=== PATIENT | female | born 1950 | race Caucasian/White ===

== ENCOUNTER 2023-04-27 13:42 | Inpatient (IN) | payer MEDICARE ==
--- NOTE | 2023-04-27 13:53 | ED ---
General Adult HPI - General Chief complaint: Shortness of Breath Stated complaint: Weakness Time Seen by Provider: 04/27/23 13:42 Source: patient, EMS, RN notes reviewed, old records reviewed Mode of arrival: EMS - History of Present Illness Initial comments: This is a 72-year-old female who presents to the emergency department with a history of COPD. Patient had difficulty breathing was sent over to [facility] to evaluate her Basha put her on BiPAP and determined she was having exacerbation of COPD. They gave her steroids multiple treatments and transferred to our facility. Patient currently is off the BiPAP because she could not tolerate the mask and EMS gave her show she is willing to try it again here. Patient states she is feeling better but she still little bit short of breath but patient denies any chest pain now but according to EMS she did have some chest pain earlier. Patient denies any abdominal pain patient has nausea vomiting diarrhea. Patient denies any fever or chills. EMS stated that they tested her for influenza and COVID and she was negative. - Related Data Allergies Allergy/AdvReac Type Severity Reaction Status Date / Time No Known Allergies Allergy Verified 04/27/23 13:51 Review of Systems ROS Statement: Those systems with pertinent positive or pertinent negative responses have been documented in the HPI. ROS Other: All systems not noted in ROS Statement are negative. Past Medical History Past Medical History: COPD Additional Past Medical History / Comment(s): Emphysema Additional Past Surgical History / Comment(s): Breast implants Past Psychological History: Anxiety Smoking Status: Former smoker Past Alcohol Use History: None Reported Past Drug Use History: None Reported General Exam - General Exam Comments Initial Comments: GENERAL: Patient is well-developed and well-nourished. Patient is nontoxic and well- hydrated and is in mild distress. ENT: Neck is soft and supple. No significant lymphadenopathy is noted. Oropharynx is clear. Moist mucous membranes. Neck has full range of motion without eliciting any pain. EYES: The sclera were anicteric and conjunctiva were pink and moist. Extraocular movements were intact and pupils were equal round and reactive to light. Eyelids were unremarkable. PULMONARY: Decreased breath sounds CARDIOVASCULAR: Patient is tachycardic at 120 beats a minute ABDOMEN: Soft and nontender with normal bowel sounds. SKIN: Skin is clear with no lesions or rashes and otherwise unremarkable. NEUROLOGIC: Patient is alert and oriented x3. Cranial nerves II through XII are grossly intact. Motor and sensory are also intact. Normal speech, volume and content. Symmetrical smile. MUSCULOSKELETAL: Normal extremities with adequate strength and full range of motion. LYMPHATICS: No significant lymphadenopathy is noted PSYCHIATRIC: Normal psychiatric evaluation. Course Vital Signs 04/27/23 04/27/23 04/27/23 13:45 13:52 14:06 Temperature 98.5 F Pulse Rate 133 H Respiratory 26 H 36 H Rate Blood Pressure 143/80 O2 Sat by Pulse 90 L Oximetry Fraction of 50 Inspired Oxygen (FIO2) 04/27/23 04/27/23 04/27/23 14:23 14:31 14:33 Temperature Pulse Rate 124 H 123 H 120 H Respiratory 35 H 34 H Rate Blood Pressure 131/71 131/72 O2 Sat by Pulse 94 L 96 Oximetry Fraction of Inspired Oxygen (FIO2) 04/27/23 15:05 Temperature Pulse Rate 130 H Respiratory 28 H Rate Blood Pressure 145/92 O2 Sat by Pulse 95 Oximetry Fraction of Inspired Oxygen (FIO2) Medical Decision Making - Medical Decision Making EKG is interpreted by myself. EKG shows sinus tachycardia at 122 bpm LA interval is 130 QRS is 82 QT interval 337 QTc is 410. Patient's EKG shows no ST segment elevation or depression. Was pt. sent in by a medical professional or institution (, PA, NUTRITION COUNSELOR, urgent ca re, hospital, or longterm...) When possible be specific @ -Patient was sent to us by [facility] Did you speak to anyone other than the patient for history (EMS, parent, family, police, friend...)? What history was obtained from this source @ -I spoke with the ER doc [facility] Did you review nursing and triage notes (agree or disagree)? Why? @ -I reviewed and agree with nursing and triage notes Were old charts reviewed (outside hosp., previous admission, EMS record, old EKG, old radiological studies, urgent care reports/EKG's, longterm records)? Report findings @ -I reviewed prior lab work prior charts and prior x-rays on this patient Differential Diagnosis (chest pain, altered mental status, abdominal pain women, abdominal pain men, vaginal bleeding, weakness, fever, dyspnea, syncope, headache, dizziness, GI bleed, back pain, seizure, CVA, palpatations, mental health, musculoskeletal)? @ -Differential Dyspnea: Coronary syndrome, arrhythmia, tamponade, asthma, COPD, pulmonary embolism, pneumonia, pneumothorax, pulmonary effusion, anaphylaxis, diabetic ketoacidosis, flailed chest, pulmonary contusion, diaphragmatic rupture, anemia, neuromuscu lar, this is not meant to be an all-inclusive list. EKG interpreted by me (3pts min.). @ -As above X-rays interpreted by me (1pt min.). @ -None done CT interpreted by me (1pt min.). @ -None done U/S interpreted by me (1pt. min.). @ -None done What testing was considered but not performed or refused? (CT, X-rays, U/S, labs)? Why? @ -None What meds were considered but not given or refused? Why? @ -None Did you discuss the management of the patient with other professionals (professionals i.e. , PA, NUTRITION COUNSELOR, lab, RT, psych nurse, social group worker, health technician hearing, teacher, investment officer, lining caser)? Give summary @ [facility] Spoke with Dr. Robles admitted the patient to the ICU. Was smoking cessation discussed for >3mins.? @ -No Was critical care preformed (if so, how long)? @ -35 minutes Were there social determinants of health that impacted care today? How? (Homelessness, low income, unemployed, alcoholism, drug addiction, transportation, low edu. Level, literacy, decrease access to med. care, halfway, rehab)? @ -No Was there de-escalation of care discussed even if they declined (Discuss DNR or withdrawal of care, Hospice)? DNR status @ -No What co-morbidities impacted this encounter? (DM, HTN, Smoking, COPD, CAD, Cancer, CVA, ARF, Chemo, Hep., AIDS, mental health diagnosis, sleep apnea, morbid obesity)? @ -None Was patient admitted / discharged? Hospital course, mention meds given and route, prescriptions, significant lab abnormalities, going to OR and other pertinent info. @ -Patient received albuterol Atrovent treatment in the emergency department as well as steroids. Patient was also placed on BiPAP stating that she felt more comfortable with her breathing but she did not like the BiPAP. Patient was given 0.5 of Ativan. I spoke with [facility] hospitalist they are willing to admit the patient admit the patient Boutt admitting or psych consult of Dr. Robles. Patient also received antibiotics in the emergency department. Undiagnosed new problem with uncertain prognosis? @ -No Drug Therapy requiring intensive monitoring for toxicity (Heparin, Nitro, Insulin, Cardizem)? @ -No Were any procedures done? @ -No Diagnosis/symptom? @ -Exacerbation of COPD Acute, or Chronic, or Acute on Chronic? @ -Acute Uncomplicated (without systemic symptoms) or Complicated (systemic symptoms)? @ -Complicated Side effects of treatment? @ -No Exacerbation, Progression, or Severe Exacerbation? @ -Severe exacerbation Poses a threat to life or bodily function? How? (Chest pain, [place], [place], pneumonia, PE, COPD, DKA, ARF, appy, cholecystitis, CVA, Diverticulitis, Homicidal, Suicidal, threat to staff... and all critical care pts) @ -Yes hypoxia can lead to end organ dysfunction - Lab Data Lab Results 04/27/23 04/27/23 04/27/23 Range/Units 13:53 14:01 14:20 PT 10.8 (10.0-12.5) sec INR 1.0 (<1.2) ABG pH 7.24 L (7.35-7.45) ABG pCO2 107 H* (35-45) mmHg ABG pO2 167 H (83-108) mmHg ABG HCO3 45 H* (21-25) mmol/L ABG Total CO2 49 H (19-24) mmol/L ABG O2 Saturation 99.4 H (94-97) % ABG Base Excess 17.9 mmol/L [place] Test Yes Magnesium (1.6-2.3) mg/dL Troponin I <0.012 (0.000-0.034) ng/mL 04/27/23 Range/Units 14:20 PT (10.0-12.5) sec INR (<1.2) ABG pH (7.35-7.45) ABG pCO2 (35-45) mmHg ABG pO2 (83-108) mmHg ABG HCO3 (21-25) mmol/L ABG Total CO2 (19-24) mmol/L ABG O2 Saturation (94-97) % ABG Base Excess mmol/L [place] Test Magnesium 2.2 (1.6-2.3) mg/dL Troponin I (0.000-0.034) ng/mL Critical Care Time Critical Care Time: Yes Total Critical Care Time: 35 Disposition Clinical Impression: COPD exacerbation Disposition: ADMITTED IP TO THIS HOSP Referrals: Kevyn Jauregui MD [REFERRING] - 1-2 days Time of Disposition: 15:21
[2023-04-27 14:02] LABS: ABG Base Excess 17.9 mmol/L; ABG Oxygen Saturation 99.4 % (94-97); ABG PH 7.24 (7.35-7.45); ABG PO2 167 mmHg (83-108); ABG TCO2 49 mmol/L (19-24); Allen Test Performed? Yes
[2023-04-27] MEDS: IPRATROPIUM-ALBUTEROL 3 ML NEB INHALATION STA (14:23)
[2023-04-27] MEDS: methylPREDNISolone SOD SUCCI 125 MG/2 ML VIAL IV STA (14:30)
[2023-04-27 14:40] LABS: Prothrombin Time 10.8 sec (10.0-12.5)
[2023-04-27 14:55] LABS: Magnesium 2.2 mg/dL (1.6-2.3)
[2023-04-27 15:04] LABS: ABG HCO3 45 mmol/L (21-25); ABG PCO2 107 mmHg (35-45)
[2023-04-27] MEDS: LORazepam 2 MG/ML INJ IV STA (15:13)
[2023-04-27] MEDS ORDERED: NALOXONE 0.4 MG/ML 1 ML VIAL IVP PRN ×2 (15:21→15:42)
[2023-04-27 15:26] LABS: ABG Base Excess 16.7 mmol/L; ABG Oxygen Saturation 96.4 % (94-97); ABG PH 7.28 (7.35-7.45); ABG PO2 87 mmHg (83-108); ABG TCO2 46 mmol/L (19-24); Allen Test Performed? Yes
[2023-04-27 15:31] LABS: ABG HCO3 43 mmol/L (21-25); ABG PCO2 92 mmHg (35-45)
[2023-04-27] MEDS ORDERED: ACETAMINOPHEN TAB 325 MG TAB PO PRN (15:42)
[2023-04-27] MEDS ORDERED: BENZONATATE 100 MG CAP PO PRN (15:42)
--- NOTE | 2023-04-27 16:07 | XR ---
EXAMINATION TYPE: XR chest 1V portable DATE OF EXAM: 04/27/2023 COMPARISON: NONE HISTORY: Respiratory failure TECHNIQUE: Single frontal view of the chest is obtained. FINDINGS: There is no airspace/consolidative opacity or abnormal interstitial opacity. There does appear to be hyperinflation consistent with COPD. Heart and pulmonary vasculature are normal for the technique. There is no pleural effusion or pneumot horax. The osseous structures are intact although there is moderate degenerative change of the right glenohu meral joint. IMPRESSION: 1. No definite acute cardiopulmonary disease. 2. probable COPD.
[2023-04-27] MEDS: IPRATROPIUM-ALBUTEROL 3 ML NEB INHALATION SCH (16:08)
[2023-04-27 16:33] LABS: African American GFR (CKD) >90 (>60 ml/min/1.73 sqM); Blood Urea Nitrogen 21 mg/dL (7-17); Calcium 9.5 mg/dL (8.4-10.2); Chloride 94 mmol/L (98-107); Glucose 149 mg/dL (74-99); Non-African American GFR(CKD) >90 (>60 ml/min/1.73 sqM); Potassium 4.3 mmol/L (3.5-5.1); Sodium 141 mmol/L (137-145)
[2023-04-27] MEDS: SODIUM CHLORIDE 0.9% 1,000 ML IV SCH (16:38)
[2023-04-27 16:39] LABS: Anion Gap 5 mmol/L
[2023-04-27 16:57] LABS: Carbon Dioxide 42 mmol/L (22-30)
[2023-04-27 17:27] LABS: Basophils % (A) 0 %; Eosinophils % (A) 0 %; HCT 38.7 % (34.0-46.0); HGB 11.7 gm/dL (11.4-16.0); Hypochromasia Marked; Lymphocytes # (A) 0.2 k/uL (1.0-4.8); Lymphocytes % (A) 1 %; MCHC 30.4 g/dL (31.0-37.0); Mean Platelet Volume 8.5; Monocytes # (A) 0.1 k/uL (0-1.0); Monocytes % (A) 1 %; Neutrophils # (A) 11.9 k/uL (1.3-7.7); Neutrophils % (A) 97 %; Platelet Count 325 k/uL (150-450); RBC 4.35 m/uL (3.80-5.40); RDW 14.2 % (11.5-15.5); WBC 12.3 k/uL (3.8-10.6)
[2023-04-27] MEDS ORDERED: ZINC OXIDE PASTE (Z-GUARD) 1 APPLIC TOPICAL PRN (17:54)
[2023-04-27 18:00] LABS: Glucose,Whole Blood 207 mg/dL (70-110)
[2023-04-27] MEDS: BUDESONIDE 0.5 MG/2 ML NEBU INHALATION SCH (19:33)
[2023-04-27] MEDS: DOXYCYCLINE 100 MG CAP PO SCH (21:21)
[2023-04-27] MEDS: guaiFENesin 600 MG TABLET.ER PO SCH (21:21)
[2023-04-27] MEDS: MORPHINE SULFATE 2 MG/ML SYRINGE IVP PRN (21:24)
[2023-04-27] MEDS: AMOXIC-POT CLAV 875-125MG 1 EACH TAB PO SCH (23:28)
[2023-04-28] MEDS: methylPREDNISolone SOD SUCCI 125 MG/2 ML VIAL IV SCH (00:20)
[2023-04-28] MEDS: ONDANSETRON 4 MG/2 ML VIAL IVP PRN (00:25)
--- NOTE | 2023-04-28 00:37 | P.CNPUL ---
History of Present Illness Consult date: 04/28/23 Requesting physician: Marleen Neri Reason for consult: COPD Chief complaint: Shortness of breath History of present illness: I have seen this patient in new consultation today April 28, 2023 after she was transferred from [facility] for suspected acute COPD exacerbation. Patient is a 72-year-old female with past medical history significant for advanced oxygen dependent COPD, who follows with a Dr. Dejan Peter, a mechanical engineering coop out of [facility] system. Patient utilizes a combination of Symbicort and Spiriva inhalers as well as an as needed albuterol nebs. She is oxygen dependent maintained on 5 L/min nasal cannula 14/10. She quit smoking over 10 years ago. Patient has been living at [facility], and states that the staff taking care of her have been sick. Has been complaining of increasing worsening shortness of breath over the last couple months with greater severity over the last week. She does endorse a cough with yellow sputum production and chest congestion. Denies any fevers. Denies any chest pain, heart palpitations, lightheadedness, syncope, lower extremity swelling. She presented to [facility] emergency room yesterday with above-mentioned symptoms. She was found to be hypercapnic, and was placed on BiPAP. She did test negative for influenza and COVID at outside facility. Patient was then transferred to our facility yesterday afternoon for a higher level of care. She is currently in the intensive care unit, she is on BiPAP with settings 14/6 and FiO2 of 50%. She is alert and answers my questions appropriately. Her respiratory rate is in the mid 20s to 30s. She is achieving tidal volumes of around 250. Last ABG shows a pO2 of 87, pCO2 of 92, pH of 7.28. This was done on the above-mentioned settings. This is a slight improvement from earlier. Follow-up chest x-ray shows hyperinflation and flattened diaphragms consistent with COPD. Does not show any acute infiltrates. CBC on arrival has a WC count of 12.3, hemoglobin 11.7, hematocrit 38.7, platelets 325. BMP on arrival to our facility: Sodium 141, potassium 4.3, chloride 94, serum bicarb 42, BUN 21, creatinine 0.57, glucose 149. Normal saline is infusing at 75 mL/h. Troponin less than 0.072. Patient has been started on empiric antibiotics. She has multiple antibiotic allergies. She is also receiving a combination of bronchodilators, budesonide elation, formoterol inhalation, and IV Solu-Medrol. She continues to have a productive cough. She is afebrile. Overall prognosis is guarded related to above-mentioned comorbidities. Review of Systems REVIEW OF SYSTEMS: CONSTITUTIONAL: Denies any recent significant weight loss or weight gain. EYES: Denies change in vision. EARS, NOSE, MOUTH, THROAT: Denies headaches, denies sore throat. CARDIOVASCULAR: Denies chest pain, palpitations or syncopal episodes. RESPIRATORY: see HPI GASTROINTESTINAL: Denies change in appetite, abdominal pain, nausea and vomiting, or diarrhea GENITOURINARY: Denies hematuria, denies infections. MUSKULOSKELETAL: Denies pain, denies swelling. INTEGUMENTARY: Denies rash, denies eczema. NEUROLOGICAL: Denies recent memory loss, no recent seizure activity. PSYCHIATRIC: Denies anxiety, denies depression. HEMATOLOGIC/LYMPHATIC: Denies anemia, denies enlarged lymph node Past Medical History Past Medical History: COPD Additional Past Medical History / Comment(s): Emphysema History of Any Multi-Drug Resistant Organisms: None Reported Additional Past Surgical History / Comment(s): Breast implants Past Anesthesia/Blood Transfusion Reactions: No Reported Reaction Past Psychological History: Anxiety Smoking Status: Former smoker Past Alcohol Use History: None Reported Past Drug Use History: None Reported Medications and Allergies Home Medications Medication Instructions Recorded Confirmed Type Acetaminophen Tab [Tylenol] 650 mg PO Q6H PRN 04/27/23 04/27/23 History Albuterol Inhaler [Ventolin Hfa 2 puff INHALATION RT-Q4H PRN 04/27/23 04/27/23 History Inhaler] Aspirin EC [Ecotrin Low Dose] 81 mg PO DAILY 04/27/23 04/27/23 History Benzocaine 20 % Gel [Orajel] 1 applic DENTAL Q6H PRN 04/27/23 04/27/23 History Benzonatate [Tessalon Perles] 100 mg PO TID PRN 04/27/23 04/27/23 History Budesonide/Formoterol Fumarate 2 puff INHALATION RT-BID 04/27/23 04/27/23 History [Symbicort 160-4.5 Mcg Inhaler] Calcium Carbonate [Tums] 500 mg PO Q4H PRN 04/27/23 04/27/23 History Cholecalciferol [Vitamin D3 (125 125 mcg PO DAILY 04/27/23 04/27/23 History Mcg = 5000 Iu)] Diclofenac Sodium Gel [Voltaren 1% 2 gm TOPICAL Q6H PRN 04/27/23 04/27/23 History Gel] Docusate [Colace] 100 mg PO BID 04/27/23 04/27/23 History Fluticasone Nasal [place] [Flonase 1 spray EA NOSTRIL Q12H PRN 04/27/23 04/27/23 History Nasal [place]] Ipratropium-Albuterol Nebulize 3 ml INHALATION RT-Q6H PRN 04/27/23 04/27/23 History [Duoneb 0.5 mg-3 mg/3 ml Soln] L.acidoph,Paracasei, B.lactis 1 cap PO DAILY 04/27/23 04/27/23 History [Probiotic] LORazepam [Ativan] 1 mg PO TID 04/27/23 04/27/23 History Magnesium Hydroxide [Milk of 2,400 mg PO DAILY PRN 04/27/23 04/27/23 History Magnesia] Multivitamins, Thera [Multivitamin 1 tab PO DAILY 04/27/23 04/27/23 History (formulary)] Omeprazole 20 mg PO DAILY 04/27/23 04/27/23 History Promethazine HCl 12.5 mg PO Q6H PRN 04/27/23 04/27/23 History Sodium Chloride [Saline Mist] 1 spray EA NOSTRIL TID 04/27/23 04/27/23 History Sucralfate [Carafate] 1 gm PO TID 04/27/23 04/27/23 History Tiotropium [place] [Spiriva] 18 mcg INHALATION RT-DAILY 04/27/23 04/27/23 History busPIRone HCL 15 mg PO BID 04/27/23 04/27/23 History polyethylene glycoL 3350 [Miralax] 17 gm PO DAILY PRN 04/27/23 04/27/23 History predniSONE 5 mg PO DIRECTED 04/27/23 04/27/23 History predniSONE See Taper PO DIRECTED 04/27/23 04/27/23 History traZODone HCL [Desyrel] 50 mg PO HS 04/27/23 04/27/23 History Allergies Allergy/AdvReac Type Severity Reaction Status Date / Time azithromycin Allergy Rash/Hives Verified 04/27/23 23:52 levofloxacin [From Levaquin] Allergy Dyspnea Verified 04/27/23 23:52 Penicillins Allergy Dyspnea Verified 04/27/23 23:52 tetracycline Allergy Unknown Verified 04/27/23 23:54 Physical Exam Vitals: Vital Signs Temp Pulse Resp BP Pulse Ox FiO2 04/27/23 23:01 50 04/27/23 23:00 96 17 123/63 96 04/27/23 22:00 95 31 H 139/70 94 L 04/27/23 21:00 105 H 35 H 140/79 94 L 04/27/23 20:00 98.4 F 108 H 33 H 117/69 95 50 04/27/23 19:47 99 04/27/23 19:36 97 50 04/27/23 19:00 101 H 24 114/72 96 04/27/23 18:00 109 H 25 H 119/73 96 04/27/23 17:50 98.7 F 115 H 34 H 119/73 96 50 04/27/23 17:00 117 H 26 H 122/71 94 L 04/27/23 16:45 116 H 23 142/77 93 L 04/27/23 16:30 124 H 23 128/69 94 L 04/27/23 16:19 113 H 50 04/27/23 16:15 123 H 21 114/65 94 L 04/27/23 16:08 112 H 04/27/23 16:00 125 H 22 127/75 94 L 04/27/23 15:45 98.0 F 123 H 24 131/74 93 L 04/27/23 15:05 130 H 28 H 145/92 95 04/27/23 14:33 120 H 04/27/23 14:31 123 H 34 H 131/72 96 04/27/23 14:23 124 H 35 H 131/71 94 L 04/27/23 14:06 50 04/27/23 13:52 36 H 04/27/23 13:45 98.5 F 133 H 26 H 143/80 90 L Intake and Output 04/27/23 04/27/23 04/28/23 14:59 22:59 06:59 Intake Total 450 75 Output Total 0 0 Balance 450 75 Intake: IV 450 75 Sodium Chloride 0.9% 1, 450 75 000 ml @ 75 mls/hr IV . [id number] [facility] Rx#:[id number] Output: Urine 0 0 Other: Voiding Method Incontinent External Catheter # Voids 1 # Bowel Movements 1 Weight 74.843 kg 74.843 kg GENERAL EXAM: Alert, 72-year-old white female, fairly comfortable in no apparent distress on BiPAP. HEAD: Normocephalic and atraumatic EYES: Normal reaction of pupils, equal size. NOSE: Clear with pink turbinates. THROAT: No erythema or exudates. NECK: No masses, no JVD. CHEST: No chest wall deformity. LUNGS: Equal air entry with expiratory wheezes heard throughout. On BiPAP with settings 14/6 and FiO2 of 50%. She is tachypneic. No conversational dyspnea or accessory muscle use.. CVS: S1 and S2 normal with no audible murmur, regular rhythm. No extra heart sounds ABDOMEN: No hepatosplenomegaly, active bowel sounds, no guarding or rigidity. SPINE: No scoliosis or deformity SKIN: No rashes CENTRAL NERVOUS SYSTEM: No focal deficits, tone is normal in all 4 extremities. EXTREMITIES: There is no peripheral edema, clubbing, or cyanosis. Peripheral pulses are intact. Results - Laboratory Findings CBC and BMP: 04/27/23 16:36 04/27/23 14:20 ABG ABG pH 7.28 (7.35-7.45) L 04/27/23 15:24 ABG pCO2 92 mmHg (35-45) H* 04/27/23 15:24 ABG pO2 87 mmHg (83-108) 04/27/23 15:24 ABG O2 Saturation 96.4 % (94-97) 04/27/23 15:24 PT/INR, D-dimer PT 10.8 sec (10.0-12.5) 04/27/23 14:20 INR 1.0 (<1.2) 04/27/23 14:20 Abnormal lab findings: Abnormal Labs 04/27/23 04/27/23 04/27/23 13:53 14:20 15:24 WBC MCHC Neutrophils # Lymphocytes # ABG pH 7.24 L 7.28 L ABG pCO2 107 H* 92 H* ABG pO2 167 H ABG HCO3 45 H* 43 H* ABG Total CO2 49 H 46 H ABG O2 Saturation 99.4 H Chloride 94 L Carbon Dioxide 42 H* BUN 21 H Glucose 149 H POC Glucose (mg/dL) 04/27/23 04/27/23 16:36 17:58 WBC 12.3 H MCHC 30.4 L Neutrophils # 11.9 H Lymphocytes # 0.2 L ABG pH ABG pCO2 ABG pO2 ABG HCO3 ABG Total CO2 ABG O2 Saturation Chloride Carbon Dioxide BUN Glucose POC Glucose (mg/dL) 207 H - Diagnostic Findings Chest x-ray: image reviewed Assessment and Plan Assessment: Acute on chronic hypoxemic and hypercapnic respiratory failure, currently on BiPAP, secondary to acute COPD exacerbation. Chest x-ray shows hyperinflation with flattened diaphragms consistent with COPD. No acute infiltrates or evidence of pneumonia. Negative for influenza and COVID at outside facility. Severe COPD with chronic hypoxemic respiratory failure, normally maintained on 5 L/min nasal cannula 14/10; also utilizes accommodation of Symbicort inhaler, Spiriva inhaler, DuoNebs and as needed Ventolin rescue inhaler Generalized anxiety disorder Former tobacco dependence Plan: Patient's medications, labs, chest x-ray reviewed Will continue on the BiPAP overnight, I did augment the patient's BiPAP pressures to 16/6, may wean FiO2 as tolerated. Continue combination of DuoNebs, formoterol inhalation, budesonide inhalation, and IV Solu-Medrol. Continue current empiric antibiotics, patient has multiple antibiotic allergies. Rule out RSV. Negative for influenza and COVID at outside facility Check procalcitonin level Heparin for DVT prophylaxis and Protonix for GI prophylaxis. Patient will be monitored in the intensive care unit at this time. Patient's condition is currently labile, and hopefully will not require intubation. Prognosis is guarded. Will continue to follow, and additional recommendations are forthcoming. I have personally seen and examined the patient, performed the documentation and the assessment and plan as written. Number of minutes spent on the visit:20 Time with Patient: Greater than 30
[2023-04-28 04:17] LABS: Glucose,Whole Blood 123 mg/dL (70-110)
[2023-04-28 05:06] LABS: HCT 34.7 % (34.0-46.0); Hypochromasia Marked; MCH 26.2 pg (25.0-35.0); MCHC 28.8 g/dL (31.0-37.0); Mean Platelet Volume 8.3; Platelet Count 271 k/uL (150-450); RBC 3.81 m/uL (3.80-5.40); RDW 13.9 % (11.5-15.5)
[2023-04-28 05:38] LABS: African American GFR (CKD) >90 (>60 ml/min/1.73 sqM); Blood Urea Nitrogen 25 mg/dL (7-17); C Reactive Protein 8.6 mg/dL (<1.0); Calcium 8.9 mg/dL (8.4-10.2); Chloride 98 mmol/L (98-107); Glucose 117 mg/dL (74-99); Non-African American GFR(CKD) >90 (>60 ml/min/1.73 sqM); Potassium 4.8 mmol/L (3.5-5.1); Sodium 140 mmol/L (137-145)
[2023-04-28 05:42] LABS: Anion Gap 3 mmol/L
[2023-04-28 05:54] LABS: Carbon Dioxide 39 mmol/L (22-30)
[2023-04-28] MEDS ORDERED: MAGNESIUM HYDROXIDE 2,400 MG/30 ML CUP PO PRN (06:43)
[2023-04-28] MEDS ORDERED: NON FORMULARY DRUG (Tiotropium Bromide [Spiriva Handihaler] 18 MCG Cap.W.Dev) INHALATION SCH (08:00)
--- NOTE | 2023-04-28 08:20 | P.HPIM ---
History of Present Illness this is a pleasant 72 years old female with past medical hisotry of COPD ,she is on 5 literof oxygen at home , she follows up with tape maker at [facility] dr. anju richards She presents because of worsening shortness of breath with chest tightness and pressures and cough with yellow Pflaum for the last 4 days She was transferred from [facility]. Patient could not tolerate BiPAP there and POC to was significantly elevated at 93 Currently she is awake alert, she is on BiPAP in the ICU. Sitting BiPAP R 16/6 with FiO2 of 50% She's also normal saline 75 mL/h She denies any abdominal pain vomiting or diarrhea. No change in urine habits. No dizziness. She's complains from the distal headache and generalized weakness but no lateralization She is on 5 mg of prednisone at home Patient currently on BiPAP as above Labs reviewed her hemoglobin is 10, still CBC is unremarkable. BMP is unremarkable but pCO2 is elevated at 39 Kelsea Lowe 7.2, pCO2 is high 92 and sodium bicarb is 543 Patient has positive RSV virus test CRP is elevated at 0.6 Chest x-ray shows COPD with mild right pleural effusion EKG shows sinus tachycardia at [address]-T changes. Currently patient is on ceftriaxone, doxycycline, Solu-Medrol 60 mg of normal saline 75 mL/h Review of Systems Review of systems CONSTITUTIONAL: No fever, no malaise, no fatigue. HEENT: No recent visual problems or hearing problems. Denied any sore throat. CARDIOVASCULAR: No orthopnea, PND, no palpitations, no syncope. PULMONARY: No chest wall tenderness Gastrointestinal: No diarrhea, no nausea, no vomiting, no abdominal pain. Normoactive bowel sounds. NEUROLOGICAL: No headaches, no weakness, no numbness. HEMATOLOGICAL: Denies any bleeding or petechiae. GENITOURINARY: Denies any burning micturition, frequency, or urgency. MUSCULOSKELETAL/RHEUMATOLOGICAL: Denies any joint pain, swelling, or any muscle pain. ENDOCRINE: Denies any polyuria or polydipsia. Past Medical History Past Medical History: COPD Additional Past Medical History / Comment(s): Emphysema History of Any Multi-Drug Resistant Organisms: None Reported Additional Past Surgical History / Comment(s): Breast implants Past Anesthesia/Blood Transfusion Reactions: No Reported Reaction Past Psychological History: Anxiety Smoking Status: Former smoker Past Alcohol Use History: None Reported Past Drug Use History: None Reported Medications and Allergies Home Medications Medication Instructions Recorded Confirmed Type Acetaminophen Tab [Tylenol] 650 mg PO Q6H PRN 04/27/23 04/27/23 History Albuterol Inhaler [Ventolin Hfa 2 puff INHALATION RT-Q4H PRN 04/27/23 04/27/23 History Inhaler] Aspirin EC [Ecotrin Low Dose] 81 mg PO DAILY 04/27/23 04/27/23 History Benzocaine 20 % Gel [Orajel] 1 applic DENTAL Q6H PRN 04/27/23 04/27/23 History Benzonatate [Tessalon Perles] 100 mg PO TID PRN 04/27/23 04/27/23 History Budesonide/Formoterol Fumarate 2 puff INHALATION RT-BID 04/27/23 04/27/23 History [Symbicort 160-4.5 Mcg Inhaler] Calcium Carbonate [Tums] 500 mg PO Q4H PRN 04/27/23 04/27/23 History Cholecalciferol [Vitamin D3 (125 125 mcg PO DAILY 04/27/23 04/27/23 History Mcg = 5000 Iu)] Diclofenac Sodium Gel [Voltaren 1% 2 gm TOPICAL Q6H PRN 04/27/23 04/27/23 History Gel] Docusate [Colace] 100 mg PO BID 04/27/23 04/27/23 History Fluticasone Nasal [place] [Flonase 1 spray EA NOSTRIL Q12H PRN 04/27/23 04/27/23 History Nasal [place]] Ipratropium-Albuterol Nebulize 3 ml INHALATION RT-Q6H PRN 04/27/23 04/27/23 History [Duoneb 0.5 mg-3 mg/3 ml Soln] L.acidoph,Paracasei, B.lactis 1 cap PO DAILY 04/27/23 04/27/23 History [Probiotic] LORazepam [Ativan] 1 mg PO TID 04/27/23 04/27/23 History Magnesium Hydroxide [Milk of 2,400 mg PO DAILY PRN 04/27/23 04/27/23 History Magnesia] Multivitamins, Thera [Multivitamin 1 tab PO DAILY 04/27/23 04/27/23 History (formulary)] Omeprazole 20 mg PO DAILY 04/27/23 04/27/23 History Promethazine HCl 12.5 mg PO Q6H PRN 04/27/23 04/27/23 History Sodium Chloride [Saline Mist] 1 spray EA NOSTRIL TID 04/27/23 04/27/23 History Sucralfate [Carafate] 1 gm PO TID 04/27/23 04/27/23 History Tiotropium [place] [Spiriva] 18 mcg INHALATION RT-DAILY 04/27/23 04/27/23 History busPIRone HCL 15 mg PO BID 04/27/23 04/27/23 History polyethylene glycoL 3350 [Miralax] 17 gm PO DAILY PRN 04/27/23 04/27/23 History predniSONE 5 mg PO DIRECTED 04/27/23 04/27/23 History predniSONE See Taper PO DIRECTED 04/27/23 04/27/23 History traZODone HCL [Desyrel] 50 mg PO HS 04/27/23 04/27/23 History Allergies Allergy/AdvReac Type Severity Reaction Status Date / Time azithromycin Allergy Rash/Hives Verified 04/27/23 23:52 levofloxacin [From Levaquin] Allergy Dyspnea Verified 04/27/23 23:52 Penicillins Allergy Dyspnea Verified 04/27/23 23:52 tetracycline Allergy Unknown Verified 04/27/23 23:54 Physical Exam Vitals: Vital Signs Temp Pulse Resp BP Pulse Ox FiO2 04/28/23 06:00 87 21 105/62 94 L 04/28/23 05:00 72 22 117/57 95 04/28/23 04:00 97.5 F L 76 19 105/61 95 50 04/28/23 03:05 50 04/28/23 03:00 77 19 104/55 04/28/23 02:00 80 21 109/62 93 L 04/28/23 01:00 87 25 H 126/64 91 L 04/28/23 00:00 97.9 F 86 31 H 95 50 04/27/23 23:26 82 31 H 129/72 95 04/27/23 23:01 50 04/27/23 23:00 96 17 123/63 96 04/27/23 22:00 95 31 H 139/70 94 L 04/27/23 21:00 105 H 35 H 140/79 94 L 04/27/23 20:00 98.4 F 108 H 33 H 117/69 95 50 04/27/23 19:47 99 04/27/23 19:36 97 50 04/27/23 19:00 101 H 24 114/72 96 04/27/23 18:00 109 H 25 H 119/73 96 04/27/23 17:50 98.7 F 115 H 34 H 119/73 96 50 04/27/23 17:00 117 H 26 H 122/71 94 L 04/27/23 16:45 116 H 23 142/77 93 L 04/27/23 16:30 124 H 23 128/69 94 L 04/27/23 16:19 113 H 50 04/27/23 16:15 123 H 21 114/65 94 L 04/27/23 16:08 112 H 04/27/23 16:00 125 H 22 127/75 94 L 04/27/23 15:45 98.0 F 123 H 24 131/74 93 L 04/27/23 15:05 130 H 28 H 145/92 95 04/27/23 14:33 120 H 04/27/23 14:31 123 H 34 H 131/72 96 04/27/23 14:23 124 H 35 H 131/71 94 L 04/27/23 14:06 50 04/27/23 13:52 36 H 04/27/23 13:45 98.5 F 133 H 26 H 143/80 90 L Intake and Output 04/27/23 04/27/23 04/28/23 14:59 22:59 06:59 Intake Total 450 625 Output Total 0 250 Balance 450 375 Intake: IV 450 625 Sodium Chloride 0.9% 1, 450 525 000 ml @ 75 mls/hr IV . [id number] [facility] Rx#:[id number] cefTRIAXone 1 gm In 100 Sodium Chloride 0.9% 50 ml @ 100 mls/hr IVPB Q24H [facility] Rx#:[id number] Output: Urine 0 250 Other: Voiding Method Incontinent Incontinent External Catheter External Catheter # Voids 1 1 # Bowel Movements 1 Weight 74.843 kg 74.843 kg 75.1 kg GENERAL: The patient is alert and oriented x3, not in any acute distress. Well developed, well nourished. HEENT: Pupils are round and equally reacting to light. EOMI. No scleral icterus. No conjunctival pallor. Normocephalic, atraumatic. No pharyngeal erythema. No thyromegaly. CARDIOVASCULAR: S1 and S2 present. No murmurs, rubs, or gallops. -PULMONARY: Bilateral limited air entry. Currently on BiPAP ABDOMEN: Soft, nontender, nondistended, normoactive bowel sounds. No palpable organomegaly. MUSCULOSKELETAL: No joint swelling or deformity. EXTREMITIES: No cyanosis, clubbing, or pedal edema. NEUROLOGICAL: Gross neurological examination did not reveal any focal deficits. SKIN: No rashes. no petechiae. Results CBC & Chem 7: 04/28/23 04:10 04/28/23 04:10 Labs: Abnormal Lab Results - Last 24 Hours (Table) 04/27/23 04/27/23 04/27/23 Range/Units 13:53 14:20 15:24 WBC (3.8-10.6) k/uL Hgb (11.4-16.0) gm/dL MCHC (31.0-37.0) g/dL Neutrophils # (1.3-7.7) k/uL Lymphocytes # (1.0-4.8) k/uL ABG pH 7.24 L 7.28 L (7.35-7.45) ABG pCO2 107 H* 92 H* (35-45) mmHg ABG pO2 167 H (83-108) mmHg ABG HCO3 45 H* 43 H* (21-25) mmol/L ABG Total CO2 49 H 46 H (19-24) mmol/L ABG O2 Saturation 99.4 H (94-97) % Chloride 94 L (98-107) mmol/L Carbon Dioxide 42 H* (22-30) mmol/L BUN 21 H (7-17) mg/dL Creatinine (0.52-1.04) mg/dL Glucose 149 H (74-99) mg/dL POC Glucose (mg/dL) (70-110) mg/dL C-Reactive Protein (<1.0) mg/dL RSV (PCR) (Negative) 04/27/23 04/27/23 04/28/23 Range/Units 16:36 17:58 00:05 WBC 12.3 H (3.8-10.6) k/uL Hgb (11.4-16.0) gm/dL MCHC 30.4 L (31.0-37.0) g/dL Neutrophils # 11.9 H (1.3-7.7) k/uL Lymphocytes # 0.2 L (1.0-4.8) k/uL ABG pH (7.35-7.45) ABG pCO2 (35-45) mmHg ABG pO2 (83-108) mmHg ABG HCO3 (21-25) mmol/L ABG Total CO2 (19-24) mmol/L ABG O2 Saturation (94-97) % Chloride (98-107) mmol/L Carbon Dioxide (22-30) mmol/L BUN (7-17) mg/dL Creatinine (0.52-1.04) mg/dL Glucose (74-99) mg/dL POC Glucose (mg/dL) 207 H (70-110) mg/dL C-Reactive Protein (<1.0) mg/dL RSV (PCR) Positive H (Negative) 04/28/23 04/28/23 04/28/23 Range/Units 04:10 04:10 04:14 WBC (3.8-10.6) k/uL Hgb 10.0 L D (11.4-16.0) gm/dL MCHC 28.8 L (31.0-37.0) g/dL Neutrophils # (1.3-7.7) k/uL Lymphocytes # (1.0-4.8) k/uL ABG pH (7.35-7.45) ABG pCO2 (35-45) mmHg ABG pO2 (83-108) mmHg ABG HCO3 (21-25) mmol/L ABG Total CO2 (19-24) mmol/L ABG O2 Saturation (94-97) % Chloride (98-107) mmol/L Carbon Dioxide 39 H (22-30) mmol/L BUN 25 H (7-17) mg/dL Creatinine 0.45 L (0.52-1.04) mg/dL Glucose 117 H (74-99) mg/dL POC Glucose (mg/dL) 123 H (70-110) mg/dL C-Reactive Protein 8.6 H (<1.0) mg/dL RSV (PCR) (Negative) Thrombosis Risk Factor Assmnt - Choose All That Apply Each Factor Represents 1 point: Abnormal pulmonary function (COPD), Medical pt on bed rest Other Risk Factors: Yes Each Risk Factor Represents 2 Points: Age 61-74 years Other congenital or acquired thrombophilia - If yes, enter type in comment: No Thrombosis Risk Factor Assessment Total Risk Factor Score: 4 Thrombosis Risk Factor Assessment Level: Moderate Risk Assessment and Plan Assessment: Acute COPD exacerbation Acute bronchitis, rule out bacterial superinfection Acute on chronic hypoxemic hypercapnic respiratory failure acute respiratory acidosis History of severe anxiety Plan: Continue with antibiotics, currently ceftriaxone, doxycycline. Follow-up pro-c alcitonin Continue with Solu-Medrol 60 mg Patient is an normal saline 75 mL/h Critical care and Pulmonary team consult Labs and medication were reviewed.. Continue same treatment. Continue with sym ptomatic treatment. Resume home medication. Monitor labs and vitals. DVT and GI prophylaxis. Further recommendations as per clinical course of the patient DVT prophylaxis: Subcutaneous heparin GI Prophylaxis: Ppi PT/OT: Pending Prognosis is guarded
[2023-04-28] MEDS: FORMOTEROL FUMARATE 20 MCG/2 ML NEBU INHALATION SCH (09:13)
[2023-04-28] MEDS: DOCUSATE 100 MG CAP PO SCH (09:34)
[2023-04-28] MEDS: HEPARIN SODIUM,PORCINE 5,000 UNIT/ML 1 ML VIAL SQ SCH (09:34)
[2023-04-28] MEDS: ASPIRIN 81 MG PO SCH (09:35)
[2023-04-28] MEDS: CHOLECALCIFEROL 125 MCG (5000 IU) TABLET PO SCH (09:35)
[2023-04-28] MEDS: SUCRALFATE 1 GM TAB PO SCH (09:35)
[2023-04-28] MEDS: LORazepam 1 MG TAB PO SCH (09:35)
[2023-04-28] MEDS: busPIRone HCl 5 MG TAB PO SCH (09:36)
[2023-04-28] MEDS: PANTOPRAZOLE 40 MG/10 ML VIAL IVP SCH (09:36)
[2023-04-28] MEDS: LORazepam 1 MG TAB PO STA (13:11)
--- NOTE | 2023-04-28 13:12 | P.CNPUL ---
History of Present Illness Consult date: 04/28/23 Reason for consult: dyspnea, COPD History of present illness: 73-year-old female patient with advanced COPD, who has been followed up by a spring repairer helper hand, Dr. Dejan Peter out of [facility]. The patient is chronically oxygen dependent at 5 L/min nasal cannula. She quit smoking approximately 10 years ago. She has been maintained on a combination of Spiriva and Symbicort on outpatient basis. She presented to the hospital because of worsening shortness of breath. I have seen and evaluated this patient in the past at [facility] for the same. Overnight, the patient was kept on the BiPAP as the patient had a component of acute hypercapnic respiratory failure with a pH of 7.28 and a pCO2 of 92 and pO2 of 87. She was started on bronchodilators and steroids. Chest x-ray shows hyperinflation without any airspace disease. She did have a troponin leak with a troponin of 0.072. She was started on broad-spectrum antibiotic coverage in addition to bronchodilators. She is also on a combination ofPerforomist and Pulmicort. She is tested positive for RSV. The patient this morning seems to be much more comfortable. While on the BiPAP pressure of 16 over 6 cm of water and FiO2 of 50%, she is able to generate a tidal volume of about 500 with a respiratory rate of 22. She is able to communicate. She is alert and oriented. She denies having any chest pain. Hemodynamically stable. White cell count is 8 with a hemoglobin of 10 and a platelet count of 271. BUN is at 25 with a creatinine 0.4. Procalcitonin level is at 0.28. Review of Systems CONSTITUTIONAL: Denies any recent significant weight loss or weight gain. EYES: Denies change in vision. EARS, NOSE, MOUTH, THROAT: Denies headaches, denies sore throat. CARDIOVASCULAR: Denies chest pain, palpitations or syncopal episodes. RESPIRATORY: see HPI GASTROINTESTINAL: Denies change in appetite, abdominal pain, nausea and vomiting, or diarrhea GENITOURINARY: Denies hematuria, denies infections. MUSKULOSKELETAL: Denies pain, denies swelling. INTEGUMENTARY: Denies rash, denies eczema. NEUROLOGICAL: Denies recent memory loss, no recent seizure activity. PSYCHIATRIC: Denies anxiety, denies depression. HEMATOLOGIC/LYMPHATIC: Denies anemia, denies enlarged lymph node Past Medical History Past Medical History: COPD Additional Past Medical History / Comment(s): Emphysema History of Any Multi-Drug Resistant Organisms: None Reported Additional Past Surgical History / Comment(s): Breast implants Past Anesthesia/Blood Transfusion Reactions: No Reported Reaction Past Psychological History: Anxiety Smoking Status: Former smoker Past Alcohol Use History: None Reported Past Drug Use History: None Reported Medications and Allergies Home Medications Medication Instructions Recorded Confirmed Type Acetaminophen Tab [Tylenol] 650 mg PO Q6H PRN 04/27/23 04/27/23 History Albuterol Inhaler [Ventolin Hfa 2 puff INHALATION RT-Q4H PRN 04/27/23 04/27/23 History Inhaler] Aspirin EC [Ecotrin Low Dose] 81 mg PO DAILY 04/27/23 04/27/23 History Benzocaine 20 % Gel [Orajel] 1 applic DENTAL Q6H PRN 04/27/23 04/27/23 History Benzonatate [Tessalon Perles] 100 mg PO TID PRN 04/27/23 04/27/23 History Budesonide/Formoterol Fumarate 2 puff INHALATION RT-BID 04/27/23 04/27/23 History [Symbicort 160-4.5 Mcg Inhaler] Calcium Carbonate [Tums] 500 mg PO Q4H PRN 04/27/23 04/27/23 History Cholecalciferol [Vitamin D3 (125 125 mcg PO DAILY 04/27/23 04/27/23 History Mcg = 5000 Iu)] Diclofenac Sodium Gel [Voltaren 1% 2 gm TOPICAL Q6H PRN 04/27/23 04/27/23 History Gel] Docusate [Colace] 100 mg PO BID 04/27/23 04/27/23 History Fluticasone Nasal [place] [Flonase 1 spray EA NOSTRIL Q12H PRN 04/27/23 04/27/23 History Nasal [place]] Ipratropium-Albuterol Nebulize 3 ml INHALATION RT-Q6H PRN 04/27/23 04/27/23 History [Duoneb 0.5 mg-3 mg/3 ml Soln] L.acidoph,Paracasei, B.lactis 1 cap PO DAILY 04/27/23 04/27/23 History [Probiotic] LORazepam [Ativan] 1 mg PO TID 04/27/23 04/27/23 History Magnesium Hydroxide [Milk of 2,400 mg PO DAILY PRN 04/27/23 04/27/23 History Magnesia] Multivitamins, Thera [Multivitamin 1 tab PO DAILY 04/27/23 04/27/23 History (formulary)] Omeprazole 20 mg PO DAILY 04/27/23 04/27/23 History Promethazine HCl 12.5 mg PO Q6H PRN 04/27/23 04/27/23 History Sodium Chloride [Saline Mist] 1 spray EA NOSTRIL TID 04/27/23 04/27/23 History Sucralfate [Carafate] 1 gm PO TID 04/27/23 04/27/23 History Tiotropium [place] [Spiriva] 18 mcg INHALATION RT-DAILY 04/27/23 04/27/23 History busPIRone HCL 15 mg PO BID 04/27/23 04/27/23 History polyethylene glycoL 3350 [Miralax] 17 gm PO DAILY PRN 04/27/23 04/27/23 History predniSONE 5 mg PO DIRECTED 04/27/23 04/27/23 History predniSONE See Taper PO DIRECTED 04/27/23 04/27/23 History traZODone HCL [Desyrel] 50 mg PO HS 04/27/23 04/27/23 History Allergies Allergy/AdvReac Type Severity Reaction Status Date / Time azithromycin Allergy Rash/Hives Verified 04/27/23 23:52 levofloxacin [From Levaquin] Allergy Dyspnea Verified 04/27/23 23:52 Penicillins Allergy Dyspnea Verified 04/27/23 23:52 tetracycline Allergy Unknown Verified 04/27/23 23:54 Physical Exam Vitals: Vital Signs Temp Pulse Resp BP Pulse Ox FiO2 04/28/23 13:01 88 16 04/28/23 12:52 90 16 40 04/28/23 12:36 50 04/28/23 11:00 75 12 117/64 97 50 04/28/23 10:00 85 22 110/62 97 04/28/23 09:36 92 16 04/28/23 09:26 92 18 04/28/23 09:14 87 18 50 04/28/23 09:00 79 16 121/71 98 04/28/23 08:00 97.6 F 86 19 116/69 97 50 04/28/23 07:00 78 24 124/68 97 04/28/23 06:00 87 21 105/62 94 L 04/28/23 05:00 72 22 117/57 95 04/28/23 04:00 97.5 F L 76 19 105/61 95 50 04/28/23 03:05 50 04/28/23 03:00 77 19 104/55 04/28/23 02:00 80 21 109/62 93 L 04/28/23 01:00 87 25 H 126/64 91 L 04/28/23 00:00 97.9 F 86 31 H 95 50 04/27/23 23:26 82 31 H 129/72 95 04/27/23 23:01 50 04/27/23 23:00 96 17 123/63 96 04/27/23 22:00 95 31 H 139/70 94 L 04/27/23 21:00 105 H 35 H 140/79 94 L 04/27/23 20:00 98.4 F 108 H 33 H 117/69 95 50 04/27/23 19:47 99 04/27/23 19:36 97 50 04/27/23 19:00 101 H 24 114/72 96 04/27/23 18:00 109 H 25 H 119/73 96 04/27/23 17:50 98.7 F 115 H 34 H 119/73 96 50 04/27/23 17:00 117 H 26 H 122/71 94 L 04/27/23 16:45 116 H 23 142/77 93 L 04/27/23 16:30 124 H 23 128/69 94 L 04/27/23 16:19 113 H 50 04/27/23 16:15 123 H 21 114/65 94 L 04/27/23 16:08 112 H 04/27/23 16:00 125 H 22 127/75 94 L 04/27/23 15:45 98.0 F 123 H 24 131/74 93 L 04/27/23 15:05 130 H 28 H 145/92 95 04/27/23 14:33 120 H 04/27/23 14:31 123 H 34 H 131/72 96 04/27/23 14:23 124 H 35 H 131/71 94 L 04/27/23 14:06 50 02/04/24 13:52 36 H 04/27/23 13:45 98.5 F 133 H 26 H 143/80 90 L Intake and Output 04/27/23 04/28/23 04/28/23 22:59 06:59 14:59 Intake Total 450 700 625 Output Total 0 350 100 Balance 450 350 525 Intake: IV 450 700 375 Sodium Chloride 0.9% 1, 450 600 375 000 ml @ 75 mls/hr IV . [id number] [facility] Rx#:[id number] cefTRIAXone 1 gm In 100 Sodium Chloride 0.9% 50 ml @ 100 mls/hr IVPB Q24H [facility] Rx#:[id number] Oral 250 Output: Urine 0 350 100 Other: Voiding Method Incontinent Incontinent External Catheter External Catheter External Catheter # Voids 1 1 # Bowel Movements 1 0 Weight 74.843 kg 75.1 kg GENERAL EXAM: Alert, 72-year-old white female, fairly comfortable in no apparent distress on BiPAP. The patient is currently at a pressure of 16/6 with an FiO2 of 50%. Pulse ox in the order of 96 to 97% while being on a BiPAP. She is quite synchronous with the BiPAP machine. HEAD: Normocephalic and atraumatic EYES: Normal reaction of pupils, equal size. NOSE: Clear with pink turbinates. THROAT: No erythema or exudates. NECK: No masses, no JVD. CHEST: No chest wall deformity. LUNGS: Equal air entry with expiratory wheezes heard throughout. On BiPAP with settings 14/6 and FiO2 of 50%. She is tachypneic. No conversational dyspnea or accessory muscle use. CVS: S1 and S2 normal with no audible murmur, regular rhythm. No extra heart sounds ABDOMEN: No hepatosplenomegaly, active bowel sounds, no guarding or rigidity. SPINE: No scoliosis or deformity SKIN: No rashes CENTRAL NERVOUS SYSTEM: No focal deficits, tone is normal in all 4 extremities. Awake and oriented and communicating. EXTREMITIES: There is no peripheral edema, clubbing, or cyanosis. Peripheral pulses are intact. Results - Laboratory Findings CBC and BMP: 04/28/23 04:10 04/28/23 04:10 ABG ABG pH 7.28 (7.35-7.45) L 04/27/23 15:24 ABG pCO2 92 mmHg (35-45) H* 04/27/23 15:24 ABG pO2 87 mmHg (83-108) 04/27/23 15:24 ABG O2 Saturation 96.4 % (94-97) 04/27/23 15:24 PT/INR, D-dimer PT 10.8 sec (10.0-12.5) 04/27/23 14:20 INR 1.0 (<1.2) 04/27/23 14:20 Abnormal lab findings: Abnormal Labs 04/27/23 04/27/23 04/27/23 13:53 14:20 15:24 WBC Hgb MCHC Neutrophils # Lymphocytes # ABG pH 7.24 L 7.28 L ABG pCO2 107 H* 92 H* ABG pO2 167 H ABG HCO3 45 H* 43 H* ABG Total CO2 49 H 46 H ABG O2 Saturation 99.4 H Chloride 94 L Carbon Dioxide 42 H* BUN 21 H Creatinine Glucose 149 H POC Glucose (mg/dL) C-Reactive Protein Procalcitonin RSV (PCR) 04/27/23 04/27/23 04/27/23 16:36 17:58 23:57 WBC 12.3 H Hgb MCHC 30.4 L Neutrophils # 11.9 H Lymphocytes # 0.2 L ABG pH ABG pCO2 ABG pO2 ABG HCO3 ABG Total CO2 ABG O2 Saturation Chloride Carbon Dioxide BUN Creatinine Glucose POC Glucose (mg/dL) 207 H C-Reactive Protein Procalcitonin 0.28 H RSV (PCR) 04/28/23 04/28/23 04/28/23 00:05 04:10 04:10 WBC Hgb 10.0 L D MCHC 28.8 L Neutrophils # Lymphocytes # ABG pH ABG pCO2 ABG pO2 ABG HCO3 ABG Total CO2 ABG O2 Saturation Chloride Carbon Dioxide 39 H BUN 25 H Creatinine 0.45 L Glucose 117 H POC Glucose (mg/dL) C-Reactive Protein 8.6 H Procalcitonin RSV (PCR) Positive H 04/28/23 04:14 WBC Hgb MCHC Neutrophils # Lymphocytes # ABG pH ABG pCO2 ABG pO2 ABG HCO3 ABG Total CO2 ABG O2 Saturation Chloride Carbon Dioxide BUN Creatinine Glucose POC Glucose (mg/dL) 123 H C-Reactive Protein Procalcitonin RSV (PCR) - Diagnostic Findings Chest x-ray: image reviewed Assessment and Plan Plan: Acute on chronic hypoxemic and hypercapnic respiratory failure, currently on BiPAP, secondary to acute COPD exacerbation. Chest x-ray shows hyperinflation with flattened diaphragms consistent with COPD. No acute infiltrates or evidence of pneumonia. Negative for influenza and COVID at outside facility. The patient tested positive for RSV Severe COPD with chronic hypoxemic respiratory failure, normally maintained on 5 L/min nasal cannula /; also utilizes accommodation of Symbicort inhaler, Spiriva inhaler, DuoNebs and as needed Ventolin rescue inhaler Acute on chronic dyspnea secondary to above Acute RSV infection exacerbating the patient's COPD Generalized anxiety disorder Former tobacco dependence Limited troponin leak secondary to mismatch ischemia secondary to underlying COPD exacerbation Plan: The patient was kept on BiPAP overnight. This morning, I am going to take off the BiPAP and utilize oxygen nasal cannula and will titrate oxygen flow to maintain a saturation above 90%. Will continue utilizing BiPAP on and off during the day and continuously at nighttime The patient may benefit from a home BiPAP device as the patient has chronic hypoxic and hypercapnic respiratory failure due to COPD, this can be dealt with at a later stage Continue combination of DuoNebs, formoterol inhalation, budesonide inhalation, and IV Solu-Medrol. Continue current empiric antibiotics, patient has multiple antibiotic allergies. RSV is positive and the patient will be treated with bronchodilators and steroids The rest of the viral panel was negative Check procalcitonin level was minimally elevated, no signs of any bacterial pneumonia Heparin for DVT prophylaxis and Protonix for GI prophylaxis. Patient will be monitored in the intensive care unit at this time. Prognosis is guarded. Will continue to follow The patient will be kept in the intensive care unit for now Time with Patient: Greater than 30
[2023-04-28] MEDS ORDERED: Potassium Replacement Protocol 1 EACH MISC MISCELLANE PRN (20:04)
[2023-04-28] MEDS ORDERED: Magnesium Replacement Protocol 1 EACH MISC MISCELLANE PRN (20:04)
[2023-04-28] MEDS: traZODone HCL 50 MG TAB PO SCH (20:12)
[2023-04-28] MEDS: BENZONATATE 100 MG CAP PO PRN (21:02)
[2023-04-28] MEDS: DEXMEDETOMIDINE/0.9% NACL(PMX) 400 MCG in EMPTY BAG 1 BAG IV SCH (21:14)
[2023-04-28 21:20] LABS: Magnesium 2.2 mg/dL (1.6-2.3); Potassium 4.5 mmol/L (3.5-5.1)
[2023-04-29] MEDS: IPRATROPIUM-ALBUTEROL 3 ML NEB INHALATION PRN (01:14)
[2023-04-29 04:40] LABS: Basophils % (A) 0 %; Eosinophils % (A) 0 %; HGB 9.8 gm/dL (11.4-16.0); Hypochromasia Marked; Lymphocytes # (A) 0.4 k/uL (1.0-4.8); Lymphocytes % (A) 9 %; MCHC 29.6 g/dL (31.0-37.0); MCV 91.1 fL (80.0-100.0); Mean Platelet Volume 8.8; Monocytes # (A) 0.2 k/uL (0-1.0); Monocytes % (A) 4 %; Neutrophils # (A) 3.5 k/uL (1.3-7.7); Neutrophils % (A) 85 %; Platelet Count 266 k/uL (150-450); RBC 3.62 m/uL (3.80-5.40); RDW 13.8 % (11.5-15.5); WBC 4.1 k/uL (3.8-10.6)
[2023-04-29 04:53] LABS: African American GFR (CKD) >90 (>60 ml/min/1.73 sqM); Blood Urea Nitrogen 25 mg/dL (7-17); Calcium 9.2 mg/dL (8.4-10.2); Chloride 99 mmol/L (98-107); Glucose 169 mg/dL (74-99); Magnesium 2.3 mg/dL (1.6-2.3); Non-African American GFR(CKD) >90 (>60 ml/min/1.73 sqM); Potassium 4.2 mmol/L (3.5-5.1); Sodium 140 mmol/L (137-145)
[2023-04-29 05:00] LABS: Anion Gap -4 mmol/L
[2023-04-29 05:08] LABS: Carbon Dioxide 45 mmol/L (22-30)
--- NOTE | 2023-04-29 07:22 | P.PN ---
Subjective this is a pleasant 72 years old female with past medical hisotry of COPD ,she is on 5 literof oxygen at home , she follows up with [facility] at [facility] dr. anju richards She presents because of worsening shortness of breath with chest tightness and pressures and cough with yellow Pflaum for the last 4 days She was transferred from [facility]. Patient could not tolerate BiPAP there and POC to was significantly elevated at 93 Currently she is awake alert, she is on BiPAP in the ICU. Sitting BiPAP R 16/6 with FiO2 of 50% She's also normal saline 75 mL/h She denies any abdominal pain vomiting or diarrhea. No change in urine habits. No dizziness. She's complains from the distal headache and generalized weakness but no lateralization She is on 5 mg of prednisone at home Patient currently on BiPAP as above Labs reviewed her hemoglobin is 10, still CBC is unremarkable. BMP is unremarkable but pCO2 is elevated at 39 Kelsea Lowe 7.2, pCO2 is high 92 and sodium bicarb is 543 Patient has positive RSV virus test CRP is elevated at 0.6 Chest x-ray shows COPD with mild right pleural effusion EKG shows sinus tachycardia at [address]-T changes. Currently patient is on ceftriaxone, doxycycline, Solu-Medrol 60 mg of normal saline 75 mL/h 04/29/2023 Patient is still short of breath She still isn on BiPAP until 4:00 this morning Currently she is on 5 l/m of oxygen compared to 5 L at home as well. However patient still tachypneic with her limitation and wheezing. She has mild basal crepitation. Also she is kept on IV Solu-Medrol 60 mg, doxycycline and ceftriaxone and normal saline 75 mL/h Vitals and labs reviewed Blood pressure on the low side but patient is asymptomatic and has good urine ou tput, she is currently not on blood pressure medication Review of systems CONSTITUTIONAL: No fever, no malaise, no fatigue. HEENT: No recent visual problems or hearing problems. Denied any sore GASTROINTESTINAL: No diarrhea, no nausea, no vomiting, no abdominal pain. Normoactive bowel sounds. NEUROLOGICAL: No headaches, no weakness, no numbness. HEMATOLOGICAL: Denies any bleeding or petechiae. GENITOURINARY: Denies any burning micturition, frequency, or urgency. Active Medications Generic Name Dose Route Start Last Admin Trade Name Ottoq PRN Reason Stop Dose Admin Acetaminophen 650 mg 04/27/23 15:42 Acetaminophen Tab 325 Mg Tab PO Q4HR PRN Mild Pain or Fever > 100.5 Albuterol/Ipratropium 3 ml 04/27/23 16:00 04/28/23 19:32 Ipratropium-Albuterol 3 Ml Neb INHALATION 3 ml RT-QID [facility] Administration Albuterol/Ipratropium 3 ml 04/27/23 15:21 04/29/23 01:14 Ipratropium-Albuterol 3 Ml Neb INHALATION 3 ml RT-Q2H PRN Administration Shortness Of Breath Or Wheezing Aspirin 81 mg 04/28/23 09:00 04/28/23 09:35 Aspirin 81 Mg PO 81 mg DAILY [facility] Administration Benzonatate 100 mg 04/28/23 06:43 04/28/23 21:02 Benzonatate 100 Mg Cap PO 100 mg TID PRN Administration Cough Budesonide 0.5 mg 04/27/23 20:00 04/28/23 19:32 Budesonide 0.5 Mg/2 Ml Nebu INHALATION 0.5 mg RT-BID [facility] Administration Buspirone HCl 15 mg 04/28/23 09:00 04/28/23 20:12 Buspirone Hcl 5 Mg Tab PO 15 mg BID [facility] Administration Calcium Carbonate/Glycine 500 mg 04/28/23 06:43 Calcium Carbonate 500 Mg Chewable PO Q4H PRN ACID REFLUX Cholecalciferol 125 mcg 04/28/23 09:00 04/28/23 09:35 Cholecalciferol 125 Mcg (5000 Iu) Tablet PO 125 mcg DAILY [facility] Administration Docusate Sodium 100 mg 04/28/23 09:00 04/28/23 20:12 Docusate 100 Mg Cap PO 100 mg BID G[facility]IAN Administration Doxycycline Monohydrate 100 mg 04/27/23 21:00 04/28/23 20:12 Doxycycline 100 Mg Cap PO 05/02/23 09:01 100 mg BID G[facility]IAN Administration Protocol Fluticasone Propionate 1 spray 04/28/23 06:43 Fluticasone 50mcg/[place] Nasal 16gm EA NOSTRIL Q12H PRN copd Formoterol Fumarate 20 mcg 04/28/23 08:00 04/28/23 19:32 Formoterol Fumarate 20 Mcg/2 Ml Nebu INHALATION 20 mcg RT-BID [facility] Administration Guaifenesin 600 mg 04/27/23 21:00 04/28/23 20:12 Guaifenesin 600 Mg Tablet.Er PO 600 mg Q12HR [facility] Administration Heparin Sodium (Porcine) 5,000 unit 04/28/23 09:00 04/28/23 20:12 Heparin Sodium,Porcine 5,000 Unit/Ml 1 Ml Vial SQ 5,000 unit Q12HR [facility] Administration Sodium Chloride 1,000 mls @ 75 mls/hr 04/27/23 16:30 04/29/23 03:10 Saline 0.9% IV 75 mls/hr .[id number] [facility] Administration Ceftriaxone Sodium 1 gm/ 50 mls @ 100 mls/hr 04/28/23 00:00 04/29/23 00:03 Sodium Chloride IVPB 100 mls/hr Q24H [facility] Administration Protocol Dexmedetomidine HCl 400 mcg/ 100 mls @ 3.755 mls/hr 04/28/23 19:45 04/28/23 21:14 IV Solution IV Not Given .Q24H [facility] Protocol 0.2 MCG/KG/HR Lorazepam 1 mg 04/28/23 09:00 04/28/23 20:12 Lorazepam 1 Mg Tab PO 1 mg TID [facility] Administration Magnesium Hydroxide 2,400 mg 04/28/23 06:43 Magnesium Hydroxide 2,400 Mg/30 Ml Cup PO DAILY PRN Constipation Methylprednisolone Sodium Succinate 60 mg 04/28/23 00:00 04/29/23 05:05 Methylprednisolone Sod Succi 125 Mg/2 Ml Vial IV 60 mg Q6HR [facility] Administration Miscellaneous Information 1 each 04/28/23 20:04 Magnesium Replacement Protocol 1 Each Misc MISCELLANE DAILY PRN Per Protocol Protocol Miscellaneous Information 1 each 04/28/23 20:04 Potassium Replacement Protocol 1 Each Misc MISCELLANE DAILY PRN Per Protocol Protocol Morphine Sulfate 2 mg 04/27/23 21:07 04/27/23 21:24 Morphine Sulfate 2 Mg/Ml Syringe IVP 2 mg Q4HR PRN Administration Pain/Discomfort Naloxone HCl 0.2 mg 04/27/23 15:42 Naloxone 0.4 Mg/Ml 1 Ml Vial IVP Q2M PRN Opioid Reversal Ondansetron HCl 4 mg 04/27/23 15:42 04/28/23 20:09 Ondansetron 4 Mg/2 Ml Vial IVP 4 mg Q6HR PRN Administration Nausea And Vomiting Pantoprazole Sodium 40 mg 04/28/23 09:00 04/28/23 09:36 Pantoprazole 40 Mg/10 Ml Vial IVP 40 mg DAILY [facility] Administration Petrolatum 1 applic 04/27/23 17:54 Zinc Oxide Paste (Z-Guard) 1 Applic TOPICAL Q2HR PRN Wound Healing Protocol Sucralfate 1 gm 04/28/23 07:30 04/29/23 06:30 Sucralfate 1 Gm Tab PO 1 gm AC-TID [facility] Administration Trazodone HCl 50 mg 04/28/23 21:00 04/28/23 20:12 Trazodone Hcl 50 Mg Tab PO 50 mg HS G[facility]IAN Administration Objective - Vital Signs Vital signs: Vital Signs Temp 97.4 F L 04/29/23 05:00 Pulse 89 04/29/23 07:00 Resp 19 04/29/23 07:00 BP 98/45 04/29/23 07:00 Pulse Ox 99 04/29/23 07:00 FiO2 40 04/29/23 04:15 Intake & Output 04/28/23 04/29/23 04/29/23 18:59 06:59 18:59 Intake Total 1288 2645 Output Total 400 750 Balance 888 1895 Weight 75.1 kg 77 kg Intake: IV 920 1045 Invasive Line 1 20 20 Sodium Chloride 0.9% 1, 900 975 000 ml @ 75 mls/hr IV . [id number] [facility] Rx#:[id number] cefTRIAXone 1 gm In 50 Sodium Chloride 0.9% 50 ml @ 100 mls/hr IVPB Q24H [facility] Rx#:[id number] Oral 368 1600 Output: Urine 400 750 Other: Voiding Method External Catheter External Catheter # Bowel Movements 0 0 - Exam GENERAL: The patient is alert and oriented x3, not in any acute distress. Well developed, well nourished. HEENT: Pupils are round and equally reacting to light. EOMI. No scleral icterus. No conjunctival pallor. Normocephalic, atraumatic. No pharyngeal erythema. No thyromegaly. CARDIOVASCULAR: S1 and S2 present. No murmurs, rubs, or gallops. -PULMONARY: Chest is clear to auscultation, bilateral expiratory wheezing with limited air entry on both sides ABDOMEN: Soft, nontender, nondistended, normoactive bowel sounds. No palpable organomegaly. MUSCULOSKELETAL: No joint swelling or deformity. EXTREMITIES: No cyanosis, clubbing, or pedal edema. NEUROLOGICAL: Gross neurological examination did not reveal any focal deficits. SKIN: No rashes. no petechiae. - Labs CBC & Chem 7: 04/29/23 04:20 04/29/23 04:20 Labs: Abnormal Lab Results - Last 24 Hours (Table) 04/27/23 04/29/23 04/29/23 Range/Units 23:57 04:20 04:20 RBC 3.62 L (3.80-5.40) m/uL Hgb 9.8 L (11.4-16.0) gm/dL Hct 33.0 L (34.0-46.0) % MCHC 29.6 L (31.0-37.0) g/dL Lymphocytes # 0.4 L (1.0-4.8) k/uL Carbon Dioxide 45 H* (22-30) mmol/L BUN 25 H (7-17) mg/dL Creatinine 0.51 L (0.52-1.04) mg/dL Glucose 169 H (74-99) mg/dL Procalcitonin 0.28 H (0.02-0.09) ng/mL Assessment and Plan Assessment: Acute COPD exacerbation Acute bronchitis, rule out bacterial superinfection Acute on chronic hypoxemic hypercapnic respiratory failure acute respiratory acidosis History of severe anxiety Plan: Continue with antibiotics, currently ceftriaxone, doxycycline. Follow-up pro- calcitonin Continue with Solu-Medrol 60 mg Patient is an normal saline 75 mL/h Critical care and Pulmonary team consult Labs and medication were reviewed.. Continue same treatment. Continue with symptomatic treatment. Resume home medication. Monitor labs and vitals. DVT and GI prophylaxis. Further recommendations as per clinical course of the pat ient DVT prophylaxis: Subcutaneous heparin GI Prophylaxis: Ppi PT/OT: Pending Prognosis is guarded
--- NOTE | 2023-04-29 08:14 | XR ---
EXAMINATION TYPE: XR chest 1V portable DATE OF EXAM: 04/29/2023 COMPARISON: NONE HISTORY: Respiratory failure TECHNIQUE: Single frontal view of the chest is obtained. FINDINGS: There is no focal air space opacity, pleural effusion, or pneumothorax seen. The cardiac silhouette size is within normal limits. The osseous structures are intact. Underlying COPD. Basila r atelectasis favored over pneumonia. Ectasia of the aorta. IMPRESSION: Left basilar atelectasis with underlying COPD.
--- NOTE | 2023-04-29 10:14 | P.PN ---
Subjective Progress Note Date: 04/29/23 73-year-old female patient with advanced COPD, who has been followed up by a assistant director of financial aid, Dr. Dejan Peter out of [facility]. The patient is chronically oxygen dependent at 5 L/min nasal cannula. She quit smoking approximately 10 years ago. She has been maintained on a combination of Spiriva and Symbicort on outpatient basis. She presented to the hospital because of worsening shortness of breath. I have seen and evaluated this patient in the past at [facility] for the same. Overnight, the patient was kept on the BiPAP as the patient had a component of acute hypercapnic respiratory failure with a pH of 7.28 and a pCO2 of 92 and pO2 of 87. She was started on bronchodilators and steroids. Chest x-ray shows hyperinflation without any airspace disease. She did have a troponin leak with a troponin of 0.072. She was started on broad-spectrum antibiotic coverage in addition to bronchodilators. She is also on a combination ofPerforomist and Pulmicort. She is tested positive for RSV. The patient this morning seems to be much more comfortable. While on the BiPAP pressure of 16 over 6 cm of water and FiO2 of 50%, she is able to generate a tidal volume of about 500 with a respiratory rate of 22. She is able to communicate. She is alert and oriented. She denies having any chest pain. Hemodynamically stable. White cell count is 8 with a hemoglobin of 10 and a platelet count of 271. BUN is at 25 with a creatinine 0.4. Procalcitonin level is at 0.28. On today's evaluation of 04/29/2023, the patient is doing well. No specific complaints. She is less short of breath compared to yesterday. No new complaints. No altered mentation. No chest pain.No new complaints. No altered mentation. She is still bringing up some limited amount of mucus. She wore her BiPAP throughout the night at a pressure of 16 over 6 cm of water with an Fi O2 of 50%. This morning, she is back on nasal cannula. Her blood work today shows a WBC count of 4.1, hemoglobin is at 9.8 and a platelet count of 266. Serum bicarbonate 45 with a BUN of 25 and a creatinine of 0.5. Her procalcitonin level is at 0.28. Hemodynamically stable. She is bedridden. She has not ambulated for at least a year due to her chronic spine problems which includes lumbar stenosis, degenerative arthritis and degenerative lumbar disc disease. Objective - Vital Signs Vital signs: Vital Signs Temp 97.4 F L 04/29/23 05:00 Pulse 89 04/29/23 07:00 Resp 19 04/29/23 07:00 BP 98/45 04/29/23 07:00 Pulse Ox 99 04/29/23 07:00 FiO2 40 04/29/23 04:15 Intake & Output 04/28/23 04/29/23 04/29/23 18:59 06:59 18:59 Intake Total 1288 2645 Output Total 400 750 Balance 888 1895 Weight 75.1 kg 77 kg Intake: IV 920 1045 Invasive Line 1 20 20 Sodium Chloride 0.9% 1, 900 975 000 ml @ 75 mls/hr IV . [id number] [facility] Rx#:[id number] cefTRIAXone 1 gm In 50 Sodium Chloride 0.9% 50 ml @ 100 mls/hr IVPB Q24H [facility] Rx#:[id number] Oral 368 1600 Output: Urine 400 750 Other: Voiding Method External Catheter External Catheter # Bowel Movements 0 0 - Exam GENERAL EXAM: Alert, 72-year-old white female, fairly comfortable 60s and Bactroban nasal cannula with a pulse ox of 99% and she is currently off the BiPAP. HEAD: Normocephalic and atraumatic EYES: Normal reaction of pupils, equal size. NOSE: Clear with pink turbinates. THROAT: No erythema or exudates. NECK: No masses, no JVD. CHEST: No chest wall deformity. LUNGS: Equal air entry with expiratory wheezes heard throughout. On BiPAP with settings 14/6 and FiO2 of 50%. She is tachypneic. No conversational dyspnea or accessory muscle use. CVS: S1 and S2 normal with no audible murmur, regular rhythm. No extra heart sounds ABDOMEN: No hepatosplenomegaly, active bowel sounds, no guarding or rigidity. SPINE: No scoliosis or deformity SKIN: No rashes CENTRAL NERVOUS SYSTEM: No focal deficits, tone is normal in all 4 extremities. Awake and oriented and communicating. EXTREMITIES: There is no peripheral edema, clubbing, or cyanosis. Peripheral pulses are intact. - Labs CBC & Chem 7: 04/29/23 04:20 04/29/23 04:20 Labs: Abnormal Lab Results - Last 24 Hours (Table) 04/27/23 04/29/23 04/29/23 Range/Units 23:57 04:20 04:20 RBC 3.62 L (3.80-5.40) m/uL Hgb 9.8 L (11.4-16.0) gm/dL Hct 33.0 L (34.0-46.0) % MCHC 29.6 L (31.0-37.0) g/dL Lymphocytes # 0.4 L (1.0-4.8) k/uL Carbon Dioxide 45 H* (22-30) mmol/L BUN 25 H (7-17) mg/dL Creatinine 0.51 L (0.52-1.04) mg/dL Glucose 169 H (74-99) mg/dL Procalcitonin 0.28 H (0.02-0.09) ng/mL Assessment and Plan Plan: Acute on chronic hypoxemic and hypercapnic respiratory failure, currently on BiPAP, secondary to acute COPD exacerbation. Chest x-ray shows hyperinflation with flattened diaphragms consistent with COPD. No acute infiltrates or evidence of pneumonia. Negative for influenza and COVID at outside facility. The patient tested positive for RSV, currently on 6 L O2 by nasal cannula with a pulse ox of 99%. The patient was supported with BiPAP on and off and she was still wearing the BiPAP throughout the night. 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 Plan: The patient has been weaned down to 6 L of O2 nasal cannula Continue to lysing BiPAP on and off during the day and continuously at nighttime The patient may benefit from a home BiPAP device as the patient has chronic hypoxic and hypercapnic respiratory failure due to COPD, this can be dealt with at a later stage Continue combination of DuoNebs, formoterol inhalation, budesonide inhalation, and IV Solu-Medrol. Continue current empiric antibiotics, patient has multiple antibiotic allergies. RSV is positive and the patient will be treated with bronchodilators and steroids The rest of the viral panel was negative Check procalcitonin level was minimally elevated, no signs of any bacterial pneumonia Heparin for DVT prophylaxis and Protonix for GI prophylaxis. Patient will be monitored in the intensive care unit at this time. Overall condition is improved and the patient can be transferred to the medical floor and she can leave the intensive care unit today
[2023-04-29] MEDS: FLUTICASONE 50MCG/SPRAY NASAL 16GM EA NOSTRIL PRN (12:00)
--- NOTE | 2023-04-29 12:19 | CDI ---
Documentation Clarification Form Date: From: Josie Zhao Phone: [phone] Admit Date: 04/27/2023 03:21:00 PM Patient Name: Ericka Garcia Visit Number: [id number] Discharge Date: ATTENTION: The Clinical Documentation Specialists (CDI) and [facility] Coding Staff appreciate your assistance in clarifying documentation. Please respond to the clarification below the line at the bottom and electronically sign. The CDI & [facility] Coding staff will review the response and follow-up if needed. Please note: Queries are made part of the Legal Health Record. If you have any questions, please contact the author of this message via ITS. Dr. Rodriguez E Sheet The patient has increased HR, RR and WBC noted in the Pulmonology Consult Note. Based on this information and the findings below, is there an additional diagnosis that is clinically appropriate for this patient? History/Risk Factors: "72-year-old female who presents to the emergency department with a history of COPD. Patient had difficulty breathing was sent over to [facility] to evaluate her Basha put her on BiPAP and determined she was having exacerbation of COPD." - Per ED Note on 04/27 Clinical Indicators: "gave her steroids multiple treatments and transferred to our facility" - Per ED note on 04/27 "respiratory rate is in the mid 20s to 30s" "chest x-ray shows hyperinflation and flattened diaphragms consistent with COPD" "LUNGS: Equal air entry with expiratory wheezes heard throughout. On BiPAP with settings 14/6 and FiO2 of 50%. She is tachypneic." - Per Pulmonology Consult Note on 04/28 "Acute RSV infection exacerbating the patient's COPD" - Per Pulmonology Note on 04/28 WBC: 04/27 - 12.3, 04/28 - 8.0, 04/29 - 4.1 C-Reactive Protein: 04/28 - 8.6 Procalcitonin: 04/27 - 0.28 Vitals signs: 04/27 - Temp. 98.5, HR 133, RR 26, BP 143/80, O2 90% on 6L NC Treatment: "Currently patient is on ceftriaxone, doxycycline, Solu-Medrol 60 mg of normal saline 75 mL/h" - Per Medical H&P on 04/28 Per Pulmonology Note on 04/28 "continue utilizing BiPAP on and off during the day and continuously at nighttime Continue combination of DuoNebs, formoterol inhalation, budesonide inhalation, and IV Solu-Medrol. Continue current empiric antibiotics, patient has multiple antibiotic allergies. RSV is positive and the patient will be treated with bronchodilators and steroids" Is there an additional diagnosis that is clinically appropriate for this patient? [ ] Sepsis, present on admission [ x ] Sepsis ruled out [ ] Severe Sepsis with organ failure [ ] Other, please specify [ ] Unable to determine SIRS Criteria: 2 or more of the following may indicate SIRS Temperature < 96.8F (36C) or > 101.0F (38.3C) Heart Rate > 90 bpm Respiratory Rate > 20 breaths/min or PaCO2 < 32 mmHg White Blood Cell Count > 12,000 or < 4,000 cells/mm3 or > 10% bands MTDD
--- NOTE | 2023-04-30 10:27 | P.PN ---
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 anju richards She presents because of worsening shortness of breath with chest tightness and pressures and cough with yellow Pflaum for the last 4 days She was transferred from [facility]. Patient could not tolerate BiPAP there and POC to was significantly elevated at 93 Currently she is awake alert, she is on BiPAP in the ICU. Sitting BiPAP R 16/6 with FiO2 of 50% She's also normal saline 75 mL/h She denies any abdominal pain vomiting or diarrhea. No change in urine habits. No dizziness. She's complains from the distal headache and generalized weakness but no lateralization She is on 5 mg of prednisone at home Patient currently on BiPAP as above Labs reviewed her hemoglobin is 10, still CBC is unremarkable. BMP is unremarkable but pCO2 is elevated at 39 Kelsea Lowe 7.2, pCO2 is high 92 and sodium bicarb is 543 Patient has positive RSV virus test CRP is elevated at 0.6 Chest x-ray shows COPD with mild right pleural effusion EKG shows sinus tachycardia at [address]-T changes. Currently patient is on ceftriaxone, doxycycline, Solu-Medrol 60 mg of normal saline 75 mL/h 04/29/2023 Patient is still short of breath She still isn on BiPAP until 4:00 this morning Currently she is on 5 l/m of oxygen compared to 5 L at home as well. However patient still tachypneic with her limitation and wheezing. She has mild basal crepitation. Also she is kept on IV Solu-Medrol 60 mg, doxycycline and ceftriaxone and normal saline 75 mL/h Vitals and labs reviewed Blood pressure on the low side but patient is asymptomatic and has good urine ou tput, she is currently not on blood pressure medication 04/30/2023 pt is seen in the general medical floor today she is awake and alert, she is is requesting more breathing treatment and go back to bipap , although she is not severely tachypneic but she is still significantly wheezing and bronchospastic she is kept on iv solumedrol 60 mg and antibioitic with rocephin and doxycyclin and normal saline at 40 ml per hr Review of systems CONSTITUTIONAL: No fever, no malaise, no fatigue. HEENT: No recent visual problems or hearing problems. Denied any sore GASTROINTESTINAL: No diarrhea, no nausea, no vomiting, no abdominal pain. Normoactive bowel sounds. NEUROLOGICAL: No headaches, no weakness, no numbness. HEMATOLOGICAL: Denies any bleeding or petechiae. GENITOURINARY: Denies any burning micturition, frequency, or urgency. Active Medications Generic Name Dose Route Start Last Admin Trade Name Freq PRN Reason Stop Dose Admin Acetaminophen 650 mg 04/27/23 15:42 Acetaminophen Tab 325 Mg Tab PO Q4HR PRN Mild Pain or Fever > 100.5 Albuterol/Ipratropium 3 ml 04/27/23 16:00 04/28/23 19:32 Ipratropium-Albuterol 3 Ml Neb INHALATION 3 ml RT-QID GILLIAN Administration Albuterol/Ipratropium 3 ml 04/27/23 15:21 04/29/23 01:14 Ipratropium-Albuterol 3 Ml Neb INHALATION 3 ml RT-Q2H PRN Administration Shortness Of Breath Or Wheezing Aspirin 81 mg 04/28/23 09:00 04/28/23 09:35 Aspirin 81 Mg PO 81 mg DAILY GILLIAN Administration Benzonatate 100 mg 04/28/23 06:43 04/28/23 21:02 Benzonatate 100 Mg Cap PO 100 mg TID PRN Administration Cough Budesonide 0.5 mg 04/27/23 20:00 04/28/23 19:32 Budesonide 0.5 Mg/2 Ml Nebu INHALATION 0.5 mg RT-BID GILLIAN Administration Buspirone HCl 15 mg 04/28/23 09:00 04/28/23 20:12 Buspirone Hcl 5 Mg Tab PO 15 mg BID GILLIAN Administration Calcium Carbonate/Glycine 500 mg 04/28/23 06:43 Calcium Carbonate 500 Mg Chewable PO Q4H PRN ACID REFLUX Cholecalciferol 125 mcg 04/28/23 09:00 04/28/23 09:35 Cholecalciferol 125 Mcg (5000 Iu) Tablet PO 125 mcg DAILY GILLAIN Administration Docusate Sodium 100 mg 04/28/23 09:00 04/28/23 20:12 Docusate 100 Mg Cap PO 100 mg BID GILLIAN Administration Doxycycline Monohydrate 100 mg 04/27/23 21:00 04/28/23 20:12 Doxycycline 100 Mg Cap PO 05/02/23 09:01 100 mg BID GILLIAN Administration Protocol Fluticasone Propionate 1 spray 04/28/23 06:43 Fluticasone 50mcg/[place] Nasal 16gm EA NOSTRIL Q12H PRN copd Formoterol Fumarate 20 mcg 04/28/23 08:00 04/28/23 19:32 Formoterol Fumarate 20 Mcg/2 Ml Nebu INHALATION 20 mcg RT-BID GILLIAN Administration Guaifenesin 600 mg 04/27/23 21:00 04/28/23 20:12 Guaifenesin 600 Mg Tablet.Er PO 600 mg Q12HR GILLIAN Administration Heparin Sodium (Porcine) 5,000 unit 04/28/23 09:00 04/28/23 20:12 Heparin Sodium,Porcine 5,000 Unit/Ml 1 Ml Vial SQ 5,000 unit Q12HR GILLIAN Administration Sodium Chloride 1,000 mls @ 75 mls/hr 04/27/23 16:30 04/29/23 03:10 Saline 0.9% IV 75 mls/hr .[id number] GILLIAN Administration Ceftriaxone Sodium 1 gm/ 50 mls @ 100 mls/hr 04/28/23 00:00 04/29/23 00:03 Sodium Chloride IVPB 100 mls/hr Q24H GILLIAN Administration Protocol Dexmedetomidine HCl 400 mcg/ 100 mls @ 3.755 mls/hr 04/28/23 19:45 04/28/23 21:14 IV Solution IV Not Given .Q24H GILLIAN Protocol 0.2 MCG/KG/HR Lorazepam 1 mg 04/28/23 09:00 04/28/23 20:12 Lorazepam 1 Mg Tab PO 1 mg TID GILLIAN Administration Magnesium Hydroxide 2,400 mg 04/28/23 06:43 Magnesium Hydroxide 2,400 Mg/30 Ml Cup PO DAILY PRN Constipation Methylprednisolone Sodium Succinate 60 mg 04/28/23 00:00 04/29/23 05:05 Methylprednisolone Sod Succi 125 Mg/2 Ml Vial IV 60 mg Q6HR GILLIAN Administration Miscellaneous Information 1 each 04/28/23 20:04 Magnesium Replacement Protocol 1 Each Misc MISCELLANE DAILY PRN Per Protocol Protocol Miscellaneous Information 1 each 04/28/23 20:04 Potassium Replacement Protocol 1 Each Misc MISCELLANE DAILY PRN Per Protocol Protocol Morphine Sulfate 2 mg 04/27/23 21:07 04/27/23 21:24 Morphine Sulfate 2 Mg/Ml Syringe IVP 2 mg Q4HR PRN Administration Pain/Discomfort Naloxone HCl 0.2 mg 04/27/23 15:42 Naloxone 0.4 Mg/Ml 1 Ml Vial IVP Q2M PRN Opioid Reversal Ondansetron HCl 4 mg 04/27/23 15:42 04/28/23 20:09 Ondansetron 4 Mg/2 Ml Vial IVP 4 mg Q6HR PRN Administration Nausea And Vomiting Pantoprazole Sodium 40 mg 04/28/23 09:00 04/28/23 09:36 Pantoprazole 40 Mg/10 Ml Vial IVP 40 mg DAILY GILLIAN Administration Petrolatum 1 applic 04/27/23 17:54 Zinc Oxide Paste (Z-Guard) 1 Applic TOPICAL Q2HR PRN Wound Healing Protocol Sucralfate 1 gm 04/28/23 07:30 04/29/23 06:30 Sucralfate 1 Gm Tab PO 1 gm AC-TID GILLIAN Administration Trazodone HCl 50 mg 04/28/23 21:00 04/28/23 20:12 Trazodone Hcl 50 Mg Tab PO 50 mg HS GILLIAN Administration Objective - Vital Signs Vital signs: Vital Signs Temp 97.4 F L 04/30/23 07:21 Pulse 86 04/30/23 07:45 Resp 12 04/30/23 07:21 BP 135/73 04/30/23 07:21 Pulse Ox 95 04/30/23 07:21 FiO2 40 04/30/23 02:50 Intake & Output 04/29/23 04/30/23 04/30/23 18:59 06:59 18:59 Intake Total 854 Output Total 550 400 Balance 304 -400 Intake: IV 500 Invasive Line 3 20 Sodium Chloride 0.9% 1, 480 000 ml @ 40 mls/hr IV . Q24H GILLIAN Rx#:[id number] Oral 354 Output: Urine 550 400 Other: Voiding Method External Catheter External Catheter # Bowel Movements 1 - Exam GENERAL: The patient is alert and oriented x3, not in any acute distress. Well developed, well nourished. HEENT: Pupils are round and equally reacting to light. EOMI. No scleral icterus. No conjunctival pallor. Normocephalic, atraumatic. No pharyngeal erythema. No thyromegaly. CARDIOVASCULAR: S1 and S2 present. No murmurs, rubs, or gallops. -PULMONARY: Chest is clear to auscultation, bilateral expiratory wheezing with limited air entry on both sides ABDOMEN: Soft, nontender, nondistended, normoactive bowel sounds. No palpable organomegaly. MUSCULOSKELETAL: No joint swelling or deformity. EXTREMITIES: No cyanosis, clubbing, or pedal edema. NEUROLOGICAL: Gross neurological examination did not reveal any focal deficits. SKIN: No rashes. no petechiae. - Labs CBC & Chem 7: 04/29/23 04:20 04/29/23 04:20 Assessment and Plan Assessment: Acute COPD exacerbation Acute bronchitis, rule out bacterial superinfection Acute on chronic hypoxemic hypercapnic respiratory failure acute respiratory acidosis History of severe anxiety Plan: Continue with antibiotics, currently ceftriaxone, doxycycline. Follow-up pro- calcitonin Continue with Solu-Medrol 60 mg Patient is an normal saline 75 mL/h Critical care and Pulmonary team consult Labs and medication were reviewed.. Continue same treatment. Continue with symptomatic treatment. Resume home medication. Monitor labs and vitals. DVT and GI prophylaxis. Further recommendations as per clinical course of the patient DVT prophylaxis: Subcutaneous heparin GI Prophylaxis: Ppi PT/OT: Pending Prognosis is guarded
[2023-04-30] MEDS: PANTOPRAZOLE 40 MG TABLET PO SCH (10:50)
[2023-04-30] MEDS: IPRATROPIUM-ALBUTEROL 3 ML NEB INHALATION STA (11:08)
--- NOTE | 2023-04-30 13:41 | P.PN ---
Subjective Progress Note Date: 04/30/23 73-year-old female patient with advanced COPD, who has been followed up by a lighthouse keeper, Dr. Dejan Peter out of [facility]. The patient is chronically oxygen dependent at 5 L/min nasal cannula. She quit smoking approximately 10 years ago. She has been maintained on a combination of Spiriva and Symbicort on outpatient basis. She presented to the hospital because of worsening shortness of breath. I have seen and evaluated this patient in the past at [facility] for the same. Overnight, the patient was kept on the BiPAP as the patient had a component of acute hypercapnic respiratory failure with a pH of 7.28 and a pCO2 of 92 and pO2 of 87. She was started on bronchodilators and steroids. Chest x-ray shows hyperinflation without any airspace disease. She did have a troponin leak with a troponin of 0.072. She was started on broad-spectrum antibiotic coverage in addition to bronchodilators. She is also on a combination ofPerforomist and Pulmicort. She is tested positive for RSV. The patient this morning seems to be much more comfortable. While on the BiPAP pressure of 16 over 6 cm of water and FiO2 of 50%, she is able to generate a tidal volume of about 500 with a respiratory rate of 22. She is able to communicate. She is alert and oriented. She denies having any chest pain. Hemodynamically stable. White cell count is 8 with a hemoglobin of 10 and a platelet count of 271. BUN is at 25 with a creatinine 0.4. Procalcitonin level is at 0.28. On today's evaluation of 04/29/2023, the patient is doing well. No specific complaints. She is less short of breath compared to yesterday. No new complaints. No altered mentation. No chest pain.No new complaints. No altered mentation. She is still bringing up some limited amount of mucus. She wore her BiPAP throughout the night at a pressure of 16 over 6 cm of water with an Fi O2 of 50%. This morning, she is back on nasal cannula. Her blood work today shows a WBC count of 4.1, hemoglobin is at 9.8 and a platelet count of 266. Serum bicarbonate 45 with a BUN of 25 and a creatinine of 0.5. Her procalcitonin level is at 0.28. Hemodynamically stable. She is bedridden. She has not ambulated for at least a year due to her chronic spine problems which includes lumbar stenosis, degenerative arthritis and degenerative lumbar disc disease. On today's evaluation of 04/30/2023, the patient is being seen for a follow-up. The patient utilizing BiPAP overnight at a pressure of 16/6 with an FiO2 of 50% and currently she is on oxygen by nasal cannula. She is currently utilizing 4 L nasal cannula. Doing well. No specific complaints. She was moved out of the intensive care unit yesterday as the patient was admitted to us because of an acute stroke exacerbation and RSV infection. Denies having any chest pain. Blood work from today still pending. Labs from yesterday was reviewed.She remains on bronchodilators. She remains on steroids. Empiric antibiotic coverage is still with IV Rocephin. She remains on Solu-Medrol 60 mg IV push every 6 hours. No altered mentation. She is essentially bedridden. Objective - Vital Signs Vital signs: Vital Signs Temp 97.4 F L 04/30/23 07:21 Pulse 84 04/30/23 11:10 Resp 12 04/30/23 07:21 BP 135/73 04/30/23 07:21 Pulse Ox 95 04/30/23 07:21 FiO2 40 04/30/23 02:50 Intake & Output 04/29/23 04/30/23 04/30/23 18:59 06:59 18:59 Intake Total 854 Output Total 550 400 Balance 304 -400 Intake: IV 500 Invasive Line 3 20 Sodium Chloride 0.9% 1, 480 000 ml @ 40 mls/hr IV . Q24H [facility] Rx#:[id number] Oral 354 Output: Urine 550 400 Other: Voiding Method External Catheter External Catheter # Bowel Movements 1 - Exam GENERAL EXAM: Alert, 72-year-old white female, on 5 L of oxygen nasal cannula HEAD: Normocephalic and atraumatic EYES: Normal reaction of pupils, equal size. NOSE: Clear with pink turbinates. THROAT: No erythema or exudates. NECK: No masses, no JVD. CHEST: No chest wall deformity. LUNGS: Equal air entry with expiratory wheezes heard throughout. On BiPAP with settings 14/6 and FiO2 of 50%. She is tachypneic. No conversational dyspnea or accessory muscle use. CVS: S1 and S2 normal with no audible murmur, regular rhythm. No extra heart sounds ABDOMEN: No hepatosplenomegaly, active bowel sounds, no guarding or rigidity. SPINE: No scoliosis or deformity SKIN: No rashes CENTRAL NERVOUS SYSTEM: No focal deficits, tone is normal in all 4 extremities. Awake and oriented and communicating. EXTREMITIES: There is no peripheral edema, clubbing, or cyanosis. Peripheral pulses are intact. - Labs CBC & Chem 7: 04/29/23 04:20 04/29/23 04:20 Assessment and Plan Plan: Acute on chronic hypoxemic and hypercapnic respiratory failure, currently on BiPAP, secondary to acute COPD exacerbation. Chest x-ray shows hyperinflation with flattened diaphragms consistent with COPD. No acute infiltrates or evidence of pneumonia. Negative for influenza and COVID at outside facility. 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 Plan: The patient has been weaned down to 5 L O2 nasal cannula Continue to lysing BiPAP on and off during the day and continuously at nighttime Clinically stable and the patient is improving The patient may benefit from a home BiPAP device as the patient has chronic hypoxic and hypercapnic respiratory failure due to COPD, this can be dealt with at a later stage Continue combination of DuoNebs, formoterol inhalation, budesonide inhalation, and IV Solu-Medrol. Continue current empiric antibiotics, patient has multiple antibiotic allergies. RSV is positive and the patient will be treated with bronchodilators and steroids The rest of the viral panel was negative Check procalcitonin level was minimally elevated, no signs of any bacterial pneumonia Heparin for DVT prophylaxis and Protonix for GI prophylaxis. Patient was transferred out of the intensive care unit yesterday and currently she is on the medical floor. She is gradually improving. Will continue to follow.
[2023-05-01 08:32] LABS: Basophils # (A) 0.01 X 10*3/uL (0.00-0.10); Basophils % (A) 0.2 %; Eosinophils # (A) 0 X 10*3/uL (0.04-0.35); Eosinophils % (A) 0 %; HCT 37.4 % (37.2-46.3); HGB 10.3 g/dL (12.0-15.0); Lymphocytes # (A) 0.47 X 10*3/uL (0.90-5.00); Lymphocytes % (A) 7.9 %; MCHC 27.5 g/dL (32.0-37.0); MCV 94.4 FL (80.0-97.0); Monocytes # (A) 0.25 X 10*3/uL (0.20-1.00); Monocytes % (A) 4.2 %; NRBC Per 100 WBC 0 X 10*3/uL (0.00-0.01); Neutrophils # (A) 5.16 X 10*3/uL (1.80-7.70); Platelet Count 301 X 10*3/uL (140-440); RBC 3.96 X 10*6/uL (4.10-5.20); RDW 13.9 % (11.5-14.5); WBC 5.93 X 10*3/uL (4.50-10.00)
[2023-05-01 09:03] LABS: Anion Gap <4.00 mmol/L (4.00-12.00); BUN/Creat Ratio 34.25 Ratio (12.00-20.00); Blood Urea Nitrogen 13.7 mg/dL (9.0-27.0); Calcium 9.8 mg/dL (8.7-10.3); Carbon Dioxide >45.0 mmol/L (21.6-31.8); Chloride 97 mmol/L (96-109); Glucose 117 mg/dL (70-110); Potassium 4.7 mmol/L (3.5-5.5); Sodium 146 mmol/L (135-145)
[2023-05-01 10:31] VITALS: BMI 28.2
--- NOTE | 2023-05-01 15:15 | P.PN ---
Subjective Progress Note Date: 05/01/23 73-year-old female patient with advanced COPD, who has been followed up by a banana ripening room supervisor, Dr. Dejan Peter out of [facility]. The patient is chronically oxygen dependent at 5 L/min nasal cannula. She quit smoking approximately 10 years ago. She has been maintained on a combination of Spiriva and Symbicort on outpatient basis. She presented to the hospital because of worsening shortness of breath. I have seen and evaluated this patient in the past at [facility] for the same. Overnight, the patient was kept on the BiPAP as the patient had a component of acute hypercapnic respiratory failure with a pH of 7.28 and a pCO2 of 92 and pO2 of 87. She was started on bronchodilators and steroids. Chest x-ray shows hyperinflation without any airspace disease. She did have a troponin leak with a troponin of 0.072. She was started on broad-spectrum antibiotic coverage in addition to bronchodilators. She is also on a combination ofPerforomist and Pulmicort. She is tested positive for RSV. The patient this morning seems to be much more comfortable. While on the BiPAP pressure of 16 over 6 cm of water and FiO2 of 50%, she is able to generate a tidal volume of about 500 with a respiratory rate of 22. She is able to communicate. She is alert and oriented. She denies having any chest pain. Hemodynamically stable. White cell count is 8 with a hemoglobin of 10 and a platelet count of 271. BUN is at 25 with a creatinine 0.4. Procalcitonin level is at 0.28. On today's evaluation of 04/29/2023, the patient is doing well. No specific complaints. She is less short of breath compared to yesterday. No new complaints. No altered mentation. No chest pain.No new complaints. No altered mentation. She is still bringing up some limited amount of mucus. She wore her BiPAP throughout the night at a pressure of 16 over 6 cm of water with an Fi O2 of 50%. This morning, she is back on nasal cannula. Her blood work today shows a WBC count of 4.1, hemoglobin is at 9.8 and a platelet count of 266. Serum bicarbonate 45 with a BUN of 25 and a creatinine of 0.5. Her procalcitonin level is at 0.28. Hemodynamically stable. She is bedridden. She has not ambulated for at least a year due to her chronic spine problems which includes lumbar stenosis, degenerative arthritis and degenerative lumbar disc disease. On today's evaluation of 04/30/2023, the patient is being seen for a follow-up. The patient utilizing BiPAP overnight at a pressure of 16/6 with an FiO2 of 50% and currently she is on oxygen by nasal cannula. She is currently utilizing 4 L nasal cannula. Doing well. No specific complaints. She was moved out of the intensive care unit yesterday as the patient was admitted to us because of an acute stroke exacerbation and RSV infection. Denies having any chest pain. Blood work from today still pending. Labs from yesterday was reviewed.She remains on bronchodilators. She remains on steroids. Empiric antibiotic coverage is still with IV Rocephin. She remains on Solu-Medrol 60 mg IV push every 6 hours. No altered mentation. She is essentially bedridden. On 05/01/2023, the patient is being seen for a follow-up. The patient is utilizing the BiPAP on and off during the day at a pressure of 16 over 6 cm of water. She is still being treated for an acute exacerbation and acute RSV infection. No altered mentation. No signs of any CO2 narcosis. The white cell count of 5.3 with a hemoglobin 10.3 and a platelet count of 301. Sodium is at 146, BUN is at 15 with a creatinine of 0.4. Remains on DuoNeb updrafts. Remains on IV Rocephin as an empiric antibiotic coverage. IV centimeter was at 60 mg every 6 hours. Occasionally increased anxiety and agitation the patient is taking Ativan 1 mg 3 times daily. Patient is also on morphine 2 mg and an as-needed basis. She is on BuSpar 15 mg p.o. twice daily. She is taking Tessalon Perles for cough. Objective - Vital Signs Vital signs: Vital Signs Temp 97.5 F L 05/01/23 06:52 Pulse 84 05/01/23 07:43 Resp 17 05/01/23 06:52 BP 127/78 05/01/23 06:52 Pulse Ox 96 05/01/23 06:52 FiO2 40 04/30/23 02:50 Intake & Output 04/30/23 05/01/23 05/01/23 18:59 06:59 18:59 Output Total 500 1500 Balance -500 -1500 Output: Urine 500 1500 Other: Voiding Method External Catheter External Catheter - Exam GENERAL EXAM: Alert, 72-year-old white female, on 5 L of oxygen nasal cannula HEAD: Normocephalic and atraumatic EYES: Normal reaction of pupils, equal size. NOSE: Clear with pink turbinates. THROAT: No erythema or exudates. NECK: No masses, no JVD. CHEST: No chest wall deformity. LUNGS: Equal air entry with expiratory wheezes heard throughout. On BiPAP with settings 14/6 and FiO2 of 50%. She is tachypneic. No conversational dyspnea or accessory muscle use. CVS: S1 and S2 normal with no audible murmur, regular rhythm. No extra heart sounds ABDOMEN: No hepatosplenomegaly, active bowel sounds, no guarding or rigidity. SPINE: No scoliosis or deformity SKIN: No rashes CENTRAL NERVOUS SYSTEM: No focal deficits, tone is normal in all 4 extremities. Awake and oriented and communicating. EXTREMITIES: There is no peripheral edema, clubbing, or cyanosis. Peripheral pulses are intact. - Labs CBC & Chem 7: 05/01/23 05:54 05/01/23 05:54 Labs: Abnormal Lab Results - Last 24 Hours (Table) 05/01/23 05/01/23 Range/Units 05:54 05:54 RBC 3.96 L (4.10-5.20) X 10*6/uL Hgb 10.3 L (12.0-15.0) g/dL MCH 26.0 L (27.0-32.0) pg MCHC 27.5 L (32.0-37.0) g/dL Lymphocytes # 0.47 L (0.90-5.00) X 10*3/uL Eosinophils # 0 L (0.04-0.35) X 10*3/uL Sodium 146 H (135-145) mmol/L Carbon Dioxide >45.0 A* (21.6-31.8) mmol/L Creatinine 0.4 L (0.6-1.5) mg/dL BUN/Creatinine Ratio 34.25 H (12.00-20.00) Ratio Glucose 117 H (70-110) mg/dL Assessment and Plan Plan: Acute on chronic hypoxemic and hypercapnic respiratory failure, secondary to COPD exacerbation and acute RSV infection. The patient is currently on 5 L O2 nasal cannula. On and off utilizing the BiPAP. Clinically improving if this is a slow and ongoing improvement. Severe COPD with chronic hypoxemic respiratory failure, normally maintained on 5 L/min nasal cannula 14/10; also utilizes accommodation of Symbicort inhaler, Spiriva inhaler, DuoNebs and as needed Ventolin rescue inhaler Acute on chronic dyspnea secondary to above Acute RSV infection exacerbating the patient's COPD Generalized anxiety disorder Former tobacco dependence Limited troponin leak secondary to mismatch ischemia secondary to underlying COPD exacerbation Chronic lumbar spine disease with lower extremity weakness and the patient is nonambulatory, [facility] resident. Plan: The patient has been weaned down to 5 L O2 nasal cannula Continue utilizing BiPAP on and off during the day and continuously at nighttime Clinically stable and the patient is improving The patient may benefit from a home BiPAP device as the patient has chronic hypoxic and hypercapnic respiratory failure due to COPD, this can be dealt with at a later stage Continue combination of DuoNebs, formoterol inhalation, budesonide inhalation, and IV Solu-Medrol. Continue current empiric antibiotics, patient has multiple antibiotic allergies. RSV is positive and the patient will be treated with bronchodilators and steroids The rest of the viral panel was negative Check procalcitonin level was minimally elevated, no signs of any bacterial pneumonia Heparin for DVT prophylaxis and Protonix for GI prophylaxis. Continue Ativan and BuSpar for anxiety. The patient is taking BuSpar 50 mg p.o. twice daily and Ativan 1 mg 3 times daily Keep the patient on the medical floor she is gradually improving. Will continue to follow.
--- NOTE | 2023-05-01 20:08 | P.PN ---
Subjective this is a pleasant 72 years old female with past medical hisotry of COPD ,she is on 5 literof oxygen at home , she follows up with methods study analyst at [facility] dr. anju richards She presents because of worsening shortness of breath with chest tightness and pressures and cough with yellow Pflaum for the last 4 days She was transferred from [facility]. Patient could not tolerate BiPAP there and POC to was significantly elevated at 93 Currently she is awake alert, she is on BiPAP in the ICU. Sitting BiPAP R 16/6 with FiO2 of 50% She's also normal saline 75 mL/h She denies any abdominal pain vomiting or diarrhea. No change in urine habits. No dizziness. She's complains from the distal headache and generalized weakness but no lateralization She is on 5 mg of prednisone at home Patient currently on BiPAP as above Labs reviewed her hemoglobin is 10, still CBC is unremarkable. BMP is unremarkable but pCO2 is elevated at 39 Kelsea Lowe 7.2, pCO2 is high 92 and sodium bicarb is 543 Patient has positive RSV virus test CRP is elevated at 0.6 Chest x-ray shows COPD with mild right pleural effusion EKG shows sinus tachycardia at [address]-T changes. Currently patient is on ceftriaxone, doxycycline, Solu-Medrol 60 mg of normal saline 75 mL/h 04/29/2023 Patient is still short of breath She still isn on BiPAP until 4:00 this morning Currently she is on 5 l/m of oxygen compared to 5 L at home as well. However patient still tachypneic with her limitation and wheezing. She has mild basal crepitation. Also she is kept on IV Solu-Medrol 60 mg, doxycycline and ceftriaxone and normal saline 75 mL/h Vitals and labs reviewed Blood pressure on the low side but patient is asymptomatic and has good urine ou tput, she is currently not on blood pressure medication 04/30/2023 pt is seen in the general medical floor today she is awake and alert, she is is requesting more breathing treatment and go back to bipap , although she is not severely tachypneic but she is still significantly wheezing and bronchospastic she is kept on iv solumedrol 60 mg and antibioitic with rocephin and doxycyclin and normal saline at 40 ml per hr 05/01/2023 She continued to improve slowly and gradually Her dyspnea is improving but still using the BiPAP and she still on 5 L oxygen via nasal cannula Normal saline or to 40 mL/h PT/OT requested but patient refused to work with them She remains on IV salmeterol 60 mg Ceftriaxone and doxycycline. Normal saline discontinued Active Medications Generic Name Dose Route Start Last Admin Trade Name Freq PRN Reason Stop Dose Admin Acetaminophen 650 mg 04/27/23 15:42 Acetaminophen Tab 325 Mg Tab PO Q4HR PRN Mild Pain or Fever > 100.5 Albuterol/Ipratropium 3 ml 04/27/23 16:00 04/28/23 19:32 Ipratropium-Albuterol 3 Ml Neb INHALATION 3 ml RT-QID GILLIAN Administration Albuterol/Ipratropium 3 ml 04/27/23 15:21 04/29/23 01:14 Ipratropium-Albuterol 3 Ml Neb INHALATION 3 ml RT-Q2H PRN Administration Shortness Of Breath Or Wheezing Aspirin 81 mg 04/28/23 09:00 04/28/23 09:35 Aspirin 81 Mg PO 81 mg DAILY GILLIAN Administration Benzonatate 100 mg 04/28/23 06:43 04/28/23 21:02 Benzonatate 100 Mg Cap PO 100 mg TID PRN Administration Cough Budesonide 0.5 mg 04/27/23 20:00 04/28/23 19:32 Budesonide 0.5 Mg/2 Ml Nebu INHALATION 0.5 mg RT-BID GILLIAN Administration Buspirone HCl 15 mg 04/28/23 09:00 04/28/23 20:12 Buspirone Hcl 5 Mg Tab PO 15 mg BID GILLIAN Administration Calcium Carbonate/Glycine 500 mg 04/28/23 06:43 Calcium Carbonate 500 Mg Chewable PO Q4H PRN ACID REFLUX Cholecalciferol 125 mcg 04/28/23 09:00 04/28/23 09:35 Cholecalciferol 125 Mcg (5000 Iu) Tablet PO 125 mcg DAILY GILLIAN Administration Docusate Sodium 100 mg 04/28/23 09:00 04/28/23 20:12 Docusate 100 Mg Cap PO 100 mg BID GILLIAN Administration Doxycycline Monohydrate 100 mg 04/27/23 21:00 04/28/23 20:12 Doxycycline 100 Mg Cap PO 05/02/23 09:01 100 mg BID GILLIAN Administration Protocol Fluticasone Propionate 1 spray 04/28/23 06:43 Fluticasone 50mcg/[place] Nasal 16gm EA NOSTRIL Q12H PRN copd Formoterol Fumarate 20 mcg 04/28/23 08:00 04/28/23 19:32 Formoterol Fumarate 20 Mcg/2 Ml Nebu INHALATION 20 mcg RT-BID GILLIAN Administration Guaifenesin 600 mg 04/27/23 21:00 04/28/23 20:12 Guaifenesin 600 Mg Tablet.Er PO 600 mg Q12HR GILLIAN Administration Heparin Sodium (Porcine) 5,000 unit 04/28/23 09:00 04/28/23 20:12 Heparin Sodium,Porcine 5,000 Unit/Ml 1 Ml Vial SQ 5,000 unit Q12HR GILLIAN Administration Sodium Chloride 1,000 mls @ 75 mls/hr 04/27/23 16:30 04/29/23 03:10 Saline 0.9% IV 75 mls/hr .[id number] GILLIAN Administration Ceftriaxone Sodium 1 gm/ 50 mls @ 100 mls/hr 04/28/23 00:00 04/29/23 00:03 Sodium Chloride IVPB 100 mls/hr Q24H GILLIAN Administration Protocol Dexmedetomidine HCl 400 mcg/ 100 mls @ 3.755 mls/hr 04/28/23 19:45 04/28/23 21:14 IV Solution IV Not Given .Q24H GILLIAN Protocol 0.2 MCG/KG/HR Lorazepam 1 mg 04/28/23 09:00 04/28/23 20:12 Lorazepam 1 Mg Tab PO 1 mg TID GILLIAN Administration Magnesium Hydroxide 2,400 mg 04/28/23 06:43 Magnesium Hydroxide 2,400 Mg/30 Ml Cup PO DAILY PRN Constipation Methylprednisolone Sodium Succinate 60 mg 04/28/23 00:00 04/29/23 05:05 Methylprednisolone Sod Succi 125 Mg/2 Ml Vial IV 60 mg Q6HR GILLIAN Administration Miscellaneous Information 1 each 04/28/23 20:04 Magnesium Replacement Protocol 1 Each Misc MISCELLANE DAILY PRN Per Protocol Protocol Miscellaneous Information 1 each 04/28/23 20:04 Potassium Replacement Protocol 1 Each Misc MISCELLANE DAILY PRN Per Protocol Protocol Morphine Sulfate 2 mg 04/27/23 21:07 04/27/23 21:24 Morphine Sulfate 2 Mg/Ml Syringe IVP 2 mg Q4HR PRN Administration Pain/Discomfort Naloxone HCl 0.2 mg 04/27/23 15:42 Naloxone 0.4 Mg/Ml 1 Ml Vial IVP Q2M PRN Opioid Reversal Ondansetron HCl 4 mg 04/27/23 15:42 04/28/23 20:09 Ondansetron 4 Mg/2 Ml Vial IVP 4 mg Q6HR PRN Administration Nausea And Vomiting Pantoprazole Sodium 40 mg 04/28/23 09:00 04/28/23 09:36 Pantoprazole 40 Mg/10 Ml Vial IVP 40 mg DAILY GILLIAN Administration Petrolatum 1 applic 04/27/23 17:54 Zinc Oxide Paste (Z-Guard) 1 Applic TOPICAL Q2HR PRN Wound Healing Protocol Sucralfate 1 gm 04/28/23 07:30 04/29/23 06:30 Sucralfate 1 Gm Tab PO 1 gm AC-TID GILLIAN Administration Trazodone HCl 50 mg 04/28/23 21:00 04/28/23 20:12 Trazodone Hcl 50 Mg Tab PO 50 mg HS GILLIAN Administration Objective - Vital Signs Vital signs: Vital Signs Temp 98.2 F 05/01/23 14:00 Pulse 114 H 05/01/23 14:00 Resp 18 05/01/23 14:00 BP 112/74 05/01/23 14:00 Pulse Ox 97 05/01/23 14:00 FiO2 40 04/30/23 02:50 Intake & Output 04/30/23 05/01/23 05/01/23 18:59 06:59 18:59 Output Total 500 1500 Balance -500 -1500 Weight 77 kg Output: Urine 500 1500 Other: Voiding Method External Catheter External Catheter - Exam GENERAL: The patient is alert and oriented x3, not in any acute distress. Well developed, well nourished. HEENT: Pupils are round and equally reacting to light. EOMI. No scleral icterus. No conjunctival pallor. Normocephalic, atraumatic. No pharyngeal erythema. No thyromegaly. CARDIOVASCULAR: S1 and S2 present. No murmurs, rubs, or gallops. -PULMONARY: Chest is clear to auscultation, bilateral expiratory wheezing with limited air entry on both sides ABDOMEN: Soft, nontender, nondistended, normoactive bowel sounds. No palpable organomegaly. MUSCULOSKELETAL: No joint swelling or deformity. EXTREMITIES: No cyanosis, clubbing, or pedal edema. NEUROLOGICAL: Gross neurological examination did not reveal any focal deficits. SKIN: No rashes. no petechiae. - Labs CBC & Chem 7: 05/01/23 05:54 05/01/23 05:54 Labs: Abnormal Lab Results - Last 24 Hours (Table) 05/01/23 05/01/23 Range/Units 05:54 05:54 RBC 3.96 L (4.10-5.20) X 10*6/uL Hgb 10.3 L (12.0-15.0) g/dL MCH 26.0 L (27.0-32.0) pg MCHC 27.5 L (32.0-37.0) g/dL Lymphocytes # 0.47 L (0.90-5.00) X 10*3/uL Eosinophils # 0 L (0.04-0.35) X 10*3/uL Sodium 146 H (135-145) mmol/L Carbon Dioxide >45.0 A* (21.6-31.8) mmol/L Creatinine 0.4 L (0.6-1.5) mg/dL BUN/Creatinine Ratio 34.25 H (12.00-20.00) Ratio Glucose 117 H (70-110) mg/dL Assessment and Plan Assessment: Acute COPD exacerbation Acute bronchitis, rule out bacterial superinfection Acute on chronic hypoxemic hypercapnic respiratory failure acute respiratory acidosis History of severe anxiety Plan: Continue with antibiotics, currently ceftriaxone, doxycycline. Follow-up pro- calcitonin Continue with Solu-Medrol 60 mg Patient is an normal saline 75 mL/h Critical care and Pulmonary team consult Labs and medication were reviewed.. Continue same treatment. Continue with symptomatic treatment. Resume home medication. Monitor labs and vitals. DVT and GI prophylaxis. Further recommendations as per clinical course of the patient DVT prophylaxis: Subcutaneous heparin GI Prophylaxis: Ppi PT/OT: Pending Prognosis is guarded
[2023-05-02 09:01] LABS: BUN/Creat Ratio 42.25 Ratio (12.00-20.00); Blood Urea Nitrogen 16.9 mg/dL (9.0-27.0); Calcium 9.7 mg/dL (8.7-10.3); Carbon Dioxide 43.1 mmol/L (21.6-31.8); Chloride 96 mmol/L (96-109); Glucose 91 mg/dL (70-110); Potassium 4.5 mmol/L (3.5-5.5); Sodium 145 mmol/L (135-145)
--- NOTE | 2023-05-02 09:47 | P.PN ---
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 anju richards She presents because of worsening shortness of breath with chest tightness and pressures and cough with yellow Pflaum for the last 4 days She was transferred from [facility]. Patient could not tolerate BiPAP there and POC to was significantly elevated at 93 Currently she is awake alert, she is on BiPAP in the ICU. Sitting BiPAP R 16/6 with FiO2 of 50% She's also normal saline 75 mL/h She denies any abdominal pain vomiting or diarrhea. No change in urine habits. No dizziness. She's complains from the distal headache and generalized weakness but no lateralization She is on 5 mg of prednisone at home Patient currently on BiPAP as above Labs reviewed her hemoglobin is 10, still CBC is unremarkable. BMP is unremarkable but pCO2 is elevated at 39 Kelsea Lowe 7.2, pCO2 is high 92 and sodium bicarb is 543 Patient has positive RSV virus test CRP is elevated at 0.6 Chest x-ray shows COPD with mild right pleural effusion EKG shows sinus tachycardia at [address]-T changes. Currently patient is on ceftriaxone, doxycycline, Solu-Medrol 60 mg of normal saline 75 mL/h 04/29/2023 Patient is still short of breath She still isn on BiPAP until 4:00 this morning Currently she is on 5 l/m of oxygen compared to 5 L at home as well. However patient still tachypneic with her limitation and wheezing. She has mild basal crepitation. Also she is kept on IV Solu-Medrol 60 mg, doxycycline and ceftriaxone and normal saline 75 mL/h Vitals and labs reviewed Blood pressure on the low side but patient is asymptomatic and has good urine ou tput, she is currently not on blood pressure medication 04/30/2023 pt is seen in the general medical floor today she is awake and alert, she is is requesting more breathing treatment and go back to bipap , although she is not severely tachypneic but she is still significantly wheezing and bronchospastic she is kept on iv solumedrol 60 mg and antibioitic with rocephin and doxycyclin and normal saline at 40 ml per hr 05/01/2023 She continued to improve slowly and gradually Her dyspnea is improving but still using the BiPAP and she still on 5 L oxygen via nasal cannula Normal saline or to 40 mL/h PT/OT requested but patient refused to work with them She remains on IV salmeterol 60 mg Ceftriaxone and doxycycline. Normal saline discontinued 05/02/2023 This is a pleasant 73 years old female with advanced COPD presents with RSV bronchitis and acute COPD exacerbation with acute on chronic hypoxic hypercapnic respiratory failure and respiratory acidosis. Patient responded to treatment slowly and gradually She is awake alert and talking of freely with little dyspnea but she still complaining of from tight chest and she looks very anxious. She likes to use the BiPAP on and off. She is still on 5 L oxygen via nasal cannula I offered Xanax but she declines and she wants to keep the Ativan 1 mg 3 times a day for now Carbon dioxide is slightly better 43 today. Active Medications Generic Name Dose Route Start Last Admin Trade Name Freq PRN Reason Stop Dose Admin Acetaminophen 650 mg 04/27/23 15:42 Acetaminophen Tab 325 Mg Tab PO Q4HR PRN Mild Pain or Fever > 100.5 Albuterol/Ipratropium 3 ml 04/27/23 16:00 04/28/23 19:32 Ipratropium-Albuterol 3 Ml Neb INHALATION 3 ml RT-QID GILLIAN Administration Albuterol/Ipratropium 3 ml 04/27/23 15:21 04/29/23 01:14 Ipratropium-Albuterol 3 Ml Neb INHALATION 3 ml RT-Q2H PRN Administration Shortness Of Breath Or Wheezing Aspirin 81 mg 04/28/23 09:00 04/28/23 09:35 Aspirin 81 Mg PO 81 mg DAILY GILLIAN Administration Benzonatate 100 mg 04/28/23 06:43 04/28/23 21:02 Benzonatate 100 Mg Cap PO 100 mg TID PRN Administration Cough Budesonide 0.5 mg 04/27/23 20:00 04/28/23 19:32 Budesonide 0.5 Mg/2 Ml Nebu INHALATION 0.5 mg RT-BID GILLIAN Administration Buspirone HCl 15 mg 04/28/23 09:00 04/28/23 20:12 Buspirone Hcl 5 Mg Tab PO 15 mg BID GILLIAN Administration Calcium Carbonate/Glycine 500 mg 04/28/23 06:43 Calcium Carbonate 500 Mg Chewable PO Q4H PRN ACID REFLUX Cholecalciferol 125 mcg 04/28/23 09:00 04/28/23 09:35 Cholecalciferol 125 Mcg (5000 Iu) Tablet PO 125 mcg DAILY GILLIAN Administration Docusate Sodium 100 mg 04/28/23 09:00 04/28/23 20:12 Docusate 100 Mg Cap PO 100 mg BID GILLIAN Administration Doxycycline Monohydrate 100 mg 04/27/23 21:00 04/28/23 20:12 Doxycycline 100 Mg Cap PO 05/02/23 09:01 100 mg BID GILLIAN Administration Protocol Fluticasone Propionate 1 spray 04/28/23 06:43 Fluticasone 50mcg/[place] Nasal 16gm EA NOSTRIL Q12H PRN copd Formoterol Fumarate 20 mcg 04/28/23 08:00 04/28/23 19:32 Formoterol Fumarate 20 Mcg/2 Ml Nebu INHALATION 20 mcg RT-BID GILLIAN Administration Guaifenesin 600 mg 04/27/23 21:00 04/28/23 20:12 Guaifenesin 600 Mg Tablet.Er PO 600 mg Q12HR GILLIAN Administration Heparin Sodium (Porcine) 5,000 unit 04/28/23 09:00 04/28/23 20:12 Heparin Sodium,Porcine 5,000 Unit/Ml 1 Ml Vial SQ 5,000 unit Q12HR GILLIAN Administration Sodium Chloride 1,000 mls @ 75 mls/hr 04/27/23 16:30 04/29/23 03:10 Saline 0.9% IV 75 mls/hr .[id number] GILLIAN Administration Ceftriaxone Sodium 1 gm/ 50 mls @ 100 mls/hr 04/28/23 00:00 04/29/23 00:03 Sodium Chloride IVPB 100 mls/hr Q24H GILLIAN Administration Protocol Dexmedetomidine HCl 400 mcg/ 100 mls @ 3.755 mls/hr 04/28/23 19:45 04/28/23 21:14 IV Solution IV Not Given .Q24H GILLIAN Protocol 0.2 MCG/KG/HR Lorazepam 1 mg 04/28/23 09:00 04/28/23 20:12 Lorazepam 1 Mg Tab PO 1 mg TID GILLIAN Administration Magnesium Hydroxide 2,400 mg 04/28/23 06:43 Magnesium Hydroxide 2,400 Mg/30 Ml Cup PO DAILY PRN Constipation Methylprednisolone Sodium Succinate 60 mg 04/28/23 00:00 04/29/23 05:05 Methylprednisolone Sod Succi 125 Mg/2 Ml Vial IV 60 mg Q6HR GILLIAN Administration Miscellaneous Information 1 each 04/28/23 20:04 Magnesium Replacement Protocol 1 Each Misc MISCELLANE DAILY PRN Per Protocol Protocol Miscellaneous Information 1 each 04/28/23 20:04 Potassium Replacement Protocol 1 Each Misc MISCELLANE DAILY PRN Per Protocol Protocol Morphine Sulfate 2 mg 04/27/23 21:07 04/27/23 21:24 Morphine Sulfate 2 Mg/Ml Syringe IVP 2 mg Q4HR PRN Administration Pain/Discomfort Naloxone HCl 0.2 mg 04/27/23 15:42 Naloxone 0.4 Mg/Ml 1 Ml Vial IVP Q2M PRN Opioid Reversal Ondansetron HCl 4 mg 04/27/23 15:42 04/28/23 20:09 Ondansetron 4 Mg/2 Ml Vial IVP 4 mg Q6HR PRN Administration Nausea And Vomiting Pantoprazole Sodium 40 mg 04/28/23 09:00 04/28/23 09:36 Pantoprazole 40 Mg/10 Ml Vial IVP 40 mg DAILY GILLIAN Administration Petrolatum 1 applic 04/27/23 17:54 Zinc Oxide Paste (Z-Guard) 1 Applic TOPICAL Q2HR PRN Wound Healing Protocol Sucralfate 1 gm 04/28/23 07:30 04/29/23 06:30 Sucralfate 1 Gm Tab PO 1 gm AC-TID GILLIAN Administration Trazodone HCl 50 mg 04/28/23 21:00 04/28/23 20:12 Trazodone Hcl 50 Mg Tab PO 50 mg HS GILLIAN Administration Objective - Vital Signs Vital signs: Vital Signs Temp 97.4 F L 05/02/23 00:40 Pulse 79 05/02/23 08:06 Resp 17 05/02/23 07:21 BP 141/82 05/02/23 07:21 Pulse Ox 97 05/02/23 07:46 FiO2 40 05/02/23 07:46 Intake & Output 05/01/23 05/02/23 05/02/23 18:59 06:59 18:59 Intake Total 480 Output Total 850 700 Balance -370 -700 Weight 77 kg Intake: Oral 480 Output: Urine 850 700 Other: Voiding Method External Catheter External Catheter # Voids 2 - Exam GENERAL: The patient is alert and oriented x3, not in any acute distress. Well developed, well nourished. HEENT: Pupils are round and equally reacting to light. EOMI. No scleral icterus. No conjunctival pallor. Normocephalic, atraumatic. No pharyngeal erythema. No thyromegaly. CARDIOVASCULAR: S1 and S2 present. No murmurs, rubs, or gallops. -PULMONARY: Chest is clear to auscultation, bilateral expiratory wheezing with limited air entry on both sides ABDOMEN: Soft, nontender, nondistended, normoactive bowel sounds. No palpable organomegaly. MUSCULOSKELETAL: No joint swelling or deformity. EXTREMITIES: No cyanosis, clubbing, or pedal edema. NEUROLOGICAL: Gross neurological examination did not reveal any focal deficits. SKIN: No rashes. no petechiae. - Labs CBC & Chem 7: 05/01/23 05:54 05/02/23 05:24 Labs: Abnormal Lab Results - Last 24 Hours (Table) 05/02/23 Range/Units 05:24 Carbon Dioxide 43.1 A* (21.6-31.8) mmol/L Creatinine 0.4 L (0.6-1.5) mg/dL BUN/Creatinine Ratio 42.25 H (12.00-20.00) Ratio Assessment and Plan Assessment: Acute COPD exacerbation Acute bronchitis, rule out bacterial superinfection Acute on chronic hypoxemic hypercapnic respiratory failure acute respiratory acidosis History of severe anxiety Plan: Continue with antibiotics, currently ceftriaxone, doxycycline. Follow-up pro-calcitonin Continue with Solu-Medrol 60 mg Patient is an normal saline 75 mL/h Critical care and Pulmonary team consult Labs and medication were reviewed.. Continue same treatment. Continue with symptomatic treatment. Resume home medication. Monitor labs and vitals. DVT and GI prophylaxis. Further recommendations as per clinical course of the patient DVT prophylaxis: Subcutaneous heparin GI Prophylaxis: Ppi PT/OT: Pending Prognosis is guarded
--- NOTE | 2023-05-02 13:22 | P.PN ---
Subjective Progress Note Date: 05/02/23 73-year-old female patient with advanced COPD, who has been followed up by a service engineer, Dr. Dejan Peter out of [facility]. The patient is chronically oxygen dependent at 5 L/min nasal cannula. She quit smoking approximately 10 years ago. She has been maintained on a combination of Spiriva and Symbicort on outpatient basis. She presented to the hospital because of worsening shortness of breath. I have seen and evaluated this patient in the past at [facility] for the same. Overnight, the patient was kept on the BiPAP as the patient had a component of acute hypercapnic respiratory failure with a pH of 7.28 and a pCO2 of 92 and pO2 of 87. She was started on bronchodilators and steroids. Chest x-ray shows hyperinflation without any airspace disease. She did have a troponin leak with a troponin of 0.072. She was started on broad-spectrum antibiotic coverage in addition to bronchodilators. She is also on a combination ofPerforomist and Pulmicort. She is tested positive for RSV. The patient this morning seems to be much more comfortable. While on the BiPAP pressure of 16 over 6 cm of water and FiO2 of 50%, she is able to generate a tidal volume of about 500 with a respiratory rate of 22. She is able to communicate. She is alert and oriented. She denies having any chest pain. Hemodynamically stable. White cell count is 8 with a hemoglobin of 10 and a platelet count of 271. BUN is at 25 with a creatinine 0.4. Procalcitonin level is at 0.28. On today's evaluation of 04/29/2023, the patient is doing well. No specific complaints. She is less short of breath compared to yesterday. No new complaints. No altered mentation. No chest pain.No new complaints. No altered mentation. She is still bringing up some limited amount of mucus. She wore her BiPAP throughout the night at a pressure of 16 over 6 cm of water with an Fi O2 of 50%. This morning, she is back on nasal cannula. Her blood work today shows a WBC count of 4.1, hemoglobin is at 9.8 and a platelet count of 266. Serum bicarbonate 45 with a BUN of 25 and a creatinine of 0.5. Her procalcitonin level is at 0.28. Hemodynamically stable. She is bedridden. She has not ambulated for at least a year due to her chronic spine problems which includes lumbar stenosis, degenerative arthritis and degenerative lumbar disc disease. On today's evaluation of 04/30/2023, the patient is being seen for a follow-up. The patient utilizing BiPAP overnight at a pressure of 16/6 with an FiO2 of 50% and currently she is on oxygen by nasal cannula. She is currently utilizing 4 L nasal cannula. Doing well. No specific complaints. She was moved out of the intensive care unit yesterday as the patient was admitted to us because of an acute stroke exacerbation and RSV infection. Denies having any chest pain. Blood work from today still pending. Labs from yesterday was reviewed.She remains on bronchodilators. She remains on steroids. Empiric antibiotic coverage is still with IV Rocephin. She remains on Solu-Medrol 60 mg IV push every 6 hours. No altered mentation. She is essentially bedridden. On 05/01/2023, the patient is being seen for a follow-up. The patient is utilizing the BiPAP on and off during the day at a pressure of 16 over 6 cm of water. She is still being treated for an acute exacerbation and acute RSV infection. No altered mentation. No signs of any CO2 narcosis. The white cell count of 5.3 with a hemoglobin 10.3 and a platelet count of 301. Sodium is at 146, BUN is at 15 with a creatinine of 0.4. Remains on DuoNeb updrafts. Remains on IV Rocephin as an empiric antibiotic coverage. IV centimeter was at 60 mg every 6 hours. Occasionally increased anxiety and agitation the patient is taking Ativan 1 mg 3 times daily. Patient is also on morphine 2 mg and an as-needed basis. She is on BuSpar 15 mg p.o. twice daily. She is taking Tessalon Perles for cough. On today's evaluation of 05/02/2023, the patient is still struggling with her breathing. She has advanced COPD and the patient came in for an acute RSV infection which exacerbated her COPD. Initially she was in the intensive care unit supported with a BiPAP. For now she is on a medical hold and she is on and off utilizing the BiPAP at a pressure of 16 over 6 cm of water. At the time of arrival this morning, the patient was on a BiPAP and she requested to go back on nasal cannula and I moved her to 5 L nasal cannula. She is in mild pain is slightly less bronchospastic and wheezy she is arousable and she is communicating. Sodium levels at 145, potassium level is at 4.5, bicarb is at 43, BUN is at 16 with a creatinine of 0.4. She remains on the same treatment for now and the patient remains on a combination of DuoNeb updrafts, Perforomist and Pulmicort nebulized treatments twice a day, and she is still on Solu-Medrol which is at a dose of 60 mg IV every 6 hours. In terms of her labs, electrolytes were mentioned. No recent CBC. Her most recent chest x-rays from 04/29/2023 without any acute abnormalities. Her anxiety level remains quite eleva efe. The patient remains on BuSpar 15 mg p.o. twice a day and she is also taking Ativan 1 mg 3 times daily. Occasional panic attacks are still occurring. Objective - Vital Signs Vital signs: Vital Signs Temp 97.4 F L 05/02/23 00:40 Pulse 79 05/02/23 08:06 Resp 17 05/02/23 07:21 BP 141/82 05/02/23 07:21 Pulse Ox 97 05/02/23 07:46 FiO2 40 05/02/23 07:46 Intake & Output 05/01/23 05/02/23 05/02/23 18:59 06:59 18:59 Intake Total 480 Output Total 850 700 Balance -370 -700 Weight 77 kg Intake: Oral 480 Output: Urine 850 700 Other: Voiding Method External Catheter External Catheter # Voids 2 - Exam GENERAL EXAM: Alert, 72-year-old white female, on 5 L of oxygen nasal cannula HEAD: Normocephalic and atraumatic EYES: Normal reaction of pupils, equal size. NOSE: Clear with pink turbinates. THROAT: No erythema or exudates. NECK: No masses, no JVD. CHEST: No chest wall deformity. LUNGS: Equal air entry with expiratory wheezes heard throughout. On BiPAP with settings 14/6 and FiO2 of 50%. She is tachypneic. No conversational dyspnea or accessory muscle use. CVS: S1 and S2 normal with no audible murmur, regular rhythm. No extra heart sounds ABDOMEN: No hepatosplenomegaly, active bowel sounds, no guarding or rigidity. SPINE: No scoliosis or deformity SKIN: No rashes CENTRAL NERVOUS SYSTEM: No focal deficits, tone is normal in all 4 extremities. Awake and oriented and communicating. EXTREMITIES: There is no peripheral edema, clubbing, or cyanosis. Peripheral pulses are intact. - Labs CBC & Chem 7: 05/01/23 05:54 05/02/23 05:24 Labs: Abnormal Lab Results - Last 24 Hours (Table) 05/02/23 Range/Units 05:24 Carbon Dioxide 43.1 A* (21.6-31.8) mmol/L Creatinine 0.4 L (0.6-1.5) mg/dL BUN/Creatinine Ratio 42.25 H (12.00-20.00) Ratio Assessment and Plan Plan: Acute on chronic hypoxemic and hypercapnic respiratory failure, secondary to COPD exacerbation and acute RSV infection. The patient is currently on 5 L O2 nasal cannula. On and off utilizing the BiPAP. Clinically improving if this is a slow and ongoing improvement. 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 Plan: Limited slow but ongoing improvement in this patient. No signs of any CO2 narcosis. No interval worsening shortness of breath. On examination, the patient seems to be less bronchospastic and wheezy. The patient has been weaned down to 5 L O2 nasal cannula Continue utilizing BiPAP on and off during the day and continuously at nighttime, this is at the pressure of 16 over 6 cm of water. Clinically stable and the patient is improving The patient may benefit from a home BiPAP device as the patient has chronic hypoxic and hypercapnic respiratory failure due to COPD, this can be dealt with at a later stage Continue combination of DuoNebs, formoterol inhalation, budesonide inhalation, and IV Solu-Medrol. Continue current empiric antibiotics, patient has multiple antibiotic allergies. RSV is positive and the patient will be treated with bronchodilators and steroids The rest of the viral panel was negative Check procalcitonin level was minimally elevated, no signs of any bacterial pneumonia Heparin for DVT prophylaxis and Protonix for GI prophylaxis. Continue Ativan and BuSpar for anxiety. The patient is taking BuSpar 15 mg p.o. twice daily and Ativan 1 mg 3 times daily Keep the patient on the medical floor Will continue to follow. Long-term prognosis poor based on her advanced COPD. The patient is essentially nonambulatory at this point. She is a detention resident.
[2023-05-03 08:03] LABS: Basophils % (A) 0 %; Eosinophils % (A) 0 %; HCT 37.1 % (34.0-46.0); HGB 11.1 gm/dL (11.4-16.0); Hypochromasia Marked; Lymphocytes # (A) 1.3 k/uL (1.0-4.8); Lymphocytes % (A) 19 %; MCH 26.7 pg (25.0-35.0); MCV 88.8 fL (80.0-100.0); Monocytes # (A) 0.4 k/uL (0-1.0); Monocytes % (A) 6 %; Neutrophils % (A) 74 %; Platelet Count 379 k/uL (150-450); RBC 4.18 m/uL (3.80-5.40); RDW 14.1 % (11.5-15.5); WBC 6.8 k/uL (3.8-10.6)
[2023-05-03 08:13] LABS: African American GFR (CKD) >90 (>60 ml/min/1.73 sqM); Blood Urea Nitrogen 23 mg/dL (7-17); Calcium 9.3 mg/dL (8.4-10.2); Chloride 94 mmol/L (98-107); Glucose 78 mg/dL (74-99); Non-African American GFR(CKD) >90 (>60 ml/min/1.73 sqM); Potassium 4.1 mmol/L (3.5-5.1); Sodium 139 mmol/L (137-145)
[2023-05-03 08:20] LABS: Anion Gap 3 mmol/L
[2023-05-03 08:30] LABS: Carbon Dioxide 42 mmol/L (22-30)
[2023-05-03] MEDS: LORazepam 1 MG TAB PO SCH (08:57)
--- NOTE | 2023-05-03 09:22 | XR ---
EXAMINATION TYPE: XR chest 1V DATE OF EXAM: 05/03/2023 COMPARISON: 04/29/2023 HISTORY: RSV TECHNIQUE: Single frontal view of the chest is obtained. FINDINGS: There is hyperinflation and abnormal lung lucency and flattening of diaphragms consistent with COPD. A focal opacity in the left lung base is not excluded. There is some blunting of the costophrenic angles which could represent tiny effusions or scarring fr om COPD. The heart size is normal. The pulmonary vasculature is not congested. Osseous structures are osteopen ic. IMPRESSION: 1. Possible small consolidative infiltrate in the left lung base. Follow-up to resolution is recommen ded. 2. COPD.
[2023-05-03] MEDS: FUROSEMIDE 10 MG/ML 2 ML VIAL IV ONE (10:02)
--- NOTE | 2023-05-03 11:39 | P.PN ---
Subjective Progress Note Date: 05/03/23 73-year-old female patient with advanced COPD, who has been followed up by a pc support specialist, Dr. Dejan Peter out of [facility]. The patient is chronically oxygen dependent at 5 L/min nasal cannula. She quit smoking approximately 10 years ago. She has been maintained on a combination of Spiriva and Symbicort on outpatient basis. She presented to the hospital because of worsening shortness of breath. I have seen and evaluated this patient in the past at [facility] for the same. Overnight, the patient was kept on the BiPAP as the patient had a component of acute hypercapnic respiratory failure with a pH of 7.28 and a pCO2 of 92 and pO2 of 87. She was started on bronchodilators and steroids. Chest x-ray shows hyperinflation without any airspace disease. She did have a troponin leak with a troponin of 0.072. She was started on broad-spectrum antibiotic coverage in addition to bronchodilators. She is also on a combination ofPerforomist and Pulmicort. She is tested positive for RSV. The patient this morning seems to be much more comfortable. While on the BiPAP pressure of 16 over 6 cm of water and FiO2 of 50%, she is able to generate a tidal volume of about 500 with a respiratory rate of 22. She is able to communicate. She is alert and oriented. She denies having any chest pain. Hemodynamically stable. White cell count is 8 with a hemoglobin of 10 and a platelet count of 271. BUN is at 25 with a creatinine 0.4. Procalcitonin level is at 0.28. On today's evaluation of 04/29/2023, the patient is doing well. No specific complaints. She is less short of breath compared to yesterday. No new complaints. No altered mentation. No chest pain.No new complaints. No altered mentation. She is still bringing up some limited amount of mucus. She wore her BiPAP throughout the night at a pressure of 16 over 6 cm of water with an Fi O2 of 50%. This morning, she is back on nasal cannula. Her blood work today shows a WBC count of 4.1, hemoglobin is at 9.8 and a platelet count of 266. Serum bicarbonate 45 with a BUN of 25 and a creatinine of 0.5. Her procalcitonin level is at 0.28. Hemodynamically stable. She is bedridden. She has not ambulated for at least a year due to her chronic spine problems which includes lumbar stenosis, degenerative arthritis and degenerative lumbar disc disease. On today's evaluation of 04/30/2023, the patient is being seen for a follow-up. The patient utilizing BiPAP overnight at a pressure of 16/6 with an FiO2 of 50% and currently she is on oxygen by nasal cannula. She is currently utilizing 4 L nasal cannula. Doing well. No specific complaints. She was moved out of the intensive care unit yesterday as the patient was admitted to us because of an acute stroke exacerbation and RSV infection. Denies having any chest pain. Blood work from today still pending. Labs from yesterday was reviewed.She remains on bronchodilators. She remains on steroids. Empiric antibiotic coverage is still with IV Rocephin. She remains on Solu-Medrol 60 mg IV push every 6 hours. No altered mentation. She is essentially bedridden. On 05/01/2023, the patient is being seen for a follow-up. The patient is utilizing the BiPAP on and off during the day at a pressure of 16 over 6 cm of water. She is still being treated for an acute exacerbation and acute RSV infection. No altered mentation. No signs of any CO2 narcosis. The white cell count of 5.3 with a hemoglobin 10.3 and a platelet count of 301. Sodium is at 146, BUN is at 15 with a creatinine of 0.4. Remains on DuoNeb updrafts. Remains on IV Rocephin as an empiric antibiotic coverage. IV centimeter was at 60 mg every 6 hours. Occasionally increased anxiety and agitation the patient is taking Ativan 1 mg 3 times daily. Patient is also on morphine 2 mg and an as-needed basis. She is on BuSpar 15 mg p.o. twice daily. She is taking Tessalon Perles for cough. On today's evaluation of 05/02/2023, the patient is still struggling with her breathing. She has advanced COPD and the patient came in for an acute RSV infection which exacerbated her COPD. Initially she was in the intensive care unit supported with a BiPAP. For now she is on a medical hold and she is on and off utilizing the BiPAP at a pressure of 16 over 6 cm of water. At the time of arrival this morning, the patient was on a BiPAP and she requested to go back on nasal cannula and I moved her to 5 L nasal cannula. She is in mild pain is slightly less bronchospastic and wheezy she is arousable and she is communicating. Sodium levels at 145, potassium level is at 4.5, bicarb is at 43, BUN is at 16 with a creatinine of 0.4. She remains on the same treatment for now and the patient remains on a combination of DuoNeb updrafts, Perforomist and Pulmicort nebulized treatments twice a day, and she is still on Solu-Medrol which is at a dose of 60 mg IV every 6 hours. In terms of her labs, electrolytes were mentioned. No recent CBC. Her most recent chest x-rays from 04/29/2023 without any acute abnormalities. Her anxiety level remains quite eleva efe. The patient remains on BuSpar 15 mg p.o. twice a day and she is also taking Ativan 1 mg 3 times daily. Occasional panic attacks are still occurring. On 05/03/2023, the patient is struggling with her breathing. She has become more and more BiPAP dependent. As mentioned earlier, the patient has advanced end- stage COPD and she was reinfected with RSV. The patient was initially in the intensive care unit. She was requiring BiPAP and she was gradually weaned off the BiPAP with she was utilizing the BiPAP in alternation with nasal cannula at 4 L. However this morning, while off the BiPAP, the patient was unable to tolerate her breathing and she was asked to go back to her BiPAP as soon as possible. During this time, she also showed oxygen desaturations. Based on all this, the patient was placed on the BiPAP at a pressure of 16 over 6 cm of water with an FiO2 of 40%. A repeat chest x-ray was done and the patient was found to have small infiltrate in the left lung base and COPD. The patient was also given a dose of Lasix. I noted that she was quite anxious and I increased her Ativan to 1 mg 4 times daily patient is also on BuSpar. Meanwhile, the white cell count of 6.8, hemoglobin 11.1 and a platelet count of 379, BUN is 23 with a creatinine of 0.5 and sodium levels of 139. No focal neurological deficits. She is extremely anxious. Objective - Vital Signs Vital signs: Vital Signs Temp 98.6 F 05/03/23 07:33 Pulse 80 05/03/23 07:33 Resp 21 05/03/23 07:33 BP 143/78 05/03/23 07:33 Pulse Ox 97 05/03/23 07:33 FiO2 40 05/03/23 03:50 Intake & Output 05/02/23 05/03/23 05/03/23 18:59 06:59 18:59 Intake Total 420 Output Total 900 500 Balance -900 -80 Intake: Oral 420 Output: Urine 900 500 Other: Voiding Method External Catheter External Catheter - Exam GENERAL EXAM: Alert, 72-year-old white female, on 5 L of oxygen nasal cannula HEAD: Normocephalic and atraumatic EYES: Normal reaction of pupils, equal size. NOSE: Clear with pink turbinates. THROAT: No erythema or exudates. NECK: No masses, no JVD. CHEST: No chest wall deformity. LUNGS: Equal air entry with expiratory wheezes heard throughout. On BiPAP with settings 14/6 and FiO2 of 50%. She is tachypneic. No conversational dyspnea or accessory muscle use. CVS: S1 and S2 normal with no audible murmur, regular rhythm. No extra heart sounds ABDOMEN: No hepatosplenomegaly, active bowel sounds, no guarding or rigidity. SPINE: No scoliosis or deformity SKIN: No rashes CENTRAL NERVOUS SYSTEM: No focal deficits, tone is normal in all 4 extremities. Awake and oriented and communicating. EXTREMITIES: There is no peripheral edema, clubbing, or cyanosis. Peripheral pulses are intact. - Labs CBC & Chem 7: 05/03/23 06:37 05/03/23 06:37 Labs: Abnormal Lab Results - Last 24 Hours (Table) 05/02/23 05/03/23 05/03/23 Range/Units 05:24 06:37 06:37 Hgb 11.1 L (11.4-16.0) gm/dL MCHC 30.0 L (31.0-37.0) g/dL Chloride 94 L (98-107) mmol/L Carbon Dioxide 43.1 A* 42 H* (21.6-31.8) mmol/L BUN 23 H (7-17) mg/dL Creatinine 0.4 L 0.51 L (0.6-1.5) mg/dL BUN/Creatinine Ratio 42.25 H (12.00-20.00) Ratio Assessment and Plan Plan: Acute on chronic hypoxemic and hypercapnic respiratory failure, secondary to COPD exacerbation and acute RSV infection. The patient is currently on 5 L O2 nasal cannula. The patient was in the intensive care unit as she was being tr eated for an acute COPD exacerbation. She was alternating between BiPAP and nasal cannula oxygen this morning she seems to be more dependent on the BiPAP. She is decompensating easily while off the BiPAP and currently she is on a BiPAP pressure of 16/6 with an FiO2 of 40%. Chest x-ray remains unchanged. Her disease is end-stage and she has become more and more BiPAP dependent. 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 Plan: Keep the patient on BiPAP for now Give a dose of Lasix 20 mg IV push Increase the Ativan to 1 mg 4 times a day Continue BuSpar Continue IV Solu-Medrol Continue combination of DuoNebs, formoterol inhalation, budesonide inhalation, and IV Solu-Medrol. Continue current empiric antibiotics, and the patient is currently on IV Rocephin. RSV is positive and the patient will be treated with bronchodilators and steroids The rest of the viral panel was negative Long-term prognosis extremely poor. Is very much likely that the patient will become BiPAP dependent for an extended period of time, unable to send her home on a regular nasal cannula. She is a [facility] resident that she may require also a BiPAP permanently
--- NOTE | 2023-05-03 17:53 | P.PN ---
Subjective this is a pleasant 72 years old female with past medical hisotry of COPD ,she is on 5 literof oxygen at home , she follows up with chemical engraver at [facility] dr. anju richards She presents because of worsening shortness of breath with chest tightness and pressures and cough with yellow Pfl[place]um for the last 4 days She was transferred from [facility]. Patient could not tolerate BiPAP there and POC to was significantly elevated at 93 Currently she is awake alert, she is on BiPAP in the ICU. Sitting BiPAP R 16/6 with FiO2 of 50% She's also normal saline 75 mL/h She denies any abdominal pain vomiting or diarrhea. No change in urine habits. No dizziness. She's complains from the distal headache and generalized weakness but no lateralization She is on 5 mg of prednisone at home Patient currently on BiPAP as above Labs reviewed her hemoglobin is 10, still CBC is unremarkable. BMP is unremarkable but pCO2 is elevated at 39 Kelsea Lowe 7.2, pCO2 is high 92 and sodium bicarb is 543 Patient has positive RSV virus test CRP is elevated at 0.6 Chest x-ray shows COPD with mild right pleural effusion EKG shows sinus tachycardia at [address]-T changes. Currently patient is on ceftriaxone, doxycycline, Solu-Medrol 60 mg of normal saline 75 mL/h 04/29/2023 Patient is still short of breath She still isn on BiPAP until 4:00 this morning Currently she is on 5 l/m of oxygen compared to 5 L at home as well. However patient still tachypneic with her limitation and wheezing. She has mild basal crepitation. Also she is kept on IV Solu-Medrol 60 mg, doxycycline and ceftriaxone and normal saline 75 mL/h Vitals and labs reviewed Blood pressure on the low side but patient is asymptomatic and has good urine ou tput, she is currently not on blood pressure medication 04/30/2023 pt is seen in the general medical floor today she is awake and alert, she is is requesting more breathing treatment and go back to bipap , although she is not severely tachypneic but she is still significantly wheezing and bronchospastic she is kept on iv solumedrol 60 mg and antibioitic with rocephin and doxycyclin and normal saline at 40 ml per hr 05/01/2023 She continued to improve slowly and gradually Her dyspnea is improving but still using the BiPAP and she still on 5 L oxygen via nasal cannula Normal saline or to 40 mL/h PT/OT requested but patient refused to work with them She remains on IV salmeterol 60 mg Ceftriaxone and doxycycline. Normal saline discontinued 05/02/2023 This is a pleasant 73 years old female with advanced COPD presents with RSV bronchitis and acute COPD exacerbation with acute on chronic hypoxic hypercapnic respiratory failure and respiratory acidosis. Patient responded to treatment slowly and gradually She is awake alert and talking of freely with little dyspnea but she still complaining of from tight chest and she looks very anxious. She likes to use the BiPAP on and off. She is still on 5 L oxygen via nasal cannula I offered Xanax but she declines and she wants to keep the Ativan 1 mg 3 times a day for now Carbon dioxide is slightly better 43 today. 05/03/2023 Patient still complaining of from dyspnea She remains on BiPAP intermittently Repeat chest x-ray showing mild left lower lobe infiltrate suspicious for fluid overload status post 1 times of IV Lasix Continue with Solu-Medrol 60 mg on antibiotic with ceftriaxone and doxycycline Active Medications Generic Name Dose Route Start Last Admin Trade Name Freq PRN Reason Stop Dose Admin Acetaminophen 650 mg 04/27/23 15:42 Acetaminophen Tab 325 Mg Tab PO Q4HR PRN Mild Pain or Fever > 100.5 Albuterol/Ipratropium 3 ml 04/27/23 16:00 04/28/23 19:32 Ipratropium-Albuterol 3 Ml Neb INHALATION 3 ml RT-QID GILLIAN Administration Albuterol/Ipratropium 3 ml 04/27/23 15:21 04/29/23 01:14 Ipratropium-Albuterol 3 Ml Neb INHALATION 3 ml RT-Q2H PRN Administration Shortness Of Breath Or Wheezing Aspirin 81 mg 04/28/23 09:00 04/28/23 09:35 Aspirin 81 Mg PO 81 mg DAILY GILLIAN Administration Benzonatate 100 mg 04/28/23 06:43 04/28/23 21:02 Benzonatate 100 Mg Cap PO 100 mg TID PRN Administration Cough Budesonide 0.5 mg 04/27/23 20:00 04/28/23 19:32 Budesonide 0.5 Mg/2 Ml Nebu INHALATION 0.5 mg RT-BID GILLIAN Administration Buspirone HCl 15 mg 04/28/23 09:00 04/28/23 20:12 Buspirone Hcl 5 Mg Tab PO 15 mg BID GILLIAN Administration Calcium Carbonate/Glycine 500 mg 04/28/23 06:43 Calcium Carbonate 500 Mg Chewable PO Q4H PRN ACID REFLUX Cholecalciferol 125 mcg 04/28/23 09:00 04/28/23 09:35 Cholecalciferol 125 Mcg (5000 Iu) Tablet PO 125 mcg DAILY GILLIAN Administration Docusate Sodium 100 mg 04/28/23 09:00 04/28/23 20:12 Docusate 100 Mg Cap PO 100 mg BID GILLIAN Administration Doxycycline Monohydrate 100 mg 04/27/23 21:00 04/28/23 20:12 Doxycycline 100 Mg Cap PO 05/02/23 09:01 100 mg BID GILLIAN Administration Protocol Fluticasone Propionate 1 spray 04/28/23 06:43 Fluticasone 50mcg/[place] Nasal 16gm EA NOSTRIL Q12H PRN copd Formoterol Fumarate 20 mcg 04/28/23 08:00 04/28/23 19:32 Formoterol Fumarate 20 Mcg/2 Ml Nebu INHALATION 20 mcg RT-BID GILLIAN Administration Guaifenesin 600 mg 04/27/23 21:00 04/28/23 20:12 Guaifenesin 600 Mg Tablet.Er PO 600 mg Q12HR GILLIAN Administration Heparin Sodium (Porcine) 5,000 unit 04/28/23 09:00 04/28/23 20:12 Heparin Sodium,Porcine 5,000 Unit/Ml 1 Ml Vial SQ 5,000 unit Q12HR GILLIAN Administration Sodium Chloride 1,000 mls @ 75 mls/hr 04/27/23 16:30 04/29/23 03:10 Saline 0.9% IV 75 mls/hr .[id number] GILLIAN Administration Ceftriaxone Sodium 1 gm/ 50 mls @ 100 mls/hr 04/28/23 00:00 04/29/23 00:03 Sodium Chloride IVPB 100 mls/hr Q24H GILLIAN Administration Protocol Dexmedetomidine HCl 400 mcg/ 100 mls @ 3.755 mls/hr 04/28/23 19:45 04/28/23 21:14 IV Solution IV Not Given .Q24H GILLIAN Protocol 0.2 MCG/KG/HR Lorazepam 1 mg 04/28/23 09:00 04/28/23 20:12 Lorazepam 1 Mg Tab PO 1 mg TID GILLIAN Administration Magnesium Hydroxide 2,400 mg 04/28/23 06:43 Magnesium Hydroxide 2,400 Mg/30 Ml Cup PO DAILY PRN Constipation Methylprednisolone Sodium Succinate 60 mg 04/28/23 00:00 04/29/23 05:05 Methylprednisolone Sod Succi 125 Mg/2 Ml Vial IV 60 mg Q6HR GILLIAN Administration Miscellaneous Information 1 each 04/28/23 20:04 Magnesium Replacement Protocol 1 Each Misc MISCELLANE DAILY PRN Per Protocol Protocol Miscellaneous Information 1 each 04/28/23 20:04 Potassium Replacement Protocol 1 Each Misc MISCELLANE DAILY PRN Per Protocol Protocol Morphine Sulfate 2 mg 04/27/23 21:07 04/27/23 21:24 Morphine Sulfate 2 Mg/Ml Syringe IVP 2 mg Q4HR PRN Administration Pain/Discomfort Naloxone HCl 0.2 mg 04/27/23 15:42 Naloxone 0.4 Mg/Ml 1 Ml Vial IVP Q2M PRN Opioid Reversal Ondansetron HCl 4 mg 04/27/23 15:42 04/28/23 20:09 Ondansetron 4 Mg/2 Ml Vial IVP 4 mg Q6HR PRN Administration Nausea And Vomiting Pantoprazole Sodium 40 mg 04/28/23 09:00 04/28/23 09:36 Pantoprazole 40 Mg/10 Ml Vial IVP 40 mg DAILY GILLIAN Administration Petrolatum 1 applic 04/27/23 17:54 Zinc Oxide Paste (Z-Guard) 1 Applic TOPICAL Q2HR PRN Wound Healing Protocol Sucralfate 1 gm 04/28/23 07:30 04/29/23 06:30 Sucralfate 1 Gm Tab PO 1 gm AC-TID GILLIAN Administration Trazodone HCl 50 mg 04/28/23 21:00 04/28/23 20:12 Trazodone Hcl 50 Mg Tab PO 50 mg HS GILLIAN Administration Objective - Vital Signs Vital signs: Vital Signs Temp 98.6 F 05/03/23 07:33 Pulse 92 05/03/23 11:52 Resp 21 05/03/23 07:33 BP 143/78 05/03/23 07:33 Pulse Ox 97 05/03/23 07:33 FiO2 40 05/03/23 11:41 Intake & Output 05/02/23 05/03/23 05/03/23 18:59 06:59 18:59 Intake Total 420 Output Total 900 500 Balance -900 -80 Intake: Oral 420 Output: Urine 900 500 Other: Voiding Method External Catheter External Catheter External Catheter - Exam GENERAL: The patient is alert and oriented x3, not in any acute distress. Well developed, well nourished. HEENT: Pupils are round and equally reacting to light. EOMI. No scleral icterus. No conjunctival pallor. Normocephalic, atraumatic. No pharyngeal erythema. No thyromegaly. CARDIOVASCULAR: S1 and S2 present. No murmurs, rubs, or gallops. -PULMONARY: Chest is clear to auscultation, bilateral expiratory wheezing with limited air entry on both sides ABDOMEN: Soft, nontender, nondistended, normoactive bowel sounds. No palpable organomegaly. MUSCULOSKELETAL: No joint swelling or deformity. EXTREMITIES: No cyanosis, clubbing, or pedal edema. NEUROLOGICAL: Gross neurological examination did not reveal any focal deficits. SKIN: No rashes. no petechiae. - Labs CBC & Chem 7: 05/03/23 06:37 05/03/23 06:37 Labs: Abnormal Lab Results - Last 24 Hours (Table) 05/03/23 05/03/23 Range/Units 06:37 06:37 Hgb 11.1 L (11.4-16.0) gm/dL MCHC 30.0 L (31.0-37.0) g/dL Chloride 94 L (98-107) mmol/L Carbon Dioxide 42 H* (22-30) mmol/L BUN 23 H (7-17) mg/dL Creatinine 0.51 L (0.52-1.04) mg/dL Assessment and Plan Assessment: Acute COPD exacerbation Acute bronchitis, rule out bacterial superinfection Acute on chronic hypoxemic hypercapnic respiratory failure acute respiratory acidosis History of severe anxiety Plan: Continue with antibiotics, currently ceftriaxone, doxycycline. Follow-up pro- calcitonin Continue with Solu-Medrol 60 mg Patient is an normal saline 75 mL/h Critical care and Pulmonary team consult Labs and medication were reviewed.. Continue same treatment. Continue with symptomatic treatment. Resume home medication. Monitor labs and vitals. DVT and GI prophylaxis. Further recommendations as per clinical course of the patient DVT prophylaxis: Subcutaneous heparin GI Prophylaxis: Ppi PT/OT: Pending Prognosis is guarded
[2023-05-04] MEDS: hydrOXYzine pamoate 25 MG CAP PO PRN (06:28)
[2023-05-04] MEDS: LORazepam 1 MG TAB PO SCH (09:38)
--- NOTE | 2023-05-04 13:08 | P.PN ---
Subjective Progress Note Date: 05/04/23 73-year-old female patient with advanced COPD, who has been followed up by a gear tester, Dr. Dejan Peter out of [facility]. The patient is chronically oxygen dependent at 5 L/min nasal cannula. She quit smoking approximately 10 years ago. She has been maintained on a combination of Spiriva and Symbicort on outpatient basis. She presented to the hospital because of worsening shortness of breath. I have seen and evaluated this patient in the past at [facility] for the same. Overnight, the patient was kept on the BiPAP as the patient had a component of acute hypercapnic respiratory failure with a pH of 7.28 and a pCO2 of 92 and pO2 of 87. She was started on bronchodilators and steroids. Chest x-ray shows hyperinflation without any airspace disease. She did have a troponin leak with a troponin of 0.072. She was started on broad-spectrum antibiotic coverage in addition to bronchodilators. She is also on a combination ofPerforomist and Pulmicort. She is tested positive for RSV. The patient this morning seems to be much more comfortable. While on the BiPAP pressure of 16 over 6 cm of water and FiO2 of 50%, she is able to generate a tidal volume of about 500 with a respiratory rate of 22. She is able to communicate. She is alert and oriented. She denies having any chest pain. Hemodynamically stable. White cell count is 8 with a hemoglobin of 10 and a platelet count of 271. BUN is at 25 with a creatinine 0.4. Procalcitonin level is at 0.28. On today's evaluation of 04/29/2023, the patient is doing well. No specific complaints. She is less short of breath compared to yesterday. No new complaints. No altered mentation. No chest pain.No new complaints. No altered mentation. She is still bringing up some limited amount of mucus. She wore her BiPAP throughout the night at a pressure of 16 over 6 cm of water with an Fi O2 of 50%. This morning, she is back on nasal cannula. Her blood work today shows a WBC count of 4.1, hemoglobin is at 9.8 and a platelet count of 266. Serum bicarbonate 45 with a BUN of 25 and a creatinine of 0.5. Her procalcitonin level is at 0.28. Hemodynamically stable. She is bedridden. She has not ambulated for at least a year due to her chronic spine problems which includes lumbar stenosis, degenerative arthritis and degenerative lumbar disc disease. On today's evaluation of 04/30/2023, the patient is being seen for a follow-up. The patient utilizing BiPAP overnight at a pressure of 16/6 with an FiO2 of 50% and currently she is on oxygen by nasal cannula. She is currently utilizing 4 L nasal cannula. Doing well. No specific complaints. She was moved out of the intensive care unit yesterday as the patient was admitted to us because of an acute stroke exacerbation and RSV infection. Denies having any chest pain. Blood work from today still pending. Labs from yesterday was reviewed.She remains on bronchodilators. She remains on steroids. Empiric antibiotic coverage is still with IV Rocephin. She remains on Solu-Medrol 60 mg IV push every 6 hours. No altered mentation. She is essentially bedridden. On 05/01/2023, the patient is being seen for a follow-up. The patient is utilizing the BiPAP on and off during the day at a pressure of 16 over 6 cm of water. She is still being treated for an acute exacerbation and acute RSV infection. No altered mentation. No signs of any CO2 narcosis. The white cell count of 5.3 with a hemoglobin 10.3 and a platelet count of 301. Sodium is at 146, BUN is at 15 with a creatinine of 0.4. Remains on DuoNeb updrafts. Remains on IV Rocephin as an empiric antibiotic coverage. IV centimeter was at 60 mg every 6 hours. Occasionally increased anxiety and agitation the patient is taking Ativan 1 mg 3 times daily. Patient is also on morphine 2 mg and an as-needed basis. She is on BuSpar 15 mg p.o. twice daily. She is taking Tessalon Perles for cough. On today's evaluation of 05/02/2023, the patient is still struggling with her breathing. She has advanced COPD and the patient came in for an acute RSV infection which exacerbated her COPD. Initially she was in the intensive care unit supported with a BiPAP. For now she is on a medical hold and she is on and off utilizing the BiPAP at a pressure of 16 over 6 cm of water. At the time of arrival this morning, the patient was on a BiPAP and she requested to go back on nasal cannula and I moved her to 5 L nasal cannula. She is in mild pain is slightly less bronchospastic and wheezy she is arousable and she is communicating. Sodium levels at 145, potassium level is at 4.5, bicarb is at 43, BUN is at 16 with a creatinine of 0.4. She remains on the same treatment for now and the patient remains on a combination of DuoNeb updrafts, Perforomist and Pulmicort nebulized treatments twice a day, and she is still on Solu-Medrol which is at a dose of 60 mg IV every 6 hours. In terms of her labs, electrolytes were mentioned. No recent CBC. Her most recent chest x-rays from 04/29/2023 without any acute abnormalities. Her anxiety level remains quite eleva efe. The patient remains on BuSpar 15 mg p.o. twice a day and she is also taking Ativan 1 mg 3 times daily. Occasional panic attacks are still occurring. On 05/03/2023, the patient is struggling with her breathing. She has become more and more BiPAP dependent. As mentioned earlier, the patient has advanced end- stage COPD and she was reinfected with RSV. The patient was initially in the intensive care unit. She was requiring BiPAP and she was gradually weaned off the BiPAP with she was utilizing the BiPAP in alternation with nasal cannula at 4 L. However this morning, while off the BiPAP, the patient was unable to tolerate her breathing and she was asked to go back to her BiPAP as soon as possible. During this time, she also showed oxygen desaturations. Based on all this, the patient was placed on the BiPAP at a pressure of 16 over 6 cm of water with an FiO2 of 40%. A repeat chest x-ray was done and the patient was found to have small infiltrate in the left lung base and COPD. The patient was also given a dose of Lasix. I noted that she was quite anxious and I increased her Ativan to 1 mg 4 times daily patient is also on BuSpar. Meanwhile, the white cell count of 6.8, hemoglobin 11.1 and a platelet count of 379, BUN is 23 with a creatinine of 0.5 and sodium levels of 139. No focal neurological deficits. She is extremely anxious. 05/04/2023, the patient doing well as well. She seems to be more so BiPAP dependent. She goes on a BiPAP for about 30 minutes that she comes off that she gets anxious if she becomes hypoxic or short of breath and she goes back on the BiPAP. This has been an ongoing issue with her. She is also taking a combination of anxiolytics and the patient is currently on a combination of BuSpar 15 mg twice a day, Ativan 1 mg 3 times daily and the patient was also started on Vistaril. Noted the patient is advanced oxygen dependent COPD with an FEV1 of 20% of predicted. She was further infected with RSV which exacerbated her COPD. Her chest x-ray was repeated and showsNo acute abnormalities from 05/03/2023 and the findings are essentially stable. The patient had labs yesterday that showed no acute abnormalities. She has chronic metabolic alkalosis with a serum bicarb of 40, sodium level 139 and a potassium level is 6.8 with a hemoglobin of 11.1. She is arousable and she communicates. No signs of any suicidal process. Extremely anxious. Objective - Vital Signs Vital signs: Vital Signs Temp 97.8 F 05/04/23 07:24 Pulse 89 05/04/23 09:16 Resp 20 05/04/23 07:24 BP 106/72 05/04/23 07:24 Pulse Ox 98 05/04/23 08:55 FiO2 40 05/04/23 08:55 Intake & Output 05/03/23 05/04/23 05/04/23 18:59 06:59 18:59 Output Total 1400 250 Balance -1400 -250 Output: Urine 1400 250 Other: Voiding Method External Catheter External Catheter # Voids 2 # Bowel Movements 1 - Exam GENERAL EXAM: Alert, 72-year-old white female, on 5 L of oxygen nasal cannula HEAD: Normocephalic and atraumatic EYES: Normal reaction of pupils, equal size. NOSE: Clear with pink turbinates. THROAT: No erythema or exudates. NECK: No masses, no JVD. CHEST: No chest wall deformity. LUNGS: Equal air entry with expiratory wheezes heard throughout. On BiPAP with settings 14/6 and FiO2 of 50%. She is tachypneic. No conversational dyspnea or accessory muscle use. CVS: S1 and S2 normal with no audible murmur, regular rhythm. No extra heart sounds ABDOMEN: No hepatosplenomegaly, active bowel sounds, no guarding or rigidity. SPINE: No scoliosis or deformity SKIN: No rashes CENTRAL NERVOUS SYSTEM: No focal deficits, tone is normal in all 4 extremities. Awake and oriented and communicating. EXTREMITIES: There is no peripheral edema, clubbing, or cyanosis. Peripheral pulses are intact. - Labs CBC & Chem 7: 05/03/23 06:37 05/03/23 06:37 Assessment and Plan Plan: Acute on chronic hypoxemic and hypercapnic respiratory failure, secondary to COPD exacerbation and acute RSV infection. The patient is currently on 5 L O2 nasal cannula. The patient was in the intensive care unit as she was being treated for an acute COPD exacerbation. She was alternating between BiPAP and nasal cannula oxygen this morning she seems to be more dependent on the BiPAP. She is decompensating easily while off the BiPAP and currently she is on a BiPAP pressure of 16/6 with an FiO2 of 40%. Chest x-ray remains unchanged. Her disease is end-stage and she has become more and more BiPAP dependent. Severe COPD with chronic hypoxemic respiratory failure, normally maintained on 5 L/min nasal cannula 14/10; also utilizes accommodation of Symbicort inhaler, Spiriva inhaler, DuoNebs and as needed Ventolin rescue inhaler Acute on chronic dyspnea secondary to above Acute RSV infection exacerbating the patient's COPD Generalized anxiety disorder Former tobacco dependence Limited troponin leak secondary to mismatch ischemia secondary to underlying COPD exacerbation Chronic lumbar spine disease with lower extremity weakness and the patient is nonambulatory, half-way resident. Plan: No major progress over the past 48 hours and the patient continues to be BiPAP dependent for now, utilizing BiPAP on and off during the day. Once off the BiPAP, she becomes quite anxious and she was not in respiratory distress. I think her shortness of breath is since related to increased anxiety and inability to breathe while off the BiPAP and the patient feels much better while on the BiPAP. As such, the team will be continued. Keep the patient on BiPAP for now Continue BuSpar Increase the Ativan to 1 mg 3 times a day Continue Vistaril Continue IV Solu-Medrol Continue combination of DuoNebs, formoterol inhalation, budesonide inhalation, and IV Solu-Medrol. Chest x-ray findings are stable Continue current empiric antibiotics, and the patient is currently on IV Rocephin. Long-term prognosis extremely poor. Is very much likely that the patient will become BiPAP dependent for an extended period of time, unable to send her home on a regular nasal cannula. She is a half-way resident that she may require also a BiPAP permanently
--- NOTE | 2023-05-04 14:11 | P.PN ---
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 anju richards She presents because of worsening shortness of breath with chest tightness and pressures and cough with yellow Pflaum for the last 4 days She was transferred from [facility]. Patient could not tolerate BiPAP there and POC to was significantly elevated at 93 Currently she is awake alert, she is on BiPAP in the ICU. Sitting BiPAP R 16/6 with FiO2 of 50% She's also normal saline 75 mL/h She denies any abdominal pain vomiting or diarrhea. No change in urine habits. No dizziness. She's complains from the distal headache and generalized weakness but no lateralization She is on 5 mg of prednisone at home Patient currently on BiPAP as above Labs reviewed her hemoglobin is 10, still CBC is unremarkable. BMP is unremarkable but pCO2 is elevated at 39 Kelsea Lowe 7.2, pCO2 is high 92 and sodium bicarb is 543 Patient has positive RSV virus test CRP is elevated at 0.6 Chest x-ray shows COPD with mild right pleural effusion EKG shows sinus tachycardia at [address]-T changes. Currently patient is on ceftriaxone, doxycycline, Solu-Medrol 60 mg of normal saline 75 mL/h 04/29/2023 Patient is still short of breath She still isn on BiPAP until 4:00 this morning Currently she is on 5 l/m of oxygen compared to 5 L at home as well. However patient still tachypneic with her limitation and wheezing. She has mild basal crepitation. Also she is kept on IV Solu-Medrol 60 mg, doxycycline and ceftriaxone and normal saline 75 mL/h Vitals and labs reviewed Blood pressure on the low side but patient is asymptomatic and has good urine ou tput, she is currently not on blood pressure medication 04/30/2023 pt is seen in the general medical floor today she is awake and alert, she is is requesting more breathing treatment and go back to bipap , although she is not severely tachypneic but she is still significantly wheezing and bronchospastic she is kept on iv solumedrol 60 mg and antibioitic with rocephin and doxycyclin and normal saline at 40 ml per hr 05/01/2023 She continued to improve slowly and gradually Her dyspnea is improving but still using the BiPAP and she still on 5 L oxygen via nasal cannula Normal saline or to 40 mL/h PT/OT requested but patient refused to work with them She remains on IV salmeterol 60 mg Ceftriaxone and doxycycline. Normal saline discontinued 05/02/2023 This is a pleasant 73 years old female with advanced COPD presents with RSV bronchitis and acute COPD exacerbation with acute on chronic hypoxic hypercapnic respiratory failure and respiratory acidosis. Patient responded to treatment slowly and gradually She is awake alert and talking of freely with little dyspnea but she still complaining of from tight chest and she looks very anxious. She likes to use the BiPAP on and off. She is still on 5 L oxygen via nasal cannula I offered Xanax but she declines and she wants to keep the Ativan 1 mg 3 times a day for now Carbon dioxide is slightly better 43 today. 05/03/2023 Patient still complaining of from dyspnea She remains on BiPAP intermittently Repeat chest x-ray showing mild left lower lobe infiltrate suspicious for fluid overload status post 1 times of IV Lasix Continue with Solu-Medrol 60 mg on antibiotic with ceftriaxone and doxycycline 05/04/23 She still somewhat BiPAP dependent even during the daytime She is very anxious, yesterday Ativan 1 mg 3 times a day increased to 4 times a day with no much help, urinary morning was still asking for anxiety medication Because Ativan may affect her breathing we turn it back to 1 mg 3 times a day and re-adding Atarax when necessary Labs and vitals reviewed looks stable Continue with IV Solu-Medrol and antibiotic Active Medications Generic Name Dose Route Start Last Admin Trade Name Freq PRN Reason Stop Dose Admin Acetaminophen 650 mg 04/27/23 15:42 Acetaminophen Tab 325 Mg Tab PO Q4HR PRN Mild Pain or Fever > 100.5 Albuterol/Ipratropium 3 ml 04/27/23 16:00 04/28/23 19:32 Ipratropium-Albuterol 3 Ml Neb INHALATION 3 ml RT-QID GILLIAN Administration Albuterol/Ipratropium 3 ml 04/27/23 15:21 04/29/23 01:14 Ipratropium-Albuterol 3 Ml Neb INHALATION 3 ml RT-Q2H PRN Administration Shortness Of Breath Or Wheezing Aspirin 81 mg 04/28/23 09:00 02/05/24 09:35 Aspirin 81 Mg PO 81 mg DAILY GILLIAN Administration Benzonatate 100 mg 04/28/23 06:43 04/28/23 21:02 Benzonatate 100 Mg Cap PO 100 mg TID PRN Administration Cough Budesonide 0.5 mg 04/27/23 20:00 04/28/23 19:32 Budesonide 0.5 Mg/2 Ml Nebu INHALATION 0.5 mg RT-BID GILLIAN Administration Buspirone HCl 15 mg 04/28/23 09:00 04/28/23 20:12 Buspirone Hcl 5 Mg Tab PO 15 mg BID GILLIAN Administration Calcium Carbonate/Glycine 500 mg 04/28/23 06:43 Calcium Carbonate 500 Mg Chewable PO Q4H PRN ACID REFLUX Cholecalciferol 125 mcg 04/28/23 09:00 04/28/23 09:35 Cholecalciferol 125 Mcg (5000 Iu) Tablet PO 125 mcg DAILY GILLIAN Administration Docusate Sodium 100 mg 04/28/23 09:00 04/28/23 20:12 Docusate 100 Mg Cap PO 100 mg BID GILLIAN Administration Doxycycline Monohydrate 100 mg 04/27/23 21:00 04/28/23 20:12 Doxycycline 100 Mg Cap PO 05/02/23 09:01 100 mg BID GILLIAN Administration Protocol Fluticasone Propionate 1 spray 04/28/23 06:43 Fluticasone 50mcg/Wilmot Nasal 16gm EA NOSTRIL Q12H PRN copd Formoterol Fumarate 20 mcg 04/28/23 08:00 04/28/23 19:32 Formoterol Fumarate 20 Mcg/2 Ml Nebu INHALATION 20 mcg RT-BID GILLIAN Administration Guaifenesin 600 mg 04/27/23 21:00 04/28/23 20:12 Guaifenesin 600 Mg Tablet.Er PO 600 mg Q12HR GILLIAN Administration Heparin Sodium (Porcine) 5,000 unit 04/28/23 09:00 04/28/23 20:12 Heparin Sodium,Porcine 5,000 Unit/Ml 1 Ml Vial SQ 5,000 unit Q12HR GILLIAN Administration Sodium Chloride 1,000 mls @ 75 mls/hr 04/27/23 16:30 04/29/23 03:10 Saline 0.9% IV 75 mls/hr .[id number] GILLIAN Administration Ceftriaxone Sodium 1 gm/ 50 mls @ 100 mls/hr 04/28/23 00:00 04/29/23 00:03 Sodium Chloride IVPB 100 mls/hr Q24H GILLIAN Administration Protocol Dexmedetomidine HCl 400 mcg/ 100 mls @ 3.755 mls/hr 04/28/23 19:45 04/28/23 21:14 IV Solution IV Not Given .Q24H GILLIAN Protocol 0.2 MCG/KG/HR Lorazepam 1 mg 04/28/23 09:00 04/28/23 20:12 Lorazepam 1 Mg Tab PO 1 mg TID GILLIAN Administration Magnesium Hydroxide 2,400 mg 04/28/23 06:43 Magnesium Hydroxide 2,400 Mg/30 Ml Cup PO DAILY PRN Constipation Methylprednisolone Sodium Succinate 60 mg 04/28/23 00:00 04/29/23 05:05 Methylprednisolone Sod Succi 125 Mg/2 Ml Vial IV 60 mg Q6HR GILLIAN Administration Miscellaneous Information 1 each 04/28/23 20:04 Magnesium Replacement Protocol 1 Each Misc MISCELLANE DAILY PRN Per Protocol Protocol Miscellaneous Information 1 each 04/28/23 20:04 Potassium Replacement Protocol 1 Each Misc MISCELLANE DAILY PRN Per Protocol Protocol Morphine Sulfate 2 mg 04/27/23 21:07 04/27/23 21:24 Morphine Sulfate 2 Mg/Ml Syringe IVP 2 mg Q4HR PRN Administration Pain/Discomfort Naloxone HCl 0.2 mg 04/27/23 15:42 Naloxone 0.4 Mg/Ml 1 Ml Vial IVP Q2M PRN Opioid Reversal Ondansetron HCl 4 mg 04/27/23 15:42 04/28/23 20:09 Ondansetron 4 Mg/2 Ml Vial IVP 4 mg Q6HR PRN Administration Nausea And Vomiting Pantoprazole Sodium 40 mg 04/28/23 09:00 04/28/23 09:36 Pantoprazole 40 Mg/10 Ml Vial IVP 40 mg DAILY GILLIAN Administration Petrolatum 1 applic 04/27/23 17:54 Zinc Oxide Paste (Z-Guard) 1 Applic TOPICAL Q2HR PRN Wound Healing Protocol Sucralfate 1 gm 04/28/23 07:30 04/29/23 06:30 Sucralfate 1 Gm Tab PO 1 gm AC-TID GILLIAN Administration Trazodone HCl 50 mg 04/28/23 21:00 04/28/23 20:12 Trazodone Hcl 50 Mg Tab PO 50 mg HS GILLIAN Administration Objective - Vital Signs Vital signs: Vital Signs Temp 97.8 F 05/04/23 14:00 Pulse 84 05/04/23 14:00 Resp 21 05/04/23 14:00 BP 118/64 05/04/23 14:00 Pulse Ox 97 05/04/23 14:00 FiO2 40 05/04/23 08:55 Intake & Output 05/03/23 05/04/23 05/04/23 18:59 06:59 18:59 Output Total 1400 250 Balance -1400 -250 Output: Urine 1400 250 Other: Voiding Method External Catheter External Catheter External Catheter # Voids 2 # Bowel Movements 1 - Exam GENERAL: The patient is alert and oriented x3, not in any acute distress. Well developed, well nourished. HEENT: Pupils are round and equally reacting to light. EOMI. No scleral icterus. No conjunctival pallor. Normocephalic, atraumatic. No pharyngeal erythema. No thyromegaly. CARDIOVASCULAR: S1 and S2 present. No murmurs, rubs, or gallops. -PULMONARY: Chest is clear to auscultation, bilateral expiratory wheezing with limited air entry on both sides ABDOMEN: Soft, nontender, nondistended, normoactive bowel sounds. No palpable organomegaly. MUSCULOSKELETAL: No joint swelling or deformity. EXTREMITIES: No cyanosis, clubbing, or pedal edema. NEUROLOGICAL: Gross neurological examination did not reveal any focal deficits. SKIN: No rashes. no petechiae. - Labs CBC & Chem 7: 05/03/23 06:37 05/03/23 06:37 Assessment and Plan Assessment: Acute COPD exacerbation Acute bronchitis, rule out bacterial superinfection Acute on chronic hypoxemic hypercapnic respiratory failure acute respiratory acidosis History of severe anxiety Plan: Atarax when necessary Continue with antibiotics, currently ceftriaxone, doxycycline. Follow-up pro- calcitonin Continue with Solu-Medrol 60 mg Patient is an normal saline 75 mL/h Critical care and Pulmonary team consult Labs and medication were reviewed.. Continue same treatment. Continue with symptomatic treatment. Resume home medication. Monitor labs and vitals. DVT and GI prophylaxis. Further recommendations as per clinical course of the patient DVT prophylaxis: Subcutaneous heparin GI Prophylaxis: Ppi PT/OT: Pending Prognosis is guarded
[2023-05-05 10:38] LABS: Basophils % (A) 0 %; Eosinophils % (A) 1 %; HCT 35.9 % (34.0-46.0); HGB 10.7 gm/dL (11.4-16.0); Hypochromasia Marked; Lymphocytes # (A) 0.4 k/uL (1.0-4.8); Lymphocytes % (A) 4 %; MCH 26.8 pg (25.0-35.0); MCHC 29.9 g/dL (31.0-37.0); MCV 89.4 fL (80.0-100.0); Mean Platelet Volume 8.5; Monocytes # (A) 0.4 k/uL (0-1.0); Monocytes % (A) 5 %; Neutrophils # (A) 8.2 k/uL (1.3-7.7); Neutrophils % (A) 91 %; Platelet Count 343 k/uL (150-450); RBC 4.01 m/uL (3.80-5.40); RDW 14.2 % (11.5-15.5); WBC 9.1 k/uL (3.8-10.6)
[2023-05-05 11:14] LABS: ALT 22 U/L (4-34); AST 19 U/L (14-36); African American GFR (CKD) >90 (>60 ml/min/1.73 sqM); Albumin 3.1 g/dL (3.5-5.0); Albumin/Globulin Ratio 1.3; Alkaline Phosphatase 58 U/L (38-126); Blood Urea Nitrogen 27 mg/dL (7-17); Chloride 99 mmol/L (98-107); Globulin 2.3 g/dL; Glucose 159 mg/dL (74-99); Non-African American GFR(CKD) >90 (>60 ml/min/1.73 sqM); Potassium 4.3 mmol/L (3.5-5.1); Sodium 138 mmol/L (137-145); Total Bilirubin 0.3 mg/dL (0.2-1.3); Total Protein 5.4 g/dL (6.3-8.2)
[2023-05-05 11:20] LABS: Anion Gap 1 mmol/L
[2023-05-05 11:24] LABS: Carbon Dioxide 38 mmol/L (22-30)
--- NOTE | 2023-05-05 11:48 | P.PN ---
Subjective Progress Note Date: 05/05/23 this is a pleasant 72 years old female with past medical hisotry of COPD ,she is on 5 literof oxygen at home , she follows up with geneticist at [facility] dr. anju richards She presents because of worsening shortness of breath with chest tightness and pressures and cough with yellow Pflaum for the last 4 days She was transferred from [facility]. Patient could not tolerate BiPAP there and POC to was significantly elevated at 93 Currently she is awake alert, she is on BiPAP in the ICU. Sitting BiPAP R 16/6 with FiO2 of 50% She's also normal saline 75 mL/h She denies any abdominal pain vomiting or diarrhea. No change in urine habits. No dizziness. She's complains from the distal headache and generalized weakness but no lateralization She is on 5 mg of prednisone at home Patient currently on BiPAP as above Labs reviewed her hemoglobin is 10, still CBC is unremarkable. BMP is unremarkable but pCO2 is elevated at 39 Kelsea Lowe 7.2, pCO2 is high 92 and sodium bicarb is 543 Patient has positive RSV virus test CRP is elevated at 0.6 Chest x-ray shows COPD with mild right pleural effusion EKG shows sinus tachycardia at [address]-T changes. Currently patient is on ceftriaxone, doxycycline, Solu-Medrol 60 mg of normal saline 75 mL/h 04/29/2023 Patient is still short of breath She still isn on BiPAP until 4:00 this morning Currently she is on 5 l/m of oxygen compared to 5 L at home as well. However patient still tachypneic with her limitation and wheezing. She has mild basal crepitation. Also she is kept on IV Solu-Medrol 60 mg, doxycycline and ceftriaxone and normal saline 75 mL/h Vitals and labs reviewed Blood pressure on the low side but patient is asymptomatic and has good urine output, she is currently not on blood pressure medication 04/30/2023 pt is seen in the general medical floor today she is awake and alert, she is is requesting more breathing treatment and go back to bipap , although she is not severely tachypneic but she is still significantly wheezing and bronchospastic she is kept on iv solumedrol 60 mg and antibioitic with rocephin and doxycyclin and normal saline at 40 ml per hr 05/01/2023 She continued to improve slowly and gradually Her dyspnea is improving but still using the BiPAP and she still on 5 L oxygen via nasal cannula Normal saline or to 40 mL/h PT/OT requested but patient refused to work with them She remains on IV salmeterol 60 mg Ceftriaxone and doxycycline. Normal saline discontinued 05/02/2023 This is a pleasant 73 years old female with advanced COPD presents with RSV bronchitis and acute COPD exacerbation with acute on chronic hypoxic hypercapnic respiratory failure and respiratory acidosis. Patient responded to treatment slowly and gradually She is awake alert and talking of freely with little dyspnea but she still complaining of from tight chest and she looks very anxious. She likes to use the BiPAP on and off. She is still on 5 L oxygen via nasal cannula I offered Xanax but she declines and she wants to keep the Ativan 1 mg 3 times a day for now Carbon dioxide is slightly better 43 today. 05/03/2023 Patient still complaining of from dyspnea She remains on BiPAP intermittently Repeat chest x-ray showing mild left lower lobe infiltrate suspicious for fluid overload status post 1 times of IV Lasix Continue with Solu-Medrol 60 mg on antibiotic with ceftriaxone and doxycycline 05/04/23 She still somewhat BiPAP dependent even during the daytime She is very anxious, yesterday Ativan 1 mg 3 times a day increased to 4 times a day with no much help, urinary morning was still asking for anxiety medication Because Ativan may affect her breathing we turn it back to 1 mg 3 times a day and re-adding Atarax when necessary Labs and vitals reviewed looks stable Continue with IV Solu-Medrol and antibiotic 05/05. Patient seen examined. Continues to be on BiPAP, patient gets anxious very easily,. Gets short of breath on minimal exertion. REVIEW OF SYSTEMS: CONSTITUTIONAL: No fever, no malaise,. CARDIOVASCULAR: No chest pain, no palpitations, no syncope. PULMONARY: As mentioned above, GASTROINTESTINAL: No diarrhea, no nausea, no vomiting, no abdominal pain. NEUROLOGICAL: No headaches, no weakness, PHYSICAL EXAMINATION: GENERAL: The patient is alert and oriented x3, not in any acute distress. Well developed, well nourished. HEENT: Pupils are round and equally reacting to light. EOMI. No scleral icterus. No conjunctival pallor. Normocephalic, atraumatic. No pharyngeal erythema. No thyromegaly. CARDIOVASCULAR: S1 and S2 present. No murmurs, rubs, or gallops. PULMONARY: Coarse breath sound bilaterally, no wheeze, no rhonchi ABDOMEN: Soft, nontender, nondistended, normoactive bowel sounds. No palpable organomegaly. MUSCULOSKELETAL: No joint swelling or deformity. EXTREMITIES: No cyanosis, clubbing, or pedal edema. NEUROLOGICAL: Gross neurological examination did not reveal any focal deficits. SKIN: No rashes. Assessment and plan Acute COPD exacerbation Acute bronchitis, rule out bacterial superinfection Acute on chronic hypoxemic hypercapnic respiratory failure acute respiratory acidosis History of severe anxiety Monitor vital signs Monitor CBC Monitor CMP Continue telemetry monitoring Continue BuSpar Continue yifan 1 mg 3 times a day Continue Vistaril Continue IV Solu-Medrol Continue combination of DuoNebs, formoterol inhalation, budesonide inhalation Continue current empiric antibiotics, and the patient is currently on IV Rocephin. Pulmonary following Labs and medication were reviewed.. Continue same treatment. Continue with symptomatic treatment. Resume home medication. Monitor labs and vitals. DVT and GI prophylaxis. Further recommendations as per clinical course of the patient Dictation was produced using [employer] dictation software. please excuse any grammatical, word or spelling errors. Objective - Vital Signs Vital signs: Vital Signs Temp 97.4 F L 05/05/23 06:51 Pulse 85 05/05/23 08:23 Resp 19 05/05/23 06:51 BP 113/75 05/05/23 06:51 Pulse Ox 97 05/05/23 07:57 FiO2 40 05/05/23 08:23 Intake & Output 05/04/23 05/05/23 05/05/23 18:59 06:59 18:59 Output Total 600 500 Balance -600 -500 Output: Urine 600 500 Other: Voiding Method External Catheter External Catheter - Labs CBC & Chem 7: 05/05/23 10:14 05/05/23 10:14
--- NOTE | 2023-05-05 15:01 | P.PN ---
Subjective Progress Note Date: 05/05/23 73-year-old female patient with advanced COPD, who has been followed up by a staff technologist, Dr. Dejan Peter out of [facility]. The patient is chronically oxygen dependent at 5 L/min nasal cannula. She quit smoking approximately 10 years ago. She has been maintained on a combination of Spiriva and Symbicort on outpatient basis. She presented to the hospital because of worsening shortness of breath. I have seen and evaluated this patient in the past at [facility] for the same. Overnight, the patient was kept on the BiPAP as the patient had a component of acute hypercapnic respiratory failure with a pH of 7.28 and a pCO2 of 92 and pO2 of 87. She was started on bronchodilators and steroids. Chest x-ray shows hyperinflation without any airspace disease. She did have a troponin leak with a troponin of 0.072. She was started on broad-spectrum antibiotic coverage in addition to bronchodilators. She is also on a combination ofPerforomist and Pulmicort. She is tested positive for RSV. The patient this morning seems to be much more comfortable. While on the BiPAP pressure of 16 over 6 cm of water and FiO2 of 50%, she is able to generate a tidal volume of about 500 with a respiratory rate of 22. She is able to communicate. She is alert and oriented. She denies having any chest pain. Hemodynamically stable. White cell count is 8 with a hemoglobin of 10 and a platelet count of 271. BUN is at 25 with a creatinine 0.4. Procalcitonin level is at 0.28. On today's evaluation of 04/29/2023, the patient is doing well. No specific complaints. She is less short of breath compared to yesterday. No new complaints. No altered mentation. No chest pain.No new complaints. No altered mentation. She is still bringing up some limited amount of mucus. She wore her BiPAP throughout the night at a pressure of 16 over 6 cm of water with an FiO2 of 50%. This morning, she is back on nasal cannula. Her blood work today shows a WBC count of 4.1, hemoglobin is at 9.8 and a platelet count of 266. Serum bicarbonate 45 with a BUN of 25 and a creatinine of 0.5. Her procalcitonin level is at 0.28. Hemodynamically stable. She is bedridden. She has not ambulated for at least a year due to her chronic spine problems which includes lumbar stenosis, degenerative arthritis and degenerative lumbar disc disease. On today's evaluation of 04/30/2023, the patient is being seen for a follow-up. The patient utilizing BiPAP overnight at a pressure of 16/6 with an FiO2 of 50% and currently she is on oxygen by nasal cannula. She is currently utilizing 4 L nasal cannula. Doing well. No specific complaints. She was moved out of the intensive care unit yesterday as the patient was admitted to us because of an acute stroke exacerbation and RSV infection. Denies having any chest pain. Blood work from today still pending. Labs from yesterday was reviewed.She remains on bronchodilators. She remains on steroids. Empiric antibiotic coverage is still with IV Rocephin. She remains on Solu-Medrol 60 mg IV push every 6 hours. No altered mentation. She is essentially bedridden. On 05/01/2023, the patient is being seen for a follow-up. The patient is utilizing the BiPAP on and off during the day at a pressure of 16 over 6 cm of water. She is still being treated for an acute exacerbation and acute RSV infection. No altered mentation. No signs of any CO2 narcosis. The white cell count of 5.3 with a hemoglobin 10.3 and a platelet count of 301. Sodium is at 146, BUN is at 15 with a creatinine of 0.4. Remains on DuoNeb updrafts. R emains on IV Rocephin as an empiric antibiotic coverage. IV centimeter was at 60 mg every 6 hours. Occasionally increased anxiety and agitation the patient is taking Ativan 1 mg 3 times daily. Patient is also on morphine 2 mg and an as-needed basis. She is on BuSpar 15 mg p.o. twice daily. She is taking Tessalon Perles for cough. On today's evaluation of 05/02/2023, the patient is still struggling with her breathing. She has advanced COPD and the patient came in for an acute RSV infection which exacerbated her COPD. Initially she was in the intensive care unit supported with a BiPAP. For now she is on a medical hold and she is on and off utilizing the BiPAP at a pressure of 16 over 6 cm of water. At the time of arrival this morning, the patient was on a BiPAP and she requested to go back on nasal cannula and I moved her to 5 L nasal cannula. She is in mild pain is slightly less bronchospastic and wheezy she is arousable and she is communicating. Sodium levels at 145, potassium level is at 4.5, bicarb is at 43, BUN is at 16 with a creatinine of 0.4. She remains on the same treatment for now and the patient remains on a combination of DuoNeb updrafts, Perforomist and Pulmicort nebulized treatments twice a day, and she is still on Solu-Medrol which is at a dose of 60 mg IV every 6 hours. In terms of her labs, electrolytes were mentioned. No recent CBC. Her most recent chest x-rays from 04/29/2023 without any acute abnormalities. Her anxiety level remains quite elevated. The patient remains on BuSpar 15 mg p.o. twice a day and she is also taking Ativan 1 mg 3 times daily. Occasional panic attacks are still occurring. On 05/03/2023, the patient is struggling with her breathing. She has become more and more BiPAP dependent. As mentioned earlier, the patient has advanced end- stage COPD and she was reinfected with RSV. The patient was initially in the intensive care unit. She was requiring BiPAP and she was gradually weaned off the BiPAP with she was utilizing the BiPAP in alternation with nasal cannula at 4 L. However this morning, while off the BiPAP, the patient was unable to tolerate her breathing and she was asked to go back to her BiPAP as soon as possible. During this time, she also showed oxygen desaturations. Based on all this, the patient was placed on the BiPAP at a pressure of 16 over 6 cm of water with an FiO2 of 40%. A repeat chest x-ray was done and the patient was found to have small infiltrate in the left lung base and COPD. The patient was also given a dose of Lasix. I noted that she was quite anxious and I increased her Ativan to 1 mg 4 times daily patient is also on BuSpar. Meanwhile, the white cell count of 6.8, hemoglobin 11.1 and a platelet count of 379, BUN is 23 with a creatinine of 0.5 and sodium levels of 139. No focal neurological deficits. She is extremely anxious. 05/04/2023, the patient doing well as well. She seems to be more so BiPAP dependent. She goes on a BiPAP for about 30 minutes that she comes off that she gets anxious if she becomes hypoxic or short of breath and she goes back on the BiPAP. This has been an ongoing issue with her. She is also taking a combination of anxiolytics and the patient is currently on a combination of BuSpar 15 mg twice a day, Ativan 1 mg 3 times daily and the patient was also started on Vistaril. Noted the patient is advanced oxygen dependent COPD with an FEV1 of 20% of predicted. She was further infected with RSV which exacerbated her COPD. Her chest x-ray was repeated and showsNo acute abnormalities from 05/03/2023 and the findings are essentially stable. The patient had labs yesterday that showed no acute abnormalities. She has chronic metabolic alkalosis with a serum bicarb of 40, sodium level 139 and a potassium level is 6.8 with a hemoglobin of 11.1. She is arousable and she communicates. No signs of any suicidal process. Extremely anxious. The patient is seen today May 05, 2023 and follow-up on the regular medical floor. She is currently awake and alert in no acute distress. She is utilizing BiPAP 16/6 and 40% FiO2. She alternates with 5 L nasal cannula. She has normal saline at 40 MLS per hour. White count 9.1. Hemoglobin 10.7. Platelets 343. Sodium 138. Potassium 4.3. Bicarb 38. BUN 27. Creatinine 0.52. Glucose 159. She is continued on DuoNeb ventilations, Pulmicort and perform his inhalations, IV Solu-Medrol. Heparin for DVT prophylaxis. Objective - Vital Signs Vital signs: Vital Signs Temp 98.4 F 05/05/23 14:03 Pulse 82 05/05/23 14:03 Resp 18 05/05/23 14:03 BP 97/66 05/05/23 14:03 Pulse Ox 97 05/05/23 07:57 FiO2 40 05/05/23 11:29 Intake & Output 05/04/23 05/05/23 05/05/23 18:59 06:59 18:59 Output Total 600 500 Balance -600 -500 Weight 77 kg Output: Urine 600 500 Other: Voiding Method External Catheter External Catheter External Catheter - Exam GENERAL EXAM: Alert, 72-year-old female, on 5 L of oxygen per nasal cannula alternating with BiPAP 16/6 and 40% FiO2 HEAD: Normocephalic and atraumatic EYES: Normal reaction of pupils, equal size. NOSE: Clear with pink turbinates. THROAT: No erythema or exudates. NECK: No masses, no JVD. CHEST: No chest wall deformity. LUNGS: Equal air entry with expiratory wheezes heard throughout. No conversational dyspnea or accessory muscle use. CVS: S1 and S2 normal with no audible murmur, regular rhythm. No extra heart sounds ABDOMEN: No hepatosplenomegaly, active bowel sounds, no guarding or rigidity. SPINE: No scoliosis or deformity SKIN: No rashes CENTRAL NERVOUS SYSTEM: No focal deficits, tone is normal in all 4 extremities. Awake and oriented and communicating. EXTREMITIES: There is no peripheral edema, clubbing, or cyanosis. Peripheral pulses are intact. - Labs CBC & Chem 7: 05/05/23 10:14 05/05/23 10:14 Labs: Abnormal Lab Results - Last 24 Hours (Table) 05/05/23 05/05/23 Range/Units 10:14 10:14 Hgb 10.7 L (11.4-16.0) gm/dL MCHC 29.9 L (31.0-37.0) g/dL Neutrophils # 8.2 H (1.3-7.7) k/uL Lymphocytes # 0.4 L (1.0-4.8) k/uL Carbon Dioxide 38 H (22-30) mmol/L BUN 27 H (7-17) mg/dL Glucose 159 H (74-99) mg/dL Total Protein 5.4 L (6.3-8.2) g/dL Albumin 3.1 L (3.5-5.0) g/dL Assessment and Plan Assessment: Acute on chronic hypoxemic and hypercapnic respiratory failure, secondary to COPD exacerbation and acute RSV infection. The patient is currently on 5 L O2 nasal cannula. Chest x-ray remains unchanged. Her disease is end-stage and she has become more and more BiPAP dependent utilizing 16/6 and 40% FiO2 Severe COPD with chronic hypoxemic respiratory failure, normally maintained on 5 L/min nasal cannula 14/10; also utilizes accommodation of Symbicort inhaler, Spiriva inhaler, DuoNebs and as needed Ventolin rescue inhaler Acute on chronic dyspnea secondary to above Acute RSV infection exacerbating the patient's COPD Generalized anxiety disorder Former tobacco dependence Limited troponin leak secondary to mismatch ischemia secondary to underlying COPD exacerbation Chronic lumbar spine disease with lower extremity weakness and the patient is nonambulatory, half-way resident. Plan: The patient was seen and evaluated Labs and medications reviewed Continue the current treatment plan We will continue to follow The plan is to return to [facility] at discharge She will utilize BiPAP while there, current settings 16/6 and 40% FiO2 I have personally seen and examined the patient, performed the documentation and the assessment and plan as written. Number of minutes spent on the visit: 10.
--- NOTE | 2023-05-06 12:12 | P.PN ---
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 anju richards She presents because of worsening shortness of breath with chest tightness and pressures and cough with yellow Pflaum for the last 4 days She was transferred from [facility]. Patient could not tolerate BiPAP there and POC to was significantly elevated at 93 Currently she is awake alert, she is on BiPAP in the ICU. Sitting BiPAP R 16/6 with FiO2 of 50% She's also normal saline 75 mL/h She denies any abdominal pain vomiting or diarrhea. No change in urine habits. No dizziness. She's complains from the distal headache and generalized weakness but no lateralization She is on 5 mg of prednisone at home Patient currently on BiPAP as above Labs reviewed her hemoglobin is 10, still CBC is unremarkable. BMP is unremarkable but pCO2 is elevated at 39 Kelsea Lowe 7.2, pCO2 is high 92 and sodium bicarb is 543 Patient has positive RSV virus test CRP is elevated at 0.6 Chest x-ray shows COPD with mild right pleural effusion EKG shows sinus tachycardia at [address]-T changes. Currently patient is on ceftriaxone, doxycycline, Solu-Medrol 60 mg of normal saline 75 mL/h 04/29/2023 Patient is still short of breath She still isn on BiPAP until 4:00 this morning Currently she is on 5 l/m of oxygen compared to 5 L at home as well. However patient still tachypneic with her limitation and wheezing. She has mild basal crepitation. Also she is kept on IV Solu-Medrol 60 mg, doxycycline and ceftriaxone and normal saline 75 mL/h Vitals and labs reviewed Blood pressure on the low side but patient is asymptomatic and has good urine output, she is currently not on blood pressure medication 04/30/2023 pt is seen in the general medical floor today she is awake and alert, she is is requesting more breathing treatment and go back to bipap , although she is not severely tachypneic but she is still significantly wheezing and bronchospastic she is kept on iv solumedrol 60 mg and antibioitic with rocephin and doxycyclin and normal saline at 40 ml per hr 05/01/2023 She continued to improve slowly and gradually Her dyspnea is improving but still using the BiPAP and she still on 5 L oxygen via nasal cannula Normal saline or to 40 mL/h PT/OT requested but patient refused to work with them She remains on IV salmeterol 60 mg Ceftriaxone and doxycycline. Normal saline discontinued 05/02/2023 This is a pleasant 73 years old female with advanced COPD presents with RSV bronchitis and acute COPD exacerbation with acute on chronic hypoxic hypercapnic respiratory failure and respiratory acidosis. Patient responded to treatment slowly and gradually She is awake alert and talking of freely with little dyspnea but she still complaining of from tight chest and she looks very anxious. She likes to use the BiPAP on and off. She is still on 5 L oxygen via nasal cannula I offered Xanax but she declines and she wants to keep the Ativan 1 mg 3 times a day for now Carbon dioxide is slightly better 43 today. 05/03/2023 Patient still complaining of from dyspnea She remains on BiPAP intermittently Repeat chest x-ray showing mild left lower lobe infiltrate suspicious for fluid overload status post 1 times of IV Lasix Continue with Solu-Medrol 60 mg on antibiotic with ceftriaxone and doxycycline 05/04/23 She still somewhat BiPAP dependent even during the daytime She is very anxious, yesterday Ativan 1 mg 3 times a day increased to 4 times a day with no much help, urinary morning was still asking for anxiety medication Because Ativan may affect her breathing we turn it back to 1 mg 3 times a day and re-adding Atarax when necessary Labs and vitals reviewed looks stable Continue with IV Solu-Medrol and antibiotic 05/05. Patient seen examined. Continues to be on BiPAP, patient gets anxious very easily,. Gets short of breath on minimal exertion. 05/06. Patient seen and examined. Patient continues to be on BiPAP, gets of BiPAP during eating and other times during the day. Discussed with nursing staff and case management, plan for the patient to be discharged to rehab with BiPAP, pulmonology agrees. REVIEW OF SYSTEMS: CONSTITUTIONAL: No fever, no malaise,. CARDIOVASCULAR: No chest pain, no palpitations, no syncope. PULMONARY: As mentioned above, GASTROINTESTINAL: No diarrhea, no nausea, no vomiting, no abdominal pain. NEUROLOGICAL: No headaches, no weakness, PHYSICAL EXAMINATION: GENERAL: The patient is alert and oriented x3, not in any acute distress. Well developed, well nourished. HEENT: Pupils are round and equally reacting to light. EOMI. No scleral icterus. No conjunctival pallor. Normocephalic, atraumatic. No pharyngeal erythema. No thyromegaly. CARDIOVASCULAR: S1 and S2 present. No murmurs, rubs, or gallops. PULMONARY: Coarse breath sound bilaterally, no wheeze, no rhonchi ABDOMEN: Soft, nontender, nondistended, normoactive bowel sounds. No palpable organomegaly. MUSCULOSKELETAL: No joint swelling or deformity. EXTREMITIES: No cyanosis, clubbing, or pedal edema. NEUROLOGICAL: Gross neurological examination did not reveal any focal deficits. SKIN: No rashes. Assessment and plan Acute COPD exacerbation Acute bronchitis, rule out bacterial superinfection Acute on chronic hypoxemic hypercapnic respiratory failure acute respiratory acidosis History of severe anxiety Monitor vital signs Monitor CBC Monitor CMP Continue telemetry monitoring Continue BuSpar Continue ativan 1 mg 3 times a day Continue Vistaril Continue IV Solu-Medrol Continue combination of DuoNebs, formoterol inhalation, budesonide inhalation Pulmonary following Labs and medication were reviewed.. Continue same treatment. Continue with symptomatic treatment. Resume home medication. Monitor labs and vitals. DVT and GI prophylaxis. Further recommendations as per clinical course of the patient Dictation was produced using [employer] dictation software. please excuse any grammatical, word or spelling errors. Objective - Vital Signs Vital signs: Vital Signs Temp 97.7 F 05/06/23 07:20 Pulse 92 05/06/23 08:38 Resp 18 05/06/23 07:20 BP 110/74 05/06/23 07:20 Pulse Ox 97 05/06/23 08:17 FiO2 40 05/06/23 08:17 Intake & Output 05/05/23 05/06/23 05/06/23 18:59 06:59 18:59 Output Total 200 Balance -200 Weight 77 kg Output: Urine 200 Other: Voiding Method External Catheter External Catheter External Catheter # Voids 3 1 - Labs CBC & Chem 7: 05/05/23 10:14 05/05/23 10:14 Labs: Abnormal Lab Results - Last 24 Hours (Table) 05/05/23 Range/Units 10:14 Carbon Dioxide 38 H (22-30) mmol/L BUN 27 H (7-17) mg/dL Glucose 159 H (74-99) mg/dL Total Protein 5.4 L (6.3-8.2) g/dL Albumin 3.1 L (3.5-5.0) g/dL
--- NOTE | 2023-05-06 14:34 | P.PN ---
Subjective Progress Note Date: 05/06/23 Principal diagnosis: Acute on chronic hypoxic respiratory failure secondary to acute exacerbation of COPD and acute RSV infection. 73-year-old female patient with advanced COPD, who has been followed up by a yarn wrapper, Dr. Dejan Peter out of [facility]. The patient is chronically oxygen dependent at 5 L/min nasal cannula. She quit smoking approximately 10 years ago. She has been maintained on a combination of Spiriva and Symbicort on outpatient basis. She presented to the hospital because of worsening shortness of breath. I have seen and evaluated this patient in the past at [facility] for the same. Overnight, the patient was kept on the BiPAP as the patient had a component of acute hypercapnic respiratory failure with a pH of 7.28 and a pCO2 of 92 and pO2 of 87. She was started on bronchodilators and steroids. Chest x-ray shows hyperinflation without any airspace disease. She did have a troponin leak with a troponin of 0.072. She was started on broad-spectrum antibiotic coverage in addition to bronchodilators. She is also on a combination ofPerforomist and Pulmicort. She is tested positive for RSV. The patient this morning seems to be much more comfortable. While on the BiPAP pressure of 16 over 6 cm of water and FiO2 of 50%, she is able to generate a tidal volume of about 500 with a respiratory rate of 22. She is able to communicate. She is alert and oriented. She denies having any chest pain. Hemodynamically stable. White cell count is 8 with a hemoglobin of 10 and a platelet count of 271. BUN is at 25 with a creatinine 0.4. Procalcitonin level is at 0.28. On today's evaluation of 04/29/2023, the patient is doing well. No specific complaints. She is less short of breath compared to yesterday. No new complaints. No altered mentation. No chest pain.No new complaints. No altered mentation. She is still bringing up some limited amount of mucus. She wore her BiPAP throughout the night at a pressure of 16 over 6 cm of water with an FiO2 of 50%. This morning, she is back on nasal cannula. Her blood work today shows a WBC count of 4.1, hemoglobin is at 9.8 and a platelet count of 266. Serum bicarbonate 45 with a BUN of 25 and a creatinine of 0.5. Her procalcitonin level is at 0.28. Hemodynamically stable. She is bedridden. She has not ambulated for at least a year due to her chronic spine problems which includes lumbar stenosis, degenerative arthritis and degenerative lumbar disc disease. On today's evaluation of 04/30/2023, the patient is being seen for a follow-up. The patient utilizing BiPAP overnight at a pressure of 16/6 with an FiO2 of 50% and currently she is on oxygen by nasal cannula. She is currently utilizing 4 L nasal cannula. Doing well. No specific complaints. She was moved out of the intensive care unit yesterday as the patient was admitted to us because of an acute stroke exacerbation and RSV infection. Denies having any chest pain. Blood work from today still pending. Labs from yesterday was reviewed.She remains on bronchodilators. She remains on steroids. Empiric antibiotic coverage is still with IV Rocephin. She remains on Solu-Medrol 60 mg IV push every 6 hours. No altered mentation. She is essentially bedridden. On 05/01/2023, the patient is being seen for a follow-up. The patient is utilizing the BiPAP on and off during the day at a pressure of 16 over 6 cm of water. She is still being treated for an acute exacerbation and acute RSV infection. No altered mentation. No signs of any CO2 narcosis. The white cell count of 5.3 with a hemoglobin 10.3 and a platelet count of 301. Sodium is at 146, BUN is at 15 with a creatinine of 0.4. Remains on DuoNeb updrafts. Remains on IV Rocephin as an empiric antibiotic coverage. IV centimeter was at 60 mg every 6 hours. Occasionally increased anxiety and agitation the patient is taking Ativan 1 mg 3 times daily. Patient is also on morphine 2 mg and an as-needed basis. She is on BuSpar 15 mg p.o. twice daily. She is taking Tessalon Perles for cough. On today's evaluation of 05/02/2023, the patient is still struggling with her breathing. She has advanced COPD and the patient came in for an acute RSV infection which exacerbated her COPD. Initially she was in the intensive care unit supported with a BiPAP. For now she is on a medical hold and she is on and off utilizing the BiPAP at a pressure of 16 over 6 cm of water. At the time of arrival this morning, the patient was on a BiPAP and she requested to go back on nasal cannula and I moved her to 5 L nasal cannula. She is in mild pain is slightly less bronchospastic and wheezy she is arousable and she is communicating. Sodium levels at 145, potassium level is at 4.5, bicarb is at 43, BUN is at 16 with a creatinine of 0.4. She remains on the same treatment for now and the patient remains on a combination of DuoNeb updrafts, Perforomist and Pulmicort nebulized treatments twice a day, and she is still on Solu-Medrol which is at a dose of 60 mg IV every 6 hours. In terms of her labs, el ectrolytes were mentioned. No recent CBC. Her most recent chest x-rays from 04/29/2023 without any acute abnormalities. Her anxiety level remains quite elevated. The patient remains on BuSpar 15 mg p.o. twice a day and she is also taking Ativan 1 mg 3 times daily. Occasional panic attacks are still occurring. On 05/03/2023, the patient is struggling with her breathing. She has become more and more BiPAP dependent. As mentioned earlier, the patient has advanced end- stage COPD and she was reinfected with RSV. The patient was initially in the intensive care unit. She was requiring BiPAP and she was gradually weaned off the BiPAP with she was utilizing the BiPAP in alternation with nasal cannula at 4 L. However this morning, while off the BiPAP, the patient was unable to tolerate her breathing and she was asked to go back to her BiPAP as soon as possible. During this time, she also showed oxygen desaturations. Based on all this, the patient was placed on the BiPAP at a pressure of 16 over 6 cm of water with an FiO2 of 40%. A repeat chest x-ray was done and the patient was found to have small infiltrate in the left lung base and COPD. The patient was also given a dose of Lasix. I noted that she was quite anxious and I increased her Ativan to 1 mg 4 times daily patient is also on BuSpar. Meanwhile, the white cell count of 6.8, hemoglobin 11.1 and a platelet count of 379, BUN is 23 with a creatinine of 0.5 and sodium levels of 139. No focal neurological deficits. She is extremely anxious. 05/04/2023, the patient doing well as well. She seems to be more so BiPAP de pendent. She goes on a BiPAP for about 30 minutes that she comes off that she gets anxious if she becomes hypoxic or short of breath and she goes back on the BiPAP. This has been an ongoing issue with her. She is also taking a combination of anxiolytics and the patient is currently on a combination of BuSpar 15 mg twice a day, Ativan 1 mg 3 times daily and the patient was also started on Vistaril. Noted the patient is advanced oxygen dependent COPD with an FEV1 of 20% of predicted. She was further infected with RSV which exacerbated her COPD. Her chest x-ray was repeated and showsNo acute abnormalities from 05/03/2023 and the findings are essentially stable. The patient had labs yesterday that showed no acute abnormalities. She has chronic metabolic alkalosis with a serum bicarb of 40, sodium level 139 and a potassium level is 6.8 with a hemoglobin of 11.1. She is arousable and she communicates. No signs of any suicidal process. Extremely anxious. The patient is seen today May 05, 2023 and follow-up on the regular medical floor. She is currently awake and alert in no acute distress. She is utilizing BiPAP 16/6 and 40% FiO2. She alternates with 5 L nasal cannula. She has normal saline at 40 MLS per hour. White count 9.1. Hemoglobin 10.7. Platelets 343. Sodium 138. Potassium 4.3. Bicarb 38. BUN 27. Creatinine 0.52. Glucose 159. She is continued on DuoNeb ventilations, Pulmicort and perform his inhalations, IV Solu-Medrol. Heparin for DVT prophylaxis. Patient was reevaluated today on 05/06/23, remains on BiPAP, remains on multiple bronchodilators, including Pulmicort, Perforomist, she is also on DuoNeb and IV Solu-Medrol, patient states that she is not feeling any better, she seems to be basically unwilling to let the BiPAP go 16/6/40%, she is BiPAP dependent. Patient seems to be unwilling to even consider discharge plans. Stating that she is not ready to go anywhere. Objective - Vital Signs Vital signs: Vital Signs Temp 97.7 F 05/06/23 07:20 Pulse 84 05/06/23 11:44 Resp 18 05/06/23 07:20 BP 110/74 05/06/23 07:20 Pulse Ox 97 05/06/23 08:17 FiO2 40 05/06/23 11:30 Intake & Output 05/05/23 05/06/23 05/06/23 18:59 06:59 18:59 Output Total 200 Balance -200 Weight 77 kg Output: Urine 200 Other: Voiding Method External Catheter External Catheter External Catheter # Voids 3 1 - Exam GENERAL EXAM: Alert, 72-year-old female, on BiPAP 16/6/40% HEAD: Normocephalic and atraumatic EYES: Normal reaction of pupils, equal size. NOSE: Clear with pink turbinates. THROAT: No erythema or exudates. NECK: No masses, no JVD. CHEST: No chest wall deformity. LUNGS: Diminished breath sound bilaterally no crackles rhonchi or wheezes CVS: S1 and S2 normal with no audible murmur, regular rhythm. No extra heart sounds ABDOMEN: No hepatosplenomegaly, active bowel sounds, no guarding or rigidity. SKIN: No rashes CENTRAL NERVOUS SYSTEM: Patient is anxious, gets agitated very easily. Otherwise no gross focal neurologic deficits. EXTREMITIES: No clubbing edema or cyanosis - Labs CBC & Chem 7: 05/05/23 10:14 05/05/23 10:14 Assessment and Plan Assessment: Impression: Acute on chronic hypoxemic and hypercapnic respiratory failure, secondary to COPD exacerbation and acute RSV infection. Patient is not feeling much better or improvement since admission. Severe COPD with chronic hypoxemic respiratory failure, normally maintained on 5 L/min nasal cannula 14/10; also utilizes accommodation of Symbicort inhaler, Spiriva inhaler, DuoNebs and as needed Ventolin rescue inhaler Acute RSV infection exacerbating the patient's COPD Generalized anxiety disorder Former tobacco dependence Chronic lumbar spine disease with lower extremity weakness and the patient is nonambulatory, [place] [facility]. Recommendation: Continue bronchodilators Continue BiPAP alternating with nasal cannula Continue steroids, Should consider placement, patient to eventually return to [facility] upon discharge. Will continue to follow Time with Patient: Less than 30
--- NOTE | 2023-05-07 12:59 | P.PN ---
Subjective Progress Note Date: 05/07/23 73-year-old female patient with advanced COPD, who has been followed up by a export manager, Dr. Dejan Peter out of [facility]. The patient is chronically oxygen dependent at 5 L/min nasal cannula. She quit smoking approximately 10 years ago. She has been maintained on a combination of Spiriva and Symbicort on outpatient basis. She presented to the hospital because of worsening shortness of breath. I have seen and evaluated this patient in the past at [facility] for the same. Overnight, the patient was kept on the BiPAP as the patient had a component of acute hypercapnic respiratory failure with a pH of 7.28 and a pCO2 of 92 and pO2 of 87. She was started on bronchodilators and steroids. Chest x-ray shows hyperinflation without any airspace disease. She did have a troponin leak with a troponin of 0.072. She was started on broad-spectrum antibiotic coverage in addition to bronchodilators. She is also on a combination ofPerforomist and Pulmicort. She is tested positive for RSV. The patient this morning seems to be much more comfortable. While on the BiPAP pressure of 16 over 6 cm of water and FiO2 of 50%, she is able to generate a tidal volume of about 500 with a respiratory rate of 22. She is able to communicate. She is alert and oriented. She denies having any chest pain. Hemodynamically stable. White cell count is 8 with a hemoglobin of 10 and a platelet count of 271. BUN is at 25 with a creatinine 0.4. Procalcitonin level is at 0.28. On today's evaluation of 04/29/2023, the patient is doing well. No specific complaints. She is less short of breath compared to yesterday. No new complaints. No altered mentation. No chest pain.No new complaints. No altered mentation. She is still bringing up some limited amount of mucus. She wore her BiPAP throughout the night at a pressure of 16 over 6 cm of water with an FiO2 of 50%. This morning, she is back on nasal cannula. Her blood work today shows a WBC count of 4.1, hemoglobin is at 9.8 and a platelet count of 266. Serum bicarbonate 45 with a BUN of 25 and a creatinine of 0.5. Her procalcitonin level is at 0.28. Hemodynamically stable. She is bedridden. She has not ambulated for at least a year due to her chronic spine problems which includes lumbar stenosis, degenerative arthritis and degenerative lumbar disc disease. On today's evaluation of 04/30/2023, the patient is being seen for a follow-up. The patient utilizing BiPAP overnight at a pressure of 16/6 with an FiO2 of 50% and currently she is on oxygen by nasal cannula. She is currently utilizing 4 L nasal cannula. Doing well. No specific complaints. She was moved out of the intensive care unit yesterday as the patient was admitted to us because of an acute stroke exacerbation and RSV infection. Denies having any chest pain. Blood work from today still pending. Labs from yesterday was reviewed.She remains on bronchodilators. She remains on steroids. Empiric antibiotic coverage is still with IV Rocephin. She remains on Solu-Medrol 60 mg IV push every 6 hours. No altered mentation. She is essentially bedridden. On 05/01/2023, the patient is being seen for a follow-up. The patient is utilizing the BiPAP on and off during the day at a pressure of 16 over 6 cm of water. She is still being treated for an acute exacerbation and acute RSV infection. No altered mentation. No signs of any CO2 narcosis. The white cell count of 5.3 with a hemoglobin 10.3 and a platelet count of 301. Sodium is at 146, BUN is at 15 with a creatinine of 0.4. Remains on DuoNeb updrafts. R emains on IV Rocephin as an empiric antibiotic coverage. IV centimeter was at 60 mg every 6 hours. Occasionally increased anxiety and agitation the patient is taking Ativan 1 mg 3 times daily. Patient is also on morphine 2 mg and an as-needed basis. She is on BuSpar 15 mg p.o. twice daily. She is taking Tessalon Perles for cough. On today's evaluation of 05/02/2023, the patient is still struggling with her breathing. She has advanced COPD and the patient came in for an acute RSV infection which exacerbated her COPD. Initially she was in the intensive care unit supported with a BiPAP. For now she is on a medical hold and she is on and off utilizing the BiPAP at a pressure of 16 over 6 cm of water. At the time of arrival this morning, the patient was on a BiPAP and she requested to go back on nasal cannula and I moved her to 5 L nasal cannula. She is in mild pain is slightly less bronchospastic and wheezy she is arousable and she is communicating. Sodium levels at 145, potassium level is at 4.5, bicarb is at 43, BUN is at 16 with a creatinine of 0.4. She remains on the same treatment for now and the patient remains on a combination of DuoNeb updrafts, Perforomist and Pulmicort nebulized treatments twice a day, and she is still on Solu-Medrol which is at a dose of 60 mg IV every 6 hours. In terms of her labs, electrolytes were mentioned. No recent CBC. Her most recent chest x-rays from 04/29/2023 without any acute abnormalities. Her anxiety level remains quite elevated. The patient remains on BuSpar 15 mg p.o. twice a day and she is also taking Ativan 1 mg 3 times daily. Occasional panic attacks are still occurring. On 05/03/2023, the patient is struggling with her breathing. She has become more and more BiPAP dependent. As mentioned earlier, the patient has advanced end- stage COPD and she was reinfected with RSV. The patient was initially in the intensive care unit. She was requiring BiPAP and she was gradually weaned off the BiPAP with she was utilizing the BiPAP in alternation with nasal cannula at 4 L. However this morning, while off the BiPAP, the patient was unable to tolerate her breathing and she was asked to go back to her BiPAP as soon as possible. During this time, she also showed oxygen desaturations. Based on all this, the patient was placed on the BiPAP at a pressure of 16 over 6 cm of water with an FiO2 of 40%. A repeat chest x-ray was done and the patient was found to have small infiltrate in the left lung base and COPD. The patient was also given a dose of Lasix. I noted that she was quite anxious and I increased her Ativan to 1 mg 4 times daily patient is also on BuSpar. Meanwhile, the white cell count of 6.8, hemoglobin 11.1 and a platelet count of 379, BUN is 23 with a creatinine of 0.5 and sodium levels of 139. No focal neurological deficits. She is extremely anxious. 05/04/2023, the patient doing well as well. She seems to be more so BiPAP dependent. She goes on a BiPAP for about 30 minutes that she comes off that she gets anxious if she becomes hypoxic or short of breath and she goes back on the BiPAP. This has been an ongoing issue with her. She is also taking a combination of anxiolytics and the patient is currently on a combination of BuSpar 15 mg twice a day, Ativan 1 mg 3 times daily and the patient was also started on Vistaril. Noted the patient is advanced oxygen dependent COPD with an FEV1 of 20% of predicted. She was further infected with RSV which exacerbated her COPD. Her chest x-ray was repeated and showsNo acute abnormalities from 05/03/2023 and the findings are essentially stable. The patient had labs yesterday that showed no acute abnormalities. She has chronic metabolic alkalosis with a serum bicarb of 40, sodium level 139 and a potassium level is 6.8 with a hemoglobin of 11.1. She is arousable and she communicates. No signs of any suicidal process. Extremely anxious. The patient is seen today May 05, 2023 and follow-up on the regular medical floor. She is currently awake and alert in no acute distress. She is utilizing BiPAP 16/6 and 40% FiO2. She alternates with 5 L nasal cannula. She has normal saline at 40 MLS per hour. White count 9.1. Hemoglobin 10.7. Platelets 343. Sodium 138. Potassium 4.3. Bicarb 38. BUN 27. Creatinine 0.52. Glucose 159. She is continued on DuoNeb ventilations, Pulmicort and perform his inhalations, IV Solu-Medrol. Heparin for DVT prophylaxis. The patient is seen today May 07, 2023 in follow-up on the regular medical floor. She is currently off the BiPAP. She is maintaining O2 saturations in the 90s on 4 L/min per nasal cannula. She is breathing easier today compared to yesterday. She did wear the BiPAP throughout the night at 16/6 and 40% FiO2. She is continued on DuoNeb ventilations, Pulmicort and perform his inhalations, IV Solu-Medrol. Heparin for DVT prophylaxis. Objective - Vital Signs Vital signs: Vital Signs Temp 97.7 F 05/07/23 07:33 Pulse 84 02/14/24 12:13 Resp 19 05/07/23 07:33 BP 113/71 05/07/23 07:33 Pulse Ox 94 L 05/07/23 08:06 FiO2 40 05/07/23 08:06 Intake & Output 05/06/23 05/07/23 05/07/23 18:59 06:59 18:59 Output Total 450 400 750 Balance -450 -400 -750 Output: Urine 450 400 750 Other: Voiding Method External Catheter External Catheter External Catheter - Exam GENERAL EXAM: Alert, confused, 72-year-old female, on 5 L of oxygen per nasal cannula alternating with BiPAP 16/6 and 40% FiO2 HEAD: Normocephalic and atraumatic EYES: Normal reaction of pupils, equal size. NOSE: Clear with pink turbinates. THROAT: No erythema or exudates. NECK: No masses, no JVD. CHEST: No chest wall deformity. LUNGS: Equal air entry with expiratory wheezes heard throughout. CVS: S1 and S2 normal with no audible murmur, regular rhythm. No extra heart sounds ABDOMEN: No hepatosplenomegaly, active bowel sounds, no guarding or rigidity. SPINE: No scoliosis or deformity SKIN: No rashes CENTRAL NERVOUS SYSTEM: No focal deficits, tone is normal in all 4 extremities. Awake and oriented and communicating. EXTREMITIES: There is no peripheral edema, clubbing, or cyanosis. Peripheral pulses are intact. - Labs CBC & Chem 7: 05/05/23 10:14 05/05/23 10:14 Assessment and Plan Assessment: Acute on chronic hypoxemic and hypercapnic respiratory failure, secondary to COPD exacerbation and acute RSV infection. The patient is currently on 5 L O2 nasal cannula. Chest x-ray remains unchanged. Her disease is end-stage and she has become more BiPAP dependent utilizing 16/6 and 40% FiO2, mostly at night, currently on 5 L nasal cannula Severe COPD with chronic hypoxemic respiratory failure, normally maintained on 5 L/min nasal cannula /; also utilizes accommodation of Symbicort inhaler, Spiriva inhaler, DuoNebs and as needed Ventolin rescue inhaler Acute on chronic dyspnea secondary to above Acute RSV infection exacerbating the patient's COPD Generalized anxiety disorder Former tobacco dependence Limited troponin leak secondary to mismatch ischemia secondary to underlying COPD exacerbation Chronic lumbar spine disease with lower extremity weakness and the patient is nonambulatory, shelter resident. Plan: The patient was seen and evaluated Medications reviewed Discontinue Solu-Medrol Initiate a prednisone taper Continue bronchodilators Cleared for discharge from the pulmonary standpoint The plan is to return to [facility] She will utilize BiPAP while there, current settings 16/6 and 40% FiO2 I have personally seen and examined the patient, performed the documentation and the assessment and plan as written. Number of minutes spent on the visit: 10.
--- NOTE | 2023-05-07 13:15 | P.PN ---
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 anju richards She presents because of worsening shortness of breath with chest tightness and pressures and cough with yellow Pflaum for the last 4 days She was transferred from [facility]. Patient could not tolerate BiPAP there and POC to was significantly elevated at 93 Currently she is awake alert, she is on BiPAP in the ICU. Sitting BiPAP R 16/6 with FiO2 of 50% She's also normal saline 75 mL/h She denies any abdominal pain vomiting or diarrhea. No change in urine habits. No dizziness. She's complains from the distal headache and generalized weakness but no lateralization She is on 5 mg of prednisone at home Patient currently on BiPAP as above Labs reviewed her hemoglobin is 10, still CBC is unremarkable. BMP is unremarkable but pCO2 is elevated at 39 Kelsea Lowe 7.2, pCO2 is high 92 and sodium bicarb is 543 Patient has positive RSV virus test CRP is elevated at 0.6 Chest x-ray shows COPD with mild right pleural effusion EKG shows sinus tachycardia at [address]-T changes. Currently patient is on ceftriaxone, doxycycline, Solu-Medrol 60 mg of normal saline 75 mL/h 04/29/2023 Patient is still short of breath She still isn on BiPAP until 4:00 this morning Currently she is on 5 l/m of oxygen compared to 5 L at home as well. However patient still tachypneic with her limitation and wheezing. She has mild basal crepitation. Also she is kept on IV Solu-Medrol 60 mg, doxycycline and ceftriaxone and normal saline 75 mL/h Vitals and labs reviewed Blood pressure on the low side but patient is asymptomatic and has good urine output, she is currently not on blood pressure medication 04/30/2023 pt is seen in the general medical floor today she is awake and alert, she is is requesting more breathing treatment and go back to bipap , although she is not severely tachypneic but she is still significantly wheezing and bronchospastic she is kept on iv solumedrol 60 mg and antibioitic with rocephin and doxycyclin and normal saline at 40 ml per hr 05/01/2023 She continued to improve slowly and gradually Her dyspnea is improving but still using the BiPAP and she still on 5 L oxygen via nasal cannula Normal saline or to 40 mL/h PT/OT requested but patient refused to work with them She remains on IV salmeterol 60 mg Ceftriaxone and doxycycline. Normal saline discontinued 05/02/2023 This is a pleasant 73 years old female with advanced COPD presents with RSV bronchitis and acute COPD exacerbation with acute on chronic hypoxic hypercapnic respiratory failure and respiratory acidosis. Patient responded to treatment slowly and gradually She is awake alert and talking of freely with little dyspnea but she still complaining of from tight chest and she looks very anxious. She likes to use the BiPAP on and off. She is still on 5 L oxygen via nasal cannula I offered Xanax but she declines and she wants to keep the Ativan 1 mg 3 times a day for now Carbon dioxide is slightly better 43 today. 05/03/2023 Patient still complaining of from dyspnea She remains on BiPAP intermittently Repeat chest x-ray showing mild left lower lobe infiltrate suspicious for fluid overload status post 1 times of IV Lasix Continue with Solu-Medrol 60 mg on antibiotic with ceftriaxone and doxycycline 05/04/23 She still somewhat BiPAP dependent even during the daytime She is very anxious, yesterday Ativan 1 mg 3 times a day increased to 4 times a day with no much help, urinary morning was still asking for anxiety medication Because Ativan may affect her breathing we turn it back to 1 mg 3 times a day and re-adding Atarax when necessary Labs and vitals reviewed looks stable Continue with IV Solu-Medrol and antibiotic 05/05. Patient seen examined. Continues to be on BiPAP, patient gets anxious very easily,. Gets short of breath on minimal exertion. 05/06. Patient seen and examined. Patient continues to be on BiPAP, gets of BiPAP during eating and other times during the day. Discussed with nursing staff and case management, plan for the patient to be discharged to rehab with BiPAP, pulmonology agrees. 05/07. Patient seen and examined. States she feels much better compared to yesterday, gets off the BiPAP intermittently. When not on BiPAP patient is on 4 L of oxygen. REVIEW OF SYSTEMS: CONSTITUTIONAL: No fever, no malaise,. CARDIOVASCULAR: No chest pain, no palpitations, no syncope. PULMONARY: As mentioned above, GASTROINTESTINAL: No diarrhea, no nausea, no vomiting, no abdominal pain. NEUROLOGICAL: No headaches, no weakness, PHYSICAL EXAMINATION: GENERAL: The patient is alert and oriented x3, not in any acute distress. Chron ically ill looking HEENT: Pupils are round and equally reacting to light. EOMI. No scleral icterus. No conjunctival pallor. Normocephalic, atraumatic. No pharyngeal erythema. No thyromegaly. CARDIOVASCULAR: S1 and S2 present. No murmurs, rubs, or gallops. PULMONARY: Coarse breath sound bilaterally, no wheeze, no rhonchi ABDOMEN: Soft, nontender, nondistended, normoactive bowel sounds. No palpable organomegaly. MUSCULOSKELETAL: No joint swelling or deformity. EXTREMITIES: No cyanosis, clubbing, or pedal edema. NEUROLOGICAL: Gross neurological examination did not reveal any focal deficits. SKIN: No rashes. Assessment and plan Acute COPD exacerbation Acute bronchitis, rule out bacterial superinfection Acute on chronic hypoxemic hypercapnic respiratory failure acute respiratory acidosis History of severe anxiety Monitor vital signs Monitor CBC Monitor CMP Continue telemetry monitoring Continue BuSpar Continue ativan 1 mg 3 times a day Continue Vistaril Continue IV Solu-Medrol Continue combination of DuoNebs, formoterol inhalation, budesonide inhalation Pulmonary following Case management working on discharging patient back to rehab facility with intermittent use of BiPAP Labs and medication were reviewed.. Continue same treatment. Continue with symptomatic treatment. Resume home medication. Monitor labs and vitals. DVT and GI prophylaxis. Further recommendations as per clinical course of the patient Dictation was produced using [employer] dictation software. please excuse any grammatical, word or spelling errors. Objective - Vital Signs Vital signs: Vital Signs Temp 97.7 F 05/07/23 07:33 Pulse 84 05/07/23 12:13 Resp 19 05/07/23 07:33 BP 113/71 05/07/23 07:33 Pulse Ox 94 L 05/07/23 08:06 FiO2 40 05/07/23 08:06 Intake & Output 05/06/23 05/07/23 05/07/23 18:59 06:59 18:59 Output Total 450 400 750 Balance -450 -400 -750 Output: Urine 450 400 750 Other: Voiding Method External Catheter External Catheter External Catheter - Labs CBC & Chem 7: 05/05/23 10:14 05/05/23 10:14
[2023-05-07] MEDS: CALCIUM CARBONATE 500 MG CHEWABLE PO PRN (20:36)
[2023-05-08] MEDS: predniSONE 20 MG TAB PO SCH (07:49)
--- NOTE | 2023-05-08 10:57 | P.DS ---
Providers Date of admission: 04/27/23 15:21 Expected date of discharge: 05/08/23 Attending physician: Marleen Neri MD Consults: 04/27/23 15:42 Consult Physician Routine Consulting Provider: Declan Robles Consult Reason/Comments: Copd Exacerbation, ICU management Do you want consulting provider notified?: Yes Primary care physician: Giana Lombardi, Hospital Course: Discharge diagnoses; Acute COPD exacerbation Acute bronchitis, rule out bacterial superinfection Acute on chronic hypoxemic hypercapnic respiratory failure acute respiratory acidosis History of severe anxiety Hospital course; this is a pleasant 72 years old female with past medical hisotry of COPD ,she is on 5 literof oxygen at home , 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 anju richards She presents because of worsening shortness of breath with chest tightness and pressures and cough with yellow Pflaum for the last 4 days She was transferred from [facility]. Patient could not tolerate BiPAP there and POC to was significantly elevated at 93 Currently she is awake alert, she is on BiPAP in the ICU. Sitting BiPAP R 16/6 with FiO2 of 50% She's also normal saline 75 mL/h She denies any abdominal pain vomiting or diarrhea. No change in urine habits. No dizziness. She's complains from the distal headache and generalized weakness but no lateralization She is on 5 mg of prednisone at home Patient currently on BiPAP as above Labs reviewed her hemoglobin is 10, still CBC is unremarkable. BMP is unremarkable but pCO2 is elevated at 39 Kelsea Lowe 7.2, pCO2 is high 92 and sodium bicarb is 543 Patient has positive RSV virus test CRP is elevated at 0.6 Chest x-ray shows COPD with mild right pleural effusion EKG shows sinus tachycardia at [address]-T changes. Currently patient is on ceftriaxone, doxycycline, Solu-Medrol 60 mg of normal saline 75 mL/h 04/29/2023 Patient is still short of breath She still isn on BiPAP until 4:00 this morning Currently she is on 5 l/m of oxygen compared to 5 L at home as well. However patient still tachypneic with her limitation and wheezing. She has mild basal crepitation. Also she is kept on IV Solu-Medrol 60 mg, doxycycline and ceftriaxone and normal saline 75 mL/h Vitals and labs reviewed Blood pressure on the low side but patient is asymptomatic and has good urine output, she is currently not on blood pressure medication 04/30/2023 pt is seen in the general medical floor today she is awake and alert, she is is requesting more breathing treatment and go back to bipap , although she is not severely tachypneic but she is still significantly wheezing and bronchospastic she is kept on iv solumedrol 60 mg and antibioitic with rocephin and doxycyclin and normal saline at 40 ml per hr 05/01/2023 She continued to improve slowly and gradually Her dyspnea is improving but still using the BiPAP and she still on 5 L oxygen via nasal cannula Normal saline or to 40 mL/h PT/OT requested but patient refused to work with them She remains on IV salmeterol 60 mg Ceftriaxone and doxycycline. Normal saline discontinued 05/02/2023 This is a pleasant 73 years old female with advanced COPD presents with RSV bronchitis and acute COPD exacerbation with acute on chronic hypoxic hypercapnic respiratory failure and respiratory acidosis. Patient responded to treatment slowly and gradually She is awake alert and talking of freely with little dyspnea but she still complaining of from tight chest and she looks very anxious. She likes to use the BiPAP on and off. She is still on 5 L oxygen via nasal cannula I offered Xanax but she declines and she wants to keep the Ativan 1 mg 3 times a day for now Carbon dioxide is slightly better 43 today. 05/03/2023 Patient still complaining of from dyspnea She remains on BiPAP intermittently Repeat chest x-ray showing mild left lower lobe infiltrate suspicious for fluid overload status post 1 times of IV Lasix Continue with Solu-Medrol 60 mg on antibiotic with ceftriaxone and doxycycline 05/04/23 She still somewhat BiPAP dependent even during the daytime She is very anxious, yesterday Ativan 1 mg 3 times a day increased to 4 times a day with no much help, urinary morning was still asking for anxiety medication Because Ativan may affect her breathing we turn it back to 1 mg 3 times a day and re-adding Atarax when necessary Labs and vitals reviewed looks stable Continue with IV Solu-Medrol and antibiotic 05/05. Patient seen examined. Continues to be on BiPAP, patient gets anxious very easily,. Gets short of breath on minimal exertion. 05/06. Patient seen and examined. Patient continues to be on BiPAP, gets of BiPAP during eating and other times during the day. Discussed with nursing staff and case management, plan for the patient to be discharged to rehab with BiPAP, pulmonology agrees. 05/07. Patient seen and examined. States she feels much better compared to yesterday, gets off the BiPAP intermittently. When not on BiPAP patient is on 4 L of oxygen. 05/08. Patient seen and examined. Pulmonology cleared the patient for discharge to rehab facility PHYSICAL EXAMINATION: GENERAL: The patient is alert and oriented x3, not in any acute distress. Chronically ill looking HEENT: Pupils are round and equally reacting to light. EOMI. No scleral icterus. No conjunctival pallor. Normocephalic, atraumatic. No pharyngeal erythema. No thyromegaly. CARDIOVASCULAR: S1 and S2 present. No murmurs, rubs, or gallops. PULMONARY: Coarse breath sound bilaterally, no wheeze, no rhonchi ABDOMEN: Soft, nontender, nondistended, normoactive bowel sounds. No palpable organomegaly. MUSCULOSKELETAL: No joint swelling or deformity. EXTREMITIES: No cyanosis, clubbing, or pedal edema. NEUROLOGICAL: Gross neurological examination did not reveal any focal deficits. SKIN: No rashes. Dictation was produced using [employer] dictation software. please excuse any grammatical, word or spelling errors. Patient Condition at Discharge: Fair Plan - Discharge Summary Discharge Rx Participant: No New Discharge Prescriptions: New predniSONE 10 mg PO DAILY #8 tab Continue traZODone HCL [Desyrel] 50 mg PO HS Tiotropium Highland [Spiriva Handihaler] 18 mcg INHALATION RT-DAILY Sodium Chloride [Saline Mist] 1 spray EA NOSTRIL TID Promethazine HCl 12.5 mg PO Q6H PRN PRN Reason: Nausea predniSONE 5 mg PO DIRECTED Omeprazole 20 mg PO DAILY Multivitamins, Thera [Multivitamin (formulary)] 1 tab PO DAILY Magnesium Hydroxide [Milk of Magnesia] 2,400 mg PO DAILY PRN PRN Reason: Constipation Ipratropium-Albuterol Nebulize [Duoneb 0.5 mg-3 mg/3 ml Soln] 3 ml INHALATION RT-Q6H PRN PRN Reason: Shortness Of Breath Fluticasone Nasal [place] [Flonase Nasal [place]] 1 spray EA NOSTRIL Q12H PRN PRN Reason: copd Diclofenac Sodium Gel [Voltaren 1% Gel] 2 gm TOPICAL Q6H PRN PRN Reason: Pain Cholecalciferol [Vitamin D3 (125 Mcg = 5000 Iu)] 125 mcg PO DAILY Calcium Carbonate [Tums] 500 mg PO Q4H PRN PRN Reason: ACID REFLUX busPIRone HCL 15 mg PO BID Budesonide/Formoterol Fumarate [Symbicort 160-4.5 Mcg Inhaler] 2 puff INHALATION RT-BID Sucralfate [Carafate] 1 gm PO TID polyethylene glycoL 3350 [Miralax] 17 gm PO DAILY PRN PRN Reason: Constipation Acetaminophen Tab [Tylenol] 650 mg PO Q6H PRN PRN Reason: Pain Or Fever > 100.5 Docusate [Colace] 100 mg PO BID Benzonatate [Tessalon Perles] 100 mg PO TID PRN PRN Reason: Cough Benzocaine 20 % Gel [Orajel] 1 applic DENTAL Q6H PRN PRN Reason: DENTAL PAIN L.acidoph,Paracasei, B.lactis [Probiotic] 1 cap PO DAILY Aspirin EC [Ecotrin Low Dose] 81 mg PO DAILY Albuterol Inhaler [Ventolin Hfa Inhaler] 2 puff INHALATION RT-Q4H PRN PRN Reason: Shortness Of Breath LORazepam [Ativan] 1 mg PO TID 3 Days #9 tab Discontinued predniSONE See Taper PO DIRECTED Discharge Medication List Acetaminophen Tab [Tylenol] 650 mg PO Q6H PRN 04/27/23 [History] Albuterol Inhaler [Ventolin Hfa Inhaler] 2 puff INHALATION RT-Q4H PRN 04/27/23 [History] Aspirin EC [Ecotrin Low Dose] 81 mg PO DAILY 04/27/23 [History] Benzocaine 20 % Gel [Orajel] 1 applic DENTAL Q6H PRN 04/27/23 [History] Benzonatate [Tessalon Perles] 100 mg PO TID PRN 04/27/23 [History] Budesonide/Formoterol Fumarate [Symbicort 160-4.5 Mcg Inhaler] 2 puff INHALATION RT-BID 04/27/23 [History] Calcium Carbonate [Tums] 500 mg PO Q4H PRN 04/27/23 [History] Cholecalciferol [Vitamin D3 (125 Mcg = 5000 Iu)] 125 mcg PO DAILY 04/27/23 [History] Diclofenac Sodium Gel [Voltaren 1% Gel] 2 gm TOPICAL Q6H PRN 04/27/23 [History] Docusate [Colace] 100 mg PO BID 04/27/23 [History] Fluticasone Nasal [place] [Flonase Nasal [place]] 1 spray EA NOSTRIL Q12H PRN 04/27/23 [History] Ipratropium-Albuterol Nebulize [Duoneb 0.5 mg-3 mg/3 ml Soln] 3 ml INHALATION RT-Q6H PRN 04/27/23 [History] L.acidoph,Paracasei, B.lactis [Probiotic] 1 cap PO DAILY 04/27/23 [History] Magnesium Hydroxide [Milk of Magnesia] 2,400 mg PO DAILY PRN 04/27/23 [History] Multivitamins, Thera [Multivitamin (formulary)] 1 tab PO DAILY 04/27/23 [History] Omeprazole 20 mg PO DAILY 04/27/23 [History] Promethazine HCl 12.5 mg PO Q6H PRN 04/27/23 [History] Sodium Chloride [Saline Mist] 1 spray EA NOSTRIL TID 04/27/23 [History] Sucralfate [Carafate] 1 gm PO TID 04/27/23 [History] Tiotropium [place] [Spiriva Handihaler] 18 mcg INHALATION RT-DAILY 04/27/23 [History] busPIRone HCL 15 mg PO BID 04/27/23 [History] polyethylene glycoL 3350 [Miralax] 17 gm PO DAILY PRN 04/27/23 [History] predniSONE 5 mg PO DIRECTED 04/27/23 [History] traZODone HCL [Desyrel] 50 mg PO HS 04/27/23 [History] LORazepam [Ativan] 1 mg PO TID 3 Days #9 tab 05/08/23 [Rx] predniSONE 10 mg PO DAILY #8 tab 05/08/23 [Rx] Follow up Appointment(s)/Referral(s): Kevyn Jauregui MD [REFERRING] - 1-2 days Abdirashid Louise MD [STAFF PHYSICIAN] - 1 Week Discharge Disposition: TRANSFER TO SNF/F
--- NOTE | 2023-05-08 12:46 | P.PN ---
Subjective Progress Note Date: 05/08/23 this is a pleasant 72 years old female with past medical hisotry of COPD ,she is on 5 literof oxygen at home , she follows up with rn heart at [facility] dr. anju richards She presents because of worsening shortness of breath with chest tightness and pressures and cough with yellow Pflaum for the last 4 days She was transferred from [facility]. Patient could not tolerate BiPAP there and POC to was significantly elevated at 93 Currently she is awake alert, she is on BiPAP in the ICU. Sitting BiPAP R 16/6 with FiO2 of 50% She's also normal saline 75 mL/h She denies any abdominal pain vomiting or diarrhea. No change in urine habits. No dizziness. She's complains from the distal headache and generalized weakness but no lateralization She is on 5 mg of prednisone at home Patient currently on BiPAP as above Labs reviewed her hemoglobin is 10, still CBC is unremarkable. BMP is unremarkable but pCO2 is elevated at 39 Kelsea Lowe 7.2, pCO2 is high 92 and sodium bicarb is 543 Patient has positive RSV virus test CRP is elevated at 0.6 Chest x-ray shows COPD with mild right pleural effusion EKG shows sinus tachycardia at [address]-T changes. Currently patient is on ceftriaxone, doxycycline, Solu-Medrol 60 mg of normal saline 75 mL/h 04/29/2023 Patient is still short of breath She still isn on BiPAP until 4:00 this morning Currently she is on 5 l/m of oxygen compared to 5 L at home as well. However patient still tachypneic with her limitation and wheezing. She has mild basal crepitation. Also she is kept on IV Solu-Medrol 60 mg, doxycycline and ceftriaxone and normal saline 75 mL/h Vitals and labs reviewed Blood pressure on the low side but patient is asymptomatic and has good urine output, she is currently not on blood pressure medication 04/30/2023 pt is seen in the general medical floor today she is awake and alert, she is is requesting more breathing treatment and go back to bipap , although she is not severely tachypneic but she is still significantly wheezing and bronchospastic she is kept on iv solumedrol 60 mg and antibioitic with rocephin and doxycyclin and normal saline at 40 ml per hr 05/01/2023 She continued to improve slowly and gradually Her dyspnea is improving but still using the BiPAP and she still on 5 L oxygen via nasal cannula Normal saline or to 40 mL/h PT/OT requested but patient refused to work with them She remains on IV salmeterol 60 mg Ceftriaxone and doxycycline. Normal saline discontinued 05/02/2023 This is a pleasant 73 years old female with advanced COPD presents with RSV bronchitis and acute COPD exacerbation with acute on chronic hypoxic hypercapnic respiratory failure and respiratory acidosis. Patient responded to treatment slowly and gradually She is awake alert and talking of freely with little dyspnea but she still complaining of from tight chest and she looks very anxious. She likes to use the BiPAP on and off. She is still on 5 L oxygen via nasal cannula I offered Xanax but she declines and she wants to keep the Ativan 1 mg 3 times a day for now Carbon dioxide is slightly better 43 today. 05/03/2023 Patient still complaining of from dyspnea She remains on BiPAP intermittently Repeat chest x-ray showing mild left lower lobe infiltrate suspicious for fluid overload status post 1 times of IV Lasix Continue with Solu-Medrol 60 mg on antibiotic with ceftriaxone and doxycycline 05/04/23 She still somewhat BiPAP dependent even during the daytime She is very anxious, yesterday Ativan 1 mg 3 times a day increased to 4 times a day with no much help, urinary morning was still asking for anxiety medication Because Ativan may affect her breathing we turn it back to 1 mg 3 times a day and re-adding Atarax when necessary Labs and vitals reviewed looks stable Continue with IV Solu-Medrol and antibiotic 05/05. Patient seen examined. Continues to be on BiPAP, patient gets anxious very easily,. Gets short of breath on minimal exertion. 05/06. Patient seen and examined. Patient continues to be on BiPAP, gets of BiPAP during eating and other times during the day. Discussed with nursing staff and case management, plan for the patient to be discharged to rehab with BiPAP, pulmonology agrees. 05/07. Patient seen and examined. States she feels much better compared to yesterday, gets off the BiPAP intermittently. When not on BiPAP patient is on 4 L of oxygen. 05/08. Patient seen and examined. Patient has been fluctuating between being on BiPAP and on full dose of oxygen. Case management is working on placement to rehab facility with BiPAP. Pulmonology has cleared the patient for discharge REVIEW OF SYSTEMS: CONSTITUTIONAL: No fever, no malaise,. CARDIOVASCULAR: No chest pain, no palpitations, no syncope. PULMONARY: As mentioned above, GASTROINTESTINAL: No diarrhea, no nausea, no vomiting, no abdominal pain. NEUROLOGICAL: No headaches, no weakness, PHYSICAL EXAMINATION: GENERAL: The patient is alert and oriented x3, not in any acute distress. Chronically ill looking HEENT: Pupils are round and equally reacting to light. EOMI. No scleral icterus. No conjunctival pallor. Normocephalic, atraumatic. No pharyngeal erythema. No thyromegaly. CARDIOVASCULAR: S1 and S2 present. No murmurs, rubs, or gallops. PULMONARY: Coarse breath sound bilaterally, no wheeze, no rhonchi ABDOMEN: Soft, nontender, nondistended, normoactive bowel sounds. No palpable organomegaly. MUSCULOSKELETAL: No joint swelling or deformity. EXTREMITIES: No cyanosis, clubbing, or pedal edema. NEUROLOGICAL: Gross neurological examination did not reveal any focal deficits. SKIN: No rashes. Assessment and plan Acute COPD exacerbation Acute bronchitis, rule out bacterial superinfection Acute on chronic hypoxemic hypercapnic respiratory failure acute respiratory acidosis History of severe anxiety Monitor vital signs Monitor CBC Monitor CMP Continue telemetry monitoring Continue BuSpar Continue ativan 1 mg 3 times a day Continue Vistaril Continue prednisone taper Continue combination of DuoNebs, formoterol inhalation, budesonide inhalation Pulmonary following Case management working on discharging patient back to rehab facility with intermittent use of BiPAP Labs and medication were reviewed.. Continue same treatment. Continue with symptomatic treatment. Resume home medication. Monitor labs and vitals. DVT and GI prophylaxis. Further recommendations as per clinical course of the patient Dictation was produced using [employer] dictation software. please excuse any grammatical, word or spelling errors. Objective - Vital Signs Vital signs: Vital Signs Temp 97.8 F 05/08/23 06:46 Pulse 80 05/08/23 12:34 Resp 14 05/08/23 06:46 BP 96/62 05/08/23 06:46 Pulse Ox 95 05/08/23 09:09 FiO2 40 05/08/23 09:08 Intake & Output 02/14/24 02/15/24 02/15/24 18:59 06:59 18:59 Output Total 750 700 Balance -750 -700 Output: Urine 750 700 Other: Voiding Method External Catheter External Catheter External Catheter # Voids 3 # Bowel Movements 1 - Labs CBC & Chem 7: 05/05/23 10:14 05/05/23 10:14
--- NOTE | 2023-05-08 13:52 | P.PN ---
Subjective Progress Note Date: 05/08/23 73-year-old female patient with advanced COPD, who has been followed up by a customizer, Dr. Dejan Peter out of [facility]. The patient is chronically oxygen dependent at 5 L/min nasal cannula. She quit smoking approximately 10 years ago. She has been maintained on a combination of Spiriva and Symbicort on outpatient basis. She presented to the hospital because of worsening shortness of breath. I have seen and evaluated this patient in the past at [facility] for the same. Overnight, the patient was kept on the BiPAP as the patient had a component of acute hypercapnic respiratory failure with a pH of 7.28 and a pCO2 of 92 and pO2 of 87. She was started on bronchodilators and steroids. Chest x-ray shows hyperinflation without any airspace disease. She did have a troponin leak with a troponin of 0.072. She was started on broad-spectrum antibiotic coverage in addition to bronchodilators. She is also on a combination ofPerforomist and Pulmicort. She is tested positive for RSV. The patient this morning seems to be much more comfortable. While on the BiPAP pressure of 16 over 6 cm of water and FiO2 of 50%, she is able to generate a tidal volume of about 500 with a respiratory rate of 22. She is able to communicate. She is alert and oriented. She denies having any chest pain. Hemodynamically stable. White cell count is 8 with a hemoglobin of 10 and a platelet count of 271. BUN is at 25 with a creatinine 0.4. Procalcitonin level is at 0.28. On today's evaluation of 04/29/2023, the patient is doing well. No specific complaints. She is less short of breath compared to yesterday. No new complaints. No altered mentation. No chest pain.No new complaints. No altered mentation. She is still bringing up some limited amount of mucus. She wore her BiPAP throughout the night at a pressure of 16 over 6 cm of water with an FiO2 of 50%. This morning, she is back on nasal cannula. Her blood work today shows a WBC count of 4.1, hemoglobin is at 9.8 and a platelet count of 266. Serum bicarbonate 45 with a BUN of 25 and a creatinine of 0.5. Her procalcitonin level is at 0.28. Hemodynamically stable. She is bedridden. She has not ambulated for at least a year due to her chronic spine problems which includes lumbar stenosis, degenerative arthritis and degenerative lumbar disc disease. On today's evaluation of 04/30/2023, the patient is being seen for a follow-up. The patient utilizing BiPAP overnight at a pressure of 16/6 with an FiO2 of 50% and currently she is on oxygen by nasal cannula. She is currently utilizing 4 L nasal cannula. Doing well. No specific complaints. She was moved out of the intensive care unit yesterday as the patient was admitted to us because of an acute stroke exacerbation and RSV infection. Denies having any chest pain. Blood work from today still pending. Labs from yesterday was reviewed.She remains on bronchodilators. She remains on steroids. Empiric antibiotic coverage is still with IV Rocephin. She remains on Solu-Medrol 60 mg IV push every 6 hours. No altered mentation. She is essentially bedridden. On 05/01/2023, the patient is being seen for a follow-up. The patient is utilizing the BiPAP on and off during the day at a pressure of 16 over 6 cm of water. She is still being treated for an acute exacerbation and acute RSV infection. No altered mentation. No signs of any CO2 narcosis. The white cell count of 5.3 with a hemoglobin 10.3 and a platelet count of 301. Sodium is at 146, BUN is at 15 with a creatinine of 0.4. Remains on DuoNeb updrafts. R emains on IV Rocephin as an empiric antibiotic coverage. IV centimeter was at 60 mg every 6 hours. Occasionally increased anxiety and agitation the patient is taking Ativan 1 mg 3 times daily. Patient is also on morphine 2 mg and an as-needed basis. She is on BuSpar 15 mg p.o. twice daily. She is taking Tessalon Perles for cough. On today's evaluation of 05/02/2023, the patient is still struggling with her breathing. She has advanced COPD and the patient came in for an acute RSV infection which exacerbated her COPD. Initially she was in the intensive care unit supported with a BiPAP. For now she is on a medical hold and she is on and off utilizing the BiPAP at a pressure of 16 over 6 cm of water. At the time of arrival this morning, the patient was on a BiPAP and she requested to go back on nasal cannula and I moved her to 5 L nasal cannula. She is in mild pain is slightly less bronchospastic and wheezy she is arousable and she is communicating. Sodium levels at 145, potassium level is at 4.5, bicarb is at 43, BUN is at 16 with a creatinine of 0.4. She remains on the same treatment for now and the patient remains on a combination of DuoNeb updrafts, Perforomist and Pulmicort nebulized treatments twice a day, and she is still on Solu-Medrol which is at a dose of 60 mg IV every 6 hours. In terms of her labs, electrolytes were mentioned. No recent CBC. Her most recent chest x-rays from 04/29/2023 without any acute abnormalities. Her anxiety level remains quite elevated. The patient remains on BuSpar 15 mg p.o. twice a day and she is also taking Ativan 1 mg 3 times daily. Occasional panic attacks are still occurring. On 05/03/2023, the patient is struggling with her breathing. She has become more and more BiPAP dependent. As mentioned earlier, the patient has advanced end- stage COPD and she was reinfected with RSV. The patient was initially in the intensive care unit. She was requiring BiPAP and she was gradually weaned off the BiPAP with she was utilizing the BiPAP in alternation with nasal cannula at 4 L. However this morning, while off the BiPAP, the patient was unable to tolerate her breathing and she was asked to go back to her BiPAP as soon as possible. During this time, she also showed oxygen desaturations. Based on all this, the patient was placed on the BiPAP at a pressure of 16 over 6 cm of water with an FiO2 of 40%. A repeat chest x-ray was done and the patient was found to have small infiltrate in the left lung base and COPD. The patient was also given a dose of Lasix. I noted that she was quite anxious and I increased her Ativan to 1 mg 4 times daily patient is also on BuSpar. Meanwhile, the white cell count of 6.8, hemoglobin 11.1 and a platelet count of 379, BUN is 23 with a creatinine of 0.5 and sodium levels of 139. No focal neurological deficits. She is extremely anxious. 05/04/2023, the patient doing well as well. She seems to be more so BiPAP dependent. She goes on a BiPAP for about 30 minutes that she comes off that she gets anxious if she becomes hypoxic or short of breath and she goes back on the BiPAP. This has been an ongoing issue with her. She is also taking a combination of anxiolytics and the patient is currently on a combination of BuSpar 15 mg twice a day, Ativan 1 mg 3 times daily and the patient was also started on Vistaril. Noted the patient is advanced oxygen dependent COPD with an FEV1 of 20% of predicted. She was further infected with RSV which exacerbated her COPD. Her chest x-ray was repeated and showsNo acute abnormalities from 05/03/2023 and the findings are essentially stable. The patient had labs yesterday that showed no acute abnormalities. She has chronic metabolic alkalosis with a serum bicarb of 40, sodium level 139 and a potassium level is 6.8 with a hemoglobin of 11.1. She is arousable and she communicates. No signs of any suicidal process. Extremely anxious. The patient is seen today May 05, 2023 and follow-up on the regular medical floor. She is currently awake and alert in no acute distress. She is utilizing BiPAP 16/6 and 40% FiO2. She alternates with 5 L nasal cannula. She has normal saline at 40 MLS per hour. White count 9.1. Hemoglobin 10.7. Platelets 343. Sodium 138. Potassium 4.3. Bicarb 38. BUN 27. Creatinine 0.52. Glucose 159. She is continued on DuoNeb ventilations, Pulmicort and perform his inhalations, IV Solu-Medrol. Heparin for DVT prophylaxis. The patient is seen today May 07, 2023 in follow-up on the regular medical floor. She is currently off the BiPAP. She is maintaining O2 saturations in the 90s on 4 L/min per nasal cannula. She is breathing easier today compared to yesterday. She did wear the BiPAP throughout the night at 16/6 and 40% FiO2. She is continued on DuoNeb ventilations, Pulmicort and perform his inhalations, IV Solu-Medrol. Heparin for DVT prophylaxis. The patient is seen today May 08, 2023 in follow-up on the regular medical floor. She is resting comfortably in bed. Currently on BiPAP 16/6 and 40% FiO2. She is tolerating longer periods of being off the BiPAP. She is alternating with 4 L nasal cannula. No worsening shortness of breath, cough or congestion. Continued on DuoNeb inhalations, Pulmicort and Perforomist inhalations, prednisone taper. Heparin for DVT prophylaxis. Objective - Vital Signs Vital signs: Vital Signs Temp 97.8 F 05/08/23 06:46 Pulse 99 05/08/23 12:43 Resp 14 05/08/23 06:46 BP 96/62 05/08/23 06:46 Pulse Ox 95 05/08/23 09:09 FiO2 40 05/08/23 09:08 Intake & Output 05/07/23 05/08/23 05/08/23 18:59 06:59 18:59 Output Total 750 700 Balance -750 -700 Output: Urine 750 700 Other: Voiding Method External Catheter External Catheter External Catheter # Voids 3 # Bowel Movements 1 - Exam GENERAL EXAM: Alert, confused, 72-year-old female, on BiPAP 16/6 and 40% FiO2 HEAD: Normocephalic and atraumatic EYES: Normal reaction of pupils, equal size. NOSE: Clear with pink turbinates. THROAT: No erythema or exudates. NECK: No masses, no JVD. CHEST: No chest wall deformity. LUNGS: Equal air entry with expiratory wheezes heard throughout. CVS: S1 and S2 normal with no audible murmur, regular rhythm. No extra heart sounds ABDOMEN: No hepatosplenomegaly, active bowel sounds, no guarding or rigidity. SPINE: No scoliosis or deformity SKIN: No rashes CENTRAL NERVOUS SYSTEM: No focal deficits, tone is normal in all 4 extremities. Awake and oriented and communicating. EXTREMITIES: There is no peripheral edema, clubbing, or cyanosis. Peripheral pulses are intact. - Labs CBC & Chem 7: 05/05/23 10:14 05/05/23 10:14 Assessment and Plan Assessment: Acute on chronic hypoxemic and hypercapnic respiratory failure, secondary to COPD exacerbation and acute RSV infection. The patient is currently on 5 L O2 nasal cannula. Chest x-ray remains unchanged. Her disease is end-stage and she has become more BiPAP dependent utilizing 16/6 and 40% FiO2, mostly at night, cu rrently on 5 L nasal cannula Severe COPD with chronic hypoxemic respiratory failure, normally maintained on 5 L/min nasal cannula 14/10; also utilizes accommodation of Symbicort inhaler, Spiriva inhaler, DuoNebs and as needed Ventolin rescue inhaler Acute on chronic dyspnea secondary to above Acute RSV infection exacerbating the patient's COPD Generalized anxiety disorder Former tobacco dependence Limited troponin leak secondary to mismatch ischemia secondary to underlying COPD exacerbation Chronic lumbar spine disease with lower extremity weakness and the patient is nonambulatory, [facility]. Plan: The patient was seen and evaluated Medications reviewed Continue the current treatment plan Cleared for discharge from the pulmonary standpoint To return to [facility] She will utilize BiPAP while there, current settings 16/6 and 40% FiO2 I have personally seen and examined the patient, performed the documentation and the assessment and plan as written. Number of minutes spent on the visit: 10.
[2023-05-08 15:44] LABS: Total Protein 4.8 g/dL (6.2-8.2)
--- NOTE | 2023-05-09 11:12 | P.DS ---
Providers Date of admission: 04/27/23 15:21 Expected date of discharge: 05/09/23 Attending physician: Marleen Neri MD Consults: 04/27/23 15:42 Consult Physician Routine Consulting Provider: Declan Robles Consult Reason/Comments: Copd Exacerbation, ICU management Do you want consulting provider notified?: Yes Primary care physician: Giana Lombardi, Hospital Course: Discharge diagnoses; Acute COPD exacerbation Acute bronchitis, rule out bacterial superinfection Acute on chronic hypoxemic hypercapnic respiratory failure acute respiratory acidosis History of severe anxiety Hospital course; this is a pleasant 72 years old female with past medical hisotry of COPD ,she is on 5 literof oxygen at home , she follows up with engineering and development director at [facility] dr. anju richards She presents because of worsening shortness of breath with chest tightness and pressures and cough with yellow Pflaum for the last 4 days She was transferred from [facility]. Patient could not tolerate BiPAP there and POC to was significantly elevated at 93 Currently she is awake alert, she is on BiPAP in the ICU. Sitting BiPAP R 16/6 with FiO2 of 50% She's also normal saline 75 mL/h She denies any abdominal pain vomiting or diarrhea. No change in urine habits. No dizziness. She's complains from the distal headache and generalized weakness but no lateralization She is on 5 mg of prednisone at home Patient currently on BiPAP as above Labs reviewed her hemoglobin is 10, still CBC is unremarkable. BMP is unremarkable but pCO2 is elevated at 39 Kelsea Lowe 7.2, pCO2 is high 92 and sodium bicarb is 543 Patient has positive RSV virus test CRP is elevated at 0.6 Chest x-ray shows COPD with mild right pleural effusion EKG shows sinus tachycardia at [address]-T changes. Currently patient is on ceftriaxone, doxycycline, Solu-Medrol 60 mg of normal saline 75 mL/h 04/29/2023 Patient is still short of breath She still isn on BiPAP until 4:00 this morning Currently she is on 5 l/m of oxygen compared to 5 L at home as well. However patient still tachypneic with her limitation and wheezing. She has mild basal crepitation. Also she is kept on IV Solu-Medrol 60 mg, doxycycline and ceftriaxone and normal saline 75 mL/h Vitals and labs reviewed Blood pressure on the low side but patient is asymptomatic and has good urine output, she is currently not on blood pressure medication 04/30/2023 pt is seen in the general medical floor today she is awake and alert, she is is requesting more breathing treatment and go back to bipap , although she is not severely tachypneic but she is still significantly wheezing and bronchospastic she is kept on iv solumedrol 60 mg and antibioitic with rocephin and doxycyclin and normal saline at 40 ml per hr 05/01/2023 She continued to improve slowly and gradually Her dyspnea is improving but still using the BiPAP and she still on 5 L oxygen via nasal cannula Normal saline or to 40 mL/h PT/OT requested but patient refused to work with them She remains on IV salmeterol 60 mg Ceftriaxone and doxycycline. Normal saline discontinued 05/02/2023 This is a pleasant 73 years old female with advanced COPD presents with RSV bronchitis and acute COPD exacerbation with acute on chronic hypoxic hypercapnic respiratory failure and respiratory acidosis. Patient responded to treatment slowly and gradually She is awake alert and talking of freely with little dyspnea but she still complaining of from tight chest and she looks very anxious. She likes to use the BiPAP on and off. She is still on 5 L oxygen via nasal cannula I offered Xanax but she declines and she wants to keep the Ativan 1 mg 3 times a day for now Carbon dioxide is slightly better 43 today. 05/03/2023 Patient still complaining of from dyspnea She remains on BiPAP intermittently Repeat chest x-ray showing mild left lower lobe infiltrate suspicious for fluid overload status post 1 times of IV Lasix Continue with Solu-Medrol 60 mg on antibiotic with ceftriaxone and doxycycline 05/04/23 She still somewhat BiPAP dependent even during the daytime She is very anxious, yesterday Ativan 1 mg 3 times a day increased to 4 times a day with no much help, urinary morning was still asking for anxiety medication Because Ativan may affect her breathing we turn it back to 1 mg 3 times a day and re-adding Atarax when necessary Labs and vitals reviewed looks stable Continue with IV Solu-Medrol and antibiotic 05/05. Patient seen examined. Continues to be on BiPAP, patient gets anxious very easily,. Gets short of breath on minimal exertion. 05/06. Patient seen and examined. Patient continues to be on BiPAP, gets of BiPAP during eating and other times during the day. Discussed with nursing staff and case management, plan for the patient to be discharged to rehab with BiPAP, pulmonology agrees. 05/07. Patient seen and examined. States she feels much better compared to yesterday, gets off the BiPAP intermittently. When not on BiPAP patient is on 4 L of oxygen. 05/09. Patient seen and examined. Pulmonology cleared the patient for discharge to rehab facility PHYSICAL EXAMINATION: GENERAL: The patient is alert and oriented x3, not in any acute distress. Chronically ill looking HEENT: Pupils are round and equally reacting to light. EOMI. No scleral icterus. No conjunctival pallor. Normocephalic, atraumatic. No pharyngeal erythema. No thyromegaly. CARDIOVASCULAR: S1 and S2 present. No murmurs, rubs, or gallops. PULMONARY: Coarse breath sound bilaterally, no wheeze, no rhonchi ABDOMEN: Soft, nontender, nondistended, normoactive bowel sounds. No palpable organomegaly. MUSCULOSKELETAL: No joint swelling or deformity. EXTREMITIES: No cyanosis, clubbing, or pedal edema. NEUROLOGICAL: Gross neurological examination did not reveal any focal deficits. SKIN: No rashes. Patient Condition at Discharge: Fair Plan - Discharge Summary Discharge Rx Participant: No New Discharge Prescriptions: New predniSONE 10 mg PO DAILY #8 tab Continue traZODone HCL [Desyrel] 50 mg PO HS Tiotropium Michie [Spiriva Handihaler] 18 mcg INHALATION RT-DAILY Sodium Chloride [Saline Mist] 1 spray EA NOSTRIL TID Promethazine HCl 12.5 mg PO Q6H PRN PRN Reason: Nausea predniSONE 5 mg PO DIRECTED Omeprazole 20 mg PO DAILY Multivitamins, Thera [Multivitamin (formulary)] 1 tab PO DAILY Magnesium Hydroxide [Milk of Magnesia] 2,400 mg PO DAILY PRN PRN Reason: Constipation Ipratropium-Albuterol Nebulize [Duoneb 0.5 mg-3 mg/3 ml Soln] 3 ml INHALATION RT-Q6H PRN PRN Reason: Shortness Of Breath Fluticasone Nasal [place] [Flonase Nasal [place]] 1 spray EA NOSTRIL Q12H PRN PRN Reason: copd Diclofenac Sodium Gel [Voltaren 1% Gel] 2 gm TOPICAL Q6H PRN PRN Reason: Pain Cholecalciferol [Vitamin D3 (125 Mcg = 5000 Iu)] 125 mcg PO DAILY Calcium Carbonate [Tums] 500 mg PO Q4H PRN PRN Reason: ACID REFLUX busPIRone HCL 15 mg PO BID Budesonide/Formoterol Fumarate [Symbicort 160-4.5 Mcg Inhaler] 2 puff INHALATION RT-BID Sucralfate [Carafate] 1 gm PO TID polyethylene glycoL 3350 [Miralax] 17 gm PO DAILY PRN PRN Reason: Constipation Acetaminophen Tab [Tylenol] 650 mg PO Q6H PRN PRN Reason: Pain Or Fever > 100.5 Docusate [Colace] 100 mg PO BID Benzonatate [Tessalon Perles] 100 mg PO TID PRN PRN Reason: Cough Benzocaine 20 % Gel [Orajel] 1 applic DENTAL Q6H PRN PRN Reason: DENTAL PAIN L.acidoph,Paracasei, B.lactis [Probiotic] 1 cap PO DAILY Aspirin EC [Ecotrin Low Dose] 81 mg PO DAILY Albuterol Inhaler [Ventolin Hfa Inhaler] 2 puff INHALATION RT-Q4H PRN PRN Reason: Shortness Of Breath LORazepam [Ativan] 1 mg PO TID 3 Days #9 tab Discontinued predniSONE See Taper PO DIRECTED Discharge Medication List Acetaminophen Tab [Tylenol] 650 mg PO Q6H PRN 04/27/23 [History] Albuterol Inhaler [Ventolin Hfa Inhaler] 2 puff INHALATION RT-Q4H PRN 04/27/23 [History] Aspirin EC [Ecotrin Low Dose] 81 mg PO DAILY 04/27/23 [History] Benzocaine 20 % Gel [Orajel] 1 applic DENTAL Q6H PRN 04/27/23 [History] Benzonatate [Tessalon Perles] 100 mg PO TID PRN 04/27/23 [History] Budesonide/Formoterol Fumarate [Symbicort 160-4.5 Mcg Inhaler] 2 puff INHALATION RT-BID 04/27/23 [History] Calcium Carbonate [Tums] 500 mg PO Q4H PRN 04/27/23 [History] Cholecalciferol [Vitamin D3 (125 Mcg = 5000 Iu)] 125 mcg PO DAILY 04/27/23 [History] Diclofenac Sodium Gel [Voltaren 1% Gel] 2 gm TOPICAL Q6H PRN 04/27/23 [History] Docusate [Colace] 100 mg PO BID 04/27/23 [History] Fluticasone Nasal [place] [Flonase Nasal [place]] 1 spray EA NOSTRIL Q12H PRN 04/27/23 [History] Ipratropium-Albuterol Nebulize [Duoneb 0.5 mg-3 mg/3 ml Soln] 3 ml INHALATION RT-Q6H PRN 04/27/23 [History] L.acidoph,Paracasei, B.lactis [Probiotic] 1 cap PO DAILY 04/27/23 [History] Magnesium Hydroxide [Milk of Magnesia] 2,400 mg PO DAILY PRN 04/27/23 [History] Multivitamins, Thera [Multivitamin (formulary)] 1 tab PO DAILY 04/27/23 [History] Omeprazole 20 mg PO DAILY 04/27/23 [History] Promethazine HCl 12.5 mg PO Q6H PRN 04/27/23 [History] Sodium Chloride [Saline Mist] 1 spray EA NOSTRIL TID 04/27/23 [History] Sucralfate [Carafate] 1 gm PO TID 04/27/23 [History] Tiotropium Michie [Spiriva Handihaler] 18 mcg INHALATION RT-DAILY 04/27/23 [History] busPIRone HCL 15 mg PO BID 04/27/23 [History] polyethylene glycoL 3350 [Miralax] 17 gm PO DAILY PRN 04/27/23 [History] predniSONE 5 mg PO DIRECTED 04/27/23 [History] traZODone HCL [Desyrel] 50 mg PO HS 04/27/23 [History] LORazepam [Ativan] 1 mg PO TID 3 Days #9 tab 05/08/23 [Rx] predniSONE 10 mg PO DAILY #8 tab 05/08/23 [Rx] Follow up Appointment(s)/Referral(s): Abdirashid Louise MD [STAFF PHYSICIAN] - 05/27/23 8:30 am Kevyn Jauregui MD [REFERRING] - 1-2 days ([facility] please call for follow-up appointment.) Activity/Diet/Wound Care/Special Instructions: Use BIPAP for sleeping. Settings: IPAP 16, EPAP 6, FIO2 40%, keep spO2 >89%. Discharge Disposition: TRANSFER TO SNF/ECF
--- NOTE | 2023-05-09 11:29 | P.PN ---
Subjective Progress Note Date: 05/09/23 73-year-old female patient with advanced COPD, who has been followed up by a electric tape slitter, Dr. Dejan Peter out of [facility]. The patient is chronically oxygen dependent at 5 L/min nasal cannula. She quit smoking approximately 10 years ago. She has been maintained on a combination of Spiriva and Symbicort on outpatient basis. She presented to the hospital because of worsening shortness of breath. I have seen and evaluated this patient in the past at [facility] for the same. Overnight, the patient was kept on the BiPAP as the patient had a component of acute hypercapnic respiratory failure with a pH of 7.28 and a pCO2 of 92 and pO2 of 87. She was started on bronchodilators and steroids. Chest x-ray shows hyperinflation without any airspace disease. She did have a troponin leak with a troponin of 0.072. She was started on broad-spectrum antibiotic coverage in addition to bronchodilators. She is also on a combination ofPerforomist and Pulmicort. She is tested positive for RSV. The patient this morning seems to be much more comfortable. While on the BiPAP pressure of 16 over 6 cm of water and FiO2 of 50%, she is able to generate a tidal volume of about 500 with a respiratory rate of 22. She is able to communicate. She is alert and oriented. She denies having any chest pain. Hemodynamically stable. White cell count is 8 with a hemoglobin of 10 and a platelet count of 271. BUN is at 25 with a creatinine 0.4. Procalcitonin level is at 0.28. On today's evaluation of 04/29/2023, the patient is doing well. No specific complaints. She is less short of breath compared to yesterday. No new complaints. No altered mentation. No chest pain.No new complaints. No altered mentation. She is still bringing up some limited amount of mucus. She wore her BiPAP throughout the night at a pressure of 16 over 6 cm of water with an FiO2 of 50%. This morning, she is back on nasal cannula. Her blood work today shows a WBC count of 4.1, hemoglobin is at 9.8 and a platelet count of 266. Serum bicarbonate 45 with a BUN of 25 and a creatinine of 0.5. Her procalcitonin level is at 0.28. Hemodynamically stable. She is bedridden. She has not ambulated for at least a year due to her chronic spine problems which includes lumbar stenosis, degenerative arthritis and degenerative lumbar disc disease. On today's evaluation of 04/30/2023, the patient is being seen for a follow-up. The patient utilizing BiPAP overnight at a pressure of 16/6 with an FiO2 of 50% and currently she is on oxygen by nasal cannula. She is currently utilizing 4 L nasal cannula. Doing well. No specific complaints. She was moved out of the intensive care unit yesterday as the patient was admitted to us because of an acute stroke exacerbation and RSV infection. Denies having any chest pain. Blood work from today still pending. Labs from yesterday was reviewed.She remains on bronchodilators. She remains on steroids. Empiric antibiotic coverage is still with IV Rocephin. She remains on Solu-Medrol 60 mg IV push every 6 hours. No altered mentation. She is essentially bedridden. On 05/01/2023, the patient is being seen for a follow-up. The patient is utilizing the BiPAP on and off during the day at a pressure of 16 over 6 cm of water. She is still being treated for an acute exacerbation and acute RSV infection. No altered mentation. No signs of any CO2 narcosis. The white cell count of 5.3 with a hemoglobin 10.3 and a platelet count of 301. Sodium is at 146, BUN is at 15 with a creatinine of 0.4. Remains on DuoNeb updrafts. R emains on IV Rocephin as an empiric antibiotic coverage. IV centimeter was at 60 mg every 6 hours. Occasionally increased anxiety and agitation the patient is taking Ativan 1 mg 3 times daily. Patient is also on morphine 2 mg and an as-needed basis. She is on BuSpar 15 mg p.o. twice daily. She is taking Tessalon Perles for cough. On today's evaluation of 05/02/2023, the patient is still struggling with her breathing. She has advanced COPD and the patient came in for an acute RSV infection which exacerbated her COPD. Initially she was in the intensive care unit supported with a BiPAP. For now she is on a medical hold and she is on and off utilizing the BiPAP at a pressure of 16 over 6 cm of water. At the time of arrival this morning, the patient was on a BiPAP and she requested to go back on nasal cannula and I moved her to 5 L nasal cannula. She is in mild pain is slightly less bronchospastic and wheezy she is arousable and she is communicating. Sodium levels at 145, potassium level is at 4.5, bicarb is at 43, BUN is at 16 with a creatinine of 0.4. She remains on the same treatment for now and the patient remains on a combination of DuoNeb updrafts, Perforomist and Pulmicort nebulized treatments twice a day, and she is still on Solu-Medrol which is at a dose of 60 mg IV every 6 hours. In terms of her labs, electrolytes were mentioned. No recent CBC. Her most recent chest x-rays from 04/29/2023 without any acute abnormalities. Her anxiety level remains quite elevated. The patient remains on BuSpar 15 mg p.o. twice a day and she is also taking Ativan 1 mg 3 times daily. Occasional panic attacks are still occurring. On 05/03/2023, the patient is struggling with her breathing. She has become more and more BiPAP dependent. As mentioned earlier, the patient has advanced end- stage COPD and she was reinfected with RSV. The patient was initially in the intensive care unit. She was requiring BiPAP and she was gradually weaned off the BiPAP with she was utilizing the BiPAP in alternation with nasal cannula at 4 L. However this morning, while off the BiPAP, the patient was unable to tolerate her breathing and she was asked to go back to her BiPAP as soon as possible. During this time, she also showed oxygen desaturations. Based on all this, the patient was placed on the BiPAP at a pressure of 16 over 6 cm of water with an FiO2 of 40%. A repeat chest x-ray was done and the patient was found to have small infiltrate in the left lung base and COPD. The patient was also given a dose of Lasix. I noted that she was quite anxious and I increased her Ativan to 1 mg 4 times daily patient is also on BuSpar. Meanwhile, the white cell count of 6.8, hemoglobin 11.1 and a platelet count of 379, BUN is 23 with a creatinine of 0.5 and sodium levels of 139. No focal neurological deficits. She is extremely anxious. 05/04/2023, the patient doing well as well. She seems to be more so BiPAP dependent. She goes on a BiPAP for about 30 minutes that she comes off that she gets anxious if she becomes hypoxic or short of breath and she goes back on the BiPAP. This has been an ongoing issue with her. She is also taking a combination of anxiolytics and the patient is currently on a combination of BuSpar 15 mg twice a day, Ativan 1 mg 3 times daily and the patient was also started on Vistaril. Noted the patient is advanced oxygen dependent COPD with an FEV1 of 20% of predicted. She was further infected with RSV which exacerbated her COPD. Her chest x-ray was repeated and showsNo acute abnormalities from 05/03/2023 and the findings are essentially stable. The patient had labs yesterday that showed no acute abnormalities. She has chronic metabolic alkalosis with a serum bicarb of 40, sodium level 139 and a potassium level is 6.8 with a hemoglobin of 11.1. She is arousable and she communicates. No signs of any suicidal process. Extremely anxious. The patient is seen today May 05, 2023 and follow-up on the regular medical floor. She is currently awake and alert in no acute distress. She is utilizing BiPAP 16/6 and 40% FiO2. She alternates with 5 L nasal cannula. She has normal saline at 40 MLS per hour. White count 9.1. Hemoglobin 10.7. Platelets 343. Sodium 138. Potassium 4.3. Bicarb 38. BUN 27. Creatinine 0.52. Glucose 159. She is continued on DuoNeb ventilations, Pulmicort and perform his inhalations, IV Solu-Medrol. Heparin for DVT prophylaxis. The patient is seen today May 07, 2023 in follow-up on the regular medical floor. She is currently off the BiPAP. She is maintaining O2 saturations in the 90s on 4 L/min per nasal cannula. She is breathing easier today compared to yesterday. She did wear the BiPAP throughout the night at 16/6 and 40% FiO2. She is continued on DuoNeb ventilations, Pulmicort and perform his inhalations, IV Solu-Medrol. Heparin for DVT prophylaxis. The patient is seen today May 08, 2023 in follow-up on the regular medical floor. She is resting comfortably in bed. Currently on BiPAP 16/6 and 40% FiO2. She is tolerating longer periods of being off the BiPAP. She is alternating with 4 L nasal cannula. No worsening shortness of breath, cough or congestion. Continued on DuoNeb inhalations, Pulmicort and Perforomist inhalations, prednisone taper. Heparin for DVT prophylaxis. The patient is seen today May 09, 2023 in follow-up on the regular medical floor. She is more awake and alert today. Sitting up in bed. Maintaining good O2 saturations in the 90s on 4 L/min per nasal cannula. She utilizes BiPAP at home mainly at night now 16/6 and 40% FiO2. She will be transition to Symbicort, albuterol, prednisone taper. Heparin for DVT prophylaxis. No new labs today. Objective - Vital Signs Vital signs: Vital Signs Temp 97.6 F 05/09/23 06:44 Pulse 84 05/09/23 09:38 Resp 11 L 05/09/23 06:44 BP 107/62 05/09/23 06:44 Pulse Ox 96 05/09/23 09:16 FiO2 40 05/09/23 02:57 Intake & Output 05/08/23 05/09/23 05/09/23 18:59 06:59 18:59 Output Total 900 1750 Balance -900 -1750 Output: Urine 900 1750 Other: Voiding Method External Catheter External Catheter External Catheter - Exam GENERAL EXAM: Alert, 72-year-old female, on 4 L/min per nasal cannula. Utilizing BiPAP 16/6 and 40% FiO2 at night HEAD: Normocephalic and atraumatic EYES: Normal reaction of pupils, equal size. NOSE: Clear with pink turbinates. THROAT: No erythema or exudates. NECK: No masses, no JVD. CHEST: No chest wall deformity. LUNGS: Equal air entry with no wheeze rhonchi or crackles. Diminished. CVS: S1 and S2 normal with no audible murmur, regular rhythm. No extra heart sounds ABDOMEN: No hepatosplenomegaly, active bowel sounds, no guarding or rigidity. SPINE: No scoliosis or deformity SKIN: No rashes CENTRAL NERVOUS SYSTEM: No focal deficits, tone is normal in all 4 extremities. Awake and oriented and communicating. EXTREMITIES: There is no peripheral edema, clubbing, or cyanosis. Peripheral pulses are intact. - Labs CBC & Chem 7: 05/05/23 10:14 02/12/24 10:14 Labs: Abnormal Lab Results - Last 24 Hours (Table) 05/08/23 Range/Units 12:07 Lactate Dehydrogenase 273 H (120-246) U/L Total Protein 4.8 L (6.2-8.2) g/dL Assessment and Plan Assessment: Acute on chronic hypoxemic and hypercapnic respiratory failure, secondary to COPD exacerbation and acute RSV infection. The patient is currently on 5 L O2 nasal cannula. Chest x-ray remains unchanged. Utilizing BiPAP16/6 and 40% FiO2, mostly at night, currently on 4 L nasal cannula Severe COPD with chronic hypoxemic respiratory failure, normally maintained on 5 L/min nasal cannula / Acute on chronic dyspnea secondary to above Acute RSV infection exacerbating the patient's COPD Generalized anxiety disorder Former tobacco dependence Limited troponin leak secondary to mismatch ischemia secondary to underlying COPD exacerbation Chronic lumbar spine disease with lower extremity weakness and the patient is nonambulatory, [facility] resident. Plan: The patient was seen and evaluated Medications reviewed Cleared for discharge from the pulmonary standpoint Continue her Symbicort, Spiriva and albuterol HFA Complete a prednisone taper The plan is to return to [facility] She will utilize BiPAP while there, current settings 16/6 and 40% FiO2 This patient was seen independently by the pulmonary nurse practitioner addressing pulmonary issues I have personally seen and examined the patient, performed the documentation and the assessment and plan as written. Number of minutes spent on the visit: 24.
[2023-05-09] MEDS: ALBUTEROL NEBULIZED 2.5 MG/3 ML INHALATION SCH (12:14)
[2023-05-09 16:36] VITALS: BP 102/63; PULSE 92; RESP 16; TEMP 97.8
[2023-05-09] MEDS ORDERED: SYMBICORT 160-4.5 MCG INHALER INHALATION SCH (20:00)
== END 2023-05-09 18:35 | DRG 189 ==
LOC: EC 13:42 → EEVIPCON 13:42 → 2SICU 15:21 → 4SSUR 04-29 18:31
PROVIDERS: ADMIT Internal Medicine; ATTEND Internal Medicine
PROC: 5A09457 Assistance with Respiratory Ventilation, 24-96 Consecutive Hours, Continuous Positive Airway Pressure (ICD-10-PCS; principal; 2023-04-27)
DX: J96.21 Acute and chronic respiratory failure with hypoxia (principal); J44.1 Chronic obstructive pulmonary disease with (acute) exacerbation; J90 Pleural effusion, not elsewhere classified; E87.3 Alkalosis; E87.20 Acidosis, unspecified; J44.0 Chronic obstructive pulmonary disease with (acute) lower respiratory infection; J96.22 Acute and chronic respiratory failure with hypercapnia; Z99.81 Dependence on supplemental oxygen; F41.1 Generalized anxiety disorder; Z87.891 Personal history of nicotine dependence; J20.9 Acute bronchitis, unspecified; M19.90 Unspecified osteoarthritis, unspecified site; M48.061 Spinal stenosis, lumbar region without neurogenic claudication; M51.36 Other intervertebral disc degeneration, lumbar region; Z74.01 Bed confinement status; Z79.51 Long term (current) use of inhaled steroids; Z79.82 Long term (current) use of aspirin; Z88.1 Allergy status to other antibiotic agents; Z98.82 Breast implant status; F41.0 Panic disorder [episodic paroxysmal anxiety]; R00.0 Tachycardia, unspecified; J20.5 Acute bronchitis due to respiratory syncytial virus; K21.9 Gastro-esophageal reflux disease without esophagitis; Z88.0 Allergy status to penicillin; J43.9 Emphysema, unspecified; K59.00 Constipation, unspecified; Z79.899 Other long term (current) drug therapy
CPT/HCPCS: 36415; 36600; 71045; 80048; 80053; 82805; 83615; 83735; 84132; 84145; 84155; 84484; 85025; 85027; 85610; 86140; 87634; 93005; 94640; 94660; 94760; 96361; 96374; 96375; 99291

== ENCOUNTER 2023-05-19 02:30 | Inpatient (IN) | payer MEDICARE ==
[2023-05-19] MEDS: LORazepam 2 MG/ML INJ IV STA (02:57)
[2023-05-19] MEDS: methylPREDNISolone SOD SUCCI 125 MG/2 ML VIAL IV STA (03:01)
[2023-05-19] MEDS: IPRATROPIUM-ALBUTEROL 3 ML NEB INHALATION STA (03:02)
[2023-05-19] MEDS: ALBUTEROL NEBULIZED 2.5 MG/3 ML INHALATION STA (03:02)
[2023-05-19 03:04] LABS: Basophils % (A) 1 %; Eosinophils # (A) 0.2 k/uL (0-0.7); Eosinophils % (A) 3 %; HCT 32.3 % (34.0-46.0); HGB 9.9 gm/dL (11.4-16.0); Hypochromasia Moderate; Lymphocytes # (A) 0.9 k/uL (1.0-4.8); Lymphocytes % (A) 15 %; MCHC 30.6 g/dL (31.0-37.0); MCV 88.2 fL (80.0-100.0); Mean Platelet Volume 7.9; Monocytes # (A) 0.3 k/uL (0-1.0); Monocytes % (A) 5 %; Neutrophils # (A) 4.4 k/uL (1.3-7.7); Neutrophils % (A) 75 %; Platelet Count 282 k/uL (150-450); RBC 3.66 m/uL (3.80-5.40); RDW 15.2 % (11.5-15.5); WBC 5.9 k/uL (3.8-10.6)
[2023-05-19 03:15] LABS: ALT 22 U/L (4-34); AST 16 U/L (14-36); African American GFR (CKD) >90 (>60 ml/min/1.73 sqM); Albumin 2.9 g/dL (3.5-5.0); Alkaline Phosphatase 80 U/L (38-126); Anion Gap 0 mmol/L; Blood Urea Nitrogen 13 mg/dL (7-17); Carbon Dioxide 38 mmol/L (22-30); Chloride 102 mmol/L (98-107); Glucose 98 mg/dL (74-99); Non-African American GFR(CKD) >90 (>60 ml/min/1.73 sqM); Potassium 3.7 mmol/L (3.5-5.1); Sodium 140 mmol/L (137-145); Total Bilirubin 0.5 mg/dL (0.2-1.3); Total Protein 5.3 g/dL (6.3-8.2)
[2023-05-19 03:23] LABS: NT-Pro-B-Type Natriuretic Pept 69 pg/mL
[2023-05-19 03:42] LABS: INR 0.9 (<1.2); Partial Thromboplastin Time 20.3 sec (22.0-30.0); Prothrombin Time 9.7 sec (10.0-12.5)
--- NOTE | 2023-05-19 03:42 | ED ---
General Adult HPI - General Chief complaint: Shortness of Breath Stated complaint: Shortness of Breath Time Seen by Provider: 05/19/23 02:33 Source: patient, EMS, RN notes reviewed, old records reviewed Mode of arrival: EMS Limitations: no limitations - History of Present Illness Initial comments: 72 yo female presenting with increased cough and dyspnea. Patient had RSV infection approximately 3 weeks prior. She states she did not fully recover from this and has had increased oxygen requirement. Patient is bedbound currently residing at care home. History of oxygen dependent COPD. Denies chest pain. Denies fever. - Related Data Home Medications Medication Instructions Recorded Confirmed Acetaminophen Tab [Tylenol] 650 mg PO Q6H PRN 04/27/23 04/27/23 Albuterol Inhaler [Ventolin Hfa 2 puff INHALATION RT-Q4H PRN 04/27/23 04/27/23 Inhaler] Aspirin EC [Ecotrin Low Dose] 81 mg PO DAILY 04/27/23 04/27/23 Benzocaine 20 % Gel [Orajel] 1 applic DENTAL Q6H PRN 04/27/23 04/27/23 Benzonatate [Tessalon Perles] 100 mg PO TID PRN 04/27/23 04/27/23 Budesonide/Formoterol Fumarate 2 puff INHALATION RT-BID 04/27/23 04/27/23 [Symbicort 160-4.5 Mcg Inhaler] Calcium Carbonate [Tums] 500 mg PO Q4H PRN 04/27/23 04/27/23 Cholecalciferol [Vitamin D3 (125 125 mcg PO DAILY 04/27/23 04/27/23 Mcg = 5000 Iu)] Diclofenac Sodium Gel [Voltaren 1% 2 gm TOPICAL Q6H PRN 04/27/23 04/27/23 Gel] Docusate [Colace] 100 mg PO BID 04/27/23 04/27/23 Fluticasone Nasal [place] [Flonase 1 spray EA NOSTRIL Q12H PRN 04/27/23 04/27/23 Nasal [place]] Ipratropium-Albuterol Nebulize 3 ml INHALATION RT-Q6H PRN 04/27/23 04/27/23 [Duoneb 0.5 mg-3 mg/3 ml Soln] L.acidoph,Paracasei, B.lactis 1 cap PO DAILY 04/27/23 04/27/23 [Probiotic] Magnesium Hydroxide [Milk of 2,400 mg PO DAILY PRN 04/27/23 04/27/23 Magnesia] Multivitamins, Thera [Multivitamin 1 tab PO DAILY 04/27/23 04/27/23 (formulary)] Omeprazole 20 mg PO DAILY 04/27/23 04/27/23 Promethazine HCl 12.5 mg PO Q6H PRN 04/27/23 04/27/23 Sodium Chloride [Saline Mist] 1 spray EA NOSTRIL TID 04/27/23 04/27/23 Sucralfate [Carafate] 1 gm PO TID 04/27/23 04/27/23 Tiotropium [place] [Spiriva 18 mcg INHALATION RT-DAILY 04/27/23 04/27/23 Handihaler] busPIRone HCL 15 mg PO BID 04/27/23 04/27/23 polyethylene glycoL 3350 [Miralax] 17 gm PO DAILY PRN 04/27/23 04/27/23 predniSONE 5 mg PO DIRECTED 04/27/23 04/27/23 traZODone HCL [Desyrel] 50 mg PO HS 04/27/23 04/27/23 Previous Rx's Medication Instructions Recorded LORazepam [Ativan] 1 mg PO TID 3 Days #9 tab 05/08/23 predniSONE 10 mg PO DAILY #8 tab 05/08/23 Allergies Allergy/AdvReac Type Severity Reaction Status Date / Time azithromycin Allergy Rash/Hives Verified 05/19/23 02:35 levofloxacin [From Levaquin] Allergy Dyspnea Verified 05/19/23 02:35 Penicillins Allergy Dyspnea Verified 05/19/23 02:35 tetracycline Allergy Unknown Verified 05/19/23 02:35 Review of Systems ROS Statement: Those systems with pertinent positive or pertinent negative responses have been documented in the HPI. ROS Other: All systems not noted in ROS Statement are negative. Past Medical History Past Medical History: COPD Additional Past Medical History / Comment(s): Emphysema History of Any Multi-Drug Resistant Organisms: None Reported Additional Past Surgical History / Comment(s): Breast implants Past Anesthesia/Blood Transfusion Reactions: No Reported Reaction Past Psychological History: Anxiety Smoking Status: Former smoker Past Alcohol Use History: None Reported Past Drug Use History: None Reported General Exam Limitations: no limitations General appearance: alert, in no apparent distress Head exam: Present: atraumatic, normocephalic Eye exam: Present: normal appearance, PERRL ENT exam: Present: normal exam Neck exam: Present: normal inspection. Absent: tenderness, meningismus Respiratory exam: Present: decreased breath sounds. Absent: respiratory distress, rales, rhonchi Cardiovascular Exam: Present: normal rhythm, tachycardia GI/Abdominal exam: Present: soft. Absent: distended, tenderness, guarding Extremities exam: Present: normal capillary refill. Absent: pedal edema Neurological exam: Present: alert, oriented X3 Psychiatric exam: Present: normal affect, normal mood Skin exam: Present: warm, dry, intact. Absent: cyanosis, diaphoretic Course Vital Signs 05/19/23 05/19/23 05/19/23 02:31 03:03 03:21 Temperature 99.5 F Pulse Rate 116 H 100 118 H Respiratory 22 Rate Blood Pressure 109/67 O2 Sat by Pulse 98 Oximetry 05/19/23 04:00 Temperature Pulse Rate 120 H Respiratory 22 Rate Blood Pressure 122/58 O2 Sat by Pulse Oximetry Medical Decision Making - Medical Decision Making Was pt. sent in by a medical professional or institution (, PA, [employer], urgent care, hospital, or care home...) When possible be specific @ -No Did you speak to anyone other than the patient for history (EMS, parent, family, police, friend...)? What history was obtained from this source @ -No Did you review nursing and triage notes (agree or disagree)? Why? @ -I reviewed and agree with nursing and triage notes Were old charts reviewed (outside hosp., previous admission, EMS record, old EKG, old radiological studies, urgent care reports/EKG's, care home records)? Report findings @ -No old charts were reviewed Differential Diagnosis (chest pain, altered mental status, abdominal pain women, abdominal pain men, vaginal bleeding, weakness, fever, dyspnea, syncope, headache, dizziness, GI bleed, back pain, seizure, CVA, palpatations, mental health, musculoskeletal)? @Differential Dyspnea: Coronary syndrome, arrhythmia, tamponade, asthma, COPD, pulmonary embolism, pneumonia, pneumothorax, pulmonary effusion, anaphylaxis, diabetic ketoacidosis, flailed chest, pulmonary contusion, diaphragmatic rupture, anemia, neuromuscular, this is not meant to be an all-inclusive list. EKG interpreted by me (3pts min.). @ -[Sinus tachycardia rate of 117, no ST segment elevation, DC interval 131, QRS duration 85, QTc 369. X-rays interpreted by me (1pt min.). @ -Chest x-ray showing chronic changes without focal pneumonia, no pneumothorax. CT interpreted by me (1pt min.). @ -None done U/S interpreted by me (1pt. min.). @ -None done What testing was considered but not performed or refused? (CT, X-rays, U/S, labs)? Why? @ -None What meds were considered but not given or refused? Why? @ -None Did you discuss the management of the patient with other professionals (professionals i.e. , PA, [employer], lab, RT, psych nurse, social services, forest resource specialist, teacher, security officer, block and case maker)? Give summary @ -EMH Was smoking cessation discussed for >3mins.? @ -No Was critical care preformed (if so, how long)? @ -No Were there social determinants of health that impacted care today? How? (Homelessness, low income, unemployed, alcoholism, drug addiction, transportation, low edu. Level, literacy, decrease access to med. care, long-term, rehab)? @ -No Was there de-escalation of care discussed even if they declined (Discuss DNR or withdrawal of care, Hospice)? DNR status @ -No What co-morbidities impacted this encounter? (DM, HTN, Smoking, COPD, CAD, Can cer, CVA, ARF, Chemo, Hep., AIDS, mental health diagnosis, sleep apnea, morbid obesity)? @ -Oxygen dependent COPD Was patient admitted / discharged? Hospital course, mention meds given and route, prescriptions, significant lab abnormalities, going to OR and other pertinent info. @ -[Patient admitted with recurrent COPD exacerbation with increased oxygen requirement. Chest x-ray is negative for focal pneumonia. Patient has relatively stable laboratory testing, viral panel is negative, troponin and BNP are negative. Undiagnosed new problem with uncertain prognosis? @ -No Drug Therapy requiring intensive monitoring for toxicity (Heparin, Nitro, Insulin, Cardizem)? @ -No Were any procedures done? @ -No Diagnosis/symptom? @ -COPD exacerbation Acute, or Chronic, or Acute on Chronic? @ -Acute on chronic Uncomplicated (without systemic symptoms) or Complicated (systemic symptoms)? @ -Default Side effects of treatment? @ -No Exacerbation, Progression, or Severe Exacerbation? @ -No Poses a threat to life or bodily function? How? (Chest pain, USA, AR, pneumonia, PE, COPD, DKA, ARF, appy, cholecystitis, CVA, Diverticulitis, Homicidal, Suicidal, threat to staff... and all critical care pts) @ -Yes, COPD - Lab Data Result diagrams: 05/19/23 02:48 05/19/23 02:48 Lab Results 05/19/23 05/19/23 05/19/23 Range/Units 02:48 02:48 02:48 WBC 5.9 (3.8-10.6) k/uL RBC 3.66 L (3.80-5.40) m/uL Hgb 9.9 L (11.4-16.0) gm/dL Hct 32.3 L (34.0-46.0) % MCV 88.2 (80.0-100.0) fL MCH 27.0 (25.0-35.0) pg MCHC 30.6 L (31.0-37.0) g/dL RDW 15.2 (11.5-15.5) % Plt Count 282 (150-450) k/uL MPV 7.9 Neutrophils % 75 % Lymphocytes % 15 % Monocytes % 5 % Eosinophils % 3 % Basophils % 1 % Neutrophils # 4.4 (1.3-7.7) k/uL Lymphocytes # 0.9 L (1.0-4.8) k/uL Monocytes # 0.3 (0-1.0) k/uL Eosinophils # 0.2 (0-0.7) k/uL Basophils # 0.0 (0-0.2) k/uL Hypochromasia Moderate PT 9.7 L (10.0-12.5) sec INR 0.9 (<1.2) APTT 20.3 L (22.0-30.0) sec Sodium 140 (137-145) mmol/L Potassium 3.7 (3.5-5.1) mmol/L Chloride 102 (98-107) mmol/L Carbon Dioxide 38 H (22-30) mmol/L Anion Gap 0 mmol/L BUN 13 (7-17) mg/dL Creatinine 0.41 L (0.52-1.04) mg/dL Est GFR (CKD-EPI)AfAm >90 (>60 ml/min/1.73 sqM) Est GFR (CKD-EPI)NonAf >90 (>60 ml/min/1.73 sqM) Glucose 98 (74-99) mg/dL Plasma Lactic Acid Jonel (0.7-2.0) mmol/L Calcium 9.0 (8.4-10.2) mg/dL Total Bilirubin 0.5 (0.2-1.3) mg/dL AST 16 (14-36) U/L ALT 22 (4-34) U/L Alkaline Phosphatase 80 (38-126) U/L Troponin I (0.000-0.034) ng/mL NT-Pro-B Natriuret Pep 69 pg/mL Total Protein 5.3 L (6.3-8.2) g/dL Albumin 2.9 L (3.5-5.0) g/dL Influenza Type A (PCR) (Not Detectd) Influenza Type B (PCR) (Not Detectd) RSV (PCR) (Not Detectd) SARS-CoV-2 (PCR) (Not Detectd) 05/19/23 05/19/23 05/19/23 Range/Units 02:48 02:48 02:48 WBC (3.8-10.6) k/uL RBC (3.80-5.40) m/uL Hgb (11.4-16.0) gm/dL Hct (34.0-46.0) % MCV (80.0-100.0) fL MCH (25.0-35.0) pg MCHC (31.0-37.0) g/dL RDW (11.5-15.5) % Plt Count (150-450) k/uL MPV Neutrophils % % Lymphocytes % % Monocytes % % Eosinophils % % Basophils % % Neutrophils # (1.3-7.7) k/uL Lymphocytes # (1.0-4.8) k/uL Monocytes # (0-1.0) k/uL Eosinophils # (0-0.7) k/uL Basophils # (0-0.2) k/uL Hypochromasia PT (10.0-12.5) sec INR (<1.2) APTT (22.0-30.0) sec Sodium (137-145) mmol/L Potassium (3.5-5.1) mmol/L Chloride (98-107) mmol/L Carbon Dioxide (22-30) mmol/L Anion Gap mmol/L BUN (7-17) mg/dL Creatinine (0.52-1.04) mg/dL Est GFR (CKD-EPI)AfAm (>60 ml/min/1.73 sqM) Est GFR (CKD-EPI)NonAf (>60 ml/min/1.73 sqM) Glucose (74-99) mg/dL Plasma Lactic Acid Jonel 0.8 (0.7-2.0) mmol/L Calcium (8.4-10.2) mg/dL Total Bilirubin (0.2-1.3) mg/dL AST (14-36) U/L ALT (4-34) U/L Alkaline Phosphatase (38-126) U/L Troponin I <0.012 (0.000-0.034) ng/mL NT-Pro-B Natriuret Pep pg/mL Total Protein (6.3-8.2) g/dL Albumin (3.5-5.0) g/dL Influenza Type A (PCR) Not Detected (Not Detectd) Influenza Type B (PCR) Not Detected (Not Detectd) RSV (PCR) Not Detected (Not Detectd) SARS-CoV-2 (PCR) Not Detected (Not Detectd) Disposition Clinical Impression: COPD exacerbation Disposition: ADMITTED IP TO THIS HOSP Condition: Stable Is patient prescribed a controlled substance at d/c from ED?: No Referrals: Nonstaff,Physician [Primary Care Provider] - 1-2 days Time of Disposition: 05:15
--- NOTE | 2023-05-19 04:56 | XR ---
EXAMINATION TYPE: XR chest 1V portable DATE OF EXAM: 05/19/2023 COMPARISON: Prior chest x-ray May 03, 2023 HISTORY: Difficulty in breathing. TECHNIQUE: Single frontal view of the chest is obtained. FINDINGS: There is some chronic emphysematous change without suspicious new focal air space opacity, pleural effusion, or pneumothorax seen. The cardiac silhouette size is stable and within normal duque its with atherosclerotic change in thoracic aorta seen. The osseous structures are demineralized. D egenerative change bilateral shoulders. There is rim calcified left breast implant redemonstrated. IMPRESSION: Chronic changes without acute pulmonary process.
[2023-05-19] MEDS ORDERED: ACETAMINOPHEN TAB 325 MG TAB PO PRN ×2 (05:13→09:09)
[2023-05-19] MEDS ORDERED: NALOXONE 0.4 MG/ML 1 ML VIAL IVP PRN (05:13)
[2023-05-19] MEDS: IPRATROPIUM-ALBUTEROL 3 ML NEB INHALATION SCH (07:42)
[2023-05-19] MEDS: methylPREDNISolone SOD SUCCI 125 MG/2 ML VIAL IV SCH (08:49)
[2023-05-19] MEDS ORDERED: FLUTICASONE 50MCG/SPRAY NASAL 16GM EA NOSTRIL PRN (09:09)
[2023-05-19] MEDS ORDERED: IPRATROPIUM-ALBUTEROL 3 ML NEB INHALATION PRN (09:09)
[2023-05-19] MEDS ORDERED: NON FORMULARY DRUG (Albuterol Inhaler 90 MCG Puff) INHALATION PRN (09:09)
[2023-05-19] MEDS ORDERED: BENZOCAINE 20 % GEL 11.9 GM TUBE MM PRN (09:09)
[2023-05-19] MEDS ORDERED: ONDANSETRON 4 MG/2 ML VIAL IVP PRN (09:26)
[2023-05-19] MEDS: DOCUSATE 100 MG CAP PO SCH (09:41)
[2023-05-19] MEDS: LORazepam 1 MG TAB PO SCH (09:41)
[2023-05-19] MEDS: guaiFENesin 600 MG TABLET.ER PO SCH (09:41)
[2023-05-19] MEDS: busPIRone HCl 5 MG TAB PO SCH (09:42)
[2023-05-19] MEDS: PANTOPRAZOLE 40 MG TABLET PO SCH (09:42)
[2023-05-19] MEDS: CHOLECALCIFEROL 125 MCG (5000 IU) TABLET PO SCH (09:43)
[2023-05-19] MEDS: ASPIRIN 81 MG PO SCH (09:43)
[2023-05-19] MEDS: SUCRALFATE 1 GM TAB PO SCH (09:43)
[2023-05-19] MEDS: MULTIVITAMINS, THERA 1 EACH TAB PO SCH (09:43)
[2023-05-19] MEDS: SODIUM CHLORIDE 0.9% 1,000 ML IV SCH (09:50)
[2023-05-19] MEDS: BENZONATATE 100 MG CAP PO PRN (09:52)
--- NOTE | 2023-05-19 12:21 | P.HPIM ---
History of Present Illness H&P Date: 05/19/23 Chief Complaint: Shortness of breath * 72-year-old patient with history of COPD, bronchitis, chronic hypoxemic respiratory failure history of anxiety on 5 L of oxygen at home presents to the emergency department with complaints of shortness of breath. Patient was discharged to rehab facility. Patient was recently admitted for approximately 10 days in the hospital with complaints of shortness of breath and during that time patient was on BiPAP. Patient was seen by pulmonary medicine during that hospitalization as well. Patient was treated for acute bronchitis during previous hospitalization. At time of presentation in ER patient was noted to be 5 L of oxygen tachycardic with a heart rate of 104, patient had a chest x- ray done which showed chronic changes consistent with emphysema,. Blood work obtained showed WBC 5.9 hemoglobin 9.9 platelet count of 282. INR of 0.9. Serum chemistry sodium 140 potassium 3.7 carbon dioxide 38 BUN 13 creatinine 0.41 * Patient tested negative for influenza, RSV and COVID * Patient given breathing treatments IV Rocephin and Solu-Medrol. Patient has multiple antibiotic allergies patient started on Solu-Medrol Mucinex with con sultation from pulmonary medicine * Patient admitted to medical floor for further management REVIEW OF SYSTEMS: Shortness of breath, weakness CONSTITUTIONAL: No fever, no malaise, no fatigue. HEENT: No recent visual problems or hearing problems. Denied any sore throat. CARDIOVASCULAR: No chest pain, orthopnea, PND, no palpitations, no syncope. PULMONARY: Shortness of breath, weakness GASTROINTESTINAL: No diarrhea, no nausea, no vomiting, no abdominal pain. NEUROLOGICAL: No headaches, no weakness, no numbness. HEMATOLOGICAL: Denies any bleeding or petechiae. GENITOURINARY: Denies any burning micturition, frequency, or urgency. MUSCULOSKELETAL/RHEUMATOLOGICAL: Denies any joint pain, swelling, or any muscle pain. ENDOCRINE: Denies any polyuria or polydipsia. PHYSICAL EXAMINATION: GENERAL: The patient is alert and oriented x3, chronic ill appearance, nasal cannula in place HEENT: Pupils are round and equally reacting to light. EOMI. CARDIOVASCULAR: S1 and S2 present. No murmurs, rubs, or gallops. PULMONARY: Decreased breath sounds bilaterally ABDOMEN: Soft, nontender, nondistended, normoactive bowel sounds. No palpable organomegaly. MUSCULOSKELETAL: No joint swelling or deformity. EXTREMITIES: No cyanosis, clubbing, or pedal edema. NEUROLOGICAL: Gross neurological examination did not reveal any focal deficits. SKIN: No rashes. Past Medical History Past Medical History: COPD Additional Past Medical History / Comment(s): Emphysema History of Any Multi-Drug Resistant Organisms: None Reported Additional Past Surgical History / Comment(s): Breast implants Past Anesthesia/Blood Transfusion Reactions: No Reported Reaction Past Psychological History: Anxiety Smoking Status: Former smoker Past Alcohol Use History: None Reported Past Drug Use History: None Reported Medications and Allergies Home Medications Medication Instructions Recorded Confirmed Type Acetaminophen Tab [Tylenol] 650 mg PO Q6H PRN 04/27/23 05/19/23 History Albuterol Inhaler [Ventolin Hfa 2 puff INHALATION RT-Q4H PRN 04/27/23 05/19/23 History Inhaler] Aspirin EC [Ecotrin Low Dose] 81 mg PO DAILY 04/27/23 05/19/23 History Benzocaine 20 % Gel [Orajel] 1 applic DENTAL Q6H PRN 04/27/23 05/19/23 History Budesonide/Formoterol Fumarate 2 puff INHALATION RT-BID 04/27/23 05/19/23 History [Symbicort 160-4.5 Mcg Inhaler] Calcium Carbonate [Tums] 500 mg PO Q4H PRN 04/27/23 05/19/23 History Cholecalciferol [Vitamin D3 (125 125 mcg PO DAILY 04/27/23 05/19/23 History Mcg = 5000 Iu)] Diclofenac Sodium Gel [Voltaren 1% 1 applic TOPICAL Q6H PRN 04/27/23 05/19/23 History Gel] Docusate [Colace] 100 mg PO BID 04/27/23 05/19/23 History Fluticasone Nasal [place] [Flonase 1 spray EA NOSTRIL Q12H PRN 04/27/23 05/19/23 History Nasal [place]] Ipratropium-Albuterol Nebulize 3 ml INHALATION RT-Q6H PRN 04/27/23 05/19/23 History [Duoneb 0.5 mg-3 mg/3 ml Soln] L.acidoph,Paracasei, B.lactis 1 cap PO DAILY 04/27/23 05/19/23 History [Probiotic] Magnesium Hydroxide [Milk of 2,400 mg PO DAILY PRN 04/27/23 05/19/23 History Magnesia] Multivitamins, Thera [Multivitamin 1 tab PO DAILY 04/27/23 05/19/23 History (formulary)] Omeprazole 20 mg PO DAILY 04/27/23 05/19/23 History Promethazine HCl 12.5 mg PO Q6H PRN 04/27/23 05/19/23 History Sodium Chloride [Saline Mist] 1 spray EA NOSTRIL TID 04/27/23 05/19/23 History Sucralfate [Carafate] 1 gm PO TID 04/27/23 05/19/23 History Tiotropium [place] [Spiriva 1 puff INHALATION RT-DAILY 04/27/23 05/19/23 History Handihaler] busPIRone HCL 15 mg PO BID 04/27/23 05/19/23 History polyethylene glycoL 3350 [Miralax] 17 gm PO DAILY PRN 04/27/23 05/19/23 History predniSONE 5 mg PO DAILY 04/27/23 05/19/23 History traZODone HCL [Desyrel] 50 mg PO HS 04/27/23 05/19/23 History LORazepam [Ativan] 1 mg PO TID 3 Days #9 tab 05/08/23 05/19/23 Rx Benzonatate [Tessalon Perle] 200 mg PO Q8H PRN 05/19/23 05/19/23 History guaiFENesin [guaiFENesin Oral 200 mg PO Q6H PRN 05/19/23 05/19/23 History Solution] Allergies Allergy/AdvReac Type Severity Reaction Status Date / Time azithromycin Allergy Rash/Hives Verified 05/19/23 07:36 levofloxacin [From Levaquin] Allergy Dyspnea Verified 05/19/23 07:36 Penicillins Allergy Dyspnea Verified 05/19/23 07:36 tetracycline Allergy Unknown Verified 05/19/23 07:36 Physical Exam Vitals: Vital Signs Temp Pulse Resp BP Pulse Ox 05/19/23 08:48 93 24 94 L 05/19/23 07:56 101 H 05/19/23 07:47 96 05/19/23 07:43 105 H 05/19/23 06:00 104 H 20 108/64 96 05/19/23 05:00 108 H 22 111/94 95 05/19/23 04:00 120 H 22 122/58 05/19/23 03:21 118 H 05/19/23 03:03 100 05/19/23 02:31 99.5 F 116 H 22 109/67 98 Intake and Output 05/18/23 05/19/23 05/19/23 22:59 06:59 14:59 Other: Weight 70.307 kg Results CBC & Chem 7: 05/19/23 02:48 05/19/23 02:48 Labs: Abnormal Lab Results - Last 24 Hours (Table) 05/19/23 05/19/23 05/19/23 Range/Units 02:48 02:48 02:48 RBC 3.66 L (3.80-5.40) m/uL Hgb 9.9 L (11.4-16.0) gm/dL Hct 32.3 L (34.0-46.0) % MCHC 30.6 L (31.0-37.0) g/dL Lymphocytes # 0.9 L (1.0-4.8) k/uL PT 9.7 L (10.0-12.5) sec APTT 20.3 L (22.0-30.0) sec Carbon Dioxide 38 H (22-30) mmol/L Creatinine 0.41 L (0.52-1.04) mg/dL Total Protein 5.3 L (6.3-8.2) g/dL Albumin 2.9 L (3.5-5.0) g/dL Assessment and Plan Assessment: Assessment and plan * Acute exacerbation of COPD, acute tracheobronchitis * Chronic hypoxemic respiratory failure * Generalized anxiety disorder * History of recent RSV infection * 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 Continue Rocephin for total 5 days * In regards to chronic hypoxemic respiratory failure continue patient on 5 L of oxygen, pulmonary medicine consulted * Regards to generalized anxiety continue patient on home regimen including benzodiazepine * In regards to history of immobility and generalized debility physical therapy Occupational Therapy consulted * Status is full code Time with Patient: Greater than 30
--- NOTE | 2023-05-19 16:46 | P.CNPUL ---
History of Present Illness Consult date: 05/19/23 Reason for consult: dyspnea History of present illness: This is a 72-year-old female patient who was discharged to [facility] on 05/09/2023 after having a prolonged hospitalization where she was treated for complications of advanced COPD exacerbation due to a RSV infection. The patient during her course of her previous hospitalization, the patient required BiPAP therapy for respiratory support and ultimately she was released to the [facility] on a BiPAP at a pressure of 16 over 6 cm of water. She is nonambulatory. She has advanced COPD and she is oxygen dependent and she has been maintained on a combination of Spiriva and Symbicort on outpatient basis. The patient was doing well and she developed some worsening shortness of breath over the past 24 hours and for that reason the patient was sent back to the hospital for reevaluation. She was on BiPAP at the [facility] facility to support her breathing. During this current admission, her viral screen is negative. The chest x-ray was repeated and the patient was not found to have any acute abnormalities and the findings were essentially chronic and the patient has degenerative changes involving her shoulder and chronic interstitial markings bilaterally without any airspace disease or consolidation. She is awake and alert and she is communicating. Currently she is on oxygen at 5 L with a pulse ox of 95% and this is her baseline oxygen requirements. White cell count of 5.9 with hemoglobin 9.9, BUN is at 30 with a creatinine of 0.4. Troponins are negative. proBNP level is 68. Based on her worsening shortness of breath, she was readmitted to the hospital and started on treatment. Review of Systems CONSTITUTIONAL: Denies any recent significant weight loss or weight gain. EYES: Denies change in vision. EARS, NOSE, MOUTH, THROAT: Denies headaches, denies sore throat. CARDIOVASCULAR: Denies chest pain, palpitations or syncopal episodes. RESPIRATORY: see HPI GASTROINTESTINAL: Denies change in appetite, abdominal pain, nausea and vomiting, or diarrhea GENITOURINARY: Denies hematuria, denies infections. MUSKULOSKELETAL: Denies pain, denies swelling. Note that the patient is not ambulatory. She has chronic issues with her spine involving a spinal stenosis with degenerative arthritis involving the lumbar spine. INTEGUMENTARY: Denies rash, denies eczema. NEUROLOGICAL: Denies recent memory loss, no recent seizure activity. PSYCHIATRIC: Denies anxiety, denies depression. HEMATOLOGIC/LYMPHATIC: Denies anemia, denies enlarged lymph node Past Medical History Past Medical History: COPD Additional Past Medical History / Comment(s): Emphysema History of Any Multi-Drug Resistant Organisms: None Reported Additional Past Surgical History / Comment(s): Breast implants Past Anesthesia/Blood Transfusion Reactions: No Reported Reaction Past Psychological History: Anxiety Smoking Status: Former smoker Past Alcohol Use History: None Reported Past Drug Use History: None Reported Medications and Allergies Home Medications Medication Instructions Recorded Confirmed Type Acetaminophen Tab [Tylenol] 650 mg PO Q6H PRN 04/27/23 05/19/23 History Albuterol Inhaler [Ventolin Hfa 2 puff INHALATION RT-Q4H PRN 04/27/23 05/19/23 History Inhaler] Aspirin EC [Ecotrin Low Dose] 81 mg PO DAILY 04/27/23 05/19/23 History Benzocaine 20 % Gel [Orajel] 1 applic DENTAL Q6H PRN 04/27/23 05/19/23 History Budesonide/Formoterol Fumarate 2 puff INHALATION RT-BID 04/27/23 05/19/23 History [Symbicort 160-4.5 Mcg Inhaler] Calcium Carbonate [Tums] 500 mg PO Q4H PRN 04/27/23 05/19/23 History Cholecalciferol [Vitamin D3 (125 125 mcg PO DAILY 04/27/23 05/19/23 History Mcg = 5000 Iu)] Diclofenac Sodium Gel [Voltaren 1% 1 applic TOPICAL Q6H PRN 04/27/23 05/19/23 History Gel] Docusate [Colace] 100 mg PO BID 04/27/23 05/19/23 History Fluticasone Nasal [place] [Flonase 1 spray EA NOSTRIL Q12H PRN 04/27/23 05/19/23 History Nasal [place]] Ipratropium-Albuterol Nebulize 3 ml INHALATION RT-Q6H PRN 04/27/23 05/19/23 History [Duoneb 0.5 mg-3 mg/3 ml Soln] L.acidoph,Paracasei, B.lactis 1 cap PO DAILY 04/27/23 05/19/23 History [Probiotic] Magnesium Hydroxide [Milk of 2,400 mg PO DAILY PRN 04/27/23 05/19/23 History Magnesia] Multivitamins, Thera [Multivitamin 1 tab PO DAILY 04/27/23 05/19/23 History (formulary)] Omeprazole 20 mg PO DAILY 04/27/23 05/19/23 History Promethazine HCl 12.5 mg PO Q6H PRN 04/27/23 05/19/23 History Sodium Chloride [Saline Mist] 1 spray EA NOSTRIL TID 04/27/23 05/19/23 History Sucralfate [Carafate] 1 gm PO TID 04/27/23 05/19/23 History Tiotropium [place] [Spiriva 1 puff INHALATION RT-DAILY 04/27/23 05/19/23 History Handihaler] busPIRone HCL 15 mg PO BID 04/27/23 05/19/23 History polyethylene glycoL 3350 [Miralax] 17 gm PO DAILY PRN 04/27/23 05/19/23 History predniSONE 5 mg PO DAILY 04/27/23 05/19/23 History traZODone HCL [Desyrel] 50 mg PO HS 04/27/23 05/19/23 History LORazepam [Ativan] 1 mg PO TID 3 Days #9 tab 05/08/23 05/19/23 Rx Benzonatate [Tessalon [place]] 200 mg PO Q8H PRN 05/19/23 05/19/23 History guaiFENesin [guaiFENesin Oral 200 mg PO Q6H PRN 05/19/23 05/19/23 History Solution] Allergies Allergy/AdvReac Type Severity Reaction Status Date / Time azithromycin Allergy Rash/Hives Verified 05/19/23 07:36 levofloxacin [From Levaquin] Allergy Dyspnea Verified 05/19/23 07:36 Penicillins Allergy Dyspnea Verified 05/19/23 07:36 tetracycline Allergy Unknown Verified 05/19/23 07:36 Physical Exam Vitals: Vital Signs Temp Pulse Pulse Resp BP BP Pulse Ox 05/19/23 15:37 87 05/19/23 15:28 83 05/19/23 14:00 97.5 F L 77 30 H 100/59 96 05/19/23 12:30 24 05/19/23 11:17 79 05/19/23 11:06 82 05/19/23 09:58 97.8 F 93 24 94/61 96 05/19/23 08:48 93 24 94 L 05/19/23 08:00 97.5 F L 80 32 H 104/62 93 L 05/19/23 07:56 101 H 05/19/23 07:47 96 05/19/23 07:43 105 H 05/19/23 06:00 104 H 20 108/64 96 05/19/23 05:00 108 H 22 111/94 95 05/19/23 04:00 120 H 22 122/58 05/19/23 03:21 118 H 05/19/23 03:03 100 05/19/23 02:31 99.5 F 116 H 22 109/67 98 Intake and Output 05/19/23 05/19/23 05/19/23 06:59 14:59 22:59 Other: Voiding Method Diaper Weight 70.307 kg GENERAL EXAM: Alert, 72-year-old white female, fairly comfortable in no apparent distress on 5 L of oxygen by nasal cannula HEAD: Normocephalic and atraumatic EYES: Normal reaction of pupils, equal size. NOSE: Clear with pink turbinates. THROAT: No erythema or exudates. NECK: No masses, no JVD. CHEST: No chest wall deformity. LUNGS: Equal air entry with expiratory wheezes heard throughout. The patient is calm and comfortable, not using accessory muscles of breathing and she is communicating. CVS: S1 and S2 normal with no audible murmur, regular rhythm. No extra heart sounds ABDOMEN: No hepatosplenomegaly, active bowel sounds, no guarding or rigidity. SPINE: No scoliosis or deformity SKIN: No rashes CENTRAL NERVOUS SYSTEM: No focal deficits, tone is normal in all 4 extremities. Awake and oriented and communicating. EXTREMITIES: There is no peripheral edema, clubbing, or cyanosis. Peripheral pulses are intact. Results - Laboratory Findings CBC and BMP: 05/19/23 02:48 05/19/23 02:48 PT/INR, D-dimer PT 9.7 sec (10.0-12.5) L 05/19/23 02:48 INR 0.9 (<1.2) 05/19/23 02:48 Abnormal lab findings: Abnormal Labs 05/19/23 05/19/23 05/19/23 02:48 02:48 02:48 RBC 3.66 L Hgb 9.9 L Hct 32.3 L MCHC 30.6 L Lymphocytes # 0.9 L PT 9.7 L APTT 20.3 L Carbon Dioxide 38 H Creatinine 0.41 L Total Protein 5.3 L Albumin 2.9 L - Diagnostic Findings Chest x-ray: image reviewed Assessment and Plan Plan: Acute exacerbation of chronic COPD without any significant interval worsening in oxygenation and chest x-ray findings are essentially unchanged and showing stable advanced COPD. Recent hospitalization for an acute stroke exacerbationAttributed to an acute RSV infection and the patient required prolonged hospitalization she was ultimately discharged on 05/09/2023 and she has been utilizing a BiPAP at the [facility] facility and she was also on the maintenance prednisone of 5 mg p.o. daily in combination with Spiriva and Symbicort as maintenance for COPD and DuoNeb upd rafts. Chronic hypoxic respiratory failure maintained on O2 at 5 L/min nasal cannula Former smoker Generalized anxiety disorder Chronic lumbar spine disease along with lower extremity weakness and the patient is nonambulatory Plan Will treat this patient with DuoNeb updrafts Restart Symbicort 2 puffs twice a day IV Solu-Medrol every 6 hours and a dose of 60 mg Empiric antibiotic coverage with IV Rocephin although there is no clear indication for bacterial pneumonia Lovenox for DVT prophylaxis BiPAP overnight at the lower pressure of 8 over 4 cm of water and FiO2 needs to be titrated to maintain saturation above 90% Resume home medications Will continue to follow. Long-term prognosis poor based on her advanced COPD
[2023-05-19] MEDS: SYMBICORT 160-4.5 MCG INHALER INHALATION SCH (19:13)
[2023-05-19] MEDS: traZODone HCL 50 MG TAB PO SCH (21:41)
[2023-05-20] MEDS: LORazepam 1 MG TAB PO SCH (06:32)
[2023-05-20] MEDS ORDERED: ZINC OXIDE PASTE (Z-GUARD) 1 APPLIC TOPICAL PRN (06:47)
[2023-05-20] MEDS ORDERED: NON FORMULARY DRUG (Tiotropium Bromide [Spiriva Handihaler] 18 MCG Cap.W.Dev) INHALATION SCH (08:00)
[2023-05-20] MEDS: ENOXAPARIN 40 MG/0.4 ML SYRINGE SQ SCH (08:42)
--- NOTE | 2023-05-20 12:22 | P.PN ---
Subjective Progress Note Date: 05/20/23 * 72-year-old patient with history of COPD, bronchitis, chronic hypoxemic respiratory failure history of anxiety on 5 L of oxygen at home presents to the emergency department with complaints of shortness of breath. Patient was discharged to rehab facility. Patient was recently admitted for approximately 10 days in the hospital with complaints of shortness of breath and during that time patient was on BiPAP. Patient was seen by pulmonary medicine during that hospitalization as well. Patient was treated for acute bronchitis during previous hospitalization. At time of presentation in ER patient was noted to be 5 L of oxygen tachycardic with a heart rate of 104, patient had a chest x- ray done which showed chronic changes consistent with emphysema,. Blood work obtained showed WBC 5.9 hemoglobin 9.9 platelet count of 282. INR of 0.9. Serum chemistry sodium 140 potassium 3.7 carbon dioxide 38 BUN 13 creatinine 0.41 * Patient tested negative for influenza, RSV and COVID * Patient given breathing treatments IV Rocephin and Solu-Medrol. Patient has multiple antibiotic allergies patient started on Solu-Medrol Mucinex with consultation from pulmonary medicine * 05/20/23: Patient seen and evaluated at bedside, patient seen by Pulmonary Medicine, started on IV fluid noted to have transient hypotension. Continue patient on breathing treatment patient does have a lot of productive phlegm, continue on Rocephin for underlying tracheobronchitis. Continue Mucinex. Patient on BiPAP through the night, minimal pressures 8 x 4 on 40% FiO2 patient has recurrent hospitalization prognosis remains guarded. Will need discharge to subacute rehab once medically ready REVIEW OF SYSTEMS: Shortness of breath, weakness cough, sputum production CONSTITUTIONAL: No fever, no malaise, no fatigue. HEENT: No recent visual problems or hearing problems. Denied any sore throat. CARDIOVASCULAR: No chest pain, orthopnea, PND, no palpitations, no syncope. PULMONARY: Shortness of breath, weakness cough, sputum production GASTROINTESTINAL: No diarrhea, no nausea, no vomiting, no abdominal pain. NEUROLOGICAL: No headaches, no weakness, no numbness. HEMATOLOGICAL: Denies any bleeding or petechiae. GENITOURINARY: Denies any burning micturition, frequency, or urgency. MUSCULOSKELETAL/RHEUMATOLOGICAL: Denies any joint pain, swelling, or any muscle pain. ENDOCRINE: Denies any polyuria or polydipsia. PHYSICAL EXAMINATION: GENERAL: The patient is alert and oriented x3, chronic ill appearance, nasal cannula in place HEENT: Pupils are round and equally reacting to light. EOMI. CARDIOVASCULAR: S1 and S2 present. No murmurs, rubs, or gallops. PULMONARY: Decreased breath sounds bilaterally ABDOMEN: Soft, nontender, nondistended, normoactive bowel sounds. No palpable organomegaly. MUSCULOSKELETAL: No joint swelling or deformity. EXTREMITIES: No cyanosis, clubbing, or pedal edema. NEUROLOGICAL: Gross neurological examination did not reveal any focal deficits. SKIN: No rashes. Objective - Vital Signs Vital signs: Vital Signs Temp 97.0 F L 05/20/23 01:05 Pulse 78 05/20/23 01:05 Resp 20 05/20/23 01:05 BP 95/59 05/20/23 01:05 Pulse Ox 99 05/20/23 01:05 FiO2 40 05/20/23 04:50 Intake & Output 05/19/23 05/19/23 05/20/23 06:59 18:59 06:59 Intake Total 420 Balance 420 Weight 70.307 kg 70.307 kg Intake: Oral 420 Other: Voiding Method Diaper # Voids 1 2 - Labs CBC & Chem 7: 05/19/23 02:48 05/19/23 02:48 Assessment and Plan Assessment: Assessment and plan * Acute exacerbation of COPD, acute tracheobronchitis * Chronic hypoxemic respiratory failure * Generalized anxiety disorder * History of recent RSV infection * 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 Continue Rocephin for total 5 days * In regards to chronic hypoxemic respiratory failure continue patient on 5 L of oxygen, pulmonary medicine consulted * Regards to generalized anxiety continue patient on home regimen including benzodiazepine * In regards to history of immobility and generalized debility physical therapy Occupational Therapy consulted * Expected length of stay another 3 to 4 days * Code status is full code
--- NOTE | 2023-05-20 14:30 | P.PN ---
Subjective Progress Note Date: 05/20/23 This is a 72-year-old female patient who was discharged to [facility] on 05/09/2023 after having a prolonged hospitalization where she was treated for complications of advanced COPD exacerbation due to a RSV infection. The patient during her course of her previous hospitalization, the patient required BiPAP therapy for respiratory support and ultimately she was released to the [facility] on a BiPAP at a pressure of 16 over 6 cm of water. She is nonambulatory. She has advanced COPD and she is oxygen dependent and she has been maintained on a combination of Spiriva and Symbicort on outpatient basis. The patient was doing well and she developed some worsening shortness of breath over the past 24 hours and for that reason the patient was sent back to the hospital for reevaluation. She was on BiPAP at the [facility] facility to support her breathing. During this current admission, her viral screen is negative. The chest x-ray was repeated and the patient was not found to have any acute abnormalities and the findings were essentially chronic and the patient has degenerative changes involving her shoulder and chronic interstitial markings bilaterally without any airspace disease or consolidation. She is awake and alert and she is communicating. Currently she is on oxygen at 5 L with a pulse ox of 95% and this is her baseline oxygen requirements. White cell count of 5.9 with hemoglobin 9.9, BUN is at 30 with a creatinine of 0.4. Troponins are negative. proBNP level is 68. Based on her worsening shortness of breath, she was readmitted to the hospital and started on treatment. On 05/20/2023, the patient has no specific complaints. She is improved compared to yesterday. Less bronchospastic and wheezy. She was able to utilize the BiPAP overnight at the pressure of 8 over 4 cm of water and she is able to tolerate lower pressures of BiPAP more effectively. She remains on DuoNeb updrafts. She remains on IV Solu-Medrol. She is tolerating her diet. She is resting comfortably in bed. No altered mentation. No chest pain. No other new labs from today. Objective - Vital Signs Vital signs: Vital Signs Temp 97.6 F 05/20/23 09:27 Pulse 84 05/20/23 11:00 Resp 16 05/20/23 09:27 BP 93/58 05/20/23 09:27 Pulse Ox 95 05/20/23 09:27 FiO2 40 05/20/23 10:47 Intake & Output 05/19/23 05/20/23 05/20/23 18:59 06:59 18:59 Intake Total 420 Balance 420 Weight 70.307 kg Intake: Oral 420 Other: Voiding Method Diaper Diaper # Voids 1 2 - Exam GENERAL EXAM: Alert, 72-year-old white female, fairly comfortable in no apparent distress on 5 L of oxygen by nasal cannula HEAD: Normocephalic and atraumatic EYES: Normal reaction of pupils, equal size. NOSE: Clear with pink turbinates. THROAT: No erythema or exudates. NECK: No masses, no JVD. CHEST: No chest wall deformity. LUNGS: Equal air entry with expiratory wheezes heard throughout. The patient is calm and comfortable, not using accessory muscles of breathing and she is communicating. CVS: S1 and S2 normal with no audible murmur, regular rhythm. No extra heart sounds ABDOMEN: No hepatosplenomegaly, active bowel sounds, no guarding or rigidity. SPINE: No scoliosis or deformity SKIN: No rashes CENTRAL NERVOUS SYSTEM: No focal deficits, tone is normal in all 4 extremities. Awake and oriented and communicating. EXTREMITIES: There is no peripheral edema, clubbing, or cyanosis. Peripheral pulses are intact. - Labs CBC & Chem 7: 05/19/23 02:48 05/19/23 02:48 Assessment and Plan Plan: Acute exacerbation of chronic COPD without any significant interval worsening in oxygenation and chest x-ray findings are essentially unchanged and showing stable advanced COPD. Clinically improving. Recent hospitalization for an acute stroke exacerbation Attributed to an acute RSV infection and the patient required prolonged hospitalization she was ultimately discharged on 05/09/2023 and she has been utilizing a BiPAP at the [facility] facility and she was also on the maintenance prednisone of 5 mg p.o. daily in combination with Spiriva and Symbicort as maintenance for COPD and DuoNeb updrafts. 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 The patient is able to tolerate the BiPAP at a lower pressure of 8 over 4 cm of water. This will be continued overnight and on and off during the day. Will treat this patient with [facility] Restart Symbicort 2 puffs twice a day IV Solu-Medrol every 6 hours and a dose of 60 mg Empiric antibiotic coverage with IV Rocephin although there is no clear indication for bacterial pneumonia Lovenox for DVT prophylaxis Will continue to follow. Long-term prognosis poor based on her advanced COPD
[2023-05-20] MEDS: MAGNESIUM HYDROXIDE 2,400 MG/30 ML CUP PO PRN (16:07)
[2023-05-20] MEDS: guaiFENesin SYRUP 100MG/5ML 200 MG/10 ML CUP PO PRN (21:33)
[2023-05-21 08:35] LABS: HCT 28.4 % (37.2-46.3); HGB 8.5 g/dL (12.0-15.0); MCH 27.3 pg (27.0-32.0); MCHC 29.9 g/dL (32.0-37.0); MCV 91.3 FL (80.0-97.0); Mean Platelet Volume 10.6 FL (9.5-12.2); NRBC Per 100 WBC 0 X 10*3/uL (0.00-0.01); Platelet Count 276 X 10*3/uL (140-440); RBC 3.11 X 10*6/uL (4.10-5.20); RDW 15.1 % (11.5-14.5); WBC 6.82 X 10*3/uL (4.50-10.00)
[2023-05-21 09:09] LABS: Blood Urea Nitrogen 18.2 mg/dL (9.0-27.0); Carbon Dioxide 34.2 mmol/L (21.6-31.8); Chloride 102 mmol/L (96-109); Glucose 135 mg/dL (70-110); Potassium 4.3 mmol/L (3.5-5.5); Sodium 142 mmol/L (135-145)
[2023-05-21 09:10] LABS: Calcium 9.3 mg/dL (8.7-10.3)
[2023-05-21] MEDS: LORazepam 0.5 MG TAB PO STA (11:47)
--- NOTE | 2023-05-21 19:24 | P.PN ---
Subjective Progress Note Date: 05/21/23 This is a 72-year-old female patient who was discharged to [facility] on 05/09/2023 after having a prolonged hospitalization where she was treated for complications of advanced COPD exacerbation due to a RSV infection. The patient during her course of her previous hospitalization, the patient required BiPAP therapy for respiratory support and ultimately [facility] a [facility] at a pressure of 16 over 6 cm of water. She is nonambulatory. She has advanced COPD and she is oxygen dependent and she has been maintained on a combination of Spiriva and Symbicort on outpatient basis. The patient was doing well and she developed some worsening shortness of breath over the past 24 hours and for that reason the patient was sent back to the hospital for reevaluation. She [facility] to support her breathing. During this current admission, her viral screen is negative. The chest x-ray was repeated and the patient was not found to have any acute abnormalities and the findings were essentially chronic and the patient has degenerative changes involving her shoulder and chronic interstitial markings bilaterally without any airspace disease or consolidation. She is awake and alert and she is communicating. Currently she is on oxygen at 5 L with a pulse ox of 95% and this is her baseline oxygen requirements. White cell count of 5.9 with hemoglobin 9.9, BUN is at 30 with a creatinine of 0.4. Troponins are negative. proBNP level is 68. Based on her worsening shortness of breath, she was readmitted to the hospital and started on treatment. On 05/20/2023, the patient has no specific complaints. She is improved compared to yesterday. Less bronchospastic and wheezy. She was able to utilize the BiPAP overnight at the pressure of 8 over 4 cm of water and she is able to tolerate lower pressures of BiPAP more effectively. She remains on DuoNeb updrafts. She remains on IV Solu-Medrol. She is tolerating her diet. She is resting comfortably in bed. No altered mentation. No chest pain. No other new labs from today. 05/21/2023, no new complaints. The patient continues to her BiPAP at a pressure of 8 over 4 cm of water. Resting comfortably in bed. No chest pain. Remains on DuoNeb updrafts. Remains on IV Solu-Medrol. No altered mentation. She has increased anxiety and the patient is on Ativan. White cell count at 6.8 with a hemoglobin 8.5. Sodium level is at 142, potassium level is at 4.3, bicarb is at 34, BUN is at 18 with a creatinine of 0.2. Viral screen has been negative during this current admission. No other new complaints otherwise for now. She remains on Lovenox for DVT prophylaxis. Objective - Vital Signs Vital signs: Vital Signs Temp 97.7 F 05/21/23 07:46 Pulse 76 05/21/23 09:13 Resp 17 05/21/23 07:46 BP 110/72 05/21/23 07:46 Pulse Ox 96 05/21/23 07:46 FiO2 40 05/21/23 09:06 Intake & Output 05/20/23 05/21/23 05/21/23 18:59 06:59 18:59 Intake Total 960 Balance 960 Intake: Oral 960 Other: Voiding Method Diaper Diaper # Voids 3 2 - Exam GENERAL EXAM: Alert, 72-year-old white female, fairly comfortable in no apparent distress on 5 L of oxygen by nasal cannula HEAD: Normocephalic and atraumatic EYES: Normal reaction of pupils, equal size. NOSE: Clear with pink turbinates. THROAT: No erythema or exudates. NECK: No masses, no JVD. CHEST: No chest wall deformity. LUNGS: Equal air entry with expiratory wheezes heard throughout. The patient is calm and comfortable, not using accessory muscles of breathing and she is communicating. CVS: S1 and S2 normal with no audible murmur, regular rhythm. No extra heart sounds ABDOMEN: No hepatosplenomegaly, active bowel sounds, no guarding or rigidity. SPINE: No scoliosis or deformity SKIN: No rashes CENTRAL NERVOUS SYSTEM: No focal deficits, tone is normal in all 4 extremities. Awake and oriented and communicating. EXTREMITIES: There is no peripheral edema, clubbing, or cyanosis. Peripheral pulses are intact. - Labs CBC & Chem 7: 05/21/23 04:27 05/21/23 04:27 Labs: Abnormal Lab Results - Last 24 Hours (Table) 05/21/23 05/21/23 Range/Units 04:27 04:27 RBC 3.11 L (4.10-5.20) X 10*6/uL Hgb 8.5 L (12.0-15.0) g/dL Hct 28.4 L (37.2-46.3) % MCHC 29.9 L (32.0-37.0) g/dL RDW 15.1 H (11.5-14.5) % Carbon Dioxide 34.2 H (21.6-31.8) mmol/L Creatinine 0.4 L (0.6-1.5) mg/dL BUN/Creatinine Ratio 45.50 H (12.00-20.00) Ratio Glucose 135 H (70-110) mg/dL Microbiology - Last 24 Hours (Table) 05/19/23 03:00 Blood Culture - Preliminary Blood 05/19/23 02:55 Blood Culture - Preliminary Blood Assessment and Plan Plan: Acute exacerbation of chronic COPD without any significant interval worsening in oxygenation and chest x-ray findings are essentially unchanged and showing s table advanced COPD. Clinically improving. Recent hospitalization for an acute stroke exacerbation Attributed to an acute RSV infection and the patient required prolonged hospitalization she was ult imately discharged on 05/09/2023 and she has been utilizing a [facility] and she was also on the maintenance prednisone of 5 mg p.o. daily in combination with Spiriva and Symbicort as maintenance for COPD and DuoNeb updrafts. 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 This will be continued overnight and on and off during the day. Will treat this patient with DuoNeb updrafts Continue Symbicort 2 puffs twice a day Empiric antibiotic coverage with IV Rocephin although there is no clear indication for bacterial pneumonia Lovenox for DVT prophylaxis Will continue to follow. Long-term prognosis poor based on her advanced COPD
--- NOTE | 2023-05-21 22:31 | P.PN ---
Subjective 72-year-old patient with history of COPD, bronchitis, chronic hypoxemic respiratory failure history of anxiety on 5 L of oxygen at home presents to the emergency department with complaints of shortness of breath. Patient was discharged to rehab facility. Patient was recently admitted for approximately 10 days in the hospital with complaints of shortness of breath and during that time patient was on BiPAP. Patient was seen by pulmonary medicine during that hospitalization as well. Patient was treated for acute bronchitis during previous hospitalization. At time of presentation in ER patient was noted to be 5 L of oxygen tachycardic with a heart rate of 104, patient had a chest x-ray done which showed chronic changes consistent with emphysema,. Blood work obtained showed WBC 5.9 hemoglobin 9.9 platelet count of 282. INR of 0.9. Serum chemistry sodium 140 potassium 3.7 carbon dioxide 38 BUN 13 creatinine 0.41 Patient tested negative for influenza, RSV and COVID Patient given breathing treatments IV Rocephin and Solu-Medrol. Patient has multiple antibiotic allergies patient started on Solu-Medrol Mucinex with consultation from pulmonary medicine 05/20/23: Patient seen and evaluated at bedside, patient seen by Pulmonary Medicine, started on IV fluid noted to have transient hypotension. Continue patient on breathing treatment patient does have a lot of productive phlegm, continue on Rocephin for underlying tracheobronchitis. Continue Mucinex. Patient on BiPAP through the night, minimal pressures 8 x 4 on 40% FiO2 patient has recurrent hospitalization prognosis remains guarded. Will need discharge to subacute rehab once medically ready 05/21/2027 Patient carmen on BiPAP while off BiPAP she is on 5 L/min which is her home dose of oxygen Patient tolerates low-pressure BiPAP, mainly overnight and on and off during the day And IV Solu-Medrol 60 mg Ceftriaxone which could be discontinued upon discharge Objective - Vital Signs Vital signs: Vital Signs Temp 97.7 F 05/21/23 07:46 Pulse 77 05/21/23 12:10 Resp 17 05/21/23 07:46 BP 110/72 05/21/23 07:46 Pulse Ox 96 05/21/23 07:46 FiO2 40 05/21/23 12:00 Intake & Output 05/20/23 05/21/23 05/21/23 18:59 06:59 18:59 Intake Total 960 Balance 960 Intake: Oral 960 Other: Voiding Method Diaper Diaper Diaper # Voids 3 2 - Exam GENERAL: The patient is alert and oriented x3, not in any acute distress. Well developed, well nourished. HEENT: Pupils are round and equally reacting to light. EOMI. No scleral icterus. No conjunctival pallor. Normocephalic, atraumatic. No pharyngeal erythema. No thyromegaly. CARDIOVASCULAR: S1 and S2 present. No murmurs, rubs, or gallops. -PULMONARY: Chest is clear to auscultation, bilateral scattered wheezing , no crackles. ABDOMEN: Soft, nontender, nondistended, normoactive bowel sounds. No palpable organomegaly. MUSCULOSKELETAL: No joint swelling or deformity. EXTREMITIES: No cyanosis, clubbing, or pedal edema. NEUROLOGICAL: Gross neurological examination did not reveal any focal deficits. SKIN: No rashes. no petechiae. - Labs CBC & Chem 7: 05/21/23 04:27 05/21/23 04:27 Labs: Abnormal Lab Results - Last 24 Hours (Table) 05/21/23 05/21/23 Range/Units 04:27 04:27 RBC 3.11 L (4.10-5.20) X 10*6/uL Hgb 8.5 L (12.0-15.0) g/dL Hct 28.4 L (37.2-46.3) % MCHC 29.9 L (32.0-37.0) g/dL RDW 15.1 H (11.5-14.5) % Carbon Dioxide 34.2 H (21.6-31.8) mmol/L Creatinine 0.4 L (0.6-1.5) mg/dL BUN/Creatinine Ratio 45.50 H (12.00-20.00) Ratio Glucose 135 H (70-110) mg/dL Microbiology - Last 24 Hours (Table) 05/19/23 03:00 Blood Culture - Preliminary Blood 05/19/23 02:55 Blood Culture - Preliminary Blood Assessment and Plan Assessment: Acute exacerbation of COPD, acute tracheobronchitis Acute on chronic hypoxemic respiratory failure Generalized anxiety disorder History of recent RSV infection Chronic lumbar spine disease with lower extremity weakness patient is nonambulatory and senior care resident Plan: Continue with IV Solu-Medrol Continue with ceftriaxone Pulmonary team consult Continue with bronchodilators Labs and medication were reviewed.. Continue same treatment. Continue with symptomatic treatment. Resume home medication. Monitor labs and vitals. DVT and GI prophylaxis. Further recommendations as per clinical course of the patient DVT prophylaxis: Subcutaneous Lovenox GI Prophylaxis: Ppi
[2023-05-22] MEDS: LORazepam 0.5 MG TAB PO PRN (02:11)
--- NOTE | 2023-05-22 16:42 | P.PN ---
Subjective Progress Note Date: 05/22/23 This is a 72-year-old female patient who was discharged to [facility] on 05/09/2023 after having a prolonged hospitalization where she was treated for complications of advanced COPD exacerbation due to a RSV infection. The patient during her course of her previous hospitalization, the patient required BiPAP therapy for respiratory support and ultimately she was released to the [facility] on a BiPAP at a pressure of 16 over 6 cm of water. She is nonambulatory. She has advanced COPD and she is oxygen dependent and she has been maintained on a combination of Spiriva and Symbicort on outpatient basis. The patient was doing well and she developed some worsening shortness of breath over the past 24 hours and for that reason the patient was sent back to the hospital for reevaluation. She was on BiPAP at the [facility] facility to support her breathing. During this current admission, her viral screen is negative. The chest x-ray was repeated and the patient was not found to have any acute abnormalities and the findings were essentially chronic and the patient has degenerative changes involving her shoulder and chronic interstitial markings bilaterally without any airspace disease or consolidation. She is awake and alert and she is communicating. Currently she is on oxygen at 5 L with a pulse ox of 95% and this is her baseline oxygen requirements. White cell count of 5.9 with hemoglobin 9.9, BUN is at 30 with a creatinine of 0.4. Troponins are negative. proBNP level is 68. Based on her worsening shortness of breath, she was readmitted to the hospital and started on treatment. On 05/20/2023, the patient has no specific complaints. She is improved compared to yesterday. Less bronchospastic and wheezy. She was able to utilize the BiPAP overnight at the pressure of 8 over 4 cm of water and she is able to tolerate lower pressures of BiPAP more effectively. She remains on DuoNeb updrafts. She remains on IV Solu-Medrol. She is tolerating her diet. She is resting comfortably in bed. No altered mentation. No chest pain. No other new labs from today. 05/21/2023, no new complaints. The patient continues to her BiPAP at a pressure of 8 over 4 cm of water. Resting comfortably in bed. No chest pain. Remains on DuoNeb updrafts. Remains on IV Solu-Medrol. No altered mentation. She has increased anxiety and the patient is on Ativan. White cell count at 6.8 with a hemoglobin 8.5. Sodium level is at 142, potassium level is at 4.3, bicarb is at 34, BUN is at 18 with a creatinine of 0.2. Viral screen has been negative during this current admission. No other new complaints otherwise for now. She remains on Lovenox for DVT prophylaxis. On today's evaluation of 05/22/2023, the patient has no specific complaints. Stable and she is using on and off the BiPAP during the day and continuous at nighttime. She is currently on a BiPAP pressure of 8 over 4 cm of water. No altered mentation. No chest pain. Tolerating diet. She is nonambulatory and she is bedridden. She is on Lovenox for DVT prophylaxis. No new labs are available from today. She is using the incentive spirometer. No chest pain. No pleurisy. No hemoptysis. Once off the BiPAP, the patient typically close on 5 L of oxygen by nasal cannula. She is a sn[facility] resident. She has advanced COPD. Objective - Vital Signs Vital signs: Vital Signs Temp 97.6 F 05/22/23 07:08 Pulse 84 05/22/23 08:17 Resp 17 05/22/23 07:08 BP 115/72 05/22/23 07:08 Pulse Ox 99 05/22/23 07:08 FiO2 40 05/22/23 08:06 Intake & Output 05/21/23 05/22/23 05/22/23 18:59 06:59 18:59 Other: Voiding Method Diaper Diaper Diaper # Voids 2 1 # Bowel Movements 1 - Exam GENERAL EXAM: Alert, 72-year-old white female, fairly comfortable in no apparent distress on 5 L of oxygen by nasal cannula HEAD: Normocephalic and atraumatic EYES: Normal reaction of pupils, equal size. NOSE: Clear with pink turbinates. THROAT: No erythema or exudates. NECK: No masses, no JVD. CHEST: No chest wall deformity. LUNGS: Equal air entry with expiratory wheezes heard throughout. The patient is calm and comfortable, not using accessory muscles of breathing and she is communicating. CVS: S1 and S2 normal with no audible murmur, regular rhythm. No extra heart sounds ABDOMEN: No hepatosplenomegaly, active bowel sounds, no guarding or rigidity. SPINE: No scoliosis or deformity SKIN: No rashes CENTRAL NERVOUS SYSTEM: No focal deficits, tone is normal in all 4 extremities. Awake and oriented and communicating. EXTREMITIES: There is no peripheral edema, clubbing, or cyanosis. Peripheral pulses are intact. - Labs CBC & Chem 7: 05/21/23 04:27 05/21/23 04:27 Labs: Abnormal Lab Results - Last 24 Hours (Table) 05/21/23 Range/Units 04:27 C-Reactive Protein 4.20 H (0.00-0.80) mg/dL Microbiology - Last 24 Hours (Table) 05/19/23 03:00 Blood Culture - Preliminary Blood 05/19/23 02:55 Blood Culture - Preliminary Blood Assessment and Plan Plan: Acute exacerbation of chronic COPD without any significant interval worsening in oxygenation and chest x-ray findings are essentially unchanged and showing stable advanced COPD. Clinically improving. Recent hospitalization for an acute stroke exacerbation Attributed to an acute RSV infection and the patient required prolonged hospitalization she was ultimately discharged on 05/09/2023 and she has been utilizing a BiPAP at the [facility] facility and she was also on the maintenance prednisone of 5 mg p.o. daily in combination with Spiriva and Symbicort as maintenance for COPD and DuoNeb updrafts. 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 We will continue same treatment Discontinue the IV Solu-Medrol and put the patient on prednisone burst taper The patient is able to tolerate the BiPAP at a lower pressure of 8 over 4 cm of water. This will be continued overnight and on and off during the day. Will treat this patient with DuoNeb updrafts Continue Symbicort 2 puffs twice a day Empiric antibiotic coverage with IV Rocephin although there is no clear elie cation for bacterial pneumonia Lovenox for DVT prophylaxis Will continue to follow. Long-term prognosis poor based on her advanced COPD
--- NOTE | 2023-05-22 20:54 | P.PN ---
Subjective 72-year-old patient with history of COPD, bronchitis, chronic hypoxemic respiratory failure history of anxiety on 5 L of oxygen at home presents to the emergency department with complaints of shortness of breath. Patient was discharged to rehab facility. Patient was recently admitted for approximately 10 days in the hospital with complaints of shortness of breath and during that time patient was on BiPAP. Patient was seen by pulmonary medicine during that hospitalization as well. Patient was treated for acute bronchitis during previous hospitalization. At time of presentation in ER patient was noted to be 5 L of oxygen tachycardic with a heart rate of 104, patient had a chest x-ray done which showed chronic changes consistent with emphysema,. Blood work obtained showed WBC 5.9 hemoglobin 9.9 platelet count of 282. INR of 0.9. Serum chemistry sodium 140 potassium 3.7 carbon dioxide 38 BUN 13 creatinine 0.41 Patient tested negative for influenza, RSV and COVID Patient given breathing treatments IV Rocephin and Solu-Medrol. Patient has multiple antibiotic allergies patient started on Solu-Medrol Mucinex with consultation from pulmonary medicine 05/20/23: Patient seen and evaluated at bedside, patient seen by Pulmonary Medicine, started on IV fluid noted to have transient hypotension. Continue patient on breathing treatment patient does have a lot of productive phlegm, continue on Rocephin for underlying tracheobronchitis. Continue Mucinex. Patient on BiPAP through the night, minimal pressures 8 x 4 on 40% FiO2 patient has recurrent hospitalization prognosis remains guarded. Will need discharge to subacute rehab once medically ready 05/21/2027 Patient carmen on BiPAP while off BiPAP she is on 5 L/min which is her home dose of oxygen Patient tolerates low-pressure BiPAP, mainly overnight and on and off during the day And IV Solu-Medrol 60 mg Ceftriaxone which could be discontinued upon discharge 05/22/2023 pt dyspnea is improving slowly and gradually she is on low pressure bipap she on 5 l/m of oxygen witch is her home dose change solumedrol to prednisone 40 mg daily possible dc in 24-48 hr if she keep improving Objective - Vital Signs Vital signs: Vital Signs Temp 97.6 F 05/22/23 07:08 Pulse 86 05/22/23 12:25 Resp 17 05/22/23 07:08 BP 115/72 05/22/23 07:08 Pulse Ox 99 05/22/23 07:08 FiO2 40 05/22/23 12:11 Intake & Output 05/21/23 05/22/23 05/22/23 18:59 06:59 18:59 Other: Voiding Method Diaper Diaper Diaper # Voids 2 1 # Bowel Movements 1 - Exam GENERAL: The patient is alert and oriented x3, not in any acute distress. Well d eveloped, well nourished. HEENT: Pupils are round and equally reacting to light. EOMI. No scleral icterus. No conjunctival pallor. Normocephalic, atraumatic. No pharyngeal erythema. No thyromegaly. CARDIOVASCULAR: S1 and S2 present. No murmurs, rubs, or gallops. -PULMONARY: Chest is clear to auscultation, bilateral scattered wheezing , no crackles. ABDOMEN: Soft, nontender, nondistended, normoactive bowel sounds. No palpable organomegaly. MUSCULOSKELETAL: No joint swelling or deformity. EXTREMITIES: No cyanosis, clubbing, or pedal edema. NEUROLOGICAL: Gross neurological examination did not reveal any focal deficits. SKIN: No rashes. no petechiae. 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 Continue same treatment. Continue with symptomatic treatment. Resume home medication. Monitor labs and vitals. DVT and GI prophylaxis. Further recommendations as per clinical course of the patient DVT prophylaxis: Subcutaneous Lovenox GI Prophylaxis: Ppi
[2023-05-22] MEDS: CALCIUM CARBONATE 500 MG CHEWABLE PO PRN (22:52)
[2023-05-23 09:29] LABS: Basophils # (A) 0.04 X 10*3/uL (0.00-0.10); Basophils % (A) 0.6 %; Eosinophils # (A) 0.15 X 10*3/uL (0.04-0.35); Eosinophils % (A) 2.4 %; HCT 32.1 % (37.2-46.3); HGB 9.5 g/dL (12.0-15.0); Lymphocytes # (A) 1.49 X 10*3/uL (0.90-5.00); Lymphocytes % (A) 23.4 %; MCH 26.8 pg (27.0-32.0); MCHC 29.6 g/dL (32.0-37.0); MCV 90.7 FL (80.0-97.0); Mean Platelet Volume 10.1 FL (9.5-12.2); Monocytes # (A) 0.54 X 10*3/uL (0.20-1.00); Monocytes % (A) 8.5 %; NRBC Per 100 WBC 0 X 10*3/uL (0.00-0.01); Neutrophils # (A) 3.84 X 10*3/uL (1.80-7.70); Neutrophils % (A) 60.4 %; Platelet Count 274 X 10*3/uL (140-440); RBC 3.54 X 10*6/uL (4.10-5.20); RDW 15.4 % (11.5-14.5); WBC 6.36 X 10*3/uL (4.50-10.00)
[2023-05-23] MEDS: predniSONE 20 MG TAB PO SCH (09:55)
--- NOTE | 2023-05-23 12:53 | P.PN ---
Subjective 72-year-old patient with history of COPD, bronchitis, chronic hypoxemic respiratory failure history of anxiety on 5 L of oxygen at home presents to the emergency department with complaints of shortness of breath. Patient was discharged to rehab facility. Patient was recently admitted for approximately 10 days in the hospital with complaints of shortness of breath and during that time patient was on BiPAP. Patient was seen by pulmonary medicine during that hospitalization as well. Patient was treated for acute bronchitis during previous hospitalization. At time of presentation in ER patient was noted to be 5 L of oxygen tachycardic with a heart rate of 104, patient had a chest x-ray done which showed chronic changes consistent with emphysema,. Blood work obtained showed WBC 5.9 hemoglobin 9.9 platelet count of 282. INR of 0.9. Serum chemistry sodium 140 potassium 3.7 carbon dioxide 38 BUN 13 creatinine 0.41 Patient tested negative for influenza, RSV and COVID Patient given breathing treatments IV Rocephin and Solu-Medrol. Patient has multiple antibiotic allergies patient started on Solu-Medrol Mucinex with consultation from pulmonary medicine 05/20/23: Patient seen and evaluated at bedside, patient seen by Pulmonary Medicine, started on IV fluid noted to have transient hypotension. Continue patient on breathing treatment patient does have a lot of productive phlegm, continue on Rocephin for underlying tracheobronchitis. Continue Mucinex. Patient on BiPAP through the night, minimal pressures 8 x 4 on 40% FiO2 patient has recurrent hospitalization prognosis remains guarded. Will need discharge to subacute rehab once medically ready 05/21/2027 Patient carmen on BiPAP while off BiPAP she is on 5 L/min which is her home dose of oxygen Patient tolerates low-pressure BiPAP, mainly overnight and on and off during the day And IV Solu-Medrol 60 mg Ceftriaxone which could be discontinued upon discharge 05/22/2023 pt dyspnea is improving slowly and gradually she is on low pressure bipap she on 5 l/m of oxygen witch is her home dose change solumedrol to prednisone 40 mg daily possible dc in 24-48 hr if she keep improving 05/23/2023 Patient presents stable, currently she is in the prednisone use and BiPAP at night Physical performed constipation and lactulose was added Continue to improve slowly and gradually Possible discharge in 24-48 hours if she gets improvement Objective - Vital Signs Vital signs: Vital Signs Temp 98.6 F 05/23/23 07:35 Pulse 86 05/23/23 12:46 Resp 18 05/23/23 07:35 BP 110/67 05/23/23 07:35 Pulse Ox 97 05/23/23 08:57 FiO2 40 05/23/23 08:57 Intake & Output 05/22/23 05/23/23 05/23/23 18:59 06:59 18:59 Other: Voiding Method Diaper Diaper # Voids 2 3 # Bowel Movements 4 - Exam GENERAL: The patient is alert and oriented x3, not in any acute distress. Well developed, well nourished. HEENT: Pupils are round and equally reacting to light. EOMI. No scleral icterus. No conjunctival pallor. Normocephalic, atraumatic. No pharyngeal erythema. No thyromegaly. CARDIOVASCULAR: S1 and S2 present. No murmurs, rubs, or gallops. -PULMONARY: Chest is clear to auscultation, bilateral scattered wheezing , no crackles. ABDOMEN: Soft, nontender, nondistended, normoactive bowel sounds. No palpable organomegaly. MUSCULOSKELETAL: No joint swelling or deformity. EXTREMITIES: No cyanosis, clubbing, or pedal edema. NEUROLOGICAL: Gross neurological examination did not reveal any focal deficits. SKIN: No rashes. no petechiae. - Labs CBC & Chem 7: 05/23/23 04:33 05/21/23 04:27 Labs: Abnormal Lab Results - Last 24 Hours (Table) 05/23/23 Range/Units 04:33 RBC 3.54 L (4.10-5.20) X 10*6/uL Hgb 9.5 L (12.0-15.0) g/dL Hct 32.1 L (37.2-46.3) % MCH 26.8 L (27.0-32.0) pg MCHC 29.6 L (32.0-37.0) g/dL RDW 15.4 H (11.5-14.5) % Immature Gran # 0.30 H (0.00-0.04) X 10*3/uL Microbiology - Last 24 Hours (Table) 05/19/23 03:00 Blood Culture - Preliminary Blood 05/19/23 02:55 Blood Culture - Preliminary Blood Assessment and Plan Assessment: Acute exacerbation of COPD, acute tracheobronchitis Acute on chronic hypoxemic respiratory failure Generalized anxiety disorder History of recent RSV infection 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 Continue same treatment. Continue with symptomatic treatment. Resume home medication. Monitor labs and vitals. DVT and GI prophylaxis. Further recommendations as per clinical course of the patient DVT prophylaxis: Subcutaneous Lovenox GI Prophylaxis: Ppi
--- NOTE | 2023-05-23 16:34 | P.PN ---
Subjective Progress Note Date: 05/23/23 This is a 72-year-old female patient who was discharged to [facility] on 05/09/2023 after having a prolonged hospitalization where she was treated for complications of advanced COPD exacerbation due to a RSV infection. The patient during her course of her previous hospitalization, the patient required BiPAP therapy for respiratory support and ultimately she was released to the [facility] on a BiPAP at a pressure of 16 over 6 cm of water. She is nonambulatory. She has advanced COPD and she is oxygen dependent and she has been maintained on a combination of Spiriva and Symbicort on outpatient basis. The patient was doing well and she developed some worsening shortness of breath over the past 24 hours and for that reason the patient was sent back to the hospital for reevaluation. She was on BiPAP at the [facility] facility to support her breathing. During this current admission, her viral screen is negative. The chest x-ray was repeated and the patient was not found to have any acute abnormalities and the findings were essentially chronic and the patient has degenerative changes involving her shoulder and chronic interstitial markings bilaterally without any airspace disease or consolidation. She is awake and alert and she is communicating. Currently she is on oxygen at 5 L with a pulse ox of 95% and this is her baseline oxygen requirements. White cell count of 5.9 with hemoglobin 9.9, BUN is at 30 with a creatinine of 0.4. Troponins are negative. proBNP level is 68. Based on her worsening shortness of breath, she was readmitted to the hospital and started on treatment. On 05/20/2023, the patient has no specific complaints. She is improved compared to yesterday. Less bronchospastic and wheezy. She was able to utilize the BiPAP overnight at the pressure of 8 over 4 cm of water and she is able to tolerate lower pressures of BiPAP more effectively. She remains on DuoNeb updrafts. She remains on IV Solu-Medrol. She is tolerating her diet. She is resting comfortably in bed. No altered mentation. No chest pain. No other new labs from today. 05/21/2023, no new complaints. The patient continues to her BiPAP at a pressure of 8 over 4 cm of water. Resting comfortably in bed. No chest pain. Remains on DuoNeb updrafts. Remains on IV Solu-Medrol. No altered mentation. She has increased anxiety and the patient is on Ativan. White cell count at 6.8 with a hemoglobin 8.5. Sodium level is at 142, potassium level is at 4.3, bicarb is at 34, BUN is at 18 with a creatinine of 0.2. Viral screen has been negative during this current admission. No other new complaints otherwise for now. She remains on Lovenox for DVT prophylaxis. On today's evaluation of 05/22/2023, the patient has no specific complaints. Stable and she is using on and off the BiPAP during the day and continuous at nighttime. She is currently on a BiPAP pressure of 8 over 4 cm of water. No altered mentation. No chest pain. Tolerating diet. She is nonambulatory and she is bedridden. She is on Lovenox for DVT prophylaxis. No new labs are available from today. She is using the incentive spirometer. No chest pain. No pleurisy. No hemoptysis. Once off the BiPAP, the patient typically close on 5 L of oxygen by nasal cannula. She is a retirement resident. She has advanced COPD. On 05/23/2023, the patient is stable. No acute or new complaints. She is having some constipation and the patient is requesting laxatives. Going to add lactulose. She has not responded adequately to milk of mag and suppositories. She is using the BiPAP on and off at a pressure of 8 over 4 cm of water patient was taken off the IV Solu-Medrol yesterday and started on a prednisone burst taper. She remains on DuoNeb nebulized episodic 5. She is also on Symbicort. She is on Lovenox for DVT prophylaxis.The blood work from today shows a WBC count 6.3 with a hemoglobin 9.5 and a platelet count of 274. Objective - Vital Signs Vital signs: Vital Signs Temp 98.6 F 05/23/23 07:35 Pulse 84 05/23/23 09:09 Resp 18 05/23/23 07:35 BP 110/67 05/23/23 07:35 Pulse Ox 97 05/23/23 08:57 FiO2 40 05/23/23 08:57 Intake & Output 05/22/23 05/23/23 05/23/23 18:59 06:59 18:59 Other: Voiding Method Diaper Diaper # Voids 2 3 # Bowel Movements 4 - Exam GENERAL EXAM: Alert, 72-year-old white female, fairly comfortable in no apparent distress on 5 L of oxygen by nasal cannula HEAD: Normocephalic and atraumatic EYES: Normal reaction of pupils, equal size. NOSE: Clear with pink turbinates. THROAT: No erythema or exudates. NECK: No masses, no JVD. CHEST: No chest wall deformity. LUNGS: Equal air entry with expiratory wheezes heard throughout. The patient is calm and comfortable, not using accessory muscles of breathing and she is communicating. CVS: S1 and S2 normal with no audible murmur, regular rhythm. No extra heart sounds ABDOMEN: No hepatosplenomegaly, active bowel sounds, no guarding or rigidity. SPINE: No scoliosis or deformity SKIN: No rashes CENTRAL NERVOUS SYSTEM: No focal deficits, tone is normal in all 4 extremities. Awake and oriented and communicating. EXTREMITIES: There is no peripheral edema, clubbing, or cyanosis. Peripheral pulses are intact. - Labs CBC & Chem 7: 05/23/23 04:33 05/21/23 04:27 Labs: Abnormal Lab Results - Last 24 Hours (Table) 05/23/23 Range/Units 04:33 RBC 3.54 L (4.10-5.20) X 10*6/uL Hgb 9.5 L (12.0-15.0) g/dL Hct 32.1 L (37.2-46.3) % MCH 26.8 L (27.0-32.0) pg MCHC 29.6 L (32.0-37.0) g/dL RDW 15.4 H (11.5-14.5) % Immature Gran # 0.30 H (0.00-0.04) X 10*3/uL Microbiology - Last 24 Hours (Table) 05/19/23 03:00 Blood Culture - Preliminary Blood 05/19/23 02:55 Blood Culture - Preliminary Blood Assessment and Plan Plan: Acute exacerbation of chronic COPD without any significant interval worsening in oxygenation and chest x-ray findings are essentially unchanged and showing stable advanced COPD. Clinically improving. Recent hospitalization for an acute stroke exacerbation Attributed to an acute RSV infection and the patient required prolonged hospitalization she was ultimately discharged on 05/09/2023 and she has been utilizing a BiPAP at the ECF facility and she was also on the maintenance prednisone of 5 mg p.o. daily in combination with Spiriva and Symbicort as maintenance for COPD and DuoNeb updrafts. Chronic hypoxic respiratory failure maintained on O2 at 5 L/min nasal cannula Former smoker Generalized anxiety disorder Chronic lumbar spine disease along with lower extremity weakness and the patient is nonambulatory Plan Will offer lactulose for constipation. Overall condition is stable and the patient is on bronchodilators and a prednisone burst taper. Continues to use the BiPAP on and off during the day. The patient is able to tolerate the BiPAP at a lower pressure of 8 over 4 cm of water. This will be continued overnight and on and off during the day. Will treat this patient with DuoNeb updrafts Continue Symbicort 2 puffs twice a day Empiric antibiotic coverage with IV Rocephin although there is no clear indication for bacterial pneumonia Lovenox for DVT prophylaxis Will continue to follow. Long-term prognosis poor based on her advanced COPD, p ossible transfer to retirement tomorrow Anxiety level is improved and the patient is currently taking Ativan [id number].
[2023-05-23] MEDS: LACTULOSE 20 GM/30 ML CUP PO SCH (20:05)
[2023-05-24] MEDS: IPRATROPIUM-ALBUTEROL 3 ML NEB INHALATION PRN (05:27)
--- NOTE | 2023-05-24 12:23 | P.PN ---
Subjective 72-year-old patient with history of COPD, bronchitis, chronic hypoxemic respiratory failure history of anxiety on 5 L of oxygen at home presents to the emergency department with complaints of shortness of breath. Patient was discharged to rehab facility. Patient was recently admitted for approximately 10 days in the hospital with complaints of shortness of breath and during that time patient was on BiPAP. Patient was seen by pulmonary medicine during that hospitalization as well. Patient was treated for acute bronchitis during previous hospitalization. At time of presentation in ER patient was noted to be 5 L of oxygen tachycardic with a heart rate of 104, patient had a chest x-ray done which showed chronic changes consistent with emphysema,. Blood work obtained showed WBC 5.9 hemoglobin 9.9 platelet count of 282. INR of 0.9. Serum chemistry sodium 140 potassium 3.7 carbon dioxide 38 BUN 13 creatinine 0.41 Patient tested negative for influenza, RSV and COVID Patient given breathing treatments IV Rocephin and Solu-Medrol. Patient has multiple antibiotic allergies patient started on Solu-Medrol Mucinex with consultation from pulmonary medicine 05/20/23: Patient seen and evaluated at bedside, patient seen by Pulmonary Medicine, started on IV fluid noted to have transient hypotension. Continue patient on breathing treatment patient does have a lot of productive phlegm, continue on Rocephin for underlying tracheobronchitis. Continue Mucinex. Patient on BiPAP through the night, minimal pressures 8 x 4 on 40% FiO2 patient has recurrent hospitalization prognosis remains guarded. Will need discharge to subacute rehab once medically ready 05/21/2027 Patient carmen on BiPAP while off BiPAP she is on 5 L/min which is her home dose of oxygen Patient tolerates low-pressure BiPAP, mainly overnight and on and off during the day And IV Solu-Medrol 60 mg Ceftriaxone which could be discontinued upon discharge 05/22/2023 pt dyspnea is improving slowly and gradually she is on low pressure bipap she on 5 l/m of oxygen witch is her home dose change solumedrol to prednisone 40 mg daily possible dc in 24-48 hr if she keep improving 05/23/2023 Patient presents stable, currently she is in the prednisone use and BiPAP at night Physical performed constipation and lactulose was added Continue to improve slowly and gradually Possible discharge in 24-48 hours if she gets improvement 05/24/2023 Patient patient is stable, she is using BiPAP this morning but she is fully awake and oriented. Breathing required. She is still on lactulose she had low bowel movement not enough for her.. Currently she is taking lactulose 30 mg twice daily No other new complaints Case discussed with patient case coordinator, patient will need new physical therapy note before she can go back to her ECF. This most likely will not happen before Friday. Will keep monitoring closely while she is on prednisone 40 mg Patient with no fever or leukocytosis. Patient finished her course of 5 days of ceftriaxone. Will discontinue and keep monitoring while off antibiotic Objective - Vital Signs Vital signs: Vital Signs Temp 98.2 F 05/24/23 07:25 Pulse 90 05/24/23 09:57 Resp 16 05/24/23 07:25 BP 100/62 05/24/23 07:25 Pulse Ox 98 05/24/23 07:25 FiO2 40 05/24/23 09:44 Intake & Output 05/23/23 05/24/23 05/24/23 18:59 06:59 18:59 Intake Total 480 Balance 480 Intake: Oral 480 Other: Voiding Method Diaper Diaper Diaper # Voids 3 3 1 # Bowel Movements 1 1 - Exam GENERAL: The patient is alert and oriented x3, not in any acute distress. Well developed, well nourished. HEENT: Pupils are round and equally reacting to light. EOMI. No scleral icterus. No conjunctival pallor. Normocephalic, atraumatic. No pharyngeal erythema. No thyromegaly. CARDIOVASCULAR: S1 and S2 present. No murmurs, rubs, or gallops. -PULMONARY: Chest is clear to auscultation, bilateral scattered wheezing , no crackles. ABDOMEN: Soft, nontender, nondistended, normoactive bowel sounds. No palpable organomegaly. MUSCULOSKELETAL: No joint swelling or deformity. EXTREMITIES: No cyanosis, clubbing, or pedal edema. NEUROLOGICAL: Gross neurological examination did not reveal any focal deficits. SKIN: No rashes. no petechiae. 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 Continue same treatment. Continue with symptomatic treatment. Resume home medication. Monitor labs and vitals. DVT and GI prophylaxis. Further recommendations as per clinical course of the patient DVT prophylaxis: Subcutaneous Lovenox GI Prophylaxis: Ppi
--- NOTE | 2023-05-24 12:48 | P.PN ---
Subjective Progress Note Date: 05/24/23 This is a 72-year-old female patient who was discharged to [facility] on 05/09/2023 after having a prolonged hospitalization where she was treated for complications of advanced COPD exacerbation due to a RSV infection. The patient during her course of her previous hospitalization, the patient required BiPAP therapy for respiratory support and ultimately she was released to the [facility] on a BiPAP at a pressure of 16 over 6 cm of water. She is nonambulatory. She has advanced COPD and she is oxygen dependent and she has been maintained on a combination of Spiriva and Symbicort on outpatient basis. The patient was doing well and she developed some worsening shortness of breath over the past 24 hours and for that reason the patient was sent back to the hospital for reevaluation. She was on BiPAP at the [facility] facility to support her breathing. During this current admission, her viral screen is negative. The chest x-ray was repeated and the patient was not found to have any acute abnormalities and the findings were essentially chronic and the patient has degenerative changes involving her shoulder and chronic interstitial markings bilaterally without any airspace disease or consolidation. She is awake and alert and she is communicating. Currently she is on oxygen at 5 L with a pulse ox of 95% and this is her baseline oxygen requirements. White cell count of 5.9 with hemoglobin 9.9, BUN is at 30 with a creatinine of 0.4. Troponins are negative. proBNP level is 68. Based on her worsening shortness of breath, she was readmitted to the hospital and started on treatment. On 05/20/2023, the patient has no specific complaints. She is improved compared to yesterday. Less bronchospastic and wheezy. She was able to utilize the BiPAP overnight at the pressure of 8 over 4 cm of water and she is able to tolerate lower pressures of BiPAP more effectively. She remains on DuoNeb updrafts. She remains on IV Solu-Medrol. She is tolerating her diet. She is resting comfortably in bed. No altered mentation. No chest pain. No other new labs from today. 05/21/2023, no new complaints. The patient continues to her BiPAP at a pressure of 8 over 4 cm of water. Resting comfortably in bed. No chest pain. Remains on DuoNeb updrafts. Remains on IV Solu-Medrol. No altered mentation. She has increased anxiety and the patient is on Ativan. White cell count at 6.8 with a hemoglobin 8.5. Sodium level is at 142, potassium level is at 4.3, bicarb is at 34, BUN is at 18 with a creatinine of 0.2. Viral screen has been negative during this current admission. No other new complaints otherwise for now. She remains on Lovenox for DVT prophylaxis. On today's evaluation of 05/22/2023, the patient has no specific complaints. Stable and she is using on and off the BiPAP during the day and continuous at nighttime. She is currently on a BiPAP pressure of 8 over 4 cm of water. No altered mentation. No chest pain. Tolerating diet. She is nonambulatory and she is bedridden. She is on Lovenox for DVT prophylaxis. No new labs are available from today. She is using the incentive spirometer. No chest pain. No pleurisy. No hemoptysis. Once off the BiPAP, the patient typically close on 5 L of oxygen by nasal cannula. She is a prison resident. She has advanced COPD. On 05/23/2023, the patient is stable. No acute or new complaints. She is having some constipation and the patient is requesting laxatives. Going to add lactulose. She has not responded adequately to milk of mag and suppositories. She is using the BiPAP on and off at a pressure of 8 over 4 cm of water patient was taken off the IV Solu-Medrol yesterday and started on a prednisone burst taper. She remains on DuoNeb nebulized episodic 5. She is also on Symbicort. She is on Lovenox for DVT prophylaxis.The blood work from today shows a WBC count 6.3 with a hemoglobin 9.5 and a platelet count of 274. 10/2023, the patient is stable. No new complaints. Utilizing the BiPAP on and off. Prednisone burst taper. Bronchodilators. No altered mentation. Anxiety level is Adequately controlled. No new labs are available from today. Medications remain unchanged. Objective - Vital Signs Vital signs: Vital Signs Temp 98.2 F 05/24/23 07:25 Pulse 90 05/24/23 09:57 Resp 16 05/24/23 07:25 BP 100/62 05/24/23 07:25 Pulse Ox 98 05/24/23 07:25 FiO2 40 05/24/23 09:44 Intake & Output 05/23/23 05/24/23 05/24/23 18:59 06:59 18:59 Intake Total 480 Balance 480 Intake: Oral 480 Other: Voiding Method Diaper Diaper Diaper # Voids 3 3 1 # Bowel Movements 1 1 - Exam GENERAL EXAM: Alert, 72-year-old white female, fairly comfortable in no apparent distress on 5 L of oxygen by nasal cannula HEAD: Normocephalic and atraumatic EYES: Normal reaction of pupils, equal size. NOSE: Clear with pink turbinates. THROAT: No erythema or exudates. NECK: No masses, no JVD. CHEST: No chest wall deformity. LUNGS: Equal air entry with expiratory wheezes heard throughout. The patient is calm and comfortable, not using accessory muscles of breathing and she is communicating. CVS: S1 and S2 normal with no audible murmur, regular rhythm. No extra heart sounds ABDOMEN: No hepatosplenomegaly, active bowel sounds, no guarding or rigidity. SPINE: No scoliosis or deformity SKIN: No rashes CENTRAL NERVOUS SYSTEM: No focal deficits, tone is normal in all 4 extremities. Awake and oriented and communicating. EXTREMITIES: There is no peripheral edema, clubbing, or cyanosis. Peripheral pulses are intact. - Labs CBC & Chem 7: 05/23/23 04:33 05/21/23 04:27 Assessment and Plan Plan: Acute exacerbation of chronic COPD without any significant interval worsening in oxygenation and chest x-ray findings are essentially unchanged and showing stable advanced COPD. Clinically improving. Recent hospitalization for an acute stroke exacerbation Attributed to an acute RSV infection and the patient required prolonged hospitalization she was ultimately discharged on 05/09/2023 and she has been utilizing a BiPAP at the [facility] facility and she was also on the maintenance prednisone of 5 mg p.o. daily in combination with Spiriva and Symbicort as maintenance for COPD and DuoNeb updrafts. Chronic hypoxic respiratory failure maintained on O2 at 5 L/min nasal cannula Former smoker Generalized anxiety disorder Chronic lumbar spine disease along with lower extremity weakness and the patient is nonambulatory Plan Continue same treatment Constipation has improved Prednisone burst taper Bronchodilators with DuoNeb updrafts Symbicort as maintenance Continues to use the BiPAP on and off during the day. The patient is able to tolerate the BiPAP at a lower pressure of 8 over 4 cm of water. This will be continued overnight and on and off during the day. Lovenox for DVT prophylaxis Will continue to follow. Long-term prognosis poor based on her advanced COPD, possible transfer to prison tomorrow Anxiety level is improved and the patient is currently taking Ativan [id number].
--- NOTE | 2023-05-25 17:55 | P.PN ---
Subjective Progress Note Date: 05/25/23 This is a 72-year-old female patient who was discharged to [facility] on 05/09/2023 after having a prolonged hospitalization where she was treated for complications of advanced COPD exacerbation due to a RSV infection. The patient during her course of her previous hospitalization, the patient required BiPAP therapy for respiratory support and ultimately she was released to the [facility] on a BiPAP at a pressure of 16 over 6 cm of water. She is nonambulatory. She has advanced COPD and she is oxygen dependent and she has been maintained on a combination of Spiriva and Symbicort on outpatient basis. The patient was doing well and she developed some worsening shortness of breath over the past 24 hours and for that reason the patient was sent back to the hospital for reevaluation. She was on BiPAP at the [facility] facility to support her breathing. During this current admission, her viral screen is negative. The chest x-ray was repeated and the patient was not found to have any acute abnormalities and the findings were essentially chronic and the patient has degenerative changes involving her shoulder and chronic interstitial markings bilaterally without any airspace disease or consolidation. She is awake and alert and she is communicating. Currently she is on oxygen at 5 L with a pulse ox of 95% and this is her baseline oxygen requirements. White cell count of 5.9 with hemoglobin 9.9, BUN is at 30 with a creatinine of 0.4. Troponins are negative. proBNP level is 68. Based on her worsening shortness of breath, she was readmitted to the hospital and started on treatment. On 05/20/2023, the patient has no specific complaints. She is improved compared to yesterday. Less bronchospastic and wheezy. She was able to utilize the BiPAP overnight at the pressure of 8 over 4 cm of water and she is able to tolerate lower pressures of BiPAP more effectively. She remains on DuoNeb updrafts. She remains on IV Solu-Medrol. She is tolerating her diet. She is resting comfortably in bed. No altered mentation. No chest pain. No other new labs from today. 05/21/2023, no new complaints. The patient continues to her BiPAP at a pressure of 8 over 4 cm of water. Resting comfortably in bed. No chest pain. Remains on DuoNeb updrafts. Remains on IV Solu-Medrol. No altered mentation. She has increased anxiety and the patient is on Ativan. White cell count at 6.8 with a hemoglobin 8.5. Sodium level is at 142, potassium level is at 4.3, bicarb is at 34, BUN is at 18 with a creatinine of 0.2. Viral screen has been negative during this current admission. No other new complaints otherwise for now. She remains on Lovenox for DVT prophylaxis. On today's evaluation of 05/22/2023, the patient has no specific complaints. Stable and she is using on and off the BiPAP during the day and continuous at nighttime. She is currently on a BiPAP pressure of 8 over 4 cm of water. No altered mentation. No chest pain. Tolerating diet. She is nonambulatory and she is bedridden. She is on Lovenox for DVT prophylaxis. No new labs are available from today. She is using the incentive spirometer. No chest pain. No pleurisy. No hemoptysis. Once off the BiPAP, the patient typically close on 5 L of oxygen by nasal cannula. She is a assisted resident. She has advanced COPD. On 05/23/2023, the patient is stable. No acute or new complaints. She is having some constipation and the patient is requesting laxatives. Going to add lactulose. She has not responded adequately to milk of mag and suppositories. She is using the BiPAP on and off at a pressure of 8 over 4 cm of water patient was taken off the IV Solu-Medrol yesterday and started on a prednisone burst taper. She remains on DuoNeb nebulized episodic 5. She is also on Symbicort. She is on Lovenox for DVT prophylaxis.The blood work from today shows a WBC count 6.3 with a hemoglobin 9.5 and a platelet count of 274. 10/2023, the patient is stable. No new complaints. Utilizing the BiPAP on and off. Prednisone burst taper. Bronchodilators. No altered mentation. Anxiety level is Adequately controlled. No new labs are available from today. Medications remain unchanged. On 05/25/2023, the patient has stable. No new complaints. Resting comfortably in bed. Overall condition is stable. No new labs from today. Anxiety levels are low. No chest pain. Tolerating diet. Currently on a prednisone burst taper. Still on bronchodilators and BiPAP on and off during the day. No interval change. Going to assisted tomorrow. Objective - Vital Signs Vital signs: Vital Signs Temp 97.6 F 05/25/23 07:45 Pulse 87 05/25/23 12:46 Resp 18 05/25/23 07:45 BP 91/58 05/25/23 10:14 Pulse Ox 97 05/25/23 10:12 FiO2 40 05/25/23 12:38 Intake & Output 05/24/23 05/25/23 05/25/23 18:59 06:59 18:59 Intake Total 960 Balance 960 Intake: Oral 960 Other: Voiding Method Diaper Diaper Diaper # Voids 2 3 1 # Bowel Movements 1 1 - Exam GENERAL EXAM: Alert, 72-year-old white female, fairly comfortable in no apparent distress on 5 L of oxygen by nasal cannula HEAD: Normocephalic and atraumatic EYES: Normal reaction of pupils, equal size. NOSE: Clear with pink turbinates. THROAT: No erythema or exudates. NECK: No masses, no JVD. CHEST: No chest wall deformity. LUNGS: Equal air entry with expiratory wheezes heard throughout. The patient is calm and comfortable, not using accessory muscles of breathing and she is communicating. CVS: S1 and S2 normal with no audible murmur, regular rhythm. No extra heart sounds ABDOMEN: No hepatosplenomegaly, active bowel sounds, no guarding or rigidity. SPINE: No scoliosis or deformity SKIN: No rashes CENTRAL NERVOUS SYSTEM: No focal deficits, tone is normal in all 4 extremities. Awake and oriented and communicating. EXTREMITIES: There is no peripheral edema, clubbing, or cyanosis. Peripheral pulses are intact. - Labs CBC & Chem 7: 05/23/23 04:33 05/21/23 04:27 Labs: Microbiology - Last 24 Hours (Table) 05/19/23 03:00 Blood Culture - Final Blood 05/19/23 02:55 Blood Culture - Final Blood Assessment and Plan Plan: Acute exacerbation of chronic COPD without any significant interval worsening in oxygenation and chest x-ray findings are essentially unchanged and showing stable advanced COPD. Clinically improved and stable Recent hospitalization for an acute stroke exacerbation Attributed to an acute RSV infection and the patient required prolonged hospitalization she was ultimately discharged on 05/09/2023 and she has been utilizing a BiPAP at the [facility] facility and she was also on the maintenance prednisone of 5 mg p.o. daily in combination with Spiriva and Symbicort as maintenance for COPD and DuoNeb updrafts. 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 The patient is able to tolerate the BiPAP at a lower pressure of 8 over 4 cm of water. This will be continued overnight and on and off during the day. Lovenox for DVT prophylaxis Will continue to follow. Long-term prognosis poor based on her advanced COPD, possible transfer to assisted tomorrow Anxiety level is improved and the patient is currently taking Ativan [id number].
--- NOTE | 2023-05-25 20:19 | P.PN ---
Subjective 72-year-old patient with history of COPD, bronchitis, chronic hypoxemic respiratory failure history of anxiety on 5 L of oxygen at home presents to the emergency department with complaints of shortness of breath. Patient was discharged to rehab facility. Patient was recently admitted for approximately 10 days in the hospital with complaints of shortness of breath and during that time patient was on BiPAP. Patient was seen by pulmonary medicine during that hospitalization as well. Patient was treated for acute bronchitis during previous hospitalization. At time of presentation in ER patient was noted to be 5 L of oxygen tachycardic with a heart rate of 104, patient had a chest x-ray done which showed chronic changes consistent with emphysema,. Blood work obtained showed WBC 5.9 hemoglobin 9.9 platelet count of 282. INR of 0.9. Serum chemistry sodium 140 potassium 3.7 carbon dioxide 38 BUN 13 creatinine 0.41 Patient tested negative for influenza, RSV and COVID Patient given breathing treatments IV Rocephin and Solu-Medrol. Patient has multiple antibiotic allergies patient started on Solu-Medrol Mucinex with consultation from pulmonary medicine 05/20/23: Patient seen and evaluated at bedside, patient seen by Pulmonary Medicine, started on IV fluid noted to have transient hypotension. Continue patient on breathing treatment patient does have a lot of productive phlegm, continue on Rocephin for underlying tracheobronchitis. Continue Mucinex. Patient on BiPAP through the night, minimal pressures 8 x 4 on 40% FiO2 patient has recurrent hospitalization prognosis remains guarded. Will need discharge to subacute rehab once medically ready 05/21/2027 Patient carmen on BiPAP while off BiPAP she is on 5 L/min which is her home dose of oxygen Patient tolerates low-pressure BiPAP, mainly overnight and on and off during the day And IV Solu-Medrol 60 mg Ceftriaxone which could be discontinued upon discharge 05/22/2023 pt dyspnea is improving slowly and gradually she is on low pressure bipap she on 5 l/m of oxygen witch is her home dose change solumedrol to prednisone 40 mg daily possible dc in 24-48 hr if she keep improving 05/23/2023 Patient presents stable, currently she is in the prednisone use and BiPAP at night Physical performed constipation and lactulose was added Continue to improve slowly and gradually Possible discharge in 24-48 hours if she gets improvement 05/24/2023 Patient patient is stable, she is using BiPAP this morning but she is fully awake and oriented. Breathing required. She is still on lactulose she had low bowel movement not enough for her.. Currently she is taking lactulose 30 mg twice daily No other new complaints Case discussed with registered nurse hh case manager, patient will need new physical therapy note before she can go back to her [facility]. This most likely will not happen before Friday. Will keep monitoring closely while she is on prednisone 40 mg Patient with no fever or leukocytosis. Patient finished her course of 5 days of ceftriaxone. Will discontinue and keep monitoring while off antibiotic 05/25/2023 Urine continue to improve and she is back close to baseline She had bowel movement last night although it was hard No abdominal pain No other new complaint Possible discharge in 24 to 48 hours Objective - Vital Signs Vital signs: Vital Signs Temp 97.6 F 05/25/23 07:45 Pulse 88 05/25/23 10:14 Resp 18 05/25/23 07:45 BP 91/58 05/25/23 10:14 Pulse Ox 97 05/25/23 10:12 FiO2 40 05/25/23 09:48 Intake & Output 05/24/23 05/25/23 05/25/23 18:59 06:59 18:59 Intake Total 960 Balance 960 Intake: Oral 960 Other: Voiding Method Diaper Diaper Diaper # Voids 2 3 1 # Bowel Movements 1 1 - Exam GENERAL: The patient is alert and oriented x3, not in any acute distress. Well developed, well nourished. HEENT: Pupils are round and equally reacting to light. EOMI. No scleral icterus. No conjunctival pallor. Normocephalic, atraumatic. No pharyngeal erythema. No thyromegaly. CARDIOVASCULAR: S1 and S2 present. No murmurs, rubs, or gallops. -PULMONARY: Chest is clear to auscultation, bilateral scattered wheezing , no crackles. ABDOMEN: Soft, nontender, nondistended, normoactive bowel sounds. No palpable organomegaly. MUSCULOSKELETAL: No joint swelling or deformity. EXTREMITIES: No cyanosis, clubbing, or pedal edema. NEUROLOGICAL: Gross neurological examination did not reveal any focal deficits. SKIN: No rashes. no petechiae. - Labs CBC & Chem 7: 05/23/23 04:33 05/21/23 04:27 Labs: Microbiology - Last 24 Hours (Table) 05/19/23 03:00 Blood Culture - Final Blood 05/19/23 02:55 Blood Culture - Final Blood Assessment and Plan Assessment: Acute exacerbation of COPD, acute tracheobronchitis Acute on chronic hypoxemic respiratory failure Generalized anxiety disorder History of recent RSV infection Chronic lumbar spine disease with lower extremity weakness patient is nonambulatory and alf resident Plan: Continue with prednisone Discontinue ceftriaxone Pulmonary team consult continue with lactulose and monitor bowel movements Continue with bronchodilators Labs and medication were reviewed.. Continue same treatment. Continue with symptomatic treatment. Resume home medication. Monitor labs and vitals. DVT and GI prophylaxis. Further recommendations as per clinical course of the patient DVT prophylaxis: Subcutaneous Lovenox GI Prophylaxis: Ppi
--- NOTE | 2023-05-26 06:19 | P.DS ---
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 Patient was discharged to rehab facility. Patient was recently admitted for approximately 10 days in the hospital with complaints of shortness of breath and during that time patient was on BiPAP. Patient was seen by pulmonary medicine during that hospitalization as well. Patient was treated for acute bronchitis during pr evious hospitalization. Patient was admitted with a diagnosis with acute COPD exacerbation with possible elements of acute tracheobronchitis and worsening hypoxia, she was treated with antibiotics and steroid x-ray showed interval improvement, pulmonary team will follow closely. Patient also was on BiPAP machine at her F however it was on high setting so she could not tolerated. Currently she tolerates BiPAP with less pressure settings. While she is off BiPAP she is on 5 L oxygen via nasal cannula. Patient steroids switched to prednisone and patient had bowel movement with laxative. Today she feels improved with no more dyspnea or chest pain. No abdominal pain cramping or diarrhea. She has regular bowel movement. No other new complaint and she agrees to go to [facility] today I discussed the case with pulmonary team since yesterday who cleared her for discharge. Patient will be discharged on tapered steroids. She finished her course of antibiotics and she does not need any more Problems and management plan were discussed with the patient and he verbalized understanding and acceptance Patient was found stable and can be discharged home in guarded prognosis however he needs follow-up as an outpatient. Patient was instructed to follow up with PCP within one week and patient agrees Patient instructed to follow-up with farmworker field crop Dr. Chambers in 2 to 3 weeks after discharge and she agrees Physical exam Gen: patient is a AAOx3, no distress CVS: S1-S2, RRR, no murmur Lungs: B/L CTA, no wheezing Abdomen: soft, no distention, no tenderness, positive bowel sounds Extremity: no leg edema or induration Time spent more than 35 minutes Patient Condition at Discharge: Stable Plan - Discharge Summary Discharge Rx Participant: No New Discharge Prescriptions: New predniSONE 10 mg PO DIRECTED #25 tab Continue traZODone HCL [Desyrel] 50 mg PO HS Tiotropium [place] [Spiriva Handihaler] 1 puff INHALATION RT-DAILY Sodium Chloride [Saline Mist] 1 spray EA NOSTRIL TID Promethazine HCl 12.5 mg PO Q6H PRN PRN Reason: Nausea predniSONE 5 mg PO DAILY Omeprazole 20 mg PO DAILY Multivitamins, Thera [Multivitamin (formulary)] 1 tab PO DAILY Magnesium Hydroxide [Milk of Magnesia] 2,400 mg PO DAILY PRN PRN Reason: Constipation Ipratropium-Albuterol Nebulize [Duoneb 0.5 mg-3 mg/3 ml Soln] 3 ml INHALATION RT-Q6H PRN PRN Reason: Shortness Of Breath Fluticasone Nasal [place] [Flonase Nasal [place]] 1 spray EA NOSTRIL Q12H PRN PRN Reason: AIRWAY PATENCY Diclofenac Sodium Gel [Voltaren 1% Gel] 1 applic TOPICAL Q6H PRN PRN Reason: Pain Cholecalciferol [Vitamin D3 (125 Mcg = 5000 Iu)] 125 mcg PO DAILY Calcium Carbonate [Tums] 500 mg PO Q4H PRN PRN Reason: ACID REFLUX busPIRone HCL 15 mg PO BID Budesonide/Formoterol Fumarate [Symbicort 160-4.5 Mcg Inhaler] 2 puff INHALATION RT-BID Sucralfate [Carafate] 1 gm PO TID polyethylene glycoL 3350 [Miralax] 17 gm PO DAILY PRN PRN Reason: Constipation Acetaminophen Tab [Tylenol] 650 mg PO Q6H PRN PRN Reason: Pain Or Fever > 100.5 Docusate [Colace] 100 mg PO BID Benzocaine 20 % Gel [Orajel] 1 applic DENTAL Q6H PRN PRN Reason: DENTAL PAIN L.acidoph,Paracasei, B.lactis [Probiotic] 1 cap PO DAILY Aspirin EC [Ecotrin Low Dose] 81 mg PO DAILY Albuterol Inhaler [Ventolin Hfa Inhaler] 2 puff INHALATION RT-Q4H PRN PRN Reason: Shortness Of Breath LORazepam [Ativan] 1 mg PO TID 3 Days #9 tab guaiFENesin [guaiFENesin Oral Solution] 200 mg PO Q6H PRN PRN Reason: Cough Benzonatate [Tessalon Perle] 200 mg PO Q8H PRN PRN Reason: AIRWAY PATENCY Discharge Medication List Acetaminophen Tab [Tylenol] 650 mg PO Q6H PRN 04/27/23 [History] Albuterol Inhaler [Ventolin Hfa Inhaler] 2 puff INHALATION RT-Q4H PRN 04/27/23 [History] Aspirin EC [Ecotrin Low Dose] 81 mg PO DAILY 04/27/23 [History] Benzocaine 20 % Gel [Orajel] 1 applic DENTAL Q6H PRN 04/27/23 [History] Budesonide/Formoterol Fumarate [Symbicort 160-4.5 Mcg Inhaler] 2 puff INHALATION RT-BID 04/27/23 [History] Calcium Carbonate [Tums] 500 mg PO Q4H PRN 04/27/23 [History] Cholecalciferol [Vitamin D3 (125 Mcg = 5000 Iu)] 125 mcg PO DAILY 04/27/23 [History] Diclofenac Sodium Gel [Voltaren 1% Gel] 1 applic TOPICAL Q6H PRN 04/27/23 [History] Docusate [Colace] 100 mg PO BID 04/27/23 [History] Fluticasone Nasal [place] [Flonase Nasal [place]] 1 spray EA NOSTRIL Q12H PRN 04/27/23 [History] Ipratropium-Albuterol Nebulize [Duoneb 0.5 mg-3 mg/3 ml Soln] 3 ml INHALATION RT-Q6H PRN 04/27/23 [History] L.acidoph,Paracasei, B.lactis [Probiotic] 1 cap PO DAILY 04/27/23 [History] Magnesium Hydroxide [Milk of Magnesia] 2,400 mg PO DAILY PRN 04/27/23 [History] Multivitamins, Thera [Multivitamin (formulary)] 1 tab PO DAILY 04/27/23 [History] Omeprazole 20 mg PO DAILY 04/27/23 [History] Promethazine HCl 12.5 mg PO Q6H PRN 04/27/23 [History] Sodium Chloride [Saline Mist] 1 spray EA NOSTRIL TID 04/27/23 [History] Sucralfate [Carafate] 1 gm PO TID 04/27/23 [History] Tiotropium [place] [Spiriva Handihaler] 1 puff INHALATION RT-DAILY 04/27/23 [History] busPIRone HCL 15 mg PO BID 04/27/23 [History] polyethylene glycoL 3350 [Miralax] 17 gm PO DAILY PRN 04/27/23 [History] predniSONE 5 mg PO DAILY 04/27/23 [History] traZODone HCL [Desyrel] 50 mg PO HS 04/27/23 [History] LORazepam [Ativan] 1 mg PO TID 3 Days #9 tab 05/08/23 [Rx] Benzonatate [Tessalon Perle] 200 mg PO Q8H PRN 05/19/23 [History] guaiFENesin [guaiFENesin Oral Solution] 200 mg PO Q6H PRN 05/19/23 [History] predniSONE 10 mg PO DIRECTED #25 tab 05/26/23 [Rx] Follow up Appointment(s)/Referral(s): Mauro Young, [NON-STAFF] - As Needed Nonstaff,Physician [Primary Care Provider] - 1-2 days Dionicio Chambers MD [STAFF PHYSICIAN] - 3 Weeks Discharge Disposition: TRANSFER TO SNF/ECF
[2023-05-26 07:56] VITALS: BP 97/67; RESP 16; TEMP 97.3
[2023-05-26 12:00] VITALS: PULSE 78
== END 2023-05-26 14:59 | DRG 190 ==
LOC: EC 02:30 → 4SSUR 05:14 → OBSVTOIN 05:15 → 4SSUR 23:23
PROVIDERS: ADMIT Internal Medicine; ATTEND Internal Medicine
PROC: 5A09357 Assistance with Respiratory Ventilation, Less than 24 Consecutive Hours, Continuous Positive Airway Pressure (ICD-10-PCS; principal; 2023-05-19)
DX: J44.1 Chronic obstructive pulmonary disease with (acute) exacerbation (principal); J96.21 Acute and chronic respiratory failure with hypoxia; J44.0 Chronic obstructive pulmonary disease with (acute) lower respiratory infection; Z99.81 Dependence on supplemental oxygen; J20.9 Acute bronchitis, unspecified; M47.816 Spondylosis without myelopathy or radiculopathy, lumbar region; M48.061 Spinal stenosis, lumbar region without neurogenic claudication; F41.1 Generalized anxiety disorder; K59.00 Constipation, unspecified; R03.1 Nonspecific low blood-pressure reading; Z74.01 Bed confinement status; Z87.891 Personal history of nicotine dependence; Z79.51 Long term (current) use of inhaled steroids; Z79.82 Long term (current) use of aspirin; Z87.09 Personal history of other diseases of the respiratory system; Z88.1 Allergy status to other antibiotic agents; Z88.0 Allergy status to penicillin; Z79.899 Other long term (current) drug therapy; Z98.82 Breast implant status
CPT/HCPCS: 36415; 71045; 80048; 80053; 83605; 83880; 84484; 85025; 85027; 85610; 85730; 86140; 87040; 87636; 93005; 94640; 94660; 94760; 96361; 96365; 96375; 96376; 99285

== ENCOUNTER 2024-02-10 12:29 | Observation (INO) | payer MEDICARE, OTHER ==
[2024-02-10] MEDS ORDERED: NALOXONE 0.4 MG/ML 1 ML VIAL IV PRN (13:09)
--- NOTE | 2024-02-10 13:09 | ED ---
General Adult HPI - General Chief complaint: Skin/Abscess/Foreign Body Stated complaint: Rash-Back Time Seen by Provider: 02/10/24 12:32 Source: patient, RN notes reviewed, old records reviewed Mode of arrival: ambulatory Limitations: no limitations - History of Present Illness Initial comments: Patient is a 73-year-old female presenting to the emergency department from nursing facility for infection to back. This has been occurring for months. Patient has had multiple treatments including 2 different antibiotics and several topical medications. Patient does have moderate discomfort from this. Patient admits to not getting up much out of the bed secondary to COPD problems. - Related Data Home Medications Medication Instructions Recorded Confirmed Acetaminophen Tab [Tylenol] 650 mg PO Q6H PRN 04/27/23 02/10/24 Albuterol Inhaler [Ventolin Hfa 2 puff INHALATION RT-Q4H PRN 04/27/23 02/10/24 Inhaler] Aspirin EC [Ecotrin Low Dose] 81 mg PO DAILY 04/27/23 02/10/24 Budesonide/Formoterol Fumarate 2 puff INHALATION RT-BID 04/27/23 02/10/24 [Symbicort 160-4.5 Mcg Inhaler] Calcium Carbonate [Tums] 500 mg PO Q4H PRN 04/27/23 02/10/24 Cholecalciferol [Vitamin D3 (125 125 mcg PO DAILY 04/27/23 02/10/24 Mcg = 5000 Iu)] Docusate [Colace] 100 mg PO BID 04/27/23 02/10/24 Ipratropium-Albuterol Nebulize 3 ml INHALATION RT-Q6H PRN 04/27/23 02/10/24 [Duoneb 0.5 mg-3 mg/3 ml Soln] L.acidoph,Paracasei, B.lactis 1 cap PO DAILY 04/27/23 02/10/24 [Probiotic] Magnesium Hydroxide [Milk of 2,400 mg PO DAILY PRN 04/27/23 02/10/24 Magnesia] Multivitamins, Thera [Multivitamin 1 tab PO DAILY 04/27/23 02/10/24 (formulary)] Sodium Chloride [Saline Mist] 1 spray EA NOSTRIL Q8H PRN 04/27/23 02/10/24 Sucralfate [Carafate] 1 gm PO TID 04/27/23 02/10/24 Tiotropium [place] [Spiriva 1 puff INHALATION RT-DAILY 04/27/23 02/10/24 Handihaler] busPIRone HCL 15 mg PO BID 04/27/23 02/10/24 predniSONE 5 mg PO DAILY 04/27/23 02/10/24 guaiFENesin [guaiFENesin Oral 200 mg PO Q6H PRN 05/19/23 02/10/24 Solution] Carboxymethylcellulose Sodium 1 drop BOTH EYES BID 02/10/24 02/10/24 [Restore Plus] Latanoprost [Latanoprost 0.005%] 1 drop BOTH EYES HS 02/10/24 02/10/24 Omeprazole 40 mg PO DAILY 02/10/24 02/10/24 Ondansetron [Zofran] 4 mg PO Q6H PRN 02/10/24 02/10/24 traZODone HCL [Desyrel] 100 mg PO HS 02/10/24 02/10/24 Previous Rx's Medication Instructions Recorded LORazepam [Ativan] 1 mg PO TID 3 Days #9 tab 05/08/23 Allergies Allergy/AdvReac Type Severity Reaction Status Date / Time azithromycin Allergy Rash/Hives Verified 02/10/24 13:39 levofloxacin [From Levaquin] Allergy Dyspnea Verified 02/10/24 13:39 Penicillins Allergy Dyspnea Verified 02/10/24 13:39 tetracycline Allergy Unknown Verified 02/10/24 13:39 Review of Systems ROS Statement: Those systems with pertinent positive or pertinent negative responses have been documented in the HPI. ROS Other: All systems not noted in ROS Statement are negative. Constitutional: Denies: fever Eyes: Denies: eye pain ENT: Denies: ear pain Respiratory: Reports: as per HPI. Denies: cough Skin: Reports: as per HPI, rash Past Medical History Past Medical History: COPD Additional Past Medical History / Comment(s): Emphysema History of Any Multi-Drug Resistant Organisms: None Reported Additional Past Surgical History / Comment(s): Breast implants Past Anesthesia/Blood Transfusion Reactions: No Reported Reaction Past Psychological History: Anxiety Smoking Status: Former smoker Past Alcohol Use History: None Reported Past Drug Use History: None Reported General Exam Limitations: no limitations General appearance: alert, in no apparent distress Head exam: Present: normocephalic Eye exam: Present: normal appearance Neck exam: Present: normal inspection Respiratory exam: Present: normal lung sounds bilaterally Cardiovascular Exam: Present: regular rate, normal rhythm GI/Abdominal exam: Present: soft. Absent: tenderness Extremities exam: Present: normal inspection Neurological exam: Present: alert Psychiatric exam: Present: normal affect, normal mood Skin exam: Present: other (Back with very large area of skin breakdown, stage II with some skin and some areas beginning to encroach on stage III. There is erythematous changes as well.) Course Vital Signs 02/10/24 02/10/24 12:31 13:45 Temperature 99.0 F Pulse Rate 101 H 101 H Respiratory 20 18 Rate Blood Pressure 126/68 132/70 O2 Sat by Pulse 95 97 Oximetry EKG Findings - EKG Results: EKG: interpreted by FRAN, sinus rhythm, normal axis, normal QRS, normal ST/T Medical Decision Making - Medical Decision Making Was pt. sent in by a medical professional or institution (, PA, RUBBISH COLLECTION SUPERVISOR, urgent care, hospital, or assisted...) When possible be specific @ -Patient was sent from assisted Did you speak to anyone other than the patient for history (EMS, parent, family, police, friend...)? What history was obtained from this source @ -No Did you review nursing and triage notes (agree or disagree)? Why? @ -I reviewed and agree with nursing and triage notes Were old charts reviewed (outside hosp., previous admission, EMS record, old EKG, old radiological studies, urgent care reports/EKG's, assisted records)? Report findings @ -Chart reviewed from assisted Differential Diagnosis (chest pain, altered mental status, abdominal pain women, abdominal pain men, vaginal bleeding, weakness, fever, dyspnea, syncope, headache, dizziness, GI bleed, back pain, seizure, CVA, palpatations, mental health, musculoskeletal)? @ -Differential Fever: Pneumonia, viral URI, endocarditis, myocarditis, pericarditis, otitis, sinusitis, peritonsillar Abscess, retropharyngeal Abscess, epiglottitis, michael tonitis, appendicitis, Jeny cystitis, diverticulitis, hepatitis, colitis, UTI, PID, TOA, pyelonephritis, prostatitis, epididymitis, meningitis, encephalitis, pulmonary embolism, CVA, thyroid storm, pancreatitis, adrenal crisis, cavernous sinus thrombosis, this is not meant to be an all-inclusive list. EKG interpreted by me (3pts min.). @ -As above X-rays interpreted by me (1pt min.). @ -Chest x-ray shows no acute process CT interpreted by me (1pt min.). @ -None done U/S interpreted by me (1pt. min.). @ -None done What testing was considered but not performed or refused? (CT, X-rays, U/S, labs)? Why? @ -None What meds were considered but not given or refused? Why? @ -None Did you discuss the management of the patient with other professionals (professionals i.e. Dr., PA, RUBBISH COLLECTION SUPERVISOR, lab, RT, psych nurse, social worker masters, gettering filament machine operator, teacher, chief media officer, caser shoe parts)? Give summary @ -Case discussed with Dr. Ricketts who will admit covering Dr. Lombardi Was smoking cessation discussed for >3mins.? @ -No Was critical care preformed (if so, how long)? @ -No Were there social determinants of health that impacted care today? How? (Homelessness, low income, unemployed, alcoholism, drug addiction, transportation, low edu. Level, literacy, decrease access to med. care, detention, rehab)? @ -No Was there de-escalation of care discussed even if they declined (Discuss DNR or withdrawal of care, Hospice)? DNR status @ -No What co-morbidities impacted this encounter? (DM, HTN, Smoking, COPD, CAD, Cancer, CVA, ARF, Chemo, Hep., AIDS, mental health diagnosis, sleep apnea, morbid obesity)? @ -History of COPD causing prolonged supine position in the bed Was patient admitted / discharged? Hospital course, mention meds given and route, prescriptions, significant lab abnormalities, going to OR and other pertinent info. @ -Patient presents with large cellulitic area to the back. Patient is pr edominantly bedbound. Patient has failed outpatient therapy. Patient will be admitted with consults for general surgery and infectious disease. Admission orders written. Undiagnosed new problem with uncertain prognosis? @ -No Drug Therapy requiring intensive monitoring for toxicity (Heparin, Nitro, Insulin, Cardizem)? @ -No Were any procedures done? @ -No Diagnosis/symptom? @ -Cellulitis of back Acute, or Chronic, or Acute on Chronic? @ -Acute Uncomplicated (without systemic symptoms) or Complicated (systemic symptoms)? @ -Default Side effects of treatment? @ -No Exacerbation, Progression, or Severe Exacerbation? @ -No Poses a threat to life or bodily function? How? (Chest pain, [place], [place], pneumonia, PE, COPD, DKA, ARF, appy, cholecystitis, CVA, Diverticulitis, Homicidal, Suicidal, threat to staff... and all critical care pts) @ -No - Lab Data Result diagrams: 02/10/24 13:18 02/10/24 13:18 Disposition Clinical Impression: Cellulitis of back Disposition: ADMITTED IP TO THIS HOSP Is patient prescribed a controlled substance at d/c from ED?: No Time of Disposition: 13:08
[2024-02-10] MEDS: SODIUM CHLORIDE 0.9% 1,000 ML IV SCH (13:32)
[2024-02-10] MEDS: CLINDAMYCIN 600 MG in DEXTROSE 5% IN WATER 50 ML IVPB SCH (13:34)
[2024-02-10 13:35] LABS: Basophils % (A) 0 %; Eosinophils # (A) 0.1 k/uL (0-0.7); Eosinophils % (A) 1 %; HGB 10.5 gm/dL (11.4-16.0); Hypochromasia Slight; Lymphocytes # (A) 0.6 k/uL (1.0-4.8); Lymphocytes % (A) 4 %; MCH 26.7 pg (25.0-35.0); MCHC 30.8 g/dL (31.0-37.0); MCV 86.8 fL (80.0-100.0); Mean Platelet Volume 7.8; Monocytes # (A) 0.5 k/uL (0-1.0); Monocytes % (A) 4 %; Neutrophils # (A) 12.2 k/uL (1.3-7.7); Neutrophils % (A) 90 %; Platelet Count 373 k/uL (150-450); RBC 3.92 m/uL (3.80-5.40); RDW 14.5 % (11.5-15.5); WBC 13.5 k/uL (3.8-10.6)
[2024-02-10] MEDS: traMADol 50 MG TAB PO PRN (13:35)
[2024-02-10 13:45] LABS: ALT 15 U/L (4-34); AST 17 U/L (14-36); African American GFR (CKD) >90 (>60 ml/min/1.73 sqM); Albumin 3.1 g/dL (3.5-5.0); Alkaline Phosphatase 79 U/L (38-126); Anion Gap 2 mmol/L; Blood Urea Nitrogen 12 mg/dL (7-17); Calcium 9.1 mg/dL (8.4-10.2); Carbon Dioxide 35 mmol/L (22-30); Chloride 100 mmol/L (98-107); Glucose 123 mg/dL (74-99); Non-African American GFR(CKD) >90 (>60 ml/min/1.73 sqM); Potassium 4.3 mmol/L (3.5-5.1); Sodium 137 mmol/L (137-145); Total Bilirubin 0.4 mg/dL (0.2-1.3); Total Protein 5.6 g/dL (6.3-8.2)
[2024-02-10 13:51] LABS: INR 0.9 (<1.2); Partial Thromboplastin Time 22.5 sec (22.0-30.0); Prothrombin Time 10.1 sec (10.0-12.5)
[2024-02-10] MEDS ORDERED: HYDROmorphone 0.5 MG/0.5 ML SYRINGE IVP PRN (14:21)
[2024-02-10] MEDS ORDERED: CALCIUM CARBONATE 500 MG CHEWABLE PO PRN (14:22)
[2024-02-10] MEDS ORDERED: MAGNESIUM HYDROXIDE 2,400 MG/30 ML CUP PO PRN (14:22)
[2024-02-10] MEDS ORDERED: NON FORMULARY DRUG (Albuterol Inhaler 90 MCG Puff) INHALATION PRN (14:22)
--- NOTE | 2024-02-10 14:24 | XR ---
EXAMINATION TYPE: XR chest 2V DATE OF EXAM: 02/10/2024 2:17 PM COMPARISON: Chest radiographs from 05/19/2023 CLINICAL INDICATION: Female, 73 years old with history of Fever; TECHNIQUE: XR chest 2V Frontal and lateral views of the chest. FINDINGS: Lungs/Pleura: There is no evidence of pleural effusion, focal consolidation, or pneumothorax. Pulmonary vascularity: Unremarkable. Heart/mediastinum: Cardiomediastinal silhouette is unremarkable. Musculoskeletal: No acute osseous pathology. Other findings: Breast implant with capsular calcifications noted on lateral view. IMPRESSION: No acute cardiopulmonary disease/process. [facility], , 02/10/2024 2:21 PM
[2024-02-10] MEDS: predniSONE 5 MG TAB PO SCH (14:46)
[2024-02-10] MEDS: NYSTAT-TRIAMCIN 100,000-0.1 UNIT/GM-% CREAM 30 GM TUBE TOPICAL SCH (15:24)
[2024-02-10] MEDS: SUCRALFATE 1 GM TAB PO SCH (15:31)
[2024-02-10] MEDS: LORazepam 1 MG TAB PO SCH (15:31)
--- NOTE | 2024-02-10 16:18 | P.GSCN ---
History of Present Illness Consult date: 02/10/24 History of present illness: CHIEF COMPLAINT: Back Rash HISTORY OF PRESENT ILLNESS: This is a 73-year-old female who presents the emergency room from [place] at [facility] due to skin infection on her back. Patient reports he has been dealing with this infection for over a couple of months. She has had different topical creams and antibiotics and steroids. She is mostly bedbound and lays on her back. She reports difficulty washing and showering the back because the water causes pain. PAST MEDICAL HISTORY: COPD PAST SURGICAL HISTORY: See below MEDICATIONS: See below ALLERGIES: See below SOCIAL HISTORY: No illicit drug use. REVIEW OF SYSTEMS: CONSTITUTIONAL: Denies fever or chills. HEENT: Denies blurred vision, vision changes, or eye pain. Denies hemoptysis CARDIOVASCULAR: Denies chest pain or pressure. RESPIRATORY: No shortness of breath. GASTROINTESTINAL: See HPI for pertinent findings HEMATOLOGIC: Denies bleeding disorders. GENITOURINARY: Denies any blood in urine or increased urinary frequency. SKIN: Denies pruitis. Denies rash. PHYSICAL EXAM: VITAL SIGNS: Reviewed GENERAL: Well-developed in no acute distress. HEENT: No sclera icterus. Extraocular movements grossly intact. Moist buccal mucosa. Head is atraumatic, normocephalic. No nasal drainage. ABDOMEN: Soft. Nondistended. Nontender NEUROLOGIC: Alert and oriented. Cranial nerves II through XII grossly intact. SKIN: Patient's back has a very large area of skin breakdown. Mild erythematous/ fungal changes. Scaly skin. Odor noted. No drainage. LABORATORY DATA: WBC 13.5 Hgb 10.5 platelets 373 Sodium 137 potassium 4.3 creatinine 0.50 Lactic acid 1.0 IMAGING: ASSESSMENT: 1. Fungal skin infection of the back PLAN: -No surgical intervention planned -Continue wound care management per infectious disease Physician Clinical Care Manager note has been reviewed by physician. Signing provider agrees with the documented findings, assessment, and plan of care. Past Medical History Past Medical History: COPD Additional Past Medical History / Comment(s): Emphysema History of Any Multi-Drug Resistant Organisms: None Reported Additional Past Surgical History / Comment(s): Breast implants Past Anesthesia/Blood Transfusion Reactions: No Reported Reaction Past Psychological History: Anxiety Smoking Status: Former smoker Past Alcohol Use History: None Reported Past Drug Use History: None Reported Medications and Allergies Home Medications Medication Instructions Recorded Confirmed Type Acetaminophen Tab [Tylenol] 650 mg PO Q6H PRN 04/27/23 02/10/24 History Albuterol Inhaler [Ventolin Hfa 2 puff INHALATION RT-Q4H PRN 04/27/23 02/10/24 History Inhaler] Aspirin EC [Ecotrin Low Dose] 81 mg PO DAILY 04/27/23 02/10/24 History Budesonide/Formoterol Fumarate 2 puff INHALATION RT-BID 04/27/23 02/10/24 History [Symbicort 160-4.5 Mcg Inhaler] Calcium Carbonate [Tums] 500 mg PO Q4H PRN 04/27/23 02/10/24 History Cholecalciferol [Vitamin D3 (125 125 mcg PO DAILY 04/27/23 02/10/24 History Mcg = 5000 Iu)] Docusate [Colace] 100 mg PO BID 04/27/23 02/10/24 History Ipratropium-Albuterol Nebulize 3 ml INHALATION RT-Q6H PRN 04/27/23 02/10/24 History [Duoneb 0.5 mg-3 mg/3 ml Soln] L.acidoph,Paracasei, B.lactis 1 cap PO DAILY 04/27/23 02/10/24 History [Probiotic] Magnesium Hydroxide [Milk of 2,400 mg PO DAILY PRN 04/27/23 02/10/24 History Magnesia] Multivitamins, Thera [Multivitamin 1 tab PO DAILY 04/27/23 02/10/24 History (formulary)] Sodium Chloride [Saline Mist] 1 spray EA NOSTRIL Q8H PRN 04/27/23 02/10/24 History Sucralfate [Carafate] 1 gm PO TID 04/27/23 02/10/24 History Tiotropium [place] [Spiriva 1 puff INHALATION RT-DAILY 04/27/23 02/10/24 History Handihaler] busPIRone HCL 15 mg PO BID 04/27/23 02/10/24 History predniSONE 5 mg PO DAILY 04/27/23 02/10/24 History LORazepam [Ativan] 1 mg PO TID 3 Days #9 tab 05/08/23 02/10/24 Rx guaiFENesin [guaiFENesin Oral 200 mg PO Q6H PRN 05/19/23 02/10/24 History Solution] Carboxymethylcellulose Sodium 1 drop BOTH EYES BID 02/10/24 02/10/24 History [Restore Plus] Latanoprost [Latanoprost 0.005%] 1 drop BOTH EYES HS 02/10/24 02/10/24 History Omeprazole 40 mg PO DAILY 02/10/24 02/10/24 History Ondansetron [Zofran] 4 mg PO Q6H PRN 02/10/24 02/10/24 History traZODone HCL [Desyrel] 100 mg PO HS 02/10/24 02/10/24 History Allergies Allergy/AdvReac Type Severity Reaction Status Date / Time azithromycin Allergy Rash/Hives Verified 02/10/24 13:39 levofloxacin [From Levaquin] Allergy Dyspnea Verified 02/10/24 13:39 Penicillins Allergy Dyspnea Verified 02/10/24 13:39 tetracycline Allergy Unknown Verified 02/10/24 13:39 Surgical - Exam Osteopathic Statement: *. No significant issues noted on an osteopathic structural exam other than those noted in the History and Physical/Consult. Vital Signs Temp Pulse Resp BP Pulse Ox 99.0 F 101 H 20 126/68 95 02/10/24 12:31 02/10/24 12:31 02/10/24 12:31 02/10/24 12:31 02/10/24 12:31 Results - Labs 02/10/24 13:18 02/10/24 13:18 Abnormal Lab Results - Last 24 Hours (Table) 02/10/24 02/10/24 Range/Units 13:18 13:18 WBC 13.5 H (3.8-10.6) k/uL Hgb 10.5 L (11.4-16.0) gm/dL MCHC 30.8 L (31.0-37.0) g/dL Neutrophils # 12.2 H (1.3-7.7) k/uL Lymphocytes # 0.6 L (1.0-4.8) k/uL Carbon Dioxide 35 H (22-30) mmol/L Creatinine 0.50 L (0.52-1.04) mg/dL Glucose 123 H (74-99) mg/dL Total Protein 5.6 L (6.3-8.2) g/dL Albumin 3.1 L (3.5-5.0) g/dL Diabetes panel 02/10/24 Range/Units 13:18 Sodium 137 (137-145) mmol/L Potassium 4.3 (3.5-5.1) mmol/L Chloride 100 (98-107) mmol/L Carbon Dioxide 35 H (22-30) mmol/L BUN 12 (7-17) mg/dL Creatinine 0.50 L (0.52-1.04) mg/dL Glucose 123 H (74-99) mg/dL Calcium 9.1 (8.4-10.2) mg/dL AST 17 (14-36) U/L ALT 15 (4-34) U/L Alkaline Phosphatase 79 (38-126) U/L Total Protein 5.6 L (6.3-8.2) g/dL Albumin 3.1 L (3.5-5.0) g/dL Calcium panel 02/10/24 Range/Units 13:18 Calcium 9.1 (8.4-10.2) mg/dL Albumin 3.1 L (3.5-5.0) g/dL Pituitary panel 02/10/24 Range/Units 13:18 Sodium 137 (137-145) mmol/L Potassium 4.3 (3.5-5.1) mmol/L Chloride 100 (98-107) mmol/L Carbon Dioxide 35 H (22-30) mmol/L BUN 12 (7-17) mg/dL Creatinine 0.50 L (0.52-1.04) mg/dL Glucose 123 H (74-99) mg/dL Calcium 9.1 (8.4-10.2) mg/dL Adrenal panel 02/10/24 Range/Units 13:18 Sodium 137 (137-145) mmol/L Potassium 4.3 (3.5-5.1) mmol/L Chloride 100 (98-107) mmol/L Carbon Dioxide 35 H (22-30) mmol/L BUN 12 (7-17) mg/dL Creatinine 0.50 L (0.52-1.04) mg/dL Glucose 123 H (74-99) mg/dL Calcium 9.1 (8.4-10.2) mg/dL Total Bilirubin 0.4 (0.2-1.3) mg/dL AST 17 (14-36) U/L ALT 15 (4-34) U/L Alkaline Phosphatase 79 (38-126) U/L Total Protein 5.6 L (6.3-8.2) g/dL Albumin 3.1 L (3.5-5.0) g/dL Assessment and Plan Assessment: 73 yo female w/ back cellulitis -recommend antifungal/antibiotics -follow up ID recs -no surgical intervention at this time Time with Patient: Less than 30
[2024-02-10] MEDS: DOCUSATE 100 MG CAP PO SCH (20:17)
[2024-02-10] MEDS: HYDROcodone/APAP 5-325MG 1 EACH TAB PO PRN (20:17)
[2024-02-10] MEDS: traZODone HCL 100 MG TAB PO SCH (20:18)
[2024-02-10] MEDS: HEPARIN SODIUM,PORCINE 5,000 UNIT/ML 1 ML VIAL SQ SCH (20:19)
[2024-02-10] MEDS: SYMBICORT 160-4.5 MCG INHALER INHALATION SCH (20:34)
--- NOTE | 2024-02-10 21:37 | P.CONS ---
History of Present Illness - Reason for Consult Consult date: 02/10/24 Cellulitis Requesting physician: Son Celestin - Chief Complaint Erythema and itching to the upper back x days - History of Present Illness Patient is a 73-year-old female with a past medical history significant for COPD emphysema anxiety, in this patient resident [facility] the [facility] patient apparently has been dealing with a rash to the upper back area for couple of weeks to months patient mentioned he was getting better with antifungal cream however the nurses forget to reorder it and subsequently noticed to have worsening of the rash to the upper back area for the patient has been sent to the hospital for further evaluation patient denies having any fever or any chills has been complaining of mostly itching and burning pain to the upper back area which is moderate in intensity without radiation denies having any drainage patient on presentation to the hospital was running a low-grade fever of 99 F patient was mildly tachycardic but not hypotensive and is currently on 5 L nasal cannula oxygen she did have white count 13.5 with a left shift creatinine 0.50 liver enzymes are normal patient did have a chest x-ray that was reported negative for acute infiltrate patient was started on clindamycin infectious disease was consulted for further management of antibiotic therapy Review of Systems Positive point and negatives has been mentioned in the HPI, complete review of systems was performed and all other systems are negative Past Medical History Past Medical History: COPD Additional Past Medical History / Comment(s): Emphysema History of Any Multi-Drug Resistant Organisms: None Reported Additional Past Surgical History / Comment(s): Breast implants Past Anesthesia/Blood Transfusion Reactions: No Reported Reaction Past Psychological History: Anxiety Smoking Status: Former smoker Past Alcohol Use History: None Reported Past Drug Use History: None Reported Medications and Allergies Home Medications Medication Instructions Recorded Confirmed Type Acetaminophen Tab [Tylenol] 650 mg PO Q6H PRN 04/27/23 02/10/24 History Albuterol Inhaler [Ventolin Hfa 2 puff INHALATION RT-Q4H PRN 04/27/23 02/10/24 History Inhaler] Aspirin EC [Ecotrin Low Dose] 81 mg PO DAILY 04/27/23 02/10/24 History Budesonide/Formoterol Fumarate 2 puff INHALATION RT-BID 04/27/23 02/10/24 History [Symbicort 160-4.5 Mcg Inhaler] Calcium Carbonate [Tums] 500 mg PO Q4H PRN 04/27/23 02/10/24 History Cholecalciferol [Vitamin D3 (125 125 mcg PO DAILY 04/27/23 02/10/24 History Mcg = 5000 Iu)] Docusate [Colace] 100 mg PO BID 04/27/23 02/10/24 History Ipratropium-Albuterol Nebulize 3 ml INHALATION RT-Q6H PRN 04/27/23 02/10/24 History [Duoneb 0.5 mg-3 mg/3 ml Soln] L.acidoph,Paracasei, B.lactis 1 cap PO DAILY 04/27/23 02/10/24 History [Probiotic] Magnesium Hydroxide [Milk of 2,400 mg PO DAILY PRN 04/27/23 02/10/24 History Magnesia] Multivitamins, Thera [Multivitamin 1 tab PO DAILY 04/27/23 02/10/24 History (formulary)] Sodium Chloride [Saline Mist] 1 spray EA NOSTRIL Q8H PRN 04/27/23 02/10/24 History Sucralfate [Carafate] 1 gm PO TID 04/27/23 02/10/24 History Tiotropium Beecher [Spiriva 1 puff INHALATION RT-DAILY 04/27/23 02/10/24 History Handihaler] busPIRone HCL 15 mg PO BID 04/27/23 02/10/24 History predniSONE 5 mg PO DAILY 04/27/23 02/10/24 History LORazepam [Ativan] 1 mg PO TID 3 Days #9 tab 05/08/23 02/10/24 Rx guaiFENesin [guaiFENesin Oral 200 mg PO Q6H PRN 05/19/23 02/10/24 History Solution] Carboxymethylcellulose Sodium 1 drop BOTH EYES BID 02/10/24 02/10/24 History [Restore Plus] Latanoprost [Latanoprost 0.005%] 1 drop BOTH EYES HS 02/10/24 02/10/24 History Omeprazole 40 mg PO DAILY 02/10/24 02/10/24 History Ondansetron [Zofran] 4 mg PO Q6H PRN 02/10/24 02/10/24 History traZODone HCL [Desyrel] 100 mg PO HS 02/10/24 02/10/24 History Allergies Allergy/AdvReac Type Severity Reaction Status Date / Time azithromycin Allergy Rash/Hives Verified 02/10/24 13:39 levofloxacin [From Levaquin] Allergy Dyspnea Verified 02/10/24 13:39 Penicillins Allergy Dyspnea Verified 02/10/24 13:39 tetracycline Allergy Unknown Verified 02/10/24 13:39 Physical Exam Vitals: Vital Signs Temp Pulse Resp BP Pulse Ox 02/10/24 13:45 101 H 18 132/70 97 02/10/24 12:31 99.0 F 101 H 20 126/68 95 Intake and Output 02/09/24 02/10/24 02/10/24 22:59 06:59 14:59 Other: Weight 76.204 kg GENERAL DESCRIPTION: Elderly female lying in bed, no distress. No tachypnea or accessory muscle of respiration use. HEENT: Shows Pallor , no scleral icterus. Oral mucous membrane is dry. No pharyngeal erythema or thrush NECK: Trachea central, no thyromegaly. LUNGS: Unlabored breathing. Clear to auscultation anteriorly. No wheeze or crackle. HEART: S1, S2, regular rate and rhythm. No loud murmur ABDOMEN: Soft, no tenderness , guarding or rigidity, no organomegaly EXTREMITIES: No edema of feet. SKIN: Patient did have a large area of erythematous rash to the upper back area with no slough tissue or any foul-smelling drainage NEUROLOGICAL: The patient is awake, alert, oriented x3, mood and affect normal. Results CBC & Chem 7: 02/10/24 13:18 02/10/24 13:18 Labs: Abnormal Lab Results - Last 24 Hours (Table) 02/10/24 02/10/24 Range/Units 13:18 13:18 WBC 13.5 H (3.8-10.6) k/uL Hgb 10.5 L (11.4-16.0) gm/dL MCHC 30.8 L (31.0-37.0) g/dL Neutrophils # 12.2 H (1.3-7.7) k/uL Lymphocytes # 0.6 L (1.0-4.8) k/uL Carbon Dioxide 35 H (22-30) mmol/L Creatinine 0.50 L (0.52-1.04) mg/dL Glucose 123 H (74-99) mg/dL Total Protein 5.6 L (6.3-8.2) g/dL Albumin 3.1 L (3.5-5.0) g/dL Assessment and Plan (1) Fungal dermatitis Current Visit: Yes Status: Acute Code(s): B36.9 - SUPERFICIAL MYCOSIS, UNSPECIFIED SNOMED Code(s): 52873183 (2) Allergy to multiple antibiotics Current Visit: Yes Status: Acute Code(s): Z88.1 - ALLERGY STATUS TO OTHER ANTIBIOTIC AGENTS SNOMED Code(s): 455749038 (3) Cellulitis of back Current Visit: Yes Status: Acute Code(s): L03.312 - CELLULITIS OF BACK [ANY PART EXCEPT BUTTOCK] SNOMED Code(s): 686656485 Plan: 1patient presented to hospital with burning pain and itching and rash to the upper back area patient to have a features of fungal dermatitis clinical suspicion is low for secondary bacterial cellulitis but not entirely excluded. 2patient with multiple antibiotic ALLERGIES that would limit the number of antibiotic safe to use 3discontinue clindamycin. 4we will start the patient with the Mycolog cream to the rash area twice a day and Rocephin 2 g daily while waiting for the workup to be completed. We will follow on clinical condition and cultures to further adjust medication if needed Thank you for this consultation we will follow the patient along with you Dictation was produced using [employer] dictation software. please excuse any grammatical, word or spelling errors. Time with Patient: Greater than 30
[2024-02-10] MEDS ORDERED: CLINDAMYCIN 600 MG in DEXTROSE 5% IN WATER 50 ML IVPB SCH (22:00)
--- NOTE | 2024-02-10 22:00 | HP ---
HISTORY AND PHYSICAL CHIEF COMPLAINT: Ulcer and rash on the back. HISTORY OF PRESENT ILLNESS: This is a 73-year-old woman with a past medical history of multiple medical problems including COPD acute exacerbation, also had severe arthritis. 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 The patient is complaining of severe pain and as well as rash on the back. The patient apparently had antibiotics and topical medication. Because of lack of improvement, the patient was taken to [facility] and admitted for further evaluation and treatment. There is no history of any fever, rigors, or chills. PAST MEDICAL HISTORY: COPD, emphysema. Rest of the history and rest of the chart is also reviewed. HOME MEDICATIONS: Reviewed include Carafate, dose and rest of medications reviewed. ALLERGIES: Multiple allergies. FAMILY HISTORY: No history of heart disease or strokes in the family. SOCIAL HISTORY: Previous history of smoking. 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 REVIEW OF SYSTEMS: A 14-point review of systems is negative except as mentioned earlier. PHYSICAL EXAMINATION: VITAL SIGNS: Pulse 101, blood pressure 132/70, respirations 18. HEENT: Conjunctivae normal. NECK: No JVD. CARDIOVASCULAR: S1, S2. RESPIRATION: Breath sounds diminished at the bases. A few scattered rhonchi. ABDOMEN: Soft, nontender. LEGS: No edema. NERVOUS SYSTEM: Diffusely weak. BACK: Significant excoriation, cellulitis and ulceration also present. LABORATORY DATA: Noted. ASSESSMENT: 1. Significant severe cellulitis of the back with severe pain and failure of outpatient treatment. 2. Elevated WBC. 3. Chronic obstructive pulmonary disease. 4. Degenerative joint disease. 5. Anxiety. 6. Elevated WBC. RECOMMENDATIONS AND DISCUSSION: This is a 73-year-old woman presented with multiple complex medical issues, we will monitor the patient closely. Continue the current medications and continue with broad- spectrum IV antibiotics. Otherwise, Infectious Disease evaluation as well as surgical evaluation. Overall prognosis guarded. Further recommendations to follow. We will resume the home medications once they are confirmed. Symptomatic treatment of the pain also will be continued. See orders for further details. MMODL / IJN: [id number] /
[2024-02-10] MEDS: LATANOPROST 0.005% OPHTH DROPS 2.5 ML BTL BOTH EYES SCH (23:20)
[2024-02-10] MEDS: NYSTATIN 100,000UNIT/GM CREAM 30 GM TUBE TOPICAL SCH (23:20)
[2024-02-10] MEDS: ARTIFICIAL TEARS-HYPROMELLOSE DROPS 15 ML BTL BOTH EYES SCH (23:20)
[2024-02-10] MEDS: busPIRone HCl 5 MG TAB PO SCH (23:20)
[2024-02-10] MEDS: TRIAMCINOLONE 0.1% CREAM 80 GM TUBE TOPICAL SCH (23:21)
[2024-02-11] MEDS: guaiFENesin SYRUP 100MG/5ML 200 MG/10 ML CUP PO PRN (00:17)
[2024-02-11 08:46] LABS: Basophils # (A) 0.09 X 10*3/uL (0.00-0.10); Basophils % (A) 1.2 %; Eosinophils # (A) 0.22 X 10*3/uL (0.04-0.35); Eosinophils % (A) 2.9 %; HCT 33.6 % (37.2-46.3); HGB 9.6 g/dL (12.0-15.0); Lymphocytes # (A) 0.84 X 10*3/uL (0.90-5.00); Lymphocytes % (A) 11.2 %; MCH 26.4 pg (27.0-32.0); MCHC 28.6 g/dL (32.0-37.0); MCV 92.6 FL (80.0-97.0); Mean Platelet Volume 10.9 FL (9.5-12.2); Monocytes # (A) 0.67 X 10*3/uL (0.20-1.00); Monocytes % (A) 8.9 %; NRBC Per 100 WBC 0 X 10*3/uL (0.00-0.01); Neutrophils # (A) 5.65 X 10*3/uL (1.80-7.70); Neutrophils % (A) 75.4 %; Platelet Count 321 X 10*3/uL (140-440); RBC 3.63 X 10*6/uL (4.10-5.20); RDW 14.7 % (11.5-14.5)
[2024-02-11 08:50] LABS: ALT 12 U/L (8-44); AST 11 U/L (13-35); Albumin/Globulin Ratio 1.67 Ratio (1.60-3.17); Alkaline Phosphatase 71 U/L (41-126); BUN/Creat Ratio 15.83 Ratio (12.00-20.00); Blood Urea Nitrogen 9.5 mg/dL (9.0-27.0); Carbon Dioxide 31.4 mmol/L (21.6-31.8); Chloride 104 mmol/L (96-109); Globulin 1.8 g/dL (1.6-3.3); Glucose 90 mg/dL (70-110); Potassium 4.2 mmol/L (3.5-5.5); Sodium 144 mmol/L (135-145); Total Bilirubin <0.2 mg/dL (0.3-1.2); Total Protein 4.8 g/dL (6.2-8.2)
[2024-02-11] MEDS: CHOLECALCIFEROL 125 MCG (5000 IU) TABLET PO SCH (09:04)
[2024-02-11] MEDS: PANTOPRAZOLE 40 MG TABLET PO SCH (09:04)
[2024-02-11] MEDS: MULTIVITAMINS, THERA 1 EACH TAB PO SCH (09:04)
[2024-02-11] MEDS: ASPIRIN 81 MG PO SCH (09:05)
[2024-02-11] MEDS: LACTOBACILLUS ACIDOPHILUS/PECT 1 EACH CAPSULE PO SCH (09:06)
[2024-02-11] MEDS: IPRATROPIUM 0.5 MG/2.5 ML NEBU INHALATION SCH (09:49)
--- NOTE | 2024-02-11 10:37 | P.PN ---
Subjective Progress Note Date: 02/11/24 SURGICAL PROGRESS NOTE CHIEF COMPLAINT: Rash on back HISTORY OF PRESENT ILLNESS: Patient reports improvement in her back discomfort after the antibiotics and creams that have been applied. Vital stable. WBC down from 13.5-7.5 PHYSICAL EXAM: VITAL SIGNS: Reviewed. GENERAL: Well-developed in no acute distress. ABDOMEN: Soft. Nondistended. Nontender. NEUROLOGIC: Alert and oriented. Cranial nerves II through XII grossly intact. ASSESSMENT: 1. Fungal dermatitis of the back PLAN: -No surgical intervention planned -Continue antifungal and antibiotics per ID recommendations -Surgical service will sign off. Please call with any questions or concerns. Physician Staff Readiness Officer note has been reviewed by physician. Signing provider agrees with the documented findings, assessment, and plan of care. Objective - Vital Signs Vital signs: Vital Signs Temp 97.9 F 02/11/24 07:13 Pulse 87 02/11/24 07:13 Resp 18 02/11/24 07:13 BP 120/57 02/11/24 07:13 Pulse Ox 96 02/11/24 09:53 FiO2 40 02/11/24 04:55 Intake & Output 02/10/24 02/11/24 02/11/24 18:59 06:59 18:59 Output Total 450 Balance -450 Weight 76.204 kg 76.204 kg Output: Urine 450 Other: Voiding Method External Catheter Incontinent External Catheter - Labs CBC & Chem 7: 02/11/24 05:17 02/11/24 05:17 Labs: Abnormal Lab Results - Last 24 Hours (Table) 02/10/24 02/10/24 02/11/24 Range/Units 13:18 13:18 05:17 WBC 13.5 H (3.8-10.6) k/uL RBC 3.63 L (4.10-5.20) X 10*6/uL Hgb 10.5 L 9.6 L (11.4-16.0) gm/dL Hct 33.6 L (37.2-46.3) % MCH 26.4 L (27.0-32.0) pg MCHC 30.8 L 28.6 L (31.0-37.0) g/dL RDW 14.7 H (11.5-14.5) % Neutrophils # 12.2 H (1.3-7.7) k/uL Lymphocytes # 0.6 L 0.84 L (1.0-4.8) k/uL Carbon Dioxide 35 H (22-30) mmol/L Creatinine 0.50 L (0.52-1.04) mg/dL Glucose 123 H (74-99) mg/dL Total Bilirubin (0.3-1.2) mg/dL AST (13-35) U/L Total Protein 5.6 L (6.3-8.2) g/dL Albumin 3.1 L (3.5-5.0) g/dL 02/11/24 Range/Units 05:17 WBC (3.8-10.6) k/uL RBC (4.10-5.20) X 10*6/uL Hgb (11.4-16.0) gm/dL Hct (37.2-46.3) % MCH (27.0-32.0) pg MCHC (31.0-37.0) g/dL RDW (11.5-14.5) % Neutrophils # (1.3-7.7) k/uL Lymphocytes # (1.0-4.8) k/uL Carbon Dioxide (22-30) mmol/L Creatinine (0.52-1.04) mg/dL Glucose (74-99) mg/dL Total Bilirubin <0.2 L (0.3-1.2) mg/dL AST 11 L (13-35) U/L Total Protein 4.8 L (6.3-8.2) g/dL Albumin 3.0 L (3.5-5.0) g/dL Microbiology - Last 24 Hours (Table) 02/10/24 13:25 Gram Stain - Preliminary Back Assessment and Plan Assessment: Fungal dermatitis of the back PLAN: -No surgical intervention planned -Continue antifungal and antibiotics per ID recommendations -Surgical service will sign off. Please call with any questions or concerns. Time with Patient: Less than 30
--- NOTE | 2024-02-11 12:00 | P.PN ---
Subjective Progress Note Date: 02/11/24 Principal diagnosis: Reason for follow-up is rash/fungal dermatitis to the back Patient is a 73-year-old female with a past medical history significant for COPD emphysema anxiety, in this patient resident of the local [place] [facility] patient apparently has been dealing with a rash to the upper back area for couple of weeks presented to hospital with worsening rash itching and discomfort has been diagnosed with a fungal dermatitis and possible secondary bacterial component. On today's evaluation that is 02/11/2024, patient has been afebrile, patient is breathing comfortably and is currently on 5 L nasal oxygen, patient denies having any significant cough no chest pain, patient denies nausea vomiting or diarrhea and no abdominal pain mention pain and burning to the back has decreased in intensity. Patient white count normalized to 7.50, creatinine 0.6 cultures currently pending Objective - Vital Signs Vital signs: Vital Signs Temp 97.9 F 02/11/24 07:13 Pulse 87 02/11/24 07:13 Resp 18 02/11/24 07:13 BP 120/57 02/11/24 07:13 Pulse Ox 96 02/11/24 09:53 FiO2 40 02/11/24 04:55 Intake & Output 02/10/24 02/11/24 02/11/24 18:59 06:59 18:59 Output Total 450 Balance -450 Weight 76.204 kg 76.204 kg Output: Urine 450 Other: Voiding Method External Catheter Incontinent External Catheter - Exam GENERAL DESCRIPTION: An elderly female lying in bed in no distress RESPIRATORY SYSTEM: Unlabored breathing , decreased breath sounds at bases HEART: S1 S2 regular rate and rhythm , ABDOMEN: Soft , no tenderness SKIN: Upper back erythema has decreased in intensity - Labs CBC & Chem 7: 02/11/24 05:17 02/11/24 05:17 Labs: Abnormal Lab Results - Last 24 Hours (Table) 02/10/24 02/10/24 02/11/24 Range/Units 13:18 13:18 05:17 WBC 13.5 H (3.8-10.6) k/uL RBC 3.63 L (4.10-5.20) X 10*6/uL Hgb 10.5 L 9.6 L (11.4-16.0) gm/dL Hct 33.6 L (37.2-46.3) % MCH 26.4 L (27.0-32.0) pg MCHC 30.8 L 28.6 L (31.0-37.0) g/dL RDW 14.7 H (11.5-14.5) % Neutrophils # 12.2 H (1.3-7.7) k/uL Lymphocytes # 0.6 L 0.84 L (1.0-4.8) k/uL Carbon Dioxide 35 H (22-30) mmol/L Creatinine 0.50 L (0.52-1.04) mg/dL Glucose 123 H (74-99) mg/dL Total Bilirubin (0.3-1.2) mg/dL AST (13-35) U/L Total Protein 5.6 L (6.3-8.2) g/dL Albumin 3.1 L (3.5-5.0) g/dL 02/11/24 Range/Units 05:17 WBC (3.8-10.6) k/uL RBC (4.10-5.20) X 10*6/uL Hgb (11.4-16.0) gm/dL Hct (37.2-46.3) % MCH (27.0-32.0) pg MCHC (31.0-37.0) g/dL RDW (11.5-14.5) % Neutrophils # (1.3-7.7) k/uL Lymphocytes # (1.0-4.8) k/uL Carbon Dioxide (22-30) mmol/L Creatinine (0.52-1.04) mg/dL Glucose (74-99) mg/dL Total Bilirubin <0.2 L (0.3-1.2) mg/dL AST 11 L (13-35) U/L Total Protein 4.8 L (6.3-8.2) g/dL Albumin 3.0 L (3.5-5.0) g/dL Microbiology - Last 24 Hours (Table) 02/10/24 13:25 Gram Stain - Preliminary Back Assessment and Plan (1) Fungal dermatitis Current Visit: Yes Status: Acute Code(s): B36.9 - SUPERFICIAL MYCOSIS, UNSPECIFIED SNOMED Code(s): 71558175 (2) Allergy to multiple antibiotics Current Visit: Yes Status: Acute Code(s): Z88.1 - ALLERGY STATUS TO OTHER ANTIBIOTIC AGENTS SNOMED Code(s): 275640423 (3) Cellulitis of back Current Visit: Yes Status: Acute Code(s): L03.312 - CELLULITIS OF BACK [ANY PART EXCEPT BUTTOCK] SNOMED Code(s): 245797469 Plan: 1patient presented to hospital with burning pain and itching and rash to the upper back area patient to have a features of fungal dermatitis clinical suspicion is low for secondary bacterial cellulitis but not entirely excluded. 2patient with multiple antibiotic ALLERGIES that would limit the number of antibiotic safe to use 3patient remains to be afebrile white count has normalized to continue with the Mycolog cream to the rash area twice a day and Rocephin 2 g daily while waiting for the cultures to be finalized Dictation was produced using [employer] dictation software. please excuse any grammatical, word or spelling errors. Time with Patient: Less than 30
[2024-02-11] MEDS: IPRATROPIUM-ALBUTEROL 3 ML NEB INHALATION PRN (15:53)
[2024-02-12] MEDS: ACETAMINOPHEN TAB 325 MG TAB PO PRN (05:42)
--- NOTE | 2024-02-12 06:28 | PN ---
PROGRESS NOTE DATE OF SERVICE: 02/11/2024 SUBJECTIVE: This is a 73-year-old woman who was admitted with extensive cellulitis of back and severe pain, is being closely monitored at this time. The patient also had some fungal dermatitis also. Multiple consultants are following the patient closely. Cultures are negative so far. OBJECTIVE: VITAL SIGNS: Pulse is 87, blood pressure 120/57, respirations 18. CHEST: A few scattered rhonchi. ABDOMEN: Soft. NERVOUS SYSTEM: Diffusely weak. BACK: Significant cellulitis. LABORATORY DATA: Noted. ASSESSMENT: 1. Significant severe cellulitis of the back with severe pain and failure of outpatient treatment with possible fungal dermatitis also. 2. Elevated WBC. 3. Chronic obstructive pulmonary disease. 4. Degenerative joint disease. 5. Anxiety. 6. Elevated WBC. RECOMMENDATIONS AND DISCUSSION: Recommend to continue current medications and continue symptomatic treatment. Pain management. Await cultures. Closely follow with Infectious Disease. Guarded prognosis. Further recommendations to follow. MMODL / IJN: [id number] /
[2024-02-12 08:25] LABS: Basophils # (A) 0.04 X 10*3/uL (0.00-0.10); Basophils % (A) 0.5 %; Eosinophils # (A) 0.27 X 10*3/uL (0.04-0.35); Eosinophils % (A) 3.4 %; HCT 32.6 % (37.2-46.3); HGB 9.7 g/dL (12.0-15.0); Lymphocytes # (A) 0.62 X 10*3/uL (0.90-5.00); Lymphocytes % (A) 7.9 %; MCHC 29.8 g/dL (32.0-37.0); MCV 90.8 FL (80.0-97.0); Mean Platelet Volume 10.9 FL (9.5-12.2); Monocytes # (A) 0.48 X 10*3/uL (0.20-1.00); Monocytes % (A) 6.1 %; NRBC Per 100 WBC 0 X 10*3/uL (0.00-0.01); Neutrophils % (A) 81.7 %; Platelet Count 341 X 10*3/uL (140-440); RBC 3.59 X 10*6/uL (4.10-5.20); RDW 14.4 % (11.5-14.5); WBC 7.84 X 10*3/uL (4.50-10.00)
[2024-02-12 08:40] LABS: Blood Urea Nitrogen 6.5 mg/dL (9.0-27.0); Calcium 8.7 mg/dL (8.7-10.3); Carbon Dioxide 29.4 mmol/L (21.6-31.8); Chloride 106 mmol/L (96-109); Glucose 92 mg/dL (70-110); Potassium 3.7 mmol/L (3.5-5.5); Sodium 144 mmol/L (135-145)
--- NOTE | 2024-02-12 12:53 | P.PN ---
Subjective Progress Note Date: 02/12/24 Principal diagnosis: Reason for follow-up is rash/fungal dermatitis to the back Patient is a 73-year-old female with a past medical history significant for COPD emphysema anxiety, [facility] patient apparently has been dealing with a rash to the upper back area for couple of weeks presented to hospital with worsening rash itching and discomfort has been diagnosed with a fungal dermatitis and possible secondary bacterial component. On today's evaluation that is 02/12/2024, Patient is afebrile this morning patient denies having any chest pain shortness of breath or cough, the patient is currently on 5 L nasal cannula oxygen, patient denies any abdominal pain no diarrhea no nausea no vomiting pain discomfort to the back has decreased in intensity. Patient white count is down to 7.84, creatinine 0.5 culture from the back negative Objective - Vital Signs Vital signs: Vital Signs Temp 97.7 F 02/12/24 06:48 Pulse 93 02/12/24 06:48 Resp 18 02/12/24 06:48 BP 100/61 02/12/24 06:48 Pulse Ox 98 02/12/24 07:49 FiO2 40 02/12/24 04:52 Intake & Output 02/11/24 02/12/24 02/12/24 18:59 06:59 18:59 Intake Total 540 Output Total 500 750 Balance -500 -210 Intake: Oral 540 Output: Urine 500 750 Other: Voiding Method Incontinent Incontinent Incontinent External Catheter External Catheter External Catheter # Voids 1 - Exam GENERAL DESCRIPTION: An elderly female lying in bed in no distress RESPIRATORY SYSTEM: Unlabored breathing , decreased breath sounds at bases HEART: S1 S2 regular rate and rhythm , ABDOMEN: Soft , no tenderness SKIN: Upper back erythema has decreased in intensity - Labs CBC & Chem 7: 02/12/24 05:32 02/12/24 05:32 Labs: Abnormal Lab Results - Last 24 Hours (Table) 02/12/24 02/12/24 Range/Units 05:32 05:32 RBC 3.59 L (4.10-5.20) X 10*6/uL Hgb 9.7 L (12.0-15.0) g/dL Hct 32.6 L (37.2-46.3) % MCHC 29.8 L (32.0-37.0) g/dL Lymphocytes # 0.62 L (0.90-5.00) X 10*3/uL BUN 6.5 L (9.0-27.0) mg/dL Creatinine 0.5 L (0.6-1.5) mg/dL Microbiology - Last 24 Hours (Table) 02/10/24 13:18 Blood Culture - Preliminary Blood 02/10/24 13:25 Gram Stain - Final Back Wound Culture - Final Assessment and Plan (1) Fungal dermatitis Current Visit: Yes Status: Acute Code(s): B36.9 - SUPERFICIAL MYCOSIS, UNSPECIFIED SNOMED Code(s): 52917235 (2) Allergy to multiple antibiotics Current Visit: Yes Status: Acute Code(s): Z88.1 - ALLERGY STATUS TO OTHER ANTIBIOTIC AGENTS SNOMED Code(s): 194581769 (3) Cellulitis of back Current Visit: Yes Status: Acute Code(s): L03.312 - CELLULITIS OF BACK [ANY PART EXCEPT BUTTOCK] SNOMED Code(s): 701817274 Plan: 1patient presented to hospital with burning pain and itching and rash to the upper back area patient to have a features of fungal dermatitis clinical suspicion is low for secondary bacterial cellulitis but not entirely excluded. 2patient with multiple antibiotic ALLERGIES that would limit the number of antibiotic safe to use 3patient remains to be afebrile white count has normalized. Local culture have been negative blood cultures so far pending 4we will keep the patient on Mycolog twice a day for about a week on discharge and if the culture negative no need for any systemic antibiotic on discharge Dictation was produced using [employer] dictation software. please excuse any grammatical, word or spelling errors. Time with Patient: Less than 30
--- NOTE | 2024-02-12 14:30 | XR ---
EXAMINATION TYPE: XR chest 1V portable DATE OF EXAM: 02/12/2024 2:02 PM COMPARISON: Chest radiographs from 02/10/2024 CLINICAL INDICATION: Female, 73 years old with history of chf; [facility] TECHNIQUE: XR chest 1V portable Frontal view of the chest. FINDINGS: Lungs/Pleura: There is flattening of the diaphragm with increased lucency of the lungs. No evidence o f pneumothorax, pleural effusion or focal consolidation. Pulmonary vascularity: Unremarkable. Heart/mediastinum: Cardiomediastinal silhouette is unremarkable. Musculoskeletal: No acute osseous pathology. Other findings: None Lines/Tubes: IMPRESSION: 1. No acute cardiopulmonary disease process. 2. COPD changes. [facility], , 02/12/2024 2:27 PM
[2024-02-12] MEDS: ONDANSETRON 4 MG TAB PO PRN (20:38)
--- NOTE | 2024-02-13 01:37 | PN ---
PROGRESS NOTE DATE OF SERVICE: 02/12/2024 SUBJECTIVE: This is a 73-year-old woman, who was admitted with severe cellulitis of the back and severe pain, is being closely monitored. No chest pain. No palpitation. No fever. OBJECTIVE: VITAL SIGNS: Pulse is 93, blood pressure 100/61, respirations 18. CHEST: A few scattered rhonchi and crackles. ABDOMEN: Soft. NERVOUS SYSTEM: Nonfocal. LABORATORY DATA: Hemoglobin 9.7. ASSESSMENT: 1. Significant severe cellulitis of the back with severe pain and failure of outpatient treatment with possible fungal dermatitis. 2. Elevated WBC. 3. Chronic obstructive pulmonary disease. 4. Degenerative joint disease. 5. Anxiety. RECOMMENDATIONS AND DISCUSSION: I recommend to continue current management and continue symptomatic treatment. Cultures are negative so far. The patient is on Rocephin. Closely follow with Infectious Disease. Stop the IV fluids now and recommend repeat labs, probably discharge in the next 2 to 3 days. Guarded prognosis. Further recommendations to follow. MMODL / IJN: [id number] /
[2024-02-13 08:39] LABS: Basophils # (A) 0.03 X 10*3/uL (0.00-0.10); Basophils % (A) 0.4 %; Eosinophils # (A) 0.32 X 10*3/uL (0.04-0.35); Eosinophils % (A) 4.4 %; HCT 31.6 % (37.2-46.3); HGB 9.4 g/dL (12.0-15.0); Lymphocytes # (A) 0.75 X 10*3/uL (0.90-5.00); Lymphocytes % (A) 10.3 %; MCH 26.9 pg (27.0-32.0); MCHC 29.7 g/dL (32.0-37.0); MCV 90.5 FL (80.0-97.0); Mean Platelet Volume 11.3 FL (9.5-12.2); Monocytes # (A) 0.58 X 10*3/uL (0.20-1.00); NRBC Per 100 WBC 0 X 10*3/uL (0.00-0.01); Neutrophils # (A) 5.55 X 10*3/uL (1.80-7.70); Neutrophils % (A) 76.2 %; Platelet Count 324 X 10*3/uL (140-440); RBC 3.49 X 10*6/uL (4.10-5.20); RDW 14.5 % (11.5-14.5); WBC 7.28 X 10*3/uL (4.50-10.00)
[2024-02-13 08:54] LABS: Chloride 104 mmol/L (96-109); Glucose 90 mg/dL (70-110); Sodium 143 mmol/L (135-145)
[2024-02-13 08:55] LABS: Calcium 8.8 mg/dL (8.7-10.3); Carbon Dioxide 29.7 mmol/L (21.6-31.8)
--- NOTE | 2024-02-13 13:47 | CDI ---
Documentation Clarification Form Date: 02/13/2024 01:26:26 PM From: Paige Arroyo RN CCDS Phone: [phone] Admit Date: 02/10/2024 01:11:00 PM Patient Name: Ericka Garcia Visit Number: [id number] Discharge Date: ATTENTION: The Clinical Documentation Specialists (CDI) and [facility] Coding Staff appreciate your assistance in clarifying documentation. Please respond to the clarification below the line at the bottom and electronically sign. The CDI & [facility] Coding staff will review the response and follow-up if needed. Please note: Queries are made part of the Legal Health Record. If you have any questions, please contact the author of this message via ITS. Doctor: Juan Lay, Your patient is receiving the followinL nasal cannula oxygen, 02/09, ID consult. Please clarify what condition/diagnosis is being treated. History/Risk Factors:73 year old female presents to the ED from [facility] for sever back pain with rash. Medical History: COPD, Emphysema and previous history of smoking. 02/09, HP Clinical indicators: VSS 02/09: b/p 126/68, HR 101, Temp 99.0F Oral, RR 20, SpO2 5L 02/09 12:31 02/09 23:23 5L oxygen via nc 02/10 01:00 02/10 07:13 FiO2 40 02/10 07:13 94% room air. 02/10 09:53 5L oxygen via nc 02/11 19: 14 CPAP 98% FiO2 40 02/12 07:37 95% 5L oxygen nc CXR 02/09: No acute cardiopulmonary disease/process CXR 02/11: No acute cardiopulmonary disease process. COPD changes Treatment: Oxygen via 5L nasal cannula during day . CPAP in evening What diagnosis are you treating with Oxygen ? [ @@@ ] Acute respiratory failure [ ] No additional diagnosis [ ] Other, please specify [ ] Unable to determine (Template Last Reviewed: April 2020) ASHKAN
--- NOTE | 2024-02-13 15:08 | P.PN ---
Subjective Progress Note Date: 02/13/24 Principal diagnosis: Reason for follow-up is rash/fungal dermatitis to the back Patient is a 73-year-old female with a past medical history significant for COPD emphysema anxiety, in this patient resident of the local halfway patient apparently has been dealing with a rash to the upper back area for couple of weeks presented to hospital with worsening rash itching and discomfort has been diagnosed with a fungal dermatitis and possible secondary bacterial component. On today's evaluation that is 02/13/2024,the patient denies any fever or any chills, patient is breathing comfortably on room air, the patient denies chest pain shortness of breath and no significant cough, patient denies abdominal pain, no nausea vomiting or diarrhea. Patient mention pain and itching to the back has decreased in intensity. Patient white count 7.28, creatinine is 0.5 blood cultures pending local culture negative Objective - Vital Signs Vital signs: Vital Signs Temp 97.8 F 02/13/24 07:37 Pulse 67 02/13/24 07:37 Resp 18 02/13/24 07:37 BP 99/53 02/13/24 07:37 Pulse Ox 95 02/13/24 09:01 FiO2 40 02/13/24 03:09 Intake & Output 02/12/24 02/13/24 02/13/24 18:59 06:59 18:59 Intake Total 1920 Output Total 950 Balance -950 1920 Intake: Oral 1920 Output: Urine 950 Other: Voiding Method Incontinent Incontinent External Catheter External Catheter External Catheter - Exam GENERAL DESCRIPTION: An elderly female lying in bed in no distress RESPIRATORY SYSTEM: Unlabored breathing , decreased breath sounds at bases HEART: S1 S2 regular rate and rhythm , ABDOMEN: Soft , no tenderness SKIN: Upper back erythema has decreased in intensity - Labs CBC & Chem 7: 02/13/24 05:28 02/13/24 05:28 Labs: Abnormal Lab Results - Last 24 Hours (Table) 02/13/24 02/13/24 Range/Units 05:28 05:28 RBC 3.49 L (4.10-5.20) X 10*6/uL Hgb 9.4 L (12.0-15.0) g/dL Hct 31.6 L (37.2-46.3) % MCH 26.9 L (27.0-32.0) pg MCHC 29.7 L (32.0-37.0) g/dL Immature Gran # 0.05 H (0.00-0.04) X 10*3/uL Lymphocytes # 0.75 L (0.90-5.00) X 10*3/uL BUN 8.0 L (9.0-27.0) mg/dL Creatinine 0.5 L (0.6-1.5) mg/dL Microbiology - Last 24 Hours (Table) 02/10/24 13:18 Blood Culture - Preliminary Blood 02/10/24 13:25 Gram Stain - Final Back Wound Culture - Final Assessment and Plan (1) Fungal dermatitis Current Visit: Yes Status: Acute Code(s): B36.9 - SUPERFICIAL MYCOSIS, UNSPECIFIED SNOMED Code(s): 71560363 (2) Allergy to multiple antibiotics Current Visit: Yes Status: Acute Code(s): Z88.1 - ALLERGY STATUS TO OTHER ANTIBIOTIC AGENTS SNOMED Code(s): 180162716 (3) Cellulitis of back Current Visit: Yes Status: Acute Code(s): L03.312 - CELLULITIS OF BACK [ANY PART EXCEPT BUTTOCK] SNOMED Code(s): 126552555 Plan: 1patient presented to hospital with burning pain and itching and rash to the upper back area patient to have a features of fungal dermatitis clinical suspicion is low for secondary bacterial cellulitis but not entirely excluded. 2patient with multiple antibiotic ALLERGIES that would limit the number of antibiotic safe to use 3patient remains to be afebrile white count has normalized. Local culture have been negative blood cultures so far pending 4patient seem to have shown clinical improvement as far as the upper back is concerned we will continue Mycolog twice a day. 5patient to advise incentive spirometry to help cut down on her O2 requirement Dictation was produced using [employer] dictation software. please excuse any grammatical, word or spelling errors. Time with Patient: Less than 30
--- NOTE | 2024-02-13 16:17 | P.PN ---
Subjective Progress Note Date: 02/13/24 73-year-old female with a past medical history significant for COPD emphysema anxiety, in this patient resident of the local long-term patient apparently has been dealing with a rash to the upper back area for couple of weeks to months patient mentioned he was getting better with antifungal cream however the nurses forget to reorder it and subsequently noticed to have worsening of the rash to the upper back area for the patient has been sent to the hospital for further evaluation patient denies having any fever or any chills has been complaining of mostly itching and burning pain to the upper back area which is moderate in intensity without radiation denies having any drainage patient on presentation to the hospital was running a low-grade fever of 99 F patient was mildly tachycardic but not hypotensive and is currently on 5 L nasal cannula oxygen she did have white count 13.5 with a left shift creatinine 0.50 liver enzymes are normal patient did have a chest x-ray that was reported negative for acute infiltrate patient was started on clindamycin infectious disease was consulted Objective - Vital Signs Vital signs: Vital Signs Temp 97.8 F 02/13/24 07:37 Pulse 67 02/13/24 07:37 Resp 18 02/13/24 07:37 BP 99/53 02/13/24 07:37 Pulse Ox 95 02/13/24 09:01 FiO2 40 02/13/24 03:09 Intake & Output 02/12/24 02/13/24 02/13/24 18:59 06:59 18:59 Intake Total 1920 Output Total 950 Balance -950 1920 Intake: Oral 1920 Output: Urine 950 Other: Voiding Method Incontinent Incontinent External Catheter External Catheter External Catheter - Exam GENERAL DESCRIPTION: Elderly female lying in bed, no distress. No tachypnea or accessory muscle of respiration use. HEENT: Shows Pallor , no scleral icterus. Oral mucous membrane is dry. No pharyngeal erythema or thrush NECK: Trachea central, no thyromegaly. LUNGS: Unlabored breathing. Clear to auscultation anteriorly. No wheeze or crackle. HEART: S1, S2, regular rate and rhythm. No loud murmur ABDOMEN: Soft, no tenderness , guarding or rigidity, no organomegaly EXTREMITIES: No edema of feet. SKIN: Patient did have a large area of erythematous rash to the upper back area with no slough tissue or any foul-smelling drainage NEUROLOGICAL: The patient is awake, alert, oriented x3, mood and affect normal. - Labs CBC & Chem 7: 02/13/24 05:28 02/13/24 05:28 Labs: Abnormal Lab Results - Last 24 Hours (Table) 02/13/24 02/13/24 Range/Units 05:28 05:28 RBC 3.49 L (4.10-5.20) X 10*6/uL Hgb 9.4 L (12.0-15.0) g/dL Hct 31.6 L (37.2-46.3) % MCH 26.9 L (27.0-32.0) pg MCHC 29.7 L (32.0-37.0) g/dL Immature Gran # 0.05 H (0.00-0.04) X 10*3/uL Lymphocytes # 0.75 L (0.90-5.00) X 10*3/uL BUN 8.0 L (9.0-27.0) mg/dL Creatinine 0.5 L (0.6-1.5) mg/dL Microbiology - Last 24 Hours (Table) 02/10/24 13:18 Blood Culture - Preliminary Blood 02/10/24 13:25 Gram Stain - Final Back Wound Culture - Final Assessment and Plan Assessment: Fungal dermatitis Extensive cellulitis of back Allergies to multiple antibiotics 1patient presented to hospital with burning pain and itching and rash to the upper back area patient to have a features of fungal dermatitis clinical suspicion is low for secondary bacterial cellulitis but not entirely excluded. 2patient with multiple antibiotic ALLERGIES that would limit the number of antibiotic safe to use 3discontinue clindamycin. 4we will start the patient with the Mycolog cream to the rash area twice a day and Rocephin 2 g daily while waiting for the workup to be completed. We will follow on clinical condition and cultures to further adjust medication if needed
[2024-02-14 10:35] LABS: Blood Urea Nitrogen 11.1 mg/dL (9.0-27.0); Calcium 8.7 mg/dL (8.7-10.3); Carbon Dioxide 29.2 mmol/L (21.6-31.8); Chloride 103 mmol/L (96-109); Glucose 90 mg/dL (70-110); Potassium 4.2 mmol/L (3.5-5.5); Sodium 141 mmol/L (135-145)
[2024-02-14 10:44] LABS: Basophils # (A) 0.03 X 10*3/uL (0.00-0.10); Basophils % (A) 0.4 %; Eosinophils # (A) 0.28 X 10*3/uL (0.04-0.35); Eosinophils % (A) 3.4 %; HCT 32.7 % (37.2-46.3); HGB 9.6 g/dL (12.0-15.0); Lymphocytes # (A) 0.97 X 10*3/uL (0.90-5.00); Lymphocytes % (A) 11.8 %; MCH 26.6 pg (27.0-32.0); MCHC 29.4 g/dL (32.0-37.0); MCV 90.6 FL (80.0-97.0); Mean Platelet Volume 10.9 FL (9.5-12.2); Monocytes # (A) 0.55 X 10*3/uL (0.20-1.00); Monocytes % (A) 6.7 %; NRBC Per 100 WBC 0 X 10*3/uL (0.00-0.01); Neutrophils # (A) 6.37 X 10*3/uL (1.80-7.70); Neutrophils % (A) 77.1 %; Platelet Count 355 X 10*3/uL (140-440); RBC 3.61 X 10*6/uL (4.10-5.20); RDW 14.6 % (11.5-14.5); WBC 8.25 X 10*3/uL (4.50-10.00)
--- NOTE | 2024-02-14 13:20 | P.PN ---
Subjective Progress Note Date: 02/14/24 Principal diagnosis: Reason for follow-up is rash/fungal dermatitis to the back Patient is a 73-year-old female with a past medical history significant for COPD emphysema anxiety, in this patient resident of the local halfway patient apparently has been dealing with a rash to the upper back area for couple of weeks presented to hospital with worsening rash itching and discomfort has been diagnosed with a fungal dermatitis and possible secondary bacterial component. On today's evaluation that is 02/14/2024,the patient remains to be afebrile, patient is on 5 L nasal cannula supplemental oxygen and denies any shortness of breath no chest pain or cough.Patient denies having any nausea or vomiting, no abdominal pain and no diarrhea pain to the back has decreased in intensity. Patient white count is 8.25, creatinine 0.5 blood and local culture negative Objective - Vital Signs Vital signs: Vital Signs Temp 98.3 F 02/14/24 06:52 Pulse 87 02/14/24 06:52 Resp 20 02/14/24 06:52 BP 107/65 02/14/24 06:52 Pulse Ox 96 02/14/24 06:52 FiO2 40 02/14/24 04:18 Intake & Output 02/13/24 02/14/24 02/14/24 18:59 06:59 18:59 Output Total 1300 250 Balance -1300 -250 Output: Urine 1300 250 Other: Voiding Method External Catheter External Catheter External Catheter # Voids 1 - Exam GENERAL DESCRIPTION: An elderly female lying in bed in no distress RESPIRATORY SYSTEM: Unlabored breathing , decreased breath sounds at bases HEART: S1 S2 regular rate and rhythm , ABDOMEN: Soft , no tenderness SKIN: Upper back erythema has decreased in intensity - Labs CBC & Chem 7: 02/14/24 03:59 02/14/24 03:59 Labs: Abnormal Lab Results - Last 24 Hours (Table) 02/14/24 02/14/24 Range/Units 03:59 03:59 RBC 3.61 L (4.10-5.20) X 10*6/uL Hgb 9.6 L (12.0-15.0) g/dL Hct 32.7 L (37.2-46.3) % MCH 26.6 L (27.0-32.0) pg MCHC 29.4 L (32.0-37.0) g/dL RDW 14.6 H (11.5-14.5) % Immature Gran # 0.05 H (0.00-0.04) X 10*3/uL Creatinine 0.5 L (0.6-1.5) mg/dL BUN/Creatinine Ratio 22.20 H (12.00-20.00) Ratio Microbiology - Last 24 Hours (Table) 02/10/24 13:18 Blood Culture - Preliminary Blood Assessment and Plan (1) Fungal dermatitis Current Visit: Yes Status: Acute Code(s): B36.9 - SUPERFICIAL MYCOSIS, UNSPECIFIED SNOMED Code(s): 84943727 (2) Allergy to multiple antibiotics Current Visit: Yes Status: Acute Code(s): Z88.1 - ALLERGY STATUS TO OTHER ANTIBIOTIC AGENTS SNOMED Code(s): 665777285 (3) Cellulitis of back Current Visit: Yes Status: Acute Code(s): L03.312 - CELLULITIS OF BACK [ANY PART EXCEPT BUTTOCK] SNOMED Code(s): 355003138 Plan: 1patient presented to hospital with burning pain and itching and rash to the upper back area patient to have a features of fungal dermatitis clinical suspicion is low for secondary bacterial cellulitis but not entirely excluded. 2patient with multiple antibiotic ALLERGIES that would limit the number of antibiotic safe to use 3patient remains to be afebrile white count has normalized. Local culture have been negative blood cultures so far pending 4patient seem to have shown clinical improvement as far as the upper back is concerned we will continue Mycolog twice a day and with the culture negative discontinue Rocephin. Dictation was produced using [employer] software. please excuse any grammatical, word or spelling errors.
--- NOTE | 2024-02-14 15:47 | P.DS ---
Providers Date of admission: 02/10/24 13:11 Expected date of discharge: 02/14/24 Attending physician: Hank Mendenhall MD Consults: 02/10/24 13:09 Consult Physician Routine Consulting Provider: Rody Christensen Consult Reason/Comments: cellulitis Do you want consulting provider notified?: Yes Primary care physician: Giana Lombardi, DO Hospital Course: 73-year-old female with a past medical history significant for COPD emphysema anxiety, in this patient resident of the local alf patient apparently has been dealing with a rash to the upper back area for couple of weeks to months patient mentioned he was getting better with antifungal cream however the nurses forget to reorder it and subsequently noticed to have worsening of the rash to the upper back area for the patient has been sent to the hospital for further evaluation patient denies having any fever or any chills has been complaining of mostly itching and burning pain to the upper back area which is moderate in intensity without radiation denies having any drainage patient on presentation to the hospital was running a low-grade fever of 99 F patient was mildly tachycardic but not hypotensive and is currently on 5 L nasal cannula oxygen she did have white count 13.5 with a left shift creatinine 0.50 liver enzymes are normal patient did have a chest x-ray that was reported negative for acute infiltrate patient was started on clindamycin infectious disease was consulted Fungal dermatitis Extensive cellulitis of back Allergies to multiple antibiotics 1patient presented to hospital with burning pain and itching and rash to the upper back area patient to have a features of fungal dermatitis clinical suspicion is low for secondary bacterial cellulitis but not entirely excluded. 2patient with multiple antibiotic ALLERGIES that would limit the number of antibiotic safe to use 3discontinue clindamycin. 4we will start the patient with the Mycolog cream to the rash area twice a day and Rocephin 2 g daily while waiting for the workup to be completed. We will follow on clinical condition and cultures to further adjust medication if needed Patient responded well to treatment; cleared for discharge by ID Plan - Discharge Summary Discharge Rx Participant: Yes New Discharge Prescriptions: New Nystatin 100,000Unit/gm Cream [Mycostatin Cream] 1 applic TOPICAL BID 14 Days #1 each Continue Tiotropium Lititz [Spiriva Handihaler] 1 puff INHALATION RT-DAILY Sodium Chloride [Saline Mist] 1 spray EA NOSTRIL Q8H PRN PRN Reason: Congestion predniSONE 5 mg PO DAILY Multivitamins, Thera [Multivitamin (formulary)] 1 tab PO DAILY Magnesium Hydroxide [Milk of Magnesia] 2,400 mg PO DAILY PRN PRN Reason: Constipation Ipratropium-Albuterol Nebulize [Duoneb 0.5 mg-3 mg/3 ml Soln] 3 ml INHALATION RT-Q6H PRN PRN Reason: Shortness Of Breath Cholecalciferol [Vitamin D3 (125 Mcg = 5000 Iu)] 125 mcg PO DAILY Calcium Carbonate [Tums] 500 mg PO Q4H PRN PRN Reason: ACID REFLUX busPIRone HCL 15 mg PO BID Budesonide/Formoterol Fumarate [Symbicort 160-4.5 Mcg Inhaler] 2 puff INHALATION RT-BID Carboxymethylcellulose Sodium [Restore Plus] 1 drop BOTH EYES BID Latanoprost [Latanoprost 0.005%] 1 drop BOTH EYES HS Omeprazole 40 mg PO DAILY Ondansetron [Zofran] 4 mg PO Q6H PRN PRN Reason: nausea and vomiting traZODone HCL [Desyrel] 100 mg PO HS Sucralfate [Carafate] 1 gm PO TID Acetaminophen Tab [Tylenol] 650 mg PO Q6H PRN PRN Reason: Pain Or Fever > 100.5 Docusate [Colace] 100 mg PO BID L.acidoph,Paracasei, B.lactis [Probiotic] 1 cap PO DAILY Aspirin EC [Ecotrin Low Dose] 81 mg PO DAILY Albuterol Inhaler [Ventolin Hfa Inhaler] 2 puff INHALATION RT-Q4H PRN PRN Reason: Shortness Of Breath LORazepam [Ativan] 1 mg PO TID 3 Days #9 tab guaiFENesin [guaiFENesin Oral Solution] 200 mg PO Q6H PRN PRN Reason: Cough Discharge Medication List Acetaminophen Tab [Tylenol] 650 mg PO Q6H PRN 04/27/23 [History] Albuterol Inhaler [Ventolin Hfa Inhaler] 2 puff INHALATION RT-Q4H PRN 04/27/23 [History] Aspirin EC [Ecotrin Low Dose] 81 mg PO DAILY 04/27/23 [History] Budesonide/Formoterol Fumarate [Symbicort 160-4.5 Mcg Inhaler] 2 puff INHALATION RT-BID 04/27/23 [History] Calcium Carbonate [Tums] 500 mg PO Q4H PRN 04/27/23 [History] Cholecalciferol [Vitamin D3 (125 Mcg = 5000 Iu)] 125 mcg PO DAILY 04/27/23 [History] Docusate [Colace] 100 mg PO BID 04/27/23 [History] Ipratropium-Albuterol Nebulize [Duoneb 0.5 mg-3 mg/3 ml Soln] 3 ml INHALATION RT-Q6H PRN 04/27/23 [History] L.acidoph,Paracasei, B.lactis [Probiotic] 1 cap PO DAILY 04/27/23 [History] Magnesium Hydroxide [Milk of Magnesia] 2,400 mg PO DAILY PRN 04/27/23 [History] Multivitamins, Thera [Multivitamin (formulary)] 1 tab PO DAILY 04/27/23 [History] Sodium Chloride [Saline Mist] 1 spray EA NOSTRIL Q8H PRN 04/27/23 [History] Sucralfate [Carafate] 1 gm PO TID 04/27/23 [History] Tiotropium Lititz [Spiriva Handihaler] 1 puff INHALATION RT-DAILY 04/27/23 [History] busPIRone HCL 15 mg PO BID 04/27/23 [History] predniSONE 5 mg PO DAILY 04/27/23 [History] LORazepam [Ativan] 1 mg PO TID 3 Days #9 tab 05/08/23 [Rx] guaiFENesin [guaiFENesin Oral Solution] 200 mg PO Q6H PRN 05/19/23 [History] Carboxymethylcellulose Sodium [Restore Plus] 1 drop BOTH EYES BID 02/10/24 [History] Latanoprost [Latanoprost 0.005%] 1 drop BOTH EYES HS 02/10/24 [History] Omeprazole 40 mg PO DAILY 02/10/24 [History] Ondansetron [Zofran] 4 mg PO Q6H PRN 02/10/24 [History] traZODone HCL [Desyrel] 100 mg PO HS 02/10/24 [History] Nystatin 100,000Unit/gm Cream [Mycostatin Cream] 1 applic TOPICAL BID 14 Days #1 each 02/14/24 [Rx] Follow up Appointment(s)/Referral(s): Giana Lombardi DO [Primary Care Provider] - 1-2 days Discharge Disposition: HOME SELF-CARE
[2024-02-14 22:00] VITALS: BP 100/62; PULSE 93; RESP 16; TEMP 97.7
== END 2024-02-14 17:20 | disposition home or self-care (01) ==
LOC: SUPCPDRO 12:29 → EC 12:29 → 4SSUR 13:11 → INTOOBSV 13:11 → 4SSUR 17:28 → UNDODISIN 02-14 17:20
PROVIDERS: ADMIT Internal Medicine; ATTEND Internal Medicine
DX: L03.312 Cellulitis of back [any part except buttock and flank] (principal); B36.9 Superficial mycosis, unspecified; F41.9 Anxiety disorder, unspecified; J43.9 Emphysema, unspecified; M19.90 Unspecified osteoarthritis, unspecified site; Z79.51 Long term (current) use of inhaled steroids; Z79.82 Long term (current) use of aspirin; Z79.899 Other long term (current) drug therapy; Z87.891 Personal history of nicotine dependence; Z88.1 Allergy status to other antibiotic agents; Z88.0 Allergy status to penicillin; Z79.52 Long term (current) use of systemic steroids
CPT/HCPCS: 96366 ×4; 96372 ×5; 96365; 96367; 99285; 36415; 94660 ×4; 94640 ×8; 94760 ×3; 93005; 97162; 97165; 36410; 76937; 80053 ×2; 80048 ×3; 83605; 85025 ×5; 85610; 85730; 87040; 87070; 87205; 71045; 71046; G0378 ×5; J1644 ×5; J0696 ×5; J7512 ×4; J0736; 96361; 96375